=== PATIENT | female | born 1985 | race Hispanic/Latino ===

== ENCOUNTER 2023-01-02 14:16 | Emergency (ER) | payer OTHER ==
--- OUTSIDE RECORDS SUMMARY | 2023-01-02 14:37 | XMS REPORT | Continuity of Care Document ---
:1985 Author Organization [facility] t Address [address] [place] [address] Care Team Providers Name Role Phone JARED JOELLE Ospina Primary Care Physician Unavailable JAMEY TRIVEDI Attending Clinician Unavailable VLADIMIR LOPEZ Attending Clinician Unavailable Doctor Unassigned, [place] Attending Clinician Unavailable Sallie Pickett PA-C Attending Clinician Terri De Leon Attending Clinician Elizabeth PhD, Mireya Ospina Attending Clinician SALLIE PICKETT Attending Clinician Unavailable CESAR LERNER Attending Clinician Unavailable CESAR LERNER Attending Clinician Unavailable Cesar Lerner MD Attending Clinician EMMANUELLE MEAD Attending Clinician Unavailable RADIOLOGY Attending Clinician Unavailable Radiology Attending Clinician Unavailable Navi White Attending Clinician NAVI OAKES Attending Clinician Unavailable Paco Nance DO Attending Clinician LINDSAY MCALLISTER Attending Clinician Unavailable Lindsay Mcallister PA-C Attending Clinician HUBER MERCER Attending Clinician Unavailable Mckayla Ware MD Attending Clinician MCKAYLA WARE Attending Clinician Unavailable YANN, CESAR GENE Admitting Clinician Unavailable TAO CINTRON Admitting Clinician Unavailable NAVI OAKES Admitting Clinician Unavailable Payers Payer Name Policy Type Policy Number Effective Date Expiration Date Heath LEAVITT [id number] 2018 HEALTH 00:00:00 Problems Condition Condition Condition Status Onset Resolution Last Treating Co mments Source Name Details Category Date Date Treatment Clinician Date Presence Presence Disease Active Unive rs of of 52 of of 52 3-20 ity of mg mg 00:00: [place] levonorges levonorges 00 Me dical trel-relea trel-relea Br anch sing sing intrauteri intrauteri ne device ne device (IUD) (IUD) Obesity Obesity Disease Active Univers (BMI (BMI 8-24 ity of 30.0-34.9) 30.0-34.9[place] [facility] History of History of Disease Active U nivers tubal tubal 8-24 ity of ligation ligation 00:00: [place] [id number] Medical Branch Elevated Elevated Disease Active Unive rs blood blood 8-24 ity of pressure pressure 00:00: [place] reading reading 00 Medical without without Branch diagnosis diagnosis of of hypertensi hypertensi on on ASCUS of ASCUS of Disease Active Overview: Un quentin cervix cervix 8-24 Formatt[place] ity of with with 00:00: g of this [place] negative negative 00 note Medica l high risk high risk might be Br anch HPV HPV different from the original. Routine screening in 3 yrs Allergies, Adverse Reactions, Alerts Allergy Allergy Status Severity Reaction(s) Onset Inactive Treating Comm ents Source Name Type Date Date Clinician NO KNOWN Drug Active Univers ALLERGIE Class ity of S [facility] Social History Social Habit Start Date Stop Date Quantity Comments Source Exposure to 2022-05-13 2022-05-23 Not sure [facility] SARS-CoV-2 (event) 00:00:00 08:53:00 Medica l Branch Alcohol intake 2022-05-23 2022-05-23 0 [facility]d [facility] 00:[facility]:00 00:00:00 Medical Branch Sex Ass[birth year] At [birth year] [facility] [place] [facility] Medical Branch Smoking Status Start Date Stop Date Source Never smoked tobacco [facility] Medications Ordered Filled Start Stop Current Ordering Indication Dosage Frequency Signature Comments Components Source Medication Medication Date Date Medication? Clinician (SIG) Name Name HYDROCHLORO 2021-0 No T TAB 25MG 05-08 00:00: 00 HYDROCHLORO 2021-0 No T TAB 25MG 05-08 00:00: 00 Dose 2-0 No Unknown 05-08 00:00: 00 HYDROCHLORO 2021-0 No T TAB 25MG 05-08 00:00: 00 losartan 25 2021-0 Yes 25mg Take 25 mg Univers mg tablet 8-24 by mouth ity of 00:00: in the [place] 00 morning. Medical Branch hydroCHLORO 2021-0 Yes 25mg Take 25 mg Univers thiazide 25 8-24 by mouth ity of mg tablet 00:00: in the [place] 00 morning. Medical Branch losartan 25 2021-0 Yes 25mg Take 25 mg Univers mg tablet 8-24 by mouth ity of 00:00: in the [place] 00 morning. Medical Branch hydroCHLORO 2021-0 Yes 25mg Take 25 mg Univers thiazide 25 8-24 by mouth ity of mg tablet 00:00: in the [place] 00 morning. Medical Branch losartan 25 2021-0 Yes 25mg Take 25 mg Univers mg tablet 8-24 by mouth ity of 00:00: in the [place] 00 morning. Medical Branch hydroCHLORO 2-0 Yes 25mg Take 25 mg Univers thiazide 25 8-24 by mouth ity of mg tablet 00:00: in the [place] 00 morning. Medical Branch losartan 25 2021-0 Yes 25mg Take 25 mg Univers mg tablet 8-24 by mouth ity of 00:00: in the [place] 00 morning. Medical Branch hydroCHLORO 2-0 Yes 25mg Take 25 mg Univers thiazide 25 8-24 by mouth ity of mg tablet 00:00: in the [place] 00 morning. Medical Branch &lt 2-0 No 10 8-16 00:00: 00 Dose 2022-0 No 25 Unknown 8-16 00:00: 00 &lt 2022-0 No 10 8-16 00:00: 00 Dose 2022-0 No 25 Unknown 8-16 00:00: 00 &lt 2022-0 No 10 8-16 00:00: 00 Dose 2022-0 No 25 Unknown 8-16 00:00: 00 &lt 2022-0 No 10 8-16 00:00: 00 Dose 2022-0 No 25 Unknown 8-16 00:00: 00 &lt 2022-0 No 7-17 00:00: 00 &lt 2022-0 No 7-17 00:00: 00 &lt 2022-0 No 7-17 00:00: 00 &lt 2022-0 No 7-17 00:00: 00 &lt 2022-0 No 7-17 00:00: 00 &lt 2022-0 No 7-15 00:00: 00 TAKE 1 2022-0 No TABLET BY 7-15 MOUTH EVERY 00:00: 4 (FOUR) 00 HOURS NEEDED FOR PAIN (SCALE 7-10). INDICATIONS : ACUTE PAIN &lt 2022-0 No 25 7-15 00:00: 00 &lt 2022-0 No 7-15 00:00: 00 TAKE 1 2022-0 No TABLET BY 7-15 MOUTH EVERY 00:00: 4 (FOUR) 00 HOURS NEEDED FOR PAIN (SCALE 7-10). INDICATIONS : ACUTE PAIN SWISH AND 2022-0 No SPIT OUT 15 7-15 ML 2 (TWO) 00:00: TIMES 00 DAILY. Dose 2022-0 No Unknown 7-15 00:00: 00 &lt 2022-0 No 7-15 00:00: 00 TAKE 1 2022-0 No TABLET BY 7-15 MOUTH EVERY 00:00: 4 (FOUR) 00 HOURS NEEDED FOR PAIN (SCALE 7-10). INDICATIONS : ACUTE PAIN &lt 2022-0 No 25 7-15 00:00: 00 &lt 2022-0 No 7-15 00:00: 00 TAKE 1 2022-0 No TABLET BY 7-15 MOUTH EVERY 00:00: 4 (FOUR) 00 HOURS NEEDED FOR PAIN (SCALE 7-10). INDICATIONS : ACUTE PAIN SWISH AND 2022-0 No SPIT OUT 15 7-15 ML 2 (TWO) 00:00: TIMES 00 DAILY. Dose 2022-0 No Unknown 7-15 00:00: 00 &lt 2022-0 No 7-15 00:00: 00 TAKE 1 2022-0 No TABLET BY 7-15 MOUTH EVERY 00:00: 4 (FOUR) 00 HOURS NEEDED FOR PAIN (SCALE 7-10). INDICATIONS : ACUTE PAIN &lt 2022-0 No 25 7-15 00:00: 00 &lt 2022-0 No 7-15 00:00: 00 TAKE 1 2022-0 No TABLET BY 7-15 MOUTH EVERY 00:00: 4 (FOUR) 00 HOURS NEEDED FOR PAIN (SCALE 7-10). INDICATIONS : ACUTE PAIN SWISH AND 2022-0 No SPIT OUT 15 7-15 ML 2 (TWO) 00:00: TIMES 00 DAILY. Dose 2022-0 No Unknown 7-15 00:00: 00 &lt 2022-0 No 7-15 00:00: 00 TAKE 1 2022-0 No TABLET BY 7-15 MOUTH EVERY 00:00: 4 (FOUR) 00 HOURS NEEDED FOR PAIN (SCALE 7-10). INDICATIONS : ACUTE PAIN &lt 2022-0 No 25 7-15 00:00: 00 &lt 2022-0 No 7-15 00:00: 00 TAKE 1 2022-0 No TABLET BY 7-15 MOUTH EVERY 00:00: 4 (FOUR) 00 HOURS NEEDED FOR PAIN (SCALE 7-10). INDICATIONS : ACUTE PAIN SWISH AND 2022-0 No SPIT OUT 15 7-15 ML 2 (TWO) 00:00: TIMES 00 DAILY. Dose 2022-0 No Unknown 7-15 00:00: 00 &lt 2022-0 No 7-15 00:00: 00 TAKE 1 2022-0 No TABLET BY 7-15 MOUTH EVERY 00:00: 4 (FOUR) 00 HOURS NEEDED FOR PAIN (SCALE 7-10). INDICATIONS : ACUTE PAIN &lt 2022-0 No 25 7-15 00:00: 00 &lt 2022-0 No 7-15 00:00: 00 TAKE 1 2022-0 No TABLET BY 7-15 MOUTH EVERY 00:00: 4 (FOUR) 00 HOURS NEEDED FOR PAIN (SCALE 7-10). INDICATIONS : ACUTE PAIN SWISH AND 2022-0 No SPIT OUT 15 7-15 ML 2 (TWO) 00:00: TIMES 00 DAILY. Dose 2022-0 No Unknown 7-15 00:00: 00 &lt 2022-0 No 10 7-14 00:00: 00 TAKE 1 2022-0 No 10 TABLET BY 7-14 MOUTH EVERY 00:00: DAY 00 TAKE 1 2022-0 No TABLET BY 7-14 MOUTH EVERY 00:00: 4 (FOUR) 00 HOURS NEEDED FOR PAIN (SCALE 7-10). INDICATIONS : ACUTE PAIN &lt 2022-0 No 25 7-14 00:00: 00 &lt 2022-0 No 500 7-14 00:00: 00 &lt 2022-0 No 10 7-14 00:00: 00 TAKE 1 2022-0 No 10 TABLET BY 7-14 MOUTH EVERY 00:00: DAY 00 TAKE 1 2022-0 No TABLET BY 7-14 MOUTH EVERY 00:00: 4 (FOUR) 00 HOURS NEEDED FOR PAIN (SCALE 7-10). INDICATIONS : ACUTE PAIN &lt 2022-0 No 25 7-14 00:00: 00 &lt 2022-0 No 500 7-14 00:00: 00 &lt 2022-0 No 10 7-14 00:00: 00 TAKE 1 2022-0 No 10 TABLET BY 7-14 MOUTH EVERY 00:00: DAY 00 TAKE 1 2022-0 No TABLET BY 7-14 MOUTH EVERY 00:00: 4 (FOUR) 00 HOURS NEEDED FOR PAIN (SCALE 7-10). INDICATIONS : ACUTE PAIN &lt 2022-0 No 25 7-14 00:00: 00 &lt 2022-0 No 500 7-14 00:00: 00 &lt 2022-0 No 10 7-14 00:00: 00 TAKE 1 2022-0 No 10 TABLET BY 7-14 MOUTH EVERY 00:00: DAY 00 TAKE 1 2022-0 No TABLET BY 7-14 MOUTH EVERY 00:00: 4 (FOUR) 00 HOURS NEEDED FOR PAIN (SCALE 7-10). INDICATIONS : ACUTE PAIN &lt 2022-0 No 25 7-14 00:00: 00 &lt 2022-0 No 500 7-14 00:00: 00 &lt 2022-0 No 10 7-14 00:00: 00 TAKE 1 2022-0 No 10 TABLET BY 7-14 MOUTH EVERY 00:00: DAY 00 TAKE 1 2022-0 No TABLET BY 7-14 MOUTH EVERY 00:00: 4 (FOUR) 00 HOURS NEEDED FOR PAIN (SCALE 7-10). INDICATIONS : ACUTE PAIN &lt 2022-0 No 25 7-14 00:00: 00 &lt 2022-0 No 500 7-14 00:00: 00 &lt 2022-0 No 25 7-08 00:00: 00 &lt 2022-0 No 25 7-08 00:00: 00 &lt 2022-0 No 25 7 00:00: 00 &lt 2022-0 No 25 7 00:00: 00 &lt 2022-0 No 25 7 00:00: 00 TAKE 1 2-0 No TABLET BY 6-28 MOUTH EVERY 00:00: 4 (FOUR) 00 HOURS NEEDED FOR PAIN (SCALE 7-10). INDICATIONS : ACUTE PAIN TAKE 1 2-0 No TABLET BY 6-28 MOUTH EVERY 00:00: 4 (FOUR) 00 HOURS NEEDED FOR PAIN (SCALE 7-10). INDICATIONS : ACUTE PAIN TAKE 1 2022-0 No TABLET BY 6-28 MOUTH EVERY 00:00: 4 (FOUR) 00 HOURS NEEDED FOR PAIN (SCALE 7-10). INDICATIONS : ACUTE PAIN TAKE 1 2022-0 No TABLET BY 6-28 MOUTH EVERY 00:00: 4 (FOUR) 00 HOURS NEEDED FOR PAIN (SCALE 7-10). INDICATIONS : ACUTE PAIN TAKE 1 2-0 No TABLET BY 6-28 MOUTH EVERY 00:00: 4 (FOUR) 00 HOURS NEEDED FOR PAIN (SCALE 7-10). INDICATIONS : ACUTE PAIN losartan 25 2022-0 No 1mg mg tablet 5-11 00:00: 00 losartan 25 2022-0 No 1mg mg tablet 5-11 00:00: 00 losartan 25 2022-0 No 1mg mg tablet 5-11 00:00: 00 losartan 25 2022-0 No 1mg mg tablet 5-11 00:00: 00 losartan 25 2022-0 No 1mg mg tablet 5-11 00:00: 00 Dose 2022-0 No Unknown 4-15 00:00: 00 Dose 2022-0 No Unknown 4-15 00:00: 00 Dose 2022-0 No Unknown 4-15 00:00: 00 Dose 2022-0 No Unknown 4-15 00:00: 00 Dose 2022-0 No Unknown 4-15 00:00: 00 Dose 2022-0 No Unknown 3-19 00:00: 00 Dose 2022-0 No Unknown 3-19 00:00: 00 Dose 2022-0 No Unknown 3-19 00:00: 00 Dose 2022-0 No Unknown 3-19 00:00: 00 Dose 2022-0 No Unknown 3-19 00:00: 00 Dose 2022-0 No Unknown 3-19 00:00: 00 Dose 2022-0 No Unknown 3-19 00:00: 00 Dose 2022-0 No Unknown 3-19 00:00: 00 Dose 2022-0 No Unknown 3-19 00:00: 00 Dose 2022-0 No Unknown 3-19 00:00: 00 Dose 2022-0 No Unknown 3-19 00:00: 00 Dose 2022-0 No Unknown 3-19 00:00: 00 Dose 2022-0 No Unknown 3-19 00:00: 00 Dose 2022-0 No Unknown 3-19 00:00: 00 Dose 2022-0 No Unknown 3-19 00:00: 00 Dose 2022-0 No Unknown 3-19 00:00: 00 Dose 2022-0 No Unknown 3-19 00:00: 00 Dose 2022-0 No Unknown 3-19 00:00: 00 Dose 2022-0 No Unknown 3-19 00:00: 00 Dose 2022-0 No Unknown 3-19 00:00: 00 loratadine 2-0 No 1mg 10 mg 3-16 tablet 00:00: 00 losartan 25 2022-0 No 1mg mg tablet 3-16 00:00: 00 hydrochloro 2022-0 No 1mg thiazide 25 3-16 mg tablet 00:00: 00 Dose 2022-0 No Unknown 3-16 00:00: 00 Dose 2022-0 No Unknown 3-16 00:00: 00 Dose 2022-0 No Unknown 3-16 00:00: 00 Dose 2022-0 No Unknown 3-16 00:00: 00 Dose 2022-0 No Unknown 3-16 00:00: 00 Dose 2022-0 No Unknown 3-16 00:00: 00 Dose 2022-0 No Unknown 3-16 00:00: 00 Dose 2022-0 No Unknown 3-16 00:00: 00 Dose 2022-0 No Unknown 3-16 00:00: 00 Dose 2022-0 No Unknown 3-16 00:00: 00 Dose 2022-0 No Unknown 3-16 00:00: 00 Dose 2022-0 No Unknown 3-16 00:00: 00 Dose 2022-0 No Unknown 3-16 00:00: 00 Dose 2022-0 No Unknown 3-16 00:00: 00 Dose 2022-0 No Unknown 3-16 00:00: 00 Dose 2022-0 No Unknown 3-16 00:00: 00 Dose 2022-0 No Unknown 3-16 00:00: 00 Dose 2022-0 No Unknown 3-16 00:00: 00 Dose 2022-0 No Unknown 3-16 00:00: 00 Dose 2022-0 No Unknown 3-16 00:00: 00 Dose 2022-0 No Unknown 3-16 00:00: 00 Dose 2022-0 No Unknown 3-16 00:00: 00 Dose 2022-0 No Unknown 3-16 00:00: 00 Dose 2022-0 No Unknown 3-16 00:00: 00 Dose 2022-0 No Unknown 3-16 00:00: 00 Dose 2022-0 No Unknown 3-16 00:00: 00 Dose 2022-0 No Unknown 3-16 00:00: 00 Dose 2022-0 No Unknown 3-16 00:00: 00 Dose 2022-0 No Unknown 3-16 00:00: 00 Dose 2022-0 No Unknown 3-16 00:00: 00 loratadine 2-0 No 1mg 10 mg 3-16 tablet 00:00: 00 losartan 25 2022-0 No 1mg mg tablet 3-16 00:00: 00 hydrochloro 2022-0 No 1mg thiazide 25 3-16 mg tablet 00:00: 00 Dose 2022-0 No Unknown 3-16 00:00: 00 Dose 2022-0 No Unknown 3-16 00:00: 00 Dose 2022-0 No Unknown 3-16 00:00: 00 Dose 2022-0 No Unknown 3-16 00:00: 00 Dose 2022-0 No Unknown 3-16 00:00: 00 Dose 2022-0 No Unknown 3-16 00:00: 00 Dose 2022-0 No Unknown 3-16 00:00: 00 Dose 2022-0 No Unknown 3-16 00:00: 00 Dose 2022-0 No Unknown 3-16 00:00: 00 Dose 2022-0 No Unknown 3-16 00:00: 00 Dose 2022-0 No Unknown 3-16 00:00: 00 Dose 2022-0 No Unknown 3-16 00:00: 00 Dose 2022-0 No Unknown 3-16 00:00: 00 Dose 2022-0 No Unknown 3-16 00:00: 00 Dose 2022-0 No Unknown 3-16 00:00: 00 Dose 2022-0 No Unknown 3-16 00:00: 00 Dose 2022-0 No Unknown 3-16 00:00: 00 Dose 2022-0 No Unknown 3-16 00:00: 00 Dose 2022-0 No Unknown 3-16 00:00: 00 Dose 2022-0 No Unknown 3-16 00:00: 00 Dose 2022-0 No Unknown 3-16 00:00: 00 Dose 2022-0 No Unknown 3-16 00:00: 00 Dose 2022-0 No Unknown 3-16 00:00: 00 Dose 2022-0 No Unknown 3-16 00:00: 00 Dose 2022-0 No Unknown 3-16 00:00: 00 Dose 2022-0 No Unknown 3-16 00:00: 00 Dose 2022-0 No Unknown 3-16 00:00: 00 Dose 2022-0 No Unknown 3-16 00:00: 00 Dose 2022-0 No Unknown 3-16 00:00: 00 Dose 2022-0 No Unknown 3-16 00:00: 00 loratadine 2022-0 No 1mg 10 mg 3-16 tablet 00:00: 00 losartan 25 2022-0 No 1mg mg tablet 3-16 00:00: 00 hydrochloro 2022-0 No 1mg thiazide 25 3-16 mg tablet 00:00: 00 Dose 2022-0 No Unknown 3-16 00:00: 00 Dose 2022-0 No Unknown 3-16 00:00: 00 Dose 2022-0 No Unknown 3-16 00:00: 00 Dose 2022-0 No Unknown 3-16 00:00: 00 Dose 2022-0 No Unknown 3-16 00:00: 00 Dose 2022-0 No Unknown 3-16 00:00: 00 Dose 2022-0 No Unknown 3-16 00:00: 00 Dose 2022-0 No Unknown 3-16 00:00: 00 Dose 2022-0 No Unknown 3-16 00:00: 00 Dose 2022-0 No Unknown 3-16 00:00: 00 Dose 2022-0 No Unknown 3-16 00:00: 00 Dose 2022-0 No Unknown 3-16 00:00: 00 Dose 2022-0 No Unknown 3-16 00:00: 00 Dose 2022-0 No Unknown 3-16 00:00: 00 Dose 2022-0 No Unknown 3-16 00:00: 00 Dose 2022-0 No Unknown 3-16 00:00: 00 Dose 2022-0 No Unknown 3-16 00:00: 00 Dose 2022-0 No Unknown 3-16 00:00: 00 Dose 2022-0 No Unknown 3-16 00:00: 00 Dose 2022-0 No Unknown 3-16 00:00: 00 loratadine 2022-0 No 1mg 10 mg 3-16 tablet 00:00: 00 losartan 25 2022-0 No 1mg mg tablet 3-16 00:00: 00 hydrochloro 2022-0 No 1mg thiazide 25 3-16 mg tablet 00:00: 00 Dose 2022-0 No Unknown 3-16 00:00: 00 Dose 2022-0 No Unknown 3-16 00:00: 00 Dose 2022-0 No Unknown 3-16 00:00: 00 Dose 2022-0 No Unknown 3-16 00:00: 00 Dose 2022-0 No Unknown 3-16 00:00: 00 Dose 2022-0 No Unknown 3-16 00:00: 00 Dose 2022-0 No Unknown 3-16 00:00: 00 Dose 2022-0 No Unknown 3-16 00:00: 00 Dose 2022-0 No Unknown 3-16 00:00: 00 Dose 2022-0 No Unknown 3-16 00:00: 00 Dose 2022-0 No Unknown 3-16 00:00: 00 Dose 2022-0 No Unknown 3-16 00:00: 00 Dose 2022-0 No Unknown 3-16 00:00: 00 Dose 2022-0 No Unknown 3-16 00:00: 00 Dose 2022-0 No Unknown 3-16 00:00: 00 Dose 2022-0 No Unknown 3-16 00:00: 00 Dose 2022-0 No Unknown 3-16 00:00: 00 Dose 2022-0 No Unknown 3-16 00:00: 00 Dose 2022-0 No Unknown 3-16 00:00: 00 Dose 2022-0 No Unknown 3-16 00:00: 00 Dose 2022-0 No Unknown 3-16 00:00: 00 Dose 2022-0 No Unknown 3-16 00:00: 00 Dose 2022-0 No Unknown 3-16 00:00: 00 Dose 2022-0 No Unknown 3-16 00:00: 00 Dose 2022-0 No Unknown 3-16 00:00: 00 Dose 2022-0 No Unknown 3-16 00:00: 00 Dose 2022-0 No Unknown 3-16 00:00: 00 Dose 2022-0 No Unknown 3-16 00:00: 00 Dose 2022-0 No Unknown 3-16 00:00: 00 Dose 2022-0 No Unknown 3-16 00:00: 00 Dose 2022-0 No Unknown 3-16 00:00: 00 Dose 2022-0 No Unknown 3-16 00:00: 00 Dose 2022-0 No Unknown 3-16 00:00: 00 Dose 2022-0 No Unknown 3-16 00:00: 00 Dose 2022-0 No Unknown 3-16 00:00: 00 Dose 2022-0 No Unknown 3-16 00:00: 00 Dose 2022-0 No Unknown 3-16 00:00: 00 Dose 2022-0 No Unknown 3-16 00:00: 00 Dose 2022-0 No Unknown 3-16 00:00: 00 Dose 2022-0 No Unknown 3-16 00:00: 00 loratadine 2-0 No 1mg 10 mg 3-16 tablet 00:00: 00 losartan 25 2-0 No 1mg mg tablet 3-16 00:00: 00 hydrochloro 2022-0 No 1mg thiazide 25 3-16 mg tablet 00:00: 00 Dose 2022-0 No Unknown 3-16 00:00: 00 Dose 2022-0 No Unknown 3-16 00:00: 00 Dose 2022-0 No Unknown 3-16 00:00: 00 Dose 2022-0 No Unknown 3-16 00:00: 00 Dose 2022-0 No Unknown 3-16 00:00: 00 Dose 2022-0 No Unknown 3-16 00:00: 00 Dose 2022-0 No Unknown 3-16 00:00: 00 Dose 2022-0 No Unknown 3-16 00:00: 00 Dose 2022-0 No Unknown 3-16 00:00: 00 Dose 2022-0 No Unknown 3-16 00:00: 00 Dose 2022-0 No Unknown 3-16 00:00: 00 Dose 2022-0 No Unknown 3-16 00:00: 00 Dose 2022-0 No Unknown 3-16 00:00: 00 Dose 2022-0 No Unknown 3-16 00:00: 00 Dose 2022-0 No Unknown 3-16 00:00: 00 Dose 2022-0 No Unknown 3-16 00:00: 00 Dose 2022-0 No Unknown 3-16 00:00: 00 Dose 2022-0 No Unknown 3-16 00:00: 00 Dose 2022-0 No Unknown 3-16 00:00: 00 Dose 2022-0 No Unknown 3-16 00:00: 00 Dose 2022-0 No Unknown 3-16 00:00: 00 Dose 2022-0 No Unknown 3-16 00:00: 00 Dose 2022-0 No Unknown 3-16 00:00: 00 Dose 2022-0 No Unknown 3-16 00:00: 00 Dose 2022-0 No Unknown 3-16 00:00: 00 Dose 2022-0 No Unknown 3-16 00:00: 00 Dose 2022-0 No Unknown 3-16 00:00: 00 Dose 2022-0 No Unknown 3-16 00:00: 00 Dose 2022-0 No Unknown 3-16 00:00: 00 Dose 2022-0 No Unknown 3-16 00:00: 00 lisinopril 1-1 No 1mg 20 1-03 mg-hydrochl 00:00: orothiazide 00 25 mg tablet lisinopril 1-1 No 1mg 20 1-03 mg-hydrochl 00:00: orothiazide 00 25 mg tablet lisinopril 1-1 No 1mg 20 1-03 mg-hydrochl 00:00: orothiazide 00 25 mg tablet lisinopril 1-1 No 1mg 20 1-03 mg-hydrochl 00:00: orothiazide 00 25 mg tablet lisinopril 1-1 No 1mg 20 1-03 mg-hydrochl 00:00: orothiazide 00 25 mg tablet lisinopril 1-1 No 1mg 10 0-26 mg-hydrochl 00:00: orothiazide 00 12.5 mg tablet ergocalcife 2020-1 No 1(50,00 rol 0-26 0 unit) (vitamin 00:00: D2) 1,250 00 mcg (50,000 unit) capsule lisinopril 2020-1 No 1mg 10 0-26 mg-hydrochl 00:00: orothiazide 00 12.5 mg tablet ergocalcife 2020-1 No 1(50,00 rol 0-26 0 unit) (vitamin 00:00: D2) 1,250 00 mcg (50,000 unit) capsule lisinopril 2020-1 No 1mg 10 0-26 mg-hydrochl 00:00: orothiazide 00 12.5 mg tablet ergocalcife 2020-1 No 1(50,00 rol 0-26 0 unit) (vitamin 00:00: D2) 1,250 00 mcg (50,000 unit) capsule lisinopril 2020-08 No 1mg 10 0-26 mg-hydrochl 00:00: orothiazide 00 12.5 mg tablet ergocalcife 2020-1 No 1(50,00 rol 0-26 0 unit) (vitamin 00:00: D2) 1,250 00 mcg (50,000 unit) capsule lisinopril 2020-08 No 1mg 10 0-26 mg-hydrochl 00:00: orothiazide 00 12.5 mg tablet ergocalcife 2020-1 No 1(50,00 rol 0-26 0 unit) (vitamin 00:00: D2) 1,250 00 mcg (50,000 unit) capsule fluticasone 0 No 2mcg/ac propionate 9-20 tuation 50 00:00: mcg/actuati 00 on nasal spray,suspe nsion fluticasone 0 No 2mcg/ac propionate 9-20 tuation 50 00:00: mcg/actuati 00 on nasal spray,suspe nsion fluticasone 2020-0 No 2mcg/ac propionate 9-20 tuation 50 00:00: mcg/actuati 00 on nasal spray,suspe nsion fluticasone 2020-0 No 2mcg/ac propionate 9-20 tuation 50 00:00: mcg/actuati 00 on nasal spray,suspe nsion fluticasone 0 No 2mcg/ac propionate 9-20 tuation 50 00:00: mcg/actuati 00 on nasal spray,suspe nsion Generlac 10 0 No 30gram/ gram/15 mL 9-13 15 mL oral 00:00: solution 00 Generlac 10 1-0 No 30gram/ gram/15 mL 9-13 15 mL oral 00:00: solution 00 Generlac 10 1-0 No 30gram/ gram/15 mL 9-13 15 mL oral 00:00: solution 00 Generlac 10 1-0 No 30gram/ gram/15 mL 9-13 15 mL oral 00:00: solution 00 Generlac 10 2020-0 No 30gram/ gram/15 mL 9-13 15 mL oral 00:00: solution 00 chlorhexidi 2020-0 Yes [id number] 15mL Swish and Univers ne 0.12 % 9-08 spit out ity of mouthwash 00:00: 15 mL 2 [place] 00 (two) Medical times Branch daily. acetaminoph 0 Yes [id number] 1{tbl} Take 1 Un quentin en-codeine 9-08 tablet by ity of 300-30 mg 00:00: mouth [place] tablet 00 every 4 Medical (four) Branch hours as needed for Pain (scale 7-10). Indication s: acute pain chlorhexidi Yes [id number] 15mL Swish and Univers ne 0.12 % 9-08 spit out ity of mouthwash 00:00: 15 mL 2 [place] 00 (two) Medical times Branch daily. acetaminoph 0 Yes [id number] 1{tbl} Take 1 Un quentin en-codeine 9-08 tablet by ity of 300-30 mg 00:00: mouth [place] tablet 00 every 4 Medical (four) Branch hours as needed for Pain (scale 7-10). Indication s: acute pain chlorhexidi 0 Yes [id number] 15mL Swish and Univers ne 0.12 % 9-08 spit out ity of mouthwash 00:00: 15 mL 2 [place] 00 (two) Medical times Branch daily. acetaminoph 2020-0 Yes [id number] 1{tbl} Take 1 Un quentin en-codeine 9-08 tablet by ity of 300-30 mg 00:00: mouth [place] tablet 00 every 4 Medical (four) Branch hours as needed for Pain (scale 7-10). Indication s: acute pain chlorhexidi 2020-0 Yes [id number] 15mL Swish and Univers ne 0.12 % 9-08 spit out ity of mouthwash 00:00: 15 mL 2 [place] 00 (two) Medical times Branch daily. acetaminoph 2020-0 Yes [id number] 1{tbl} Take 1 Un quentin en-codeine 9-08 tablet by ity of 300-30 mg 00:00: mouth [place] tablet 00 every 4 Medical (four) Branch hours as needed for Pain (scale 7-10). Indication s: acute pain chlorhexidi 2020-0 Yes [id number] 15mL Swish and Univers ne 0.12 % 9-08 spit out ity of mouthwash 00:00: 15 mL 2 [place] 00 (two) Medical times Branch daily. acetaminoph 2020-0 Yes [id number] 1{tbl} Take 1 Un quentin en-codeine 9-08 tablet by ity of 300-30 mg 00:00: mouth [place] tablet 00 every 4 Medical (four) Branch hours as needed for Pain (scale 7-10). Indication s: acute pain chlorhexidi 2020-0 Yes [id number] 15mL [facility] ne 0.12 % 9-08 spit out ity of mouthwash 00:00: 15 mL 2 [place] 00 (two) Medical times Branch daily. acetaminoph 2020-0 Yes [id number] 1{tbl} Take 1 Un quentin en-codeine 9-08 tablet by ity of 300-30 mg 00:00: mouth [place] tablet 00 every 4 Medical (four) Branch hours as needed for Pain (scale 7-10). Indication s: acute pain Claritin 10 0 No 1mg mg tablet 04-10 00:00: 00 fluticasone 1-0 No 2mcg/ac propionate 04-10 tuation 50 00:00: mcg/actuati 00 on nasal spray,suspe nsion Claritin 10 2020-0 No 1mg mg tablet 04-10 00:00: 00 fluticasone 2020-0 No 2mcg/ac propionate 04-10 tuation 50 00:00: mcg/actuati 00 on nasal spray,suspe nsion Claritin 10 2020-0 No 1mg mg tablet 04-10 00:00: 00 fluticasone 2020-0 No 2mcg/ac propionate 04-10 tuation 50 00:00: mcg/actuati 00 on nasal spray,suspe nsion Claritin 10 2020-0 No 1mg mg tablet 04-10 00:00: 00 fluticasone 2020-0 No 2mcg/ac propionate 04-10 tuation 50 00:00: mcg/actuati 00 on nasal spray,suspe nsion Claritin 10 2020-0 No 1mg mg tablet 04-10 00:00: 00 fluticasone 2020-0 No 2mcg/ac propionate 04-10 tuation 50 00:00: mcg/actuati 00 on nasal spray,suspe nsion Generlac 10 2020-0 No 30gram/ gram/15 mL 7-18 15 mL oral 00:00: solution 00 Generlac 10 2020-0 No 30gram/ gram/15 mL 7-18 15 mL oral 00:00: solution 00 Generlac 10 2020-0 No 30gram/ gram/15 mL 7-18 15 mL oral 00:00: solution 00 Generlac 10 1-0 No 30gram/ gram/15 mL 7-18 15 mL oral 00:00: solution 00 Generlac 10 1-0 No 30gram/ gram/15 mL 7-18 15 mL oral 00:00: solution 00 loratadine 1-0 No 1mg 10 mg 7-02 tablet 00:00: 00 Generlac 10 1-0 No 30gram/ gram/15 mL 7-02 15 mL oral 00:00: solution 00 loratadine 1-0 No 1mg 10 mg 7-02 tablet 00:00: 00 Generlac 10 1-0 No 30gram/ gram/15 mL 7-02 15 mL oral 00:00: solution 00 loratadine 1-0 No 1mg 10 mg 7-02 tablet 00:00: 00 Generlac 10 1-0 No 30gram/ gram/15 mL 7-02 15 mL oral 00:00: solution 00 loratadine 1-0 No 1mg 10 mg 7-02 tablet 00:00: 00 Generlac 10 1-0 No 30gram/ gram/15 mL 7-02 15 mL oral 00:00: solution 00 loratadine 1-0 No 1mg 10 mg 7-02 tablet 00:00: 00 Generlac 10 2021-0 No 30gram/ gram/15 mL 7-02 15 mL oral 00:00: solution 00 lisinopril 2021-0 No 1mg 10 3-12 mg-hydrochl 00:00: orothiazide 00 12.5 mg tablet lisinopril 2021-0 No 1mg 10 3-12 mg-hydrochl 00:00: orothiazide 00 12.5 mg tablet lisinopril 2021-0 No 1mg 10 3-12 mg-hydrochl 00:00: orothiazide 00 12.5 mg tablet lisinopril 2021-0 No 1mg 10 3-12 mg-hydrochl 00:00: orothiazide 00 12.5 mg tablet lisinopril 1-0 No 1mg 10 3-12 mg-hydrochl 00:00: orothiazide 00 12.5 mg tablet lisinopril 2021-0 No 1mg 10 2-12 mg-hydrochl 00:00: orothiazide 00 12.5 mg tablet lisinopril 2021-0 No 1mg 10 2-12 mg-hydrochl 00:00: orothiazide 00 12.5 mg tablet lisinopril 1-0 No 1mg 10 2-12 mg-hydrochl 00:00: orothiazide 00 12.5 mg tablet lisinopril 1-0 No 1mg 10 2-12 mg-hydrochl 00:00: orothiazide 00 12.5 mg tablet lisinopril 1-0 No 1mg 10 2-12 mg-hydrochl 00:00: orothiazide 00 12.5 mg tablet levothyroxi 2021-0 No 1mcg ne 25 mcg 1-11 tablet 00:00: 00 levothyroxi 2021-0 No 1mcg ne 25 mcg 1-11 tablet 00:00: 00 levothyroxi 2021-0 No 1mcg ne 25 mcg 1-11 tablet 00:00: 00 levothyroxi 2021-0 No 1mcg ne 25 mcg 1-11 tablet 00:00: 00 levothyroxi 2021-0 No 1mcg ne 25 mcg 1-11 tablet 00:00: 00 levothyroxi 2021-0 No 1mcg ne 25 mcg 1-10 tablet 00:00: 00 levothyroxi 2021-0 No 1mcg ne 25 mcg 1-10 tablet 00:00: 00 levothyroxi 2021-0 No 1mcg ne 25 mcg 1-10 tablet 00:00: 00 levothyroxi 2021-0 No 1mcg ne 25 mcg 1-10 tablet 00:00: 00 levothyroxi 2021-0 No 1mcg ne 25 mcg 1-10 tablet 00:00: 00 gabapentin 2021-0 No 1mg 300 mg 1-07 capsule 00:00: 00 gabapentin 2021-0 No 1mg 300 mg 1-07 capsule 00:00: 00 gabapentin 2021-0 No 1mg 300 mg 1-07 capsule 00:00: 00 gabapentin 2021-0 No 1mg 300 mg 1-07 capsule 00:00: 00 gabapentin 2021-0 No 1mg 300 mg 1-07 capsule 00:00: 00 Zithromax 2020-0 No 1mg 500 mg 8-14 tablet 00:00: 00 Zithromax 2020-0 No 1mg 500 mg 8-14 tablet 00:00: 00 Zithromax 2020-0 No 1mg 500 mg 8-14 tablet 00:00: 00 Zithromax 2020-0 No 1mg 500 mg 8-14 tablet 00:00: 00 Zithromax 2020-0 No 1mg 500 mg 8-14 tablet 00:00: 00 Flagyl 500 2020-0 No 1mg mg tablet 03-21 00:00: 00 Flagyl 500 2020-0 No 1mg mg tablet 03-21 00:00: 00 Flagyl 500 2020-0 No 1mg mg tablet 03-21 00:00: 00 Flagyl 500 2020-0 No 1mg mg tablet 03-21 00:00: 00 Flagyl 500 2020-0 No 1mg mg tablet 03-21 00:00: 00 NUVARING 2020-0 Yes [id number] 1{each} Insert 1 [facility] 0.12-0.015 4-23 Each into ity of mg/24 hr 00:00: vagina [place] vaginal 00 once every Medica l insert month. Branch Insert vaginally and leave in place for 3 consecutiv e weeks, then remove for 1 week. NUVARING 2020-0 Yes [id number] 1{each} Insert 1 [facility] 0.12-0.015 4-23 Each into ity of mg/24 hr 00:00: vagina [place] vaginal 00 once every Medica l insert month. Branch Insert vaginally and leave in place for 3 consecutiv e weeks, then remove for 1 week. NUVARING 2020-0 Yes [id number] 1{each} Insert 1 [facility] 0.12-0.015 4-23 Each into ity of mg/24 hr 00:00: vagina [place] vaginal 00 once every Medica l insert month. Branch Insert vaginally and leave in place for 3 consecutiv e weeks, then remove for 1 week. NUVARING 2020-0 Yes [id number] 1{each} Insert 1 [facility] 0.12-0.015 4-23 Each into ity of mg/24 hr 00:00: vagina [place] vaginal 00 once every Medica l insert month. Branch Insert vaginally and leave in place for 3 consecutiv e weeks, then remove for 1 week. NUVARING 2020-0 Yes [id number] 1{each} Insert 1 [facility] 0.12-0.015 4-23 Each into ity of mg/24 hr 00:00: vagina [place] vaginal 00 once every Medica l insert month. Branch Insert vaginally and leave in place for 3 consecutiv e weeks, then remove for 1 week. NUVARING 2020-0 Yes [id number] 1{each} Insert 1 [facility] 0.12-0.015 4-23 Each into ity of mg/24 hr 00:00: vagina [place] vaginal 00 once every Medica l insert month. Branch Insert vaginally and leave in place for 3 consecutiv e weeks, then remove for 1 week. gentamicin 2020-0 No 1% 0.3 % eye 2-04 drops 00:00: 00 gentamicin 2020-0 No 1% 0.3 % eye 2-04 drops 00:00: 00 gentamicin 2020-0 No 1% 0.3 % eye 2-04 drops 00:00: 00 gentamicin 2020-0 No 1% 0.3 % eye 2-04 drops 00:00: 00 gentamicin 2020-0 No 1% 0.3 % eye 2-04 drops 00:00: 00 phentermine 2020-0 Yes 37.5mg Take 37.5 [facility] 37.5 mg 1-21 mg by ity of capsule 15:53: mouth [place] 28 every Medical morning. [place] phentermine 2020-0 Yes 37.5mg Take 37.5 [facility] 37.5 mg 1-21 mg by ity of capsule 15:53: mouth [place] 28 every Medical morning. [place] phentermine 2020-0 Yes 37.5mg Take 37.5 [facility] 37.5 mg 1-21 mg by ity of capsule 15:53: mouth [place] 28 every Medical morning. Branch phentermine 2020-0 Yes 37.5mg Take 37.5 [facility] 37.5 mg 1-21 mg by ity of capsule 15:53: mouth [place] 28 every Medical morning. Branch phentermine 2020-0 Yes 37.5mg Take 37.5 [facility] 37.5 mg 1-21 mg by ity of capsule 15:53: mouth [place] 28 every Medical morning. Branch phentermine 2020-0 Yes 37.5mg Take 37.5 [facility] 37.5 mg 1-21 mg by ity of capsule 15:53: mouth [place] 28 every Medical morning. [place] lovastatin 2020-0 No 1mg 20 mg 1-15 tablet 00:00: 00 lovastatin 2020-0 No 1mg 20 mg 1-15 tablet 00:00: 00 lovastatin 2020-0 No 1mg 20 mg 1-15 tablet 00:00: 00 lovastatin 2020-0 No 1mg 20 mg 1-15 tablet 00:00: 00 lovastatin 2020-0 No 1mg 20 mg 1-15 tablet 00:00: 00 neomycin-po 2020-0 No 3mg/mL- lymyxin-hyd 1-10 unit/mL rocort 3.5 00:00: -% mg-10,000 00 unit/mL-1 % ear drops,susp neomycin-po 2020-0 No 3mg/mL- lymyxin-hyd 1-10 unit/mL rocort 3.5 00:00: -% mg-10,000 00 unit/mL-1 % ear drops,susp neomycin-po 2020-0 No 3mg/mL- lymyxin-hyd 1-10 unit/mL rocort 3.5 00:00: -% mg-10,000 00 unit/mL-1 % ear drops,susp neomycin-po 2020-0 No 3mg/mL- lymyxin-hyd 1-10 unit/mL rocort 3.5 00:00: -% mg-10,000 00 unit/mL-1 % ear drops,susp neomycin-po 2020-0 No 3mg/mL- lymyxin-hyd 1-10 unit/mL rocort 3.5 00:00: -% mg-10,000 00 unit/mL-1 % ear drops,susp Colace 100 2018-08 No 2mg mg capsule 08-26 00:00: 00 Colace 100 2018-08 No 2mg mg capsule 08-26 00:00: 00 Colace 100 2018-08 No 2mg mg capsule 08-26 00:00: 00 Colace 100 2018-08 No 2mg mg capsule 08-26 00:00: 00 Colace 100 2018-08 No 2mg mg capsule 08-26 00:00: 00 lisinopril- 2018-08 Yes 1{tbl} Take 1 Un quentin hydrochloro 0-31 tablet by ity of thiazide 00:00: mouth [place] 10-12.5 mg 00 daily. Medical per tablet Branch lisinopril- 2018-08 Yes 1{tbl} Take 1 Un quentin hydrochloro 0-31 tablet by ity of thiazide 00:00: mouth [place] 10-12.5 mg 00 daily. Medical per tablet Branch lisinopril- 2018-08 Yes 1{tbl} Take 1 Un quentin hydrochloro 0-31 tablet by ity of thiazide 00:00: mouth [place] 10-12.5 mg 00 daily. Medical per tablet Branch lisinopril- 2018-08 Yes 1{tbl} Take 1 Un quentin hydrochloro 0-31 tablet by ity of thiazide 00:00: mouth [place] 10-12.5 mg 00 daily. Medical per tablet Branch lisinopril- 2018-08 Yes 1{tbl} Take 1 Un quentin hydrochloro 0-31 tablet by ity of thiazide 00:00: mouth [place] 10-12.5 mg 00 daily. Medical per tablet Branch lisinopril- 2018-08 Yes 1{tbl} Take 1 Un quentin hydrochloro 0-31 tablet by ity of thiazide 00:00: mouth [place] 10-12.5 mg 00 daily. Medical per tablet Branch lisinopril 2018-08 No 1mg 10 0-31 mg-hydrochl 00:00: orothiazide 00 12.5 mg tablet lisinopril 2018-08 No 1mg 10 0-31 mg-hydrochl 00:00: orothiazide 00 12.5 mg tablet lisinopril 2018-08 No 1mg 10 0-31 mg-hydrochl 00:00: orothiazide 00 12.5 mg tablet lisinopril 2019-1 No 1mg 10 0-31 mg-hydrochl 00:00: orothiazide 00 12.5 mg tablet lisinopril 2019-1 No 1mg 10 0-31 mg-hydrochl 00:00: orothiazide 00 12.5 mg tablet lisinopril 2019-0 No 1mg 10 7-16 mg-hydrochl 00:00: orothiazide 00 12.5 mg tablet lisinopril 2019-0 No 1mg 10 7-16 mg-hydrochl 00:00: orothiazide 00 12.5 mg tablet lisinopril 2019-0 No 1mg 10 7-16 mg-hydrochl 00:00: orothiazide 00 12.5 mg tablet lisinopril 2019-0 No 1mg 10 7-16 mg-hydrochl 00:00: orothiazide 00 12.5 mg tablet lisinopril 2019-0 No 1mg 10 7-16 mg-hydrochl 00:00: orothiazide 00 12.5 mg tablet mupirocin 2 2019-0 No 1% % topical 6-04 ointment 00:00: 00 mupirocin 2 2019-0 No 1% % topical 6-04 ointment 00:00: 00 mupirocin 2 2019-0 No 1% % topical 6-04 ointment 00:00: 00 mupirocin 2 2019-0 No 1% % topical 6-04 ointment 00:00: 00 mupirocin 2 2019-0 No 1% % topical 6-04 ointment 00:00: 00 metronidazo 2019-0 No 1mg le 500 mg 6-01 tablet 00:00: 00 metronidazo 2019-0 No 1mg le 500 mg 6-01 tablet 00:00: 00 metronidazo 2019-0 No 1mg le 500 mg 6-01 tablet 00:00: 00 metronidazo 2019-0 No 1mg le 500 mg 6-01 tablet 00:00: 00 metronidazo 2019-0 No 1mg le 500 mg 6-01 tablet 00:00: 00 cholecalcif 2019-0 No 1unit allen 4-25 (vitamin 00:00: D3) 50,000 00 unit capsule cholecalcif 2019-0 No 1unit allen 4-25 (vitamin 00:00: D3) 50,000 00 unit capsule cholecalcif 2019-0 No 1unit allen 4-25 (vitamin 00:00: D3) 50,000 00 unit capsule cholecalcif 2019-0 No 1unit allen 4-25 (vitamin 00:00: D3) 50,000 00 unit capsule cholecalcif 2019-0 No 1unit allen 4-25 (vitamin 00:00: D3) 50,000 00 unit capsule neomycin-po 2019-0 No 4mg/mL- lymyxin-hyd 4-21 unit/mL rocort 3.5 00:00: -% mg-10,000 00 unit/mL-1 % ear drops,susp Diflucan 2019-0 No 1mg 150 mg 4-21 tablet 00:00: 00 neomycin-po 2019-0 No 4mg/mL- lymyxin-hyd 4-21 unit/mL rocort 3.5 00:00: -% mg-10,000 00 unit/mL-1 % ear drops,susp Diflucan 2019-0 No 1mg 150 mg 4-21 tablet 00:00: 00 neomycin-po 2019-0 No 4mg/mL- lymyxin-hyd 4-21 unit/mL rocort 3.5 00:00: -% mg-10,000 00 unit/mL-1 % ear drops,susp Diflucan 2019-0 No 1mg 150 mg 4-21 tablet 00:00: 00 neomycin-po 2019-0 No 4mg/mL- lymyxin-hyd 4-21 unit/mL rocort 3.5 00:00: -% mg-10,000 00 unit/mL-1 % ear drops,susp Diflucan 2019-0 No 1mg 150 mg 4-21 tablet 00:00: 00 neomycin-po 2019-0 No 4mg/mL- lymyxin-hyd 4-21 unit/mL rocort 3.5 00:00: -% mg-10,000 00 unit/mL-1 % ear drops,susp Diflucan 2019-0 No 1mg 150 mg 4-21 tablet 00:00: 00 Vitamin D2 2019-0 No 1unit 50,000 unit 3-28 capsule 00:00: 00 Vitamin D2 2019-0 No 1unit 50,000 unit 3-28 capsule 00:00: 00 Vitamin D2 2019-0 No 1unit 50,000 unit 3-28 capsule 00:00: 00 Vitamin D2 2019-0 No 1unit 50,000 unit 3-28 capsule 00:00: 00 Vitamin D2 2019-0 No 1unit 50,000 unit 3-28 capsule 00:00: 00 clindamycin 2019-0 No 1% 2 % vaginal 3-22 cream 00:00: 00 amoxicillin 2019-0 No 1mg 500 mg 3-22 capsule 00:00: 00 clindamycin 2019-0 No 1% 2 % vaginal 3-22 cream 00:00: 00 amoxicillin 2019-0 No 1mg 500 mg 3-22 capsule 00:00: 00 clindamycin 2019-0 No 1% 2 % vaginal 3-22 cream 00:00: 00 amoxicillin 2019-0 No 1mg 500 mg 3-22 capsule 00:00: 00 clindamycin 2019-0 No 1% 2 % vaginal 3-22 cream 00:00: 00 amoxicillin 2019-0 No 1mg 500 mg 3-22 capsule 00:00: 00 clindamycin 2019-0 No 1% 2 % vaginal 3-22 cream 00:00: 00 amoxicillin 2019-0 No 1mg 500 mg 3-22 capsule 00:00: 00 Immunizations Ordered Filled Immunization Date Status Comments [facility] e Immunization Name Name Td 2019-01-13 Completed [facility] 00:00:00 [facility] Td 2019-01-13 Completed [facility] 00:00:00 [facility] Td 2019-01-13 Completed [facility] 00:00:00 [facility] Td 2019-01-13 Completed [facility] 00:00:00 [facility] Td 2019-01-13 Completed [facility] 00:00:00 [facility] TD, NOS 2019-01-13 Completed [facility] 00:00:00 [facility] Vital Signs Vital Name Observation Time Observation Value Comments Source Body temperature 2022-05-23 14:30:00 36.56 [facility] Body height 2022-05-23 14:30:00 172.7 cm [facility] Body weight 2022-05-23 14:30:00 111.403 kg [facility] BMI 2022-05-23 14:30:00 37.34 kg/m2 [facility] Systolic blood 2022-04-17 17:54:00 117 mm[Hg] Univer sity of pressure [facility] Diastolic blood 2022-04-17 17:54:00 81 mm[Hg] Unive rsity of pressure [facility] Heart rate 2022-04-17 17:54:00 72 /min [facility] Body height 2022-04-17 17:54:00 172.7 cm [facility] Body weight 2022-04-17 17:54:00 111.403 kg [facility] BMI 2022-04-17 17:54:00 37.34 kg/m2 [facility] Oxygen saturation in 2022-04-17 17:54:00 99 /min [facility] Arterial blood by [facility] Pulse oximetry Branch BP Systolic 2022-07-24 16:17:00 120 mm[Hg] BP Diastolic 2022-07-24 16:17:00 85 mm[Hg] Weight Measured 2022-07-24 16:17:00 247.00 pounds Height Measured 2022-07-24 16:17:00 67.39 inches Body Temperature 2022-07-24 16:17:00 98.00 degrees Heart Rate 2022-07-24 16:17:00 85.00 /min Respiratory Rate 2022-07-24 16:17:00 BP Systolic 2022-07-18 13:52:00 125 mm[Hg] BP Diastolic 2022-07-18 13:52:00 86 mm[Hg] Weight Measured 2022-07-18 13:52:00 245.60 pounds Height Measured 2022-07-18 13:52:00 67.39 inches Body Temperature 2022-07-18 13:52:00 98.30 degrees Heart Rate 2022-07-18 13:52:00 70.00 /min Respiratory Rate 2022-07-18 13:52:00 BP Systolic 2022-05-16 13:48:00 130 mm[Hg] BP Diastolic 2022-05-16 13:48:00 86 mm[Hg] Weight Measured 2022-05-16 13:48:00 241.80 pounds Height Measured 2022-05-16 13:48:00 67.39 inches Body Temperature 2022-05-16 13:48:00 98.30 degrees Heart Rate 2022-05-16 13:48:00 83.00 /min Respiratory Rate 2022-05-16 13:48:00 18.00 /min BP Systolic 2022-05-14 08:33:00 123 mm[Hg] BP Diastolic 2022-05-14 08:33:00 82 mm[Hg] Weight Measured 2022-05-14 08:33:00 243.00 pounds Height Measured 2022-05-14 08:33:00 67.39 inches Body Temperature 2022-05-14 08:33:00 98.40 degrees Heart Rate 2022-05-14 08:33:00 68.00 /min Respiratory Rate 2022-05-14 08:33:00 20.00 /min BP Systolic 2022-03-01 14:56:00 123 mm[Hg] BP Diastolic 2022-03-01 14:56:00 85 mm[Hg] Weight Measured 2022-03-01 14:56:00 243.40 pounds Height Measured 2022-03-01 14:56:00 67.39 inches Body Temperature 2022-03-01 14:56:00 98.30 degrees Heart Rate 2022-03-01 14:56:00 66.00 /min Respiratory Rate 2022-03-01 14:56:00 BP Systolic 2021-12-05 10:35:00 136 mm[Hg] BP Diastolic 2021-12-05 10:35:00 87 mm[Hg] Weight Measured 2021-12-05 10:35:00 240.80 pounds Height Measured 2021-12-05 10:35:00 67.39 inches Body Temperature 2021-12-05 10:35:00 98.00 degrees Heart Rate 2021-12-05 10:35:00 70.00 /min Respiratory Rate 2021-12-05 10:35:00 BP Systolic 2021-11-01 16:00:00 130 mm[Hg] BP Diastolic 2021-11-01 16:00:00 87 mm[Hg] Weight Measured 2021-11-01 16:00:00 239.80 pounds Height Measured 2021-11-01 16:00:00 67.39 inches Body Temperature 2021-11-01 16:00:00 97.70 degrees Heart Rate 2021-11-01 16:00:00 87.00 /min Respiratory Rate 2021-11-01 16:00:00 BP Systolic 2021-06-13 14:44:00 128 mm[Hg] BP Diastolic 2021-06-13 14:44:00 81 mm[Hg] Weight Measured 2021-06-13 14:44:00 240.20 pounds Height Measured 2021-06-13 14:44:00 67.39 inches Body Temperature 2021-06-13 14:44:00 98.10 degrees Heart Rate 2021-06-13 14:44:00 69.00 /min Respiratory Rate 2021-06-13 14:44:00 17.00 /min BP Systolic 2021-05-01 11:16:00 136 mm[Hg] BP Diastolic 2021-05-01 11:16:00 89 mm[Hg] Weight Measured 2021-05-01 11:16:00 240.20 pounds Height Measured 2021-05-01 11:16:00 67.36 inches Body Temperature 2021-05-01 11:16:00 97.80 degrees Heart Rate 2021-05-01 11:16:00 73.00 /min Respiratory Rate 2021-05-01 11:16:00 BP Systolic 2021-04-28 15:52:00 106 mm[Hg] BP Diastolic 2021-04-28 15:52:00 73 mm[Hg] Weight Measured 2021-04-28 15:52:00 237.80 pounds Height Measured 2021-04-28 15:52:00 67.36 inches Body Temperature 2021-04-28 15:52:00 98.10 degrees Heart Rate 2021-04-28 15:52:00 73.00 /min Respiratory Rate 2021-04-28 15:52:00 BP Systolic 2021-02-17 10:31:00 116 mm[Hg] BP Diastolic 2021-02-17 10:31:00 74 mm[Hg] Weight Measured 2021-02-17 10:31:00 236.40 pounds Height Measured 2021-02-17 10:31:00 67.36 inches Body Temperature 2021-02-17 10:31:00 98.00 degrees Heart Rate 2021-02-17 10:31:00 66.00 /min Respiratory Rate 2021-02-17 10:31:00 16.00 /min BP Systolic 2020-10-28 16:06:00 137 mm[Hg] BP Diastolic 2020-10-28 16:06:00 89 mm[Hg] Weight Measured 2020-10-28 16:06:00 231.20 pounds Height Measured 2020-10-28 16:06:00 68.00 inches Body Temperature 2020-10-28 16:06:00 97.90 degrees Heart Rate 2020-10-28 16:06:00 65.00 /min Respiratory Rate 2020-10-28 16:06:00 16.00 /min BP Systolic 2020-10-21 08:11:00 114 mm[Hg] BP Diastolic 2020-10-21 08:11:00 76 mm[Hg] Weight Measured 2020-10-21 08:11:00 231.00 pounds Height Measured 2020-10-21 08:11:00 68.00 inches Body Temperature 2020-10-21 08:11:00 97.50 degrees Heart Rate 2020-10-21 08:11:00 59.00 /min Respiratory Rate 2020-10-21 08:11:00 17.00 /min BP Systolic 2020-09-30 13:44:00 145 mm[Hg] BP Diastolic 2020-09-30 13:44:00 96 mm[Hg] Weight Measured 2020-09-30 13:44:00 231.00 pounds Height Measured 2020-09-30 13:44:00 68.00 inches Body Temperature 2020-09-30 13:44:00 97.10 degrees Heart Rate 2020-09-30 13:44:00 64.00 /min Respiratory Rate 2020-09-30 13:44:00 17.00 /min Procedures Procedure Date / Time Performed Performing Clinician [facility] e REFERRAL- 2022-12-15 05:01:00 Doctor Unassigned, No [facility] REQUEST/RESPONSE Name Medical Branch MR ANGIOGRAM HEAD WO 2022-05-01 15:49:27 Cesar Lerner [facility] Medical Branch Plan of Care Planned Activity Planned Date Details Comments Source Goal Plan of Care Note [code = 48049-3] Goal Plan of Care Note [code = 05865-7] Goal Plan of Care Note [code = 11840-2] Goal Plan of Care Note [code = 02118-1] Goal Plan of Care Note [code = 68187-9] Goal Plan of Care Note [code = 03184-9] Goal Plan of Care Note [code = 16961-9] Goal Plan of Care Note [code = 85282-5] Goal Plan of Care Note [code = 16106-4] Goal Plan of Care Note [code = 93761-8] Goal Plan of Care Note [code = 89410-2] Goal Plan of Care Note [code = 02412-1] Goal Plan of Care Note [code = 08056-2] Goal Plan of Care Note [code = 19020-1] Goal Plan of Care Note [code = 67480-9] Goal Plan of Care Note [code = 67659-2] Goal Plan of Care Note [code = 74558-2] Goal Plan of Care Note [code = 48469-6] Goal Plan of Care Note [code = 20792-9] Goal Plan of Care Note [code = 35212-4] Goal Plan of Care Note [code = 18704-2] Goal Plan of Care Note [code = 47659-2] Goal Plan of Care Note [code = 38662-8] Goal Plan of Care Note [code = 25998-3] Goal Plan of Care Note [code = 88588-5] Goal Plan of Care Note [code = 39475-9] Goal Plan of Care Note [code = 80610-1] Goal Plan of Care Note [code = 25446-5] Goal Plan of Care Note [code = 08990-5] Goal Plan of Care Note [code = 48756-8] Goal Plan of Care Note [code = 07192-4] Goal Plan of Care Note [code = 44616-1] Goal Plan of Care Note [code = 80886-3] Goal Plan of Care Note [code = 97366-5] Goal Plan of Care Note [code = 49117-5] Goal Plan of Care Note [code = 13007-7] Goal Plan of Care Note [code = 32227-6] Goal Plan of Care Note [code = 74617-2] Goal Plan of Care Note [code = 56781-9] Goal Plan of Care Note [code = 30876-1] Goal Plan of Care Note [code = 68244-5] Goal Plan of Care Note [code = 43887-5] Goal Plan of Care Note [code = 65450-0] Goal Plan of Care Note [code = 29990-4] Goal Plan of Care Note [code = 38614-5] Goal Plan of Care Note [code = 68402-6] Goal Plan of Care Note [code = 18362-6] Goal Plan of Care Note [code = 25558-0] Goal Plan of Care Note [code = 27035-9] Goal Plan of Care Note [code = 61308-6] Goal Plan of Care Note [code = 73016-1] Goal Plan of Care Note [code = 44195-2] Goal Plan of Care Note [code = 37713-4] Goal Plan of Care Note [code = 66498-3] Goal Plan of Care Note [code = 27557-9] Goal Plan of Care Note [code = 63205-2] Goal Plan of Care Note [code = 97414-1] Goal Plan of Care Note [code = 16371-6] Goal Plan of Care Note [code = 16476-2] Goal Plan of Care Note [code = 37318-5] Goal Plan of Care Note [code = 98300-8] Goal Plan of Care Note [code = 49690-0] Goal Plan of Care Note [code = 14916-5] Goal Plan of Care Note [code = 87466-2] Goal Plan of Care Note [code = 05396-5] Goal Plan of Care Note [code = 47505-3] Goal Plan of Care Note [code = 75566-9] Goal Plan of Care Note [code = 84927-6] Goal Plan of Care Note [code = 53534-8] Goal Plan of Care Note [code = 73114-1] Goal Plan of Care Note [code = 44615-5] Goal Plan of Care Note [code = 97159-3] Goal Plan of Care Note [code = 11005-7] Goal Plan of Care Note [code = 97708-4] Goal Plan of Care Note [code = 90218-6] Goal Plan of Care Note [code = 14231-3] Goal Plan of Care Note [code = 22060-3] Goal Plan of Care Note [code = 60405-1] Goal Plan of Care Note [code = 66842-8] Goal Plan of Care Note [code = 88431-3] Goal Plan of Care Note [code = 29437-9] Goal Plan of Care Note [code = 98019-5] Goal Plan of Care Note [code = 94322-1] Goal Plan of Care Note [code = 81263-5] Goal Plan of Care Note [code = 27775-8] Goal Plan of Care Note [code = 79946-7] Goal Plan of Care Note [code = 96988-9] Goal Plan of Care Note [code = 25790-5] Goal Plan of Care Note [code = 33526-6] Goal Plan of Care Note [code = 49887-3] Goal Plan of Care Note [code = 86274-9] Goal Plan of Care Note [code = 61884-5] Goal Plan of Care Note [code = 38313-0] Goal Plan of Care Note [code = 56407-4] Goal Plan of Care Note [code = 22694-1] Goal Plan of Care Note [code = 73640-5] Goal Plan of Care Note [code = 77138-8] Goal Plan of Care Note [code = 61699-7] Goal Plan of Care Note [code = 01968-7] Goal Plan of Care Note [code = 92940-8] Goal Plan of Care Note [code = 46852-1] Goal Plan of Care Note [code = 52027-7] Goal Plan of Care Note [code = 43660-2] Goal Plan of Care Note [code = 27517-9] Goal Plan of Care Note [code = 13862-6] Goal Plan of Care Note [code = 04389-2] Goal Plan of Care Note [code = 21677-2] Goal Plan of Care Note [code = 60664-6] Goal Plan of Care Note [code = 60025-0] Goal Plan of Care Note [code = 23245-0] Goal Plan of Care Note [code = 63150-0] Goal Plan of Care Note [code = 41712-7] Goal Plan of Care Note [code = 66342-1] Goal Plan of Care Note [code = 21175-8] Goal Plan of Care Note [code = 69088-6] Goal Plan of Care Note [code = 58557-0] Goal Plan of Care Note [code = 63174-7] Goal Plan of Care Note [code = 50275-4] Goal Plan of Care Note [code = 75723-4] Goal Plan of Care Note [code = 50326-7] Goal Plan of Care Note [code = 92948-4] Goal Plan of Care Note [code = 15554-4] Goal Plan of Care Note [code = 61910-5] Goal Plan of Care Note [code = 68997-5] Goal Plan of Care Note [code = 88758-8] Goal Plan of Care Note [code = 40109-4] Goal Plan of Care Note [code = 55220-1] Goal Plan of Care Note [code = 61735-5] Goal Plan of Care Note [code = 01750-9] Goal Plan of Care Note [code = 46256-4] Goal Plan of Care Note [code = 91479-3] Goal Plan of Care Note [code = 93036-1] Goal Plan of Care Note [code = 59727-2] Goal Plan of Care Note [code = 09090-7] Goal Plan of Care Note [code = 62685-2] Goal Plan of Care Note [code = 93854-3] Goal Plan of Care Note [code = 74020-9] Goal Plan of Care Note [code = 10901-0] Goal Plan of Care Note [code = 18592-4] Goal Plan of Care Note [code = 85442-7] Goal Plan of Care Note [code = 20720-5] Goal Plan of Care Note [code = 41459-6] Goal Plan of Care Note [code = 81960-5] Goal Plan of Care Note [code = 76954-2] Goal Plan of Care Note [code = 68844-5] Goal Plan of Care Note [code = 84755-9] Goal Plan of Care Note [code = 67638-8] Goal Plan of Care Note [code = 83884-1] Goal Plan of Care Note [code = 02453-8] Goal Plan of Care Note [code = 15371-3] Goal Plan of Care Note [code = 56338-5] Goal Plan of Care Note [code = 59202-9] Goal Plan of Care Note [code = 25207-3] Goal Plan of Care Note [code = 71621-9] Goal Plan of Care Note [code = 10309-8] Goal Plan of Care Note [code = 74623-6] Goal Plan of Care Note [code = 38626-7] Goal Plan of Care Note [code = 98185-7] Goal Plan of Care Note [code = 94619-7] Goal Plan of Care Note [code = 89343-3] Goal Plan of Care Note [code = 62714-4] Goal Plan of Care Note [code = 99298-3] Goal Plan of Care Note [code = 15256-4] Goal Plan of Care Note [code = 55990-1] Goal Plan of Care Note [code = 78621-2] Goal Plan of Care Note [code = 43333-9] Goal Plan of Care Note [code = 68427-8] Goal Plan of Care Note [code = 27559-9] Goal Plan of Care Note [code = 30225-3] Goal Plan of Care Note [code = 75377-4] Goal Plan of Care Note [code = 36986-5] Goal Plan of Care Note [code = 88796-7] Goal Plan of Care Note [code = 11858-5] Goal Plan of Care Note [code = 18043-5] Goal Plan of Care Note [code = 18842-5] Goal Plan of Care Note [code = 09054-9] Goal Plan of Care Note [code = 50610-0] Goal Plan of Care Note [code = 02441-4] Goal Plan of Care Note [code = 51364-2] Goal Plan of Care Note [code = 86828-5] Goal Plan of Care Note [code = 94321-2] Goal Plan of Care Note [code = 23563-3] Goal Plan of Care Note [code = 55782-6] Goal Plan of Care Note [code = 88965-5] Goal Plan of Care Note [code = 38735-5] Goal Plan of Care Note [code = 56503-1] Goal Plan of Care Note [code = 32620-1] Goal Plan of Care Note [code = 28885-1] Goal Plan of Care Note [code = 16259-4] Goal Plan of Care Note [code = 63784-5] Goal Plan of Care Note [code = 75195-3] Goal Plan of Care Note [code = 98075-0] Goal Plan of Care Note [code = 67450-0] Goal Plan of Care Note [code = 57135-3] Goal Plan of Care Note [code = 64226-0] Goal Plan of Care Note [code = 87440-2] Goal Plan of Care Note [code = 74225-8] Goal Plan of Care Note [code = 79922-7] Goal Plan of Care Note [code = 75777-9] Goal Plan of Care Note [code = 57797-8] Goal Plan of Care Note [code = 00647-5] Goal Plan of Care Note [code = 73999-6] Goal Plan of Care Note [code = 04923-4] Goal Plan of Care Note [code = 57085-1] Goal Plan of Care Note [code = 65468-3] Goal Plan of Care Note [code = 59281-5] Goal Plan of Care Note [code = 46388-0] Goal Plan of Care Note [code = 64877-8] Goal Plan of Care Note [code = 52234-6] Goal Plan of Care Note [code = 76005-9] Goal Plan of Care Note [code = 05701-0] Goal Plan of Care Note [code = 27932-8] Goal Plan of Care Note [code = 73525-3] Goal Plan of Care Note [code = 74616-9] Goal Plan of Care Note [code = 48705-4] Goal Plan of Care Note [code = 08405-3] Encounters Start End Encounter Admission Attending Care Care Encounter Source Date/Time Date/Time Type Type Clinicians Facility Department ID 2021-06-19 Emergency [facility] [id number] Univers 21:04:38 [facility] 2023-01-29 2023-01-29 Outpatient Kenney TRIVEDITHE [facility] [id number] Univers 13:00:00 13:00:00 JAMEY [facility] 2023-01-03 2023-01-03 [facility] [id number] Univers 09:30:00 09:30:00 VLADIMIR [facility] 2022-12-15 2022-12-15 Outpatient MADDIE PERKINS [id number] 023 Murray 12:59:06 12:59:06 0429 F Gabe 2022-12-15 2022-12-15 Orders Doctor ALTMAN 1.2.840.114 [id number] Univers 00:00:00 00:00:00 Only Unassigned, CARMEN 350.1.13.10 ity of [place] [facility] 4.2.7.2.686 Paul as [phone] Medi aris [address] 2022-10-18 2022-10-18 Outpatient SFA SFA [id number] 023 [place] 10:56:51 10:56:51 0302 [place] 2022-09-27 2022-09-27 Outpatient SFA SFA [id number] 023 [place] 08:38:22 08:38:22 0209 [place] 2022-08-07 2022-08-07 Outpatient SFA SFA [id number] 022 [place] 09:29:44 09:29:44 1220 [place] 2022-07-25 2022-07-25 Outpatient SFA SFA [id number] 022 [place] 08:03:31 08:03:31 1207 F [place] 2022-07-24 2022-07-24 Outpatient SFA SFA [id number] 022 [place] 16:08:55 16:08:55 1206 [place] 2022-07-24 2022-07-24 Outpatient [id number]- [id number] 2e 7t4332-4 00:00:00 00:00:00 Visit 6717-47fc 717-47fc-8 -834d-3ca 34d-3cab16 x62r8f5c7 c9b9a5 2022-07-18 2022-07-18 Outpatient SFA SFA 72743-5 022 [place] 13:41:31 13:41:31 1130 [address] [place] 2022-07-18 2022-07-18 Outpatient a0z0f523- [id number] e9 s2u738-8 00:00:00 00:00:00 Visit 602b-4287 02b-4287-9 -2gz7-414 de2-590f56 l54042pg8 351ff5 2022-05-23 2022-05-23 Office Chema, [facility] 1.2.840.114 [id number] 09:30:00 10:00:00 Visit [facility] 350.1.13.10 y of [place] 4.2.7.2.686 [facility] [id number] Medi aris PRIMARY & [address] [facility]TY [facility] 2022-05-23 2022-05-23 Ancillary Terri Crockett [facility] 1.2.840.114 [id number] Univers 09:00:00 09:45:00 Visit Mireya Johnson [facility]13.[facility] 4.2.7.2.686 [facility] [id number] [facility] PRIMARY & [address] SPECIALTY CARE 2022-05-23 2022-05-23 Outpatient Kenney PICKETT [facility] [id number] Univers 09:30:00 09:30:00 SALLIE [facility] 2022-05-16 2022-05-16 Outpatient seu0xx1f- [id number] d2ao9z-0 00:00:00 00:00:00 Visit 4h5p-3y2e e9w-4w8q-p -im89-985 d72-6872oi 2sx29m598 69s988 2022-05-14 2022-05-14 Outpatient [id number]-1 00:00:00 00:00:00 Visit 4m3y-6751 g7j-0205-z -t303-mhv 144-abca96 n69e3b449 i2t022 2022-05-01 2022-05-01 Outpatient CESAR SANTACRUZ [facility] [id number] Univers 09:54:11 23:59:00 CESAR LERNER [facility] 2022-05-01 2022-05-01 [facility] [id number] [facility] 09:54:11 23:59:00 Encounter Cesar GUTIERREZ 350.1.13.10 ity [facility] 4.2.7.2.686 [facility] [id number] [facility] [address] 2022-04-18 2022-04-18 Outpatient Kenney MEAD [facility] [id number] Univers 12:45:00 12:45:00 EMMANUELLE [facility] 2022-04-17 2022-04-17 Outpatient CESAR SANTACRUZ [facility] [id number] Univers 13:00:00 13:51:02 CESAR LERNER [facility] 2022-04-17 2022-04-17 Office [facility] 1.2.840.114 [id number] Univers 13:00:00 13:51:02 Visit Cesar [facility] 350.1.13.10 ity of [place] 4.2.7.2.686 Paul as DANNY?BLEA [id number] Fl alexandru MARC [address] [facility] 2022-04-17 2022-04-17 Outpatient R CESAR LERNER [facility] [id number] Univers 13:00:00 13:51:02 CESAR LERNER itbrian [facility] 2022-04-06 2022-04-06 Outpatient R CESAR LERNER [facility] [id number] Univers 13:20:00 13:20:00 [facility] 2022-04-02 Outpatient R RADIOLOGY [facility] RAD [id number] Univers 15:32:06 23:59:00 ity of [facility] 2022-04-02 2022-04-02 Hospital Radiology [facility] 1.2.840.114 [id number] Univers 15:00:00 23:59:00 Encounter MATT 350.1.13.10 ity of [place] 4.2.7.2.686 [place] [facility] [id number] [facility] [address] 2022-03-02 2022-03-02 Orders Doctor ANUPAMA 1.2.840.114 [id number] Univers 00:00:00 00:00:00 Only Unassigned, CARMEN 350.1.13.10 ity of [place] [facility] 4.2.7.2.686 Paul as [id number] [facility] [address] 2022-03-01 2022-03-01 Outpatient [id number] 00:00:00 00:00:00 Visit 8xw1-3gx0 ce5-4fd5-9 -5f6l-k43 w0i-v38s22 c97w7578d f8975l 2021-12-05 2021-12-05 Orders Doctor ANUPAMA 1.2.840.114 [id number] Univers 00:00:00 00:00:00 Only Unassigned, CARMEN 350.1.13.10 ity of [place] [facility] 4.2.7.2.686 Paul as [id number] [address] 2021-09-15 2021-09-15 Emergency [facility] 1.2.840.114 [id number] Univers 19:14:00 21:31:00 Navi GUTIERREZ 350.1.13.10 i ty of [place] 4.2.7.2.686 [facility] [id number] [address] 2021-09-15 2021-09-15 Emergency X OAKES, [facility] ERT [id number] Univers 19:14:00 21:31:00 NAVI itbrian [facility] 2021-09-15 2021-09-15 Orders Doctor ANUPAMA 1.2.840.114 [id number] Univers 00:00:00 00:00:00 Only Unassigned, CARMEN 350.1.13.10 [facility] 4.2.7.2.686 Paul [id number] [address] 2021-04-26 2021-04-26 Emergency , [facility] [id number] [id number] Univers 08:43:00 08:53:00 Paco Gutierrez 350.1.13.10 i ty of [place] 4.2.7.2.686 [facility] [id number] [address] 2020-10-26 2020-10-26 Outpatient R RADIOLOGY [facility] [id number] Univers 00:00:00 00:00:00 [facility] 2020-03-11 2020-03-11 Outpatient R ARY [facility] [id number] Univers 11:00:00 11:00:00 LINDSAY [facility] 2020-03-10 2020-03-10 Outpatient R ARY [facility] [id number] Univers 11:00:00 11:00:00 LINDSAY [facility] 2019-12-10 2019-12-10 [facility]medici [facility] 1.2.840.114 [id number] 07:57:00 11:30:27 ne Visit Lindsay Gutierrez 350.1.13.10 [place] 4.2.7.2.686 Professio [id number] [address] 2019-12-10 2019-12-10 Outpatient R ARY [facility] [id number] Univers 10:45:00 10:45:00 LINDSAY wills [facility] 2019-12-03 2019-12-03 Outpatient R HUBER MERCER [facility] [id number] [facility] 09:30:00 09:30:00 [facility] 2019-11-20 2019-11-20 Office [facility] 1.2.840.114 [id number] 15:17:01 16:37:15 Visit Mckayla Gutierrez 350.1.13.10 [place] 4.2.7.2.[address] Professio [id number] nal [address] [facility] 2019-11-20 2019-11-20 [facility] [id number] [facility] 15:30:00 15:30:00 MCKAYLA [facility] 2019-11-20 2019-11-20 Orders Doctor ALTMAN 1.2.840.114 [id number] 00:00:00 00:00:00 Only Unassigned, CARMEN 350.1.13.10 [place] [facility] 4.2.7.2.686 [id number] 009 2019-11-06 2019-11-06 Outpatient R CHAZ [facility] [id number] [facility] 14:00:00 14:00:00 MCKAYLA brian [facility] 2019-11-05 2019-11-05 Outpatient HUBER CHASE [facility] [id number] [facility] 15:15:00 15:15:00 [facility] Results Test Description Test Time Test Comments Results Result Comments Source TSH + FREE T4 PROFILE 2022-10-19 05:25:24 Test Item Value Reference Range Interpretation Comme nts TSH, THIRD GENERATION (test 7.440 UIU/ML 0.400-4.100 H code = 2821) FREE T4 (THYROXINE) (test 1.26 NG/DL 0.80-1.90 * [facility] has important code = 2823) pathology staff changes effective 10/17. New pathology staff will provide uninterrupted, excellent patient care an d clinical consultation. S ee URL: [email or web address] . UNLESS OTHERW ISE INDICATED, ALL TESTING PER FORMED AT [employer], [place]. [address] [place], [place] [address] ROLL CLEANER: KARYN ARCOS M.D. MEGHNAJAKE [place] [id number] [place] [id number] HEMOGLOBIN [id number] 07:48:13 Test Item Value Reference Range Interpretation Comments HEMOGLOBIN A1c (test code = 11399) 5.6 % 4.2-5.6 VITAMIN D, 25 [id number] 06:15:08 Test Item Value Reference Range Interpretation Comments VITAMIN D, 25 27 NG/ML SEE BELOW L EFFECTIVE 08/27/2022, [place] (test code PLEASE NOTE NE W METHODOLOGY = 4958) IS ELECTROCH EMILUMINESCENCE BINDING ASSAY. NOTE: 25-HYDROXYVITAM IN D ASSAY INCLUDES 25-HYD ROXYVITAMIN D2 AND D3. INTERPRETIVE RANGES PED IATRIC (<17 YEARS) . . . . . . . . . . . NG/ML 20-100ADU LT: INSUFFICIENT . . . . . . . . . . . . . . NG/ML <20 SUBOP TIMAL . . . . . . . . . . . . . . . NG/ML 20-29 OPTIMAL . . . . . . . . . . . . . . . . . NG/ML 30-100 TSH + FREE T4 [id number] 06:12:15 Test Item Value Reference Range Interpretation Comments TSH, THIRD GENERATION 6.170 UIU/ML 0.400-4.100 H (test code = 2821) FREE T4 (THYROXINE) 0.94 NG/DL 0.80-1.90 [facility] has (test code = 2823) important pathology staff changes effective 10/17/2022. New pathology staff will provide uninterrupted, excellent patie nt care and clinic al consultation. S ee URL: [email or web address]. UNL ESS OTHERWISE INDIC ATED, ALL TESTING PERFORMED AT [employer], [place] [place], [place] CLIA: [id number], CAP: LIPID [id number] 04:45:55 Test Item Value Reference Range Interpretation Comments CHOLESTEROL (test 228 MG/DL <200 H code = 2210) TRIGLYCERIDES (test 154 MG/DL <150 H code = 2232) HDL CHOLESTEROL (test 54 MG/DL >39 code = 2220) CALC LDL CHOL (test 145 MG/DL <100 H NOTE: C ALCULATED LDL code = 2237) IS BASED ON TAMELA-MIN METHOD WHICHINCLUDES ADJUSTABLE TRIGLYCERIDE:VL DL CHOLESTEROL RAT IO.THIS FACTOR VARIES B Y MEASURED TRIGLY CERIDE AND NON-HDLCHOL ESTEROL CONCENTRATIONS WITH INCREASED CALCU LATED LDL SEENIN HIGH ER TRIGLYCERIDE OR LOWER NON-HDL SPECIME NS. FOR MOREINFORMATION , SEE CLIENT ANNOUNCE MENT AT [email or web address] RISK RATIO LDL/HDL 2.69 RATIO <3.22 (test code = 2238) COMPREHENSIVE METABOLIC [id number] 04:45:55 Test Item Value Reference Range Interpretation Comments GLUCOSE (test code = 90 MG/DL 70-99 2216) BUN (test code = 15 MG/DL 6-20 2207) CREATININE (test 0.64 MG/DL 0.60-1.30 code = 2214) eGFR (2020 CKD-EPI) 116 >60 (test code = 60978) ML/MIN/1.73 CALC BUN/CREAT (test 23 RATIO 6-28 code = 2235) SODIUM (test code = 140 MEQ/L 191-814 4648) POTASSIUM (test code 4.2 MEQ/L 3.5-5.4 = 2227) CHLORIDE (test code 103 MEQ/L 95-107 = 2214) CARBON DIOXIDE (test 26 MEQ/L 19-31 code = 2206) CALCIUM (test code = 9.4 MG/DL 8.5-10.5 2208) PROTEIN, TOTAL (test 6.7 G/DL 6.1-8.3 code = 2229) ALBUMIN (test code = 4.3 G/DL 3.5-5.2 2200) CALC GLOBULIN (test 2.4 G/DL 1.9-3.7 code = 2240) CALC A/G RATIO (test 1.8 RATIO 1.0-2.6 code = 2234) BILIRUBIN, TOTAL 0.5 MG/DL See_Comment [Automated message] (test code = 2207) The [employer] which generated this result transmit aimee reference range : <=1.2. The refe rence range was not u sed to interpret th is result as normal/abnormal . ALKALINE PHOSPHATASE 51 U/L 40-112 (test code = 4) AST (test code = 42 U/L 9-40 H 2217) ALT (test code = 78 U/L 5-40 H 2218) CT/NG, NAAT, [id number] 20:41:34 Test Item Value Reference Range Interpretation Comments GONORRHEA, NAAT NEGATIVE NEGATIVE Note: Testi ng is performed (test code = with Saima EVERARDO S 6800/8800 53940) systems using r eal-time polymerase jonas n reaction (PCR) method. CHLAMYDIA, NAAT NEGATIVE NEGATIVE Note: Testi ng is performed (test code = with Saima EVERARDO S 6800/8800 56741) systems using r eal-time polymerase jonas n reaction (PCR) method. U NLESS OTHERWISE INDIC ATED, ALL TESTING PERFORM ED ATCLINICAL PATH [facility], [address] [address] LABORATORY DIRE CTOR: Stepan FERMIN CLIA NUMBER [id number] CAP ACCREDITATION N O. [id number] VAGINAL PATHOGENS DNA [id number] 14:39:25 Test Item Value Reference Range Interpretation Comments VALERIE SPECIES NEGATIVE NEGATIVE (test code = ) G. VAGINALIS NEGATIVE NEGATIVE (test code = ) T. VAGINALIS NEGATIVE NEGATIVE Note: The BD A ffirm VPIII (test code = Microbial Ident ification ) Testis a DNA pr obe test intended for us e in the detectionand id entification of Valerie spec ies, Gardnerellavagi nalis and Trichomonas vag inalis nucleic acid. [id number] 03:12:19 Test Item Value Reference Range Interpretation Comments RPR RESULT (test code = NON-REACTIVE NON-REACTIVE 3501) RPR TITER (test code = 3500) NOT INDIC. TITER NOT INDIC. HEMOGLOBIN A1c [ADDED]2022-07-26 00:00:00 Test Item Value Reference Range Interpretation Comments HEMOGLOBIN A1c (test code = 04850) 5.6 % HEMOGLOBIN A1c [ADDED]2022-07-26 00:00:00 Test Item Value Reference Range Interpretation Comments HEMOGLOBIN A1c (test code = 28970) 5.6 % HEMOGLOBIN A1c [ADDED]2022-07-26 00:00:00 Test Item Value Reference Range Interpretation Comments HEMOGLOBIN A1c (test code = 65777) 5.6 % LIPID PANEL [ADDED]2022-07-26 00:00:00 Test Item Value Reference Range Interpretation Comments CHOLESTEROL (test code = 2210) 213 MG/DL TRIGLYCERIDES (test code = 2232) 181 MG/DL HDL CHOLESTEROL (test code = 2220) 52 MG/DL CALC LDL CHOL (test code = 2237) 129 MG/DL RISK RATIO LDL/HDL (test code = 2.48 RATIO 2238) LIPID PANEL [ADDED]2022-07-26 00:00:00 Test Item Value Reference Range Interpretation Comments CHOLESTEROL (test code = 2210) 213 MG/DL TRIGLYCERIDES (test code = 2232) 181 MG/DL HDL CHOLESTEROL (test code = 2220) 52 MG/DL CALC LDL CHOL (test code = 2237) 129 MG/DL RISK RATIO LDL/HDL (test code = 2.48 RATIO 2238) COMPREHENSIVE METABOLIC PANEL [ADDED]2022-07-26 00:00:00 Test Item Value Reference Range Interpretation Comments GLUCOSE (test code = 2217) 107 MG/DL BUN (test code = 2208) 14 MG/DL CREATININE (test code = 2214) 0.77 MG/DL eGFR (2020 CKD-EPI) (test 101 ML/MIN/1.73 code = 28404) CALC BUN/CREAT (test code = 18 RATIO 2235) SODIUM (test code = 2231) 142 MEQ/L POTASSIUM (test code = 2228) 4.3 MEQ/L CHLORIDE (test code = 2215) 102 MEQ/L CARBON DIOXIDE (test code = 27 MEQ/L 2205) CALCIUM (test code = 2209) 9.7 MG/DL PROTEIN, TOTAL (test code = 6.9 G/DL 2228) ALBUMIN (test code = 2201) 4.4 G/DL CALC GLOBULIN (test code = 2.5 G/DL 2239) CALC A/G RATIO (test code = 1.8 RATIO 2234) BILIRUBIN, TOTAL (test code = 0.5 MG/DL 2206) ALKALINE PHOSPHATASE (test 57 U/L code = 2204) AST (test code = 2218) 40 U/L ALT (test code = 2219) 47 U/L COMPREHENSIVE METABOLIC PANEL [ADDED]2022-07-26 00:00:00 Test Item Value Reference Range Interpretation Comments GLUCOSE (test code = 2217) 107 MG/DL BUN (test code = 2208) 14 MG/DL CREATININE (test code = 2214) 0.77 MG/DL eGFR (2020 CKD-EPI) (test 101 ML/MIN/1.73 code = 11556) CALC BUN/CREAT (test code = 18 RATIO 2234) SODIUM (test code = 2231) 142 MEQ/L POTASSIUM (test code = 2228) 4.3 MEQ/L CHLORIDE (test code = 2215) 102 MEQ/L CARBON DIOXIDE (test code = 27 MEQ/L 2205) CALCIUM (test code = 220) 9.7 MG/DL PROTEIN, TOTAL (test code = 6.9 G/DL 2228) ALBUMIN (test code = 220) 4.4 G/DL CALC GLOBULIN (test code = 2.5 G/DL 2239) CALC A/G RATIO (test code = 1.8 RATIO 2233) BILIRUBIN, TOTAL (test code = 0.5 MG/DL 2206) ALKALINE PHOSPHATASE (test 57 U/L code = 2204) AST (test code = 2218) 40 U/L ALT (test code = 2219) 47 U/L VITAMIN D, 25 OH [ADDED]2022-07-26 00:00:00 Test Item Value Reference Range Interpretation Comments VITAMIN D, 25 OH (test code = 4958) 25 NG/ML VITAMIN D, 25 OH [ADDED]2022-07-26 00:00:00 Test Item Value Reference Range Interpretation Comments VITAMIN D, 25 OH (test code = 4958) 25 NG/ML TSH + FREE T4 PROFILE [ADDED]2022-07-26 00:00:00 Test Item Value Reference Range Interpretation Comments TSH, THIRD GENERATION (test code 4.480 UIU/ML = 2821) FREE T4 (THYROXINE) (test code = 1.12 NG/DL 2823) TSH + FREE T4 PROFILE [ADDED]2022-07-26 00:00:00 Test Item Value Reference Range Interpretation Comments TSH, THIRD GENERATION (test code 4.480 UIU/ML = 2821) FREE T4 (THYROXINE) (test code = 1.12 NG/DL 2823) TSH + FREE T4 PROFILE [ADDED]2022-07-26 00:00:00 Test Item Value Reference Range Interpretation Comments TSH, THIRD GENERATION (test code 4.480 UIU/ML = 2821) FREE T4 (THYROXINE) (test code = 1.12 NG/DL 2823) CT/NG, NAAT, [id number] 08:45:29 Test Item Value Reference Range Interpretation Comments GONORRHEA, NAAT NEGATIVE NEGATIVE IMPORTA NT NOTICE: SEE (test code = [place] [address]) [email or web address] [employer] Note: Assay methodology is nucleic acid amplification b y hat braider m ediated amplification ( TMA) utilizing the A ptima Combo 2 Assay. CHLAMYDIA, NAAT NEGATIVE NEGATIVE IMPORTA NT NOTICE: SEE (test code = [place] [address]) [email or web address] 248 [employer] Note: Assay methodology is nucleic acid amplification b y hat braider m ediated amplification ( TMA) utilizing the A ptima Combo [address] CT/NG, TMA, [id number] 00:00:00 Test Item Value Reference Range Interpretation Comments GONORRHEA, NAAT (test code = 61282) NEGATIVE CHLAMYDIA, NAAT (test code = 11196) NEGATIVE CT/NG, TMA, [id number] 00:00:00 Test Item Value Reference Range Interpretation Comments GONORRHEA, NAAT (test code = 78206) NEGATIVE CHLAMYDIA, NAAT (test code = 30497) NEGATIVE CT/NG, TMA, [id number] 00:00:00 Test Item Value Reference Range Interpretation Comments GONORRHEA, NAAT (test code = 88996) NEGATIVE CHLAMYDIA, NAAT (test code = 95700) NEGATIVE CT/NG, TMA, [id number] 00:00:00 Test Item Value Reference Range Interpretation Comments GONORRHEA, NAAT (test code = 73793) NEGATIVE CHLAMYDIA, NAAT (test code = 67907) NEGATIVE HIV 1/2 4TH GEN, RFLX [id number] 04:23:49 Test Item Value Reference Range Interpretation Comments HIV 1/2 4TH GEN, RFLX CONF (test NON-REACTIVE NON-REACTIVE code = 3514) HEPATITIS PANEL, [id number] 04:23:49 Test Item Value Reference Range Interpretation Comments HEPATITIS A IgM (test NON-REACTIVE NON-REACTIVE code = 23363) HEPATITIS B CORE IgM NON-REACTIVE NON-REACTIVE (test code = 4644) HEPATITIS B SURF AG NON-REACTIVE NON-REACTIVE (test code = 2739) HEPATITIS C ANTIBODY NON-REACTIVE NON-REACTIVE (test code = 4675) INTERPRETATION (NOTE) Hepatitis A HEPATITIS A: (test serology shows no code = 2552) evidence of acu te hepatitis A. INTERPRETATION (NOTE) Hepatitis B HEPATITIS B: (test serology shows no code = 27178) evidence of ac jacky hepatitis B and no indication of exposure to hepatitis B vir us in the previous si xto eight months. INTERPRETATION (NOTE) Hepatitis C HEPATITIS C: (test serology shows no code = 81951) evidence of ex posure to hepatitisC v irus at this time. I t can take up to 12 m onths after exposure tothe hepatitis C vir us for antibodies to become detectab le in the blood in ce rtain patients. UNLES S OTHERWISE INDIC ATED, ALL TESTING PERFORMED [facility]. [address] [place] [address] DIRECTOR: KARYN ARCOS M.D. IA NUMBER [id number] [facility] [id number] 03:48:24 Test Item Value Reference Range Interpretation Comments RPR RESULT (test code = NON-REACTIVE NON-REACTIVE 3501) RPR TITER (test code = 3500) NOT INDIC. TITER NOT INDIC. ACUTE HEPATITIS [id number] 00:00:00 Test Item Value Reference Range Interpretation Comments HEPATITIS A IgM (test code = NON-REACTIVE 95527) HEPATITIS B CORE IgM (test code NON-REACTIVE = 4644) HEPATITIS B SURF AG (test code = NON-REACTIVE 2739) HEPATITIS C ANTIBODY (test code NON-REACTIVE = 4675) INTERPRETATION HEPATITIS A: (NOTE) (test code = 2552) INTERPRETATION HEPATITIS B: (NOTE) (test code = 35679) INTERPRETATION HEPATITIS C: (NOTE) (test code = 63639) ACUTE HEPATITIS [id number] 00:00:00 Test Item Value Reference Range Interpretation Comments HEPATITIS A IgM (test code = NON-REACTIVE 43994) HEPATITIS B CORE IgM (test code NON-REACTIVE = 4644) HEPATITIS B SURF AG (test code = NON-REACTIVE 2739) HEPATITIS C ANTIBODY (test code NON-REACTIVE = 4675) INTERPRETATION HEPATITIS A: (NOTE) (test code = 2552) INTERPRETATION HEPATITIS B: (NOTE) (test code = 84348) INTERPRETATION HEPATITIS C: (NOTE) (test code = 86165) HIV AB/AG COMBO RFLX [id number] 00:00:00 Test Item Value Reference Range Interpretation Comments HIV 1/2 4TH GEN, RFLX CONF (test NON-REACTIVE code = 3514) HIV AB/AG COMBO RFLX [id number] 00:00:00 Test Item Value Reference Range Interpretation Comments HIV 1/2 4TH GEN, RFLX CONF (test NON-REACTIVE code = 3514) [id number] 00:00:00 Test Item Value Reference Range Interpretation Comments RPR RESULT (test code = NON-REACTIVE 3501) RPR TITER (test code = 3500) NOT INDIC. TITER [id number] 00:00:00 Test Item Value Reference Range Interpretation Comments RPR RESULT (test code = NON-REACTIVE 3501) RPR TITER (test code = 3500) NOT INDIC. TITER [id number] 00:00:00 Test Item Value Reference Range Interpretation Comments RPR RESULT (test code = NON-REACTIVE 3501) RPR TITER (test code = 3500) NOT INDIC. TITER ACUTE HEPATITIS [id number] 00:00:00 Test Item Value Reference Range Interpretation Comments HEPATITIS A IgM (test code = NON-REACTIVE 86138) HEPATITIS B CORE IgM (test code NON-REACTIVE = 4644) HEPATITIS B SURF AG (test code = NON-REACTIVE 9) HEPATITIS C ANTIBODY (test code NON-REACTIVE = 4675) INTERPRETATION HEPATITIS A: (NOTE) (test code = 2552) INTERPRETATION HEPATITIS B: (NOTE) (test code = 66575) INTERPRETATION HEPATITIS C: (NOTE) (test code = 10606) ACUTE HEPATITIS [id number] 00:00:00 Test Item Value Reference Range Interpretation Comments HEPATITIS A IgM (test code = NON-REACTIVE 22693) HEPATITIS B CORE IgM (test code NON-REACTIVE = 4644) HEPATITIS B SURF AG (test code = NON-REACTIVE 9) HEPATITIS C ANTIBODY (test code NON-REACTIVE = 4675) INTERPRETATION HEPATITIS A: (NOTE) (test code = 2552) INTERPRETATION HEPATITIS B: (NOTE) (test code = 52941) INTERPRETATION HEPATITIS C: (NOTE) (test code = 75725) HIV AB/AG COMBO RFLX [id number] 00:00:00 Test Item Value Reference Range Interpretation Comments HIV 1/2 4TH GEN, RFLX CONF (test NON-REACTIVE code = 3514) HIV AB/AG COMBO RFLX [id number] 00:00:00 Test Item Value Reference Range Interpretation Comments HIV 1/2 4TH GEN, RFLX CONF (test NON-REACTIVE code = 3514) [id number] 00:00:00 Test Item Value Reference Range Interpretation Comments RPR RESULT (test code = NON-REACTIVE 3501) RPR TITER (test code = 3500) NOT INDIC. TITER [id number] 00:00:00 Test Item Value Reference Range Interpretation Comments RPR RESULT (test code = NON-REACTIVE 3501) RPR TITER (test code = 3500) NOT INDIC. TITER [id number] 00:00:00 Test Item Value Reference Range Interpretation Comments RPR RESULT (test code = NON-REACTIVE 3501) RPR TITER (test code = 3500) NOT INDIC. TITER [id number] 06:47:38 Test Item Value Reference Range Interpretation Comments ESTRADIOL (test 120.0 PG/ML SEE BELOW EXPE CTED VALUES FOR code = 2505) ESTRADIOL FOR F EMALES >=18 YEARS FO LLICULAR . . . . . . . . . . . . . PG/ML 12.4-233.0 OVUL ATION. . . . . . . . . . . . . . PG/ML 41.0-398.0 LUTE AL PHASE . . . . . . . . . . . . PG/ML 22.3-341.0 POST MENOPAUSAL SUPPLEMENTED/NO N-SUPP . PG/ML <138.0/<20.0 NO TE: TO DETERMINE DEBBIE L VS. SUBNORMAL ESTRA DIOL IN POSTMENOPAUSAL FEMALES, CONSIDER ULTRAS ENSITIVE ESTRADIOL (CPL ORDER CODE 5678). METHODOL OGY IS SAIMA YAIR ELECTROCH EMILUMINESCENT IMMUNOASSAY WIT H A LIMIT OF DETECTION OF 17 PG/ML. TSH REFLEX TO FREE [id number] 06:47:38 Test Item Value Reference Range Interpretation Comments TSH REFLEX TO FREE T4 (test code 4.500 UIU/ML 0.400-4.100 H = 2834) FREE T4 (THYROXINE)2022-05-15 06:47:38 Test Item Value Reference Range Interpretation Comments FREE T4 1.11 NG/DL 0.80-1.90 UNLESS OTHERW ISE (THYROXINE) (test INDICATED, ALL TESTING code = 2823) PERFORMED ATCL[facility] NICAL PATHOLOGY [employer]. [address] [place] [id number] [place], [place] [address]A [facility] DIRECTOR: KARYN ARCOS M.D. CLIA NUMBER [id number] CAP ACCREDITATION N O. [id number] LIPID [id number] 05:43:14 Test Item Value Reference Range Interpretation Comments CHOLESTEROL (test 223 MG/DL <200 H code = 2210) TRIGLYCERIDES (test 150 MG/DL <150 H code = 2232) HDL CHOLESTEROL (test 51 MG/DL >39 code = 2220) CALC LDL CHOL (test 144 MG/DL <100 H NOTE: C ALCULATED LDL code = 2237) IS BASED ON TAMELA-MIN METHOD WHICHINCLUDES ADJUSTABLE TRIGLYCERIDE:VL DL CHOLESTEROL RAT IO.THIS FACTOR VARIES B Y MEASURED TRIGLY CERIDE AND NON-HDLCHOL ESTEROL CONCENTRATIONS WITH INCREASED CALCU LATED LDL SEENIN HIGH ER TRIGLYCERIDE OR LOWER NON-HDL SPECIME NS. FOR MOREINFORMATION , SEE CLIENT ANNOUNCE MENT AT [email or web address] RISK RATIO LDL/HDL 2.82 RATIO <3.22 (test code = 2238) COMPREHENSIVE METABOLIC [id number] 05:43:14 Test Item Value Reference Range Interpretation Comments GLUCOSE (test code = 98 MG/DL 70-99 2216) BUN (test code = 12 MG/DL 6-20 2207) CREATININE (test 0.70 MG/DL 0.60-1.30 code = 2214) eGFR (2020 CKD-EPI) 114 >60 (test code = 51756) ML/MIN/1.73 CALC BUN/CREAT (test 17 RATIO 6-28 code = 2235) SODIUM (test code = 140 MEQ/L 396-315 0547) POTASSIUM (test code 4.5 MEQ/L 3.5-5.4 = 2228) CHLORIDE (test code 103 MEQ/L 95-107 = 221) CARBON DIOXIDE (test 26 MEQ/L 19-31 code = 220) CALCIUM (test code = 9.6 MG/DL 8.5-10.5 2208) PROTEIN, TOTAL (test 7.0 G/DL 6.1-8.3 code = 222) ALBUMIN (test code = 4.7 G/DL 3.5-5.2 2200) CALC GLOBULIN (test 2.3 G/DL 1.9-3.7 code = 2240) CALC A/G RATIO (test 2.0 RATIO 1.0-2.6 code = 2234) BILIRUBIN, TOTAL 0.5 MG/DL See_Comment [Automated message] (test code = 2206) The syste m which generated this result transmit aimee reference range : <=1.2. The refe rence range was not u sed to interpret th is result as normal/abnormal . ALKALINE PHOSPHATASE 58 U/L 40-112 (test code = 2203) AST (test code = 20 U/L 9-40 2217) ALT (test code = 19 U/L 5-40 2218) [id number] 05:27:45 Test Item Value Reference Range Interpretation Comments TESTOSTERONE (test 23 NG/DL See_Comment NOTE: TO LUCIANO code = 2100) TESTOSTERONE SAY SENSITIVITY IS 12 NG/DL. TO DETER MINE NORMAL VS. SUBN ORMAL TESTOSTERONE IN CHILDREN AND WO MEN, CONSIDER TESTIN G WITH ULTRASENSITIVE TESTOSTERONE. [Automated mess age] The system which ge nerated this result tra nsmitted reference range : <=55. The reference r meghan was not used to int erpret this result as normal/abnormal . HEMOGLOBIN [id number] 03:49:10 Test Item Value Reference Range Interpretation Comments HEMOGLOBIN A1c (test code = 51085) 5.4 % 4.2-5.6 COMPREHENSIVE METABOLIC [id number] 00:00:00 Test Item Value Reference Range Interpretation Comments GLUCOSE (test code = 2217) 98 MG/DL BUN (test code = 2208) 12 MG/DL CREATININE (test code = 2214) 0.70 MG/DL eGFR (2020 CKD-EPI) (test 114 ML/MIN/1.73 code = 33424) CALC BUN/CREAT (test code = 17 RATIO 2235) SODIUM (test code = 2231) 140 MEQ/L POTASSIUM (test code = 2228) 4.5 MEQ/L CHLORIDE (test code = 2215) 103 MEQ/L CARBON DIOXIDE (test code = 26 MEQ/L 2206) CALCIUM (test code = 2209) 9.6 MG/DL PROTEIN, TOTAL (test code = 7.0 G/DL 222) ALBUMIN (test code = 2201) 4.7 G/DL CALC GLOBULIN (test code = 2.3 G/DL 2240) CALC A/G RATIO (test code = 2.0 RATIO 2234) BILIRUBIN, TOTAL (test code = 0.5 MG/DL 2206) ALKALINE PHOSPHATASE (test 58 U/L code = 2204) AST (test code = 2218) 20 U/L ALT (test code = 2219) 19 U/L COMPREHENSIVE METABOLIC [id number] 00:00:00 Test Item Value Reference Range Interpretation Comments GLUCOSE (test code = 2217) 98 MG/DL BUN (test code = 2208) 12 MG/DL CREATININE (test code = 2214) 0.70 MG/DL eGFR (2020 CKD-EPI) (test 114 ML/MIN/1.73 code = 59811) CALC BUN/CREAT (test code = 17 RATIO 2235) SODIUM (test code = 2231) 140 MEQ/L POTASSIUM (test code = 2228) 4.5 MEQ/L CHLORIDE (test code = 2215) 103 MEQ/L CARBON DIOXIDE (test code = 26 MEQ/L 2206) CALCIUM (test code = 2209) 9.6 MG/DL PROTEIN, TOTAL (test code = 7.0 G/DL 2228) ALBUMIN (test code = 2201) 4.7 G/DL CALC GLOBULIN (test code = 2.3 G/DL 2240) CALC A/G RATIO (test code = 2.0 RATIO 2234) BILIRUBIN, TOTAL (test code = 0.5 MG/DL 2206) ALKALINE PHOSPHATASE (test 58 U/L code = 2204) AST (test code = 2218) 20 U/L ALT (test code = 2219) 19 U/L [id number] 00:00:00 Test Item Value Reference Range Interpretation Comments TESTOSTERONE (test code = 2830) 23 NG/DL [id number] 00:00:00 Test Item Value Reference Range Interpretation Comments TESTOSTERONE (test code = 2830) 23 NG/DL [id number] 00:00:00 Test Item Value Reference Range Interpretation Comments ESTRADIOL (test code = 2505) 120.0 PG/ML [id number] 00:00:00 Test Item Value Reference Range Interpretation Comments ESTRADIOL (test code = 2505) 120.0 PG/ML [id number] 00:00:00 Test Item Value Reference Range Interpretation Comments ESTRADIOL (test code = 2505) 120.0 PG/ML TSH REFLEX TO FREE T4 [ADDED]2022-05-15 00:00:00 Test Item Value Reference Range Interpretation Comments TSH REFLEX TO FREE T4 (test code 4.500 UIU/ML = 2834) TSH REFLEX TO FREE T4 [ADDED]2022-05-15 00:00:00 Test Item Value Reference Range Interpretation Comments TSH REFLEX TO FREE T4 (test code 4.500 UIU/ML = 2834) FREE T4 (THYROXINE) [REFLEX]2022-05-15 00:00:00 Test Item Value Reference Range Interpretation Comments FREE T4 (THYROXINE) (test code = 1.11 NG/DL 2823) FREE T4 (THYROXINE) [REFLEX]2022-05-15 00:00:00 Test Item Value Reference Range Interpretation Comments FREE T4 (THYROXINE) (test code = 1.11 NG/DL 2823) FREE T4 (THYROXINE) [REFLEX]2022-05-15 00:00:00 Test Item Value Reference Range Interpretation Comments FREE T4 (THYROXINE) (test code = 1.11 NG/DL 2823) HEMOGLOBIN [id number] 00:00:00 Test Item Value Reference Range Interpretation Comments HEMOGLOBIN A1c (test code = 46450) 5.4 % HEMOGLOBIN [id number] 00:00:00 Test Item Value Reference Range Interpretation Comments HEMOGLOBIN A1c (test code = 62314) 5.4 % HEMOGLOBIN [id number] 00:00:00 Test Item Value Reference Range Interpretation Comments HEMOGLOBIN A1c (test code = 73485) 5.4 % LIPID [id number] 00:00:00 Test Item Value Reference Range Interpretation Comments CHOLESTEROL (test code = 2210) 223 MG/DL TRIGLYCERIDES (test code = 2232) 150 MG/DL HDL CHOLESTEROL (test code = 2220) 51 MG/DL CALC LDL CHOL (test code = 2237) 144 MG/DL RISK RATIO LDL/HDL (test code = 2.82 RATIO 2238) LIPID [id number] 00:00:00 Test Item Value Reference Range Interpretation Comments CHOLESTEROL (test code = 2210) 223 MG/DL TRIGLYCERIDES (test code = 2232) 150 MG/DL HDL CHOLESTEROL (test code = 2220) 51 MG/DL CALC LDL CHOL (test code = 2237) 144 MG/DL RISK RATIO LDL/HDL (test code = 2.82 RATIO 2238) COMPREHENSIVE METABOLIC [id number] 00:00:00 Test Item Value Reference Range Interpretation Comments GLUCOSE (test code = 2217) 98 MG/DL BUN (test code = 2208) 12 MG/DL CREATININE (test code = 2214) 0.70 MG/DL eGFR (2020 CKD-EPI) (test 114 ML/MIN/1.73 code = 84392) CALC BUN/CREAT (test code = 17 RATIO 2235) SODIUM (test code = 2231) 140 MEQ/L POTASSIUM (test code = 2228) 4.5 MEQ/L CHLORIDE (test code = 2215) 103 MEQ/L CARBON DIOXIDE (test code = 26 MEQ/L 2205) CALCIUM (test code = 2209) 9.6 MG/DL PROTEIN, TOTAL (test code = 7.0 G/DL 2228) ALBUMIN (test code = 2201) 4.7 G/DL CALC GLOBULIN (test code = 2.3 G/DL 2240) CALC A/G RATIO (test code = 2.0 RATIO 2234) BILIRUBIN, TOTAL (test code = 0.5 MG/DL 2206) ALKALINE PHOSPHATASE (test 58 U/L code = 2204) AST (test code = 2218) 20 U/L ALT (test code = 2219) 19 U/L COMPREHENSIVE METABOLIC [id number] 00:00:00 Test Item Value Reference Range Interpretation Comments GLUCOSE (test code = 2217) 98 MG/DL BUN (test code = 2208) 12 MG/DL CREATININE (test code = 2214) 0.70 MG/DL eGFR (2020 CKD-EPI) (test 114 ML/MIN/1.73 code = 98683) CALC BUN/CREAT (test code = 17 RATIO 2235) SODIUM (test code = 2231) 140 MEQ/L POTASSIUM (test code = 2228) 4.5 MEQ/L CHLORIDE (test code = 2215) 103 MEQ/L CARBON DIOXIDE (test code = 26 MEQ/L 2205) CALCIUM (test code = 2209) 9.6 MG/DL PROTEIN, TOTAL (test code = 7.0 G/DL 2228) ALBUMIN (test code = 2201) 4.7 G/DL CALC GLOBULIN (test code = 2.3 G/DL 2239) CALC A/G RATIO (test code = 2.0 RATIO 2233) BILIRUBIN, TOTAL (test code = 0.5 MG/DL 2206) ALKALINE PHOSPHATASE (test 58 U/L code = 2204) AST (test code = 2218) 20 U/L ALT (test code = 2219) 19 U/L [id number] 00:00:00 Test Item Value Reference Range Interpretation Comments TESTOSTERONE (test code = 2830) 23 NG/DL [id number] 00:00:00 Test Item Value Reference Range Interpretation Comments TESTOSTERONE (test code = 2830) 23 NG/DL [id number] 00:00:00 Test Item Value Reference Range Interpretation Comments ESTRADIOL (test code = 2505) 120.0 PG/ML [id number] 00:00:00 Test Item Value Reference Range Interpretation Comments ESTRADIOL (test code = 2505) 120.0 PG/ML [id number] 00:00:00 Test Item Value Reference Range Interpretation Comments ESTRADIOL (test code = 2505) 120.0 PG/ML TSH REFLEX TO FREE T4 [ADDED]2022-05-15 00:00:00 Test Item Value Reference Range Interpretation Comments TSH REFLEX TO FREE T4 (test code 4.500 UIU/ML = 2834) TSH REFLEX TO FREE T4 [ADDED]2022-05-15 00:00:00 Test Item Value Reference Range Interpretation Comments TSH REFLEX TO FREE T4 (test code 4.500 UIU/ML = 2834) FREE T4 (THYROXINE) [REFLEX]2022-05-15 00:00:00 Test Item Value Reference Range Interpretation Comments FREE T4 (THYROXINE) (test code = 1.11 NG/DL 2823) FREE T4 (THYROXINE) [REFLEX]2022-05-15 00:00:00 Test Item Value Reference Range Interpretation Comments FREE T4 (THYROXINE) (test code = 1.11 NG/DL 2823) FREE T4 (THYROXINE) [REFLEX]2022-05-15 00:00:00 Test Item Value Reference Range Interpretation Comments FREE T4 (THYROXINE) (test code = 1.11 NG/DL 2823) HEMOGLOBIN [id number] 00:00:00 Test Item Value Reference Range Interpretation Comments HEMOGLOBIN A1c (test code = 66140) 5.4 % HEMOGLOBIN [id number] 00:00:00 Test Item Value Reference Range Interpretation Comments HEMOGLOBIN A1c (test code = 12721) 5.4 % HEMOGLOBIN [id number] 00:00:00 Test Item Value Reference Range Interpretation Comments HEMOGLOBIN A1c (test code = 06366) 5.4 % LIPID [id number] 00:00:00 Test Item Value Reference Range Interpretation Comments CHOLESTEROL (test code = 2210) 223 MG/DL TRIGLYCERIDES (test code = 2232) 150 MG/DL HDL CHOLESTEROL (test code = 2220) 51 MG/DL CALC LDL CHOL (test code = 2237) 144 MG/DL RISK RATIO LDL/HDL (test code = 2.82 RATIO 2238) LIPID [id number] 00:00:00 Test Item Value Reference Range Interpretation Comments CHOLESTEROL (test code = 2210) 223 MG/DL TRIGLYCERIDES (test code = 2232) 150 MG/DL HDL CHOLESTEROL (test code = 2220) 51 MG/DL CALC LDL CHOL (test code = 2237) 144 MG/DL RISK RATIO LDL/HDL (test code = 2.82 RATIO 2238) COMPREHENSIVE METABOLIC [id number] 00:00:00 Test Item Value Reference Range Interpretation Comments GLUCOSE (test code = 2217) 98 MG/DL BUN (test code = 2208) 12 MG/DL CREATININE (test code = 2214) 0.70 MG/DL eGFR (2020 CKD-EPI) (test 114 ML/MIN/1.73 code = 60323) CALC BUN/CREAT (test code = 17 RATIO 2235) SODIUM (test code = 2231) 140 MEQ/L POTASSIUM (test code = 2228) 4.5 MEQ/L CHLORIDE (test code = 2215) 103 MEQ/L CARBON DIOXIDE (test code = 26 MEQ/L 2205) CALCIUM (test code = 2209) 9.6 MG/DL PROTEIN, TOTAL (test code = 7.0 G/DL 2229) ALBUMIN (test code = 2201) 4.7 G/DL CALC GLOBULIN (test code = 2.3 G/DL 2240) CALC A/G RATIO (test code = 2.0 RATIO 2234) BILIRUBIN, TOTAL (test code = 0.5 MG/DL 2206) ALKALINE PHOSPHATASE (test 58 U/L code = 2204) AST (test code = 2218) 20 U/L ALT (test code = 2219) 19 U/L COMPREHENSIVE METABOLIC [id number] 00:00:00 Test Item Value Reference Range Interpretation Comments GLUCOSE (test code = 2217) 98 MG/DL BUN (test code = 2208) 12 MG/DL CREATININE (test code = 2214) 0.70 MG/DL eGFR (2020 CKD-EPI) (test 114 ML/MIN/1.73 code = 43374) CALC BUN/CREAT (test code = 17 RATIO 2235) SODIUM (test code = 2231) 140 MEQ/L POTASSIUM (test code = 2228) 4.5 MEQ/L CHLORIDE (test code = 2215) 103 MEQ/L CARBON DIOXIDE (test code = 26 MEQ/L 2205) CALCIUM (test code = 2209) 9.6 MG/DL PROTEIN, TOTAL (test code = 7.0 G/DL 2228) ALBUMIN (test code = 2201) 4.7 G/DL CALC GLOBULIN (test code = 2.3 G/DL 2240) CALC A/G RATIO (test code = 2.0 RATIO 2234) BILIRUBIN, TOTAL (test code = 0.5 MG/DL 2206) ALKALINE PHOSPHATASE (test 58 U/L code = 2204) AST (test code = 2218) 20 U/L ALT (test code = 2219) 19 U/L [id number] 00:00:00 Test Item Value Reference Range Interpretation Comments TESTOSTERONE (test code = 2830) 23 NG/DL [id number] 00:00:00 Test Item Value Reference Range Interpretation Comments TESTOSTERONE (test code = 2830) 23 NG/DL [id number] 00:00:00 Test Item Value Reference Range Interpretation Comments ESTRADIOL (test code = 2505) 120.0 PG/ML [id number] 00:00:00 Test Item Value Reference Range Interpretation Comments ESTRADIOL (test code = 2505) 120.0 PG/ML [id number] 00:00:00 Test Item Value Reference Range Interpretation Comments ESTRADIOL (test code = 2505) 120.0 PG/ML TSH REFLEX TO FREE T4 [ADDED]2022-05-15 00:00:00 Test Item Value Reference Range Interpretation Comments TSH REFLEX TO FREE T4 (test code 4.500 UIU/ML = 2834) TSH REFLEX TO FREE T4 [ADDED]2022-05-15 00:00:00 Test Item Value Reference Range Interpretation Comments TSH REFLEX TO FREE T4 (test code 4.500 UIU/ML = 2834) FREE T4 (THYROXINE) [REFLEX]2022-05-15 00:00:00 Test Item Value Reference Range Interpretation Comments FREE T4 (THYROXINE) (test code = 1.11 NG/DL 2823) FREE T4 (THYROXINE) [REFLEX]2022-05-15 00:00:00 Test Item Value Reference Range Interpretation Comments FREE T4 (THYROXINE) (test code = 1.11 NG/DL 2823) FREE T4 (THYROXINE) [REFLEX]2022-05-15 00:00:00 Test Item Value Reference Range Interpretation Comments FREE T4 (THYROXINE) (test code = 1.11 NG/DL 2823) HEMOGLOBIN [id number] 00:00:00 Test Item Value Reference Range Interpretation Comments HEMOGLOBIN A1c (test code = 28129) 5.4 % HEMOGLOBIN [id number] 00:00:00 Test Item Value Reference Range Interpretation Comments HEMOGLOBIN A1c (test code = 16944) 5.4 % HEMOGLOBIN [id number] 00:00:00 Test Item Value Reference Range Interpretation Comments HEMOGLOBIN A1c (test code = 55380) 5.4 % LIPID [id number] 00:00:00 Test Item Value Reference Range Interpretation Comments CHOLESTEROL (test code = 2210) 223 MG/DL TRIGLYCERIDES (test code = 2232) 150 MG/DL HDL CHOLESTEROL (test code = 2220) 51 MG/DL CALC LDL CHOL (test code = 2237) 144 MG/DL RISK RATIO LDL/HDL (test code = 2.82 RATIO 2238) LIPID [id number] 00:00:00 Test Item Value Reference Range Interpretation Comments CHOLESTEROL (test code = 2210) 223 MG/DL TRIGLYCERIDES (test code = 2232) 150 MG/DL HDL CHOLESTEROL (test code = 2220) 51 MG/DL CALC LDL CHOL (test code = 2237) 144 MG/DL RISK RATIO LDL/HDL (test code = 2.82 RATIO 8) HEMOGLOBIN [id number] 02:51:25 Test Item Value Reference Range Interpretation Comments HEMOGLOBIN A1c (test code = 22188) 5.5 % 4.2-5.6 LIPID [id number] 02:43:47 Test Item Value Reference Range Interpretation Comments CHOLESTEROL (test 228 MG/DL <200 H code = 2210) TRIGLYCERIDES (test 111 MG/DL <150 code = 2232) HDL CHOLESTEROL (test 58 MG/DL >39 code = 2220) CALC LDL CHOL (test 147 MG/DL <100 H NOTE: C ALCULATED LDL code = 2237) IS BASED ON TAMELA-MIN METHOD WHICHINCLUDES ADJUSTABLE TRIGLYCERIDE:VL DL CHOLESTEROL RAT IO.THIS FACTOR VARIES B Y MEASURED TRIGLY CERIDE AND NON-HDLCHOL ESTEROL CONCENTRATIONS WITH INCREASED CALCU LATED LDL SEENIN HIGH ER TRIGLYCERIDE OR LOWER NON-HDL SPECIME NS. FOR MOREINFORMATION , SEE CLIENT ANNOUNCE MENT AT [email or web address] [email or web address] [email or web address] LDL/HDL 2.53 RATIO <3.22 (test code = 2238) COMPREHENSIVE METABOLIC [id number] 02:43:47 Test Item Value Reference Range Interpretation Comments GLUCOSE (test code = 97 MG/DL 70-99 2216) BUN (test code = 10 MG/DL -2207) CREATININE (test 0.72 MG/DL 0.60-1.30 code = 2214) eGFR (2020 CKD-EPI) 110 >60 (test code = 46812) ML/MIN/1.73 CALC BUN/CREAT (test 14 RATIO -28 code = 2235) SODIUM (test code = 141 MEQ/L 747-657 7568) POTASSIUM (test code 4.1 MEQ/L 3.5-5.4 = 2227) CHLORIDE (test code 100 MEQ/L 95-107 = 2214) CARBON DIOXIDE (test 26 MEQ/L 19-31 code = 220) CALCIUM (test code = 9.8 MG/DL 8.5-10.5 2208) PROTEIN, TOTAL (test 7.0 G/DL 6.1-8.3 code = 222) ALBUMIN (test code = 4.6 G/DL 3.5-5.2 2200) CALC GLOBULIN (test 2.4 G/DL 1.9-3.7 code = 2240) CALC A/G RATIO (test 1.9 RATIO 1.0-2.6 code = 2234) BILIRUBIN, TOTAL 0.5 MG/DL See_Comment [Automated message] (test code = 2207) The syste m which generated this result transmitted ref erence range: <=1.2. T he reference range was not used to int erpret this result as normal/abnormal . ALKALINE PHOSPHATASE 58 U/L 40-112 (test code = 2203) AST (test code = 31 U/L 9-40 2217) ALT (test code = 41 U/L 5-40 H UNLESS OTH ERWISE 2218) INDICATED, ALL TESTING PERFORM ED [facility]CLIN[facility], [facility]. [address] [place] [id number] [place] [address] DIRECTOR: KARYN ARCOS M.D. CLIA NUMBER [id number] CAP ACCREDITATION N O. [id number] HEMOGLOBIN A1c [ADDED]2021-12-07 00:00:00 Test Item Value Reference Range Interpretation Comments HEMOGLOBIN A1c (test code = 84445) 5.5 % LIPID PANEL [ADDED]2021-12-07 00:00:00 Test Item Value Reference Range Interpretation Comments CHOLESTEROL (test code = 2210) 228 MG/DL TRIGLYCERIDES (test code = 2232) 111 MG/DL HDL CHOLESTEROL (test code = 2220) 58 MG/DL CALC LDL CHOL (test code = 2237) 147 MG/DL RISK RATIO LDL/HDL (test code = 2.53 RATIO 8) HEMOGLOBIN A1c [ADDED]2021-12-07 00:00:00 Test Item Value Reference Range Interpretation Comments HEMOGLOBIN A1c (test code = 43955) 5.5 % HEMOGLOBIN A1c [ADDED]2021-12-07 00:00:00 Test Item Value Reference Range Interpretation Comments HEMOGLOBIN A1c (test code = 13341) 5.5 % HEMOGLOBIN A1c [ADDED]2021-12-07 00:00:00 Test Item Value Reference Range Interpretation Comments HEMOGLOBIN A1c (test code = 38266) 5.5 % LIPID PANEL [ADDED]2021-12-07 00:00:00 Test Item Value Reference Range Interpretation Comments CHOLESTEROL (test code = 2210) 228 MG/DL TRIGLYCERIDES (test code = 2232) 111 MG/DL HDL CHOLESTEROL (test code = 2220) 58 MG/DL CALC LDL CHOL (test code = 2237) 147 MG/DL RISK RATIO LDL/HDL (test code = 2.53 RATIO 2238) LIPID PANEL [ADDED]2021-12-07 00:00:00 Test Item Value Reference Range Interpretation Comments CHOLESTEROL (test code = 2210) 228 MG/DL TRIGLYCERIDES (test code = 2232) 111 MG/DL HDL CHOLESTEROL (test code = 2220) 58 MG/DL CALC LDL CHOL (test code = 2237) 147 MG/DL RISK RATIO LDL/HDL (test code = 2.53 RATIO 2238) COMPREHENSIVE METABOLIC PANEL [ADDED]2021-12-07 00:00:00 Test Item Value Reference Range Interpretation Comments GLUCOSE (test code = 2217) 97 MG/DL BUN (test code = 2208) 10 MG/DL CREATININE (test code = 2214) 0.72 MG/DL eGFR (2020 CKD-EPI) (test 110 ML/MIN/1.73 code = 33418) CALC BUN/CREAT (test code = 14 RATIO 2235) SODIUM (test code = 2231) 141 MEQ/L POTASSIUM (test code = 2228) 4.1 MEQ/L CHLORIDE (test code = 2215) 100 MEQ/L CARBON DIOXIDE (test code = 26 MEQ/L 2205) CALCIUM (test code = 2209) 9.8 MG/DL PROTEIN, TOTAL (test code = 7.0 G/DL 2228) ALBUMIN (test code = 2201) 4.6 G/DL CALC GLOBULIN (test code = 2.4 G/DL 2240) CALC A/G RATIO (test code = 1.9 RATIO 2234) BILIRUBIN, TOTAL (test code = 0.5 MG/DL 2206) ALKALINE PHOSPHATASE (test 58 U/L code = 2204) AST (test code = 2218) 31 U/L ALT (test code = 2219) 41 U/L COMPREHENSIVE METABOLIC PANEL [ADDED]2021-12-07 00:00:00 Test Item Value Reference Range Interpretation Comments GLUCOSE (test code = 2217) 97 MG/DL BUN (test code = 2208) 10 MG/DL CREATININE (test code = 2214) 0.72 MG/DL eGFR (2020 CKD-EPI) (test 110 ML/MIN/1.73 code = 81721) CALC BUN/CREAT (test code = 14 RATIO 2235) SODIUM (test code = 2231) 141 MEQ/L POTASSIUM (test code = 2228) 4.1 MEQ/L CHLORIDE (test code = 2215) 100 MEQ/L CARBON DIOXIDE (test code = 26 MEQ/L 2206) CALCIUM (test code = 2209) 9.8 MG/DL PROTEIN, TOTAL (test code = 7.0 G/DL 2228) ALBUMIN (test code = 2201) 4.6 G/DL CALC GLOBULIN (test code = 2.4 G/DL 2240) CALC A/G RATIO (test code = 1.9 RATIO 2234) BILIRUBIN, TOTAL (test code = 0.5 MG/DL 2206) ALKALINE PHOSPHATASE (test 58 U/L code = 2204) AST (test code = 2218) 31 U/L ALT (test code = 2219) 41 U/L COMPREHENSIVE METABOLIC PANEL [ADDED]2021-12-07 00:00:00 Test Item Value Reference Range Interpretation Comments GLUCOSE (test code = 2217) 97 MG/DL BUN (test code = 2208) 10 MG/DL CREATININE (test code = 2214) 0.72 MG/DL eGFR (2020 CKD-EPI) (test 110 ML/MIN/1.73 code = 02141) CALC BUN/CREAT (test code = 14 RATIO 2235) SODIUM (test code = 2231) 141 MEQ/L POTASSIUM (test code = 2228) 4.1 MEQ/L CHLORIDE (test code = 2215) 100 MEQ/L CARBON DIOXIDE (test code = 26 MEQ/L 2205) CALCIUM (test code = 2209) 9.8 MG/DL PROTEIN, TOTAL (test code = 7.0 G/DL 2228) ALBUMIN (test code = 2201) 4.6 G/DL CALC GLOBULIN (test code = 2.4 G/DL 2240) CALC A/G RATIO (test code = 1.9 RATIO 2234) BILIRUBIN, TOTAL (test code = 0.5 MG/DL 2206) ALKALINE PHOSPHATASE (test 58 U/L code = 2204) AST (test code = 2218) 31 U/L ALT (test code = 2219) 41 U/L HEMOGLOBIN A1c [ADDED]2021-12-07 00:00:00 Test Item Value Reference Range Interpretation Comments HEMOGLOBIN A1c (test code = 40419) 5.5 % HEMOGLOBIN A1c [ADDED]2021-12-07 00:00:00 Test Item Value Reference Range Interpretation Comments HEMOGLOBIN A1c (test code = 98491) 5.5 % HEMOGLOBIN A1c [ADDED]2021-12-07 00:00:00 Test Item Value Reference Range Interpretation Comments HEMOGLOBIN A1c (test code = 70683) 5.5 % LIPID PANEL [ADDED]2021-12-07 00:00:00 Test Item Value Reference Range Interpretation Comments CHOLESTEROL (test code = 2210) 228 MG/DL TRIGLYCERIDES (test code = 2232) 111 MG/DL HDL CHOLESTEROL (test code = 2220) 58 MG/DL CALC LDL CHOL (test code = 2237) 147 MG/DL RISK RATIO LDL/HDL (test code = 2.53 RATIO 2238) LIPID PANEL [ADDED]2021-12-07 00:00:00 Test Item Value Reference Range Interpretation Comments CHOLESTEROL (test code = 2210) 228 MG/DL TRIGLYCERIDES (test code = 2232) 111 MG/DL HDL CHOLESTEROL (test code = 2220) 58 MG/DL CALC LDL CHOL (test code = 2237) 147 MG/DL RISK RATIO LDL/HDL (test code = 2.53 RATIO 2238) COMPREHENSIVE METABOLIC PANEL [ADDED]2021-12-07 00:00:00 Test Item Value Reference Range Interpretation Comments GLUCOSE (test code = 2217) 97 MG/DL BUN (test code = 2208) 10 MG/DL CREATININE (test code = 2214) 0.72 MG/DL eGFR (2020 CKD-EPI) (test 110 ML/MIN/1.73 code = 37215) CALC BUN/CREAT (test code = 14 RATIO 2235) SODIUM (test code = 2231) 141 MEQ/L POTASSIUM (test code = 2228) 4.1 MEQ/L CHLORIDE (test code = 2215) 100 MEQ/L CARBON DIOXIDE (test code = 26 MEQ/L 2205) CALCIUM (test code = 2209) 9.8 MG/DL PROTEIN, TOTAL (test code = 7.0 G/DL 2228) ALBUMIN (test code = 2201) 4.6 G/DL CALC GLOBULIN (test code = 2.4 G/DL 2239) CALC A/G RATIO (test code = 1.9 RATIO 223) BILIRUBIN, TOTAL (test code = 0.5 MG/DL 2206) ALKALINE PHOSPHATASE (test 58 U/L code = 2204) AST (test code = 2218) 31 U/L ALT (test code = 2219) 41 U/L COMPREHENSIVE METABOLIC PANEL [ADDED]2021-12-07 00:00:00 Test Item Value Reference Range Interpretation Comments GLUCOSE (test code = 2217) 97 MG/DL BUN (test code = 2208) 10 MG/DL CREATININE (test code = 2214) 0.72 MG/DL eGFR (2020 CKD-EPI) (test 110 ML/MIN/1.73 code = 26450) CALC BUN/CREAT (test code = 14 RATIO 5) SODIUM (test code = 223) 141 MEQ/L POTASSIUM (test code = 2228) 4.1 MEQ/L CHLORIDE (test code = 2215) 100 MEQ/L CARBON DIOXIDE (test code = 26 MEQ/L 2205) CALCIUM (test code = 2209) 9.8 MG/DL PROTEIN, TOTAL (test code = 7.0 G/DL 2228) ALBUMIN (test code = 2201) 4.6 G/DL CALC GLOBULIN (test code = 2.4 G/DL 2239) CALC A/G RATIO (test code = 1.9 RATIO 2233) BILIRUBIN, TOTAL (test code = 0.5 MG/DL 2206) ALKALINE PHOSPHATASE (test 58 U/L code = 2204) AST (test code = 2218) 31 U/L ALT (test code = 2219) 41 U/L HEMOGLOBIN A1c [ADDED]2021-12-07 00:00:00 Test Item Value Reference Range Interpretation Comments HEMOGLOBIN A1c (test code = 33865) 5.5 % HEMOGLOBIN A1c [ADDED]2021-12-07 00:00:00 Test Item Value Reference Range Interpretation Comments HEMOGLOBIN A1c (test code = 90742) 5.5 % HEMOGLOBIN A1c [ADDED]2021-12-07 00:00:00 Test Item Value Reference Range Interpretation Comments HEMOGLOBIN A1c (test code = 89752) 5.5 % LIPID PANEL [ADDED]2021-12-07 00:00:00 Test Item Value Reference Range Interpretation Comments CHOLESTEROL (test code = 2210) 228 MG/DL TRIGLYCERIDES (test code = 2232) 111 MG/DL HDL CHOLESTEROL (test code = 2220) 58 MG/DL CALC LDL CHOL (test code = 2237) 147 MG/DL RISK RATIO LDL/HDL (test code = 2.53 RATIO 2238) LIPID PANEL [ADDED]2021-12-07 00:00:00 Test Item Value Reference Range Interpretation Comments CHOLESTEROL (test code = 2210) 228 MG/DL TRIGLYCERIDES (test code = 2232) 111 MG/DL HDL CHOLESTEROL (test code = 2220) 58 MG/DL CALC LDL CHOL (test code = 2237) 147 MG/DL RISK RATIO LDL/HDL (test code = 2.53 RATIO 2238) COMPREHENSIVE METABOLIC PANEL [ADDED]2021-12-07 00:00:00 Test Item Value Reference Range Interpretation Comments GLUCOSE (test code = 2217) 97 MG/DL BUN (test code = 2208) 10 MG/DL CREATININE (test code = 2214) 0.72 MG/DL eGFR (2020 CKD-EPI) (test 110 ML/MIN/1.73 code = 21132) CALC BUN/CREAT (test code = 14 RATIO 2235) SODIUM (test code = 2231) 141 MEQ/L POTASSIUM (test code = 2228) 4.1 MEQ/L CHLORIDE (test code = 2215) 100 MEQ/L CARBON DIOXIDE (test code = 26 MEQ/L 2205) CALCIUM (test code = 2209) 9.8 MG/DL PROTEIN, TOTAL (test code = 7.0 G/DL 2228) ALBUMIN (test code = 2201) 4.6 G/DL CALC GLOBULIN (test code = 2.4 G/DL 2240) CALC A/G RATIO (test code = 1.9 RATIO 2234) BILIRUBIN, TOTAL (test code = 0.5 MG/DL 2206) ALKALINE PHOSPHATASE (test 58 U/L code = 2204) AST (test code = 2218) 31 U/L ALT (test code = 2219) 41 U/L COMPREHENSIVE METABOLIC PANEL [ADDED]2021-12-07 00:00:00 Test Item Value Reference Range Interpretation Comments GLUCOSE (test code = 2217) 97 MG/DL BUN (test code = 2208) 10 MG/DL CREATININE (test code = 2214) 0.72 MG/DL eGFR (2020 CKD-EPI) (test 110 ML/MIN/1.73 code = 30111) CALC BUN/CREAT (test code = 14 RATIO 2235) SODIUM (test code = 2231) 141 MEQ/L POTASSIUM (test code = 2228) 4.1 MEQ/L CHLORIDE (test code = 2215) 100 MEQ/L CARBON DIOXIDE (test code = 26 MEQ/L 2205) CALCIUM (test code = 2209) 9.8 MG/DL PROTEIN, TOTAL (test code = 7.0 G/DL 2228) ALBUMIN (test code = 2201) 4.6 G/DL CALC GLOBULIN (test code = 2.4 G/DL 2239) CALC A/G RATIO (test code = 1.9 RATIO 2233) BILIRUBIN, TOTAL (test code = 0.5 MG/DL 2206) ALKALINE PHOSPHATASE (test 58 U/L code = 2204) AST (test code = 2218) 31 U/L ALT (test code = 2219) 41 U/L HEMOGLOBIN A1c [ADDED]2021-12-07 00:00:00 Test Item Value Reference Range Interpretation Comments HEMOGLOBIN A1c (test code = 16557) 5.5 % HEMOGLOBIN A1c [ADDED]2021-12-07 00:00:00 Test Item Value Reference Range Interpretation Comments HEMOGLOBIN A1c (test code = 30079) 5.5 % HEMOGLOBIN A1c [ADDED]2021-12-07 00:00:00 Test Item Value Reference Range Interpretation Comments HEMOGLOBIN A1c (test code = 24690) 5.5 % HEMOGLOBIN A1c [ADDED]2021-12-07 00:00:00 Test Item Value Reference Range Interpretation Comments HEMOGLOBIN A1c (test code = 18078) 5.5 % LIPID PANEL [ADDED]2021-12-07 00:00:00 Test Item Value Reference Range Interpretation Comments CHOLESTEROL (test code = 2210) 228 MG/DL TRIGLYCERIDES (test code = 2232) 111 MG/DL HDL CHOLESTEROL (test code = 2220) 58 MG/DL CALC LDL CHOL (test code = 2237) 147 MG/DL RISK RATIO LDL/HDL (test code = 2.53 RATIO 2238) LIPID PANEL [ADDED]2021-12-07 00:00:00 Test Item Value Reference Range Interpretation Comments CHOLESTEROL (test code = 2210) 228 MG/DL TRIGLYCERIDES (test code = 2232) 111 MG/DL HDL CHOLESTEROL (test code = 2220) 58 MG/DL CALC LDL CHOL (test code = 2237) 147 MG/DL RISK RATIO LDL/HDL (test code = 2.53 RATIO 2238) COMPREHENSIVE METABOLIC PANEL [ADDED]2021-12-07 00:00:00 Test Item Value Reference Range Interpretation Comments GLUCOSE (test code = 2217) 97 MG/DL BUN (test code = 2208) 10 MG/DL CREATININE (test code = 2214) 0.72 MG/DL eGFR (2020 CKD-EPI) (test 110 ML/MIN/1.73 code = 01092) CALC BUN/CREAT (test code = 14 RATIO 2235) SODIUM (test code = 2231) 141 MEQ/L POTASSIUM (test code = 2228) 4.1 MEQ/L CHLORIDE (test code = 2215) 100 MEQ/L CARBON DIOXIDE (test code = 26 MEQ/L 220) CALCIUM (test code = 2209) 9.8 MG/DL PROTEIN, TOTAL (test code = 7.0 G/DL 2228) ALBUMIN (test code = 2201) 4.6 G/DL CALC GLOBULIN (test code = 2.4 G/DL 2240) CALC A/G RATIO (test code = 1.9 RATIO 2234) BILIRUBIN, TOTAL (test code = 0.5 MG/DL 2206) ALKALINE PHOSPHATASE (test 58 U/L code = 2204) AST (test code = 2218) 31 U/L ALT (test code = 2219) 41 U/L COMPREHENSIVE METABOLIC PANEL [ADDED]2021-12-07 00:00:00 Test Item Value Reference Range Interpretation Comments GLUCOSE (test code = 2217) 97 MG/DL BUN (test code = 2208) 10 MG/DL CREATININE (test code = 2214) 0.72 MG/DL eGFR (2020 CKD-EPI) (test 110 ML/MIN/1.73 code = 88414) CALC BUN/CREAT (test code = 14 RATIO 2235) SODIUM (test code = 2231) 141 MEQ/L POTASSIUM (test code = 2228) 4.1 MEQ/L CHLORIDE (test code = 2215) 100 MEQ/L CARBON DIOXIDE (test code = 26 MEQ/L 220) CALCIUM (test code = 2209) 9.8 MG/DL PROTEIN, TOTAL (test code = 7.0 G/DL 2228) ALBUMIN (test code = 2201) 4.6 G/DL CALC GLOBULIN (test code = 2.4 G/DL 2240) CALC A/G RATIO (test code = 1.9 RATIO 2234) BILIRUBIN, TOTAL (test code = 0.5 MG/DL 2206) ALKALINE PHOSPHATASE (test 58 U/L code = 2204) AST (test code = 2218) 31 U/L ALT (test code = 2219) 41 U/L TSH, THIRD [id number] 10:06:53 Test Item Value Reference Range Interpretation Comments TSH, THIRD GENERATION (test code 5.010 UIU/ML 0.400-4.100 H = 2821) VITAMIN D, 25 [id number] 07:26:02 Test Item Value Reference Range Interpretation Comments VITAMIN D, 25 OH 21 NG/ML SEE BELOW L NOTE: 25-H YDROXYVITAMIN D (test code = 4958) ASSAY INC LUDES 25-HYDROXYVITAM IN D2 AND D3. METHODOLOGY IS CHEMILUMINESCEN T IMMUNOASSAY. INTERPRETIVE RA NGES PEDIATRIC (<17 YEARS) . . . . . . . . . . . NG/ML 20-100ADULT: IN SUFFICIENT . . . . . . . . . . . . . . NG/ML <20 SUBOP TIMAL . . . . . . . . . . . . . . . NG/ML 20-29 OPT IMAL . . . . . . . . . . . . . . . . . NG/ML 30-100 LIPID [id number] 07:19:20 Test Item Value Reference Range Interpretation Comments CHOLESTEROL (test 224 MG/DL <200 H code = 2210) TRIGLYCERIDES (test 229 MG/DL <150 H code = 2232) HDL CHOLESTEROL (test 47 MG/DL >39 code = 2220) CALC LDL CHOL (test 140 MG/DL <100 H NOTE: C ALCULATED LDL code = 2237) IS BASED ON TAMELA-MIN METHOD WHICHINCLUDES ADJUSTABLE TRIGLYCERIDE:VL DL CHOLESTEROL RAT IO.THIS FACTOR VARIES B Y MEASURED TRIGLY CERIDE AND NON-HDLCHOL ESTEROL CONCENTRATIONS WITH INCREASED CALCU LATED LDL SEENIN HIGH ER TRIGLYCERIDE OR LOWER NON-HDL SPECIME NS. FOR MOREINFORMATION , SEE CLIENT ANNOUNCE MENT AT [email or web address] RISK RATIO LDL/HDL 2.98 RATIO <3.22 (test code = 2238) COMPREHENSIVE METABOLIC [id number] 07:19:20 Test Item Value Reference Range Interpretation Comments GLUCOSE (test code = 89 MG/DL 70-99 2216) BUN (test code = 11 MG/DL 6-20 2207) CREATININE (test 0.66 MG/DL 0.60-1.30 code = 2213) eGFR (2020 CKD-EPI) 116 >60 (test code = 27804) ML/MIN/1.73 CALC BUN/CREAT (test 17 RATIO 6-28 code = 223) SODIUM (test code = 137 MEQ/L 922-258 2866) POTASSIUM (test code 4.0 MEQ/L 3.5-5.4 = 2227) CHLORIDE (test code 99 MEQ/L 95-107 = 2214) CARBON DIOXIDE (test 25 MEQ/L 19-31 code = 2205) CALCIUM (test code = 9.5 MG/DL 8.5-10.5 2208) PROTEIN, TOTAL (test 6.9 G/DL 6.1-8.3 code = 2228) ALBUMIN (test code = 4.5 G/DL 3.5-5.2 2200) CALC GLOBULIN (test 2.4 G/DL 1.9-3.7 code = 2239) CALC A/G RATIO (test 1.9 RATIO 1.0-2.6 code = 2233) BILIRUBIN, TOTAL 0.3 MG/DL See_Comment [Automated message] (test code = 2206) The syste [employer] which generated this result transmit aimee reference range : <=1.2. The refe rence range was not u sed to interpret th is result as normal/abnormal . ALKALINE PHOSPHATASE 60 U/L 40-112 (test code = 2203) AST (test code = 23 U/L 9-40 2217) ALT (test code = 25 U/L 5-40 2218) HEMOGLOBIN [id number] 06:52:32 Test Item Value Reference Range Interpretation Comments HEMOGLOBIN A1c (test 5.5 % 4.2-5.6 UNLESS OTHERWISE code = 00287) INDICATED, ALL TESTING PERFORMED [facility] [address] [place] [id number] [place] [address] DIRECTOR: KARYN ARCOS M.D. CLIA NUMBER [id number] CAP ACCREDITATION N O. [id number] CBC W/AUTO DIFF WITH [id number] 05:30:02 Test Item Value Reference Range Interpretation Comments WBC (test code = 5.4 K/UL 3.5-11.0 1001) RBC (test code = 4.52 M/UL 3.80-5.40 1002) HEMOGLOBIN (test code 13.5 G/DL 11.5-15.5 = 1003) HEMATOCRIT (test code 40.9 % 34.0-45.0 = 1004) MCV (test code = 90.5 fL 80.0-99.0 1005) MCH (test code = 29.9 PG 25.0-33.0 1006) MCHC (test code = 33.0 G/DL 31.0-36.0 1007) RDW (test code = 12.7 % 11.5-15.0 1038) NEUTROPHILS (test 43.2 % code = 1008) LYMPHOCYTES (test 46.3 % code = 1010) MONOCYTES (test code 7.6 % = 1011) EOSINOPHILS (test 2.0 % code = 1012) BASOPHILS (test code 0.7 % = 1013) IMMATURE GRANULOCYTES 0.2 % (test code = 1036) NUCLEATED RBCS (test 0.0 /100 WBC'S See_Comment [Aut omated code = 1065) message] The sy stem which generated this result transmitted reference range : 0.0. The refere nce range was not u sed to interpret th is result as normal/abnormal . PLATELET COUNT (test 262 K/UL 130-400 code = 1015) ABSOLUTE NEUTROPHILS 2.34 K/UL 1.50-7.50 (test code = 1066) ABSOLUTE LYMPHOCYTES 2.51 K/UL 1.00-4.00 (test code = 1067) ABSOLUTE MONOCYTES 0.41 K/UL 0.20-1.00 (test code = 1068) ABSOLUTE EOSINOPHILS 0.11 K/UL 0.00-0.50 (test code = 1040) ABSOLUTE BASOPHILS 0.04 K/UL 0.00-0.20 (test code = 1069) ABS IMMATURE 0.01 K/UL 0.00-0.10 GRANULOCYTES (test code = 1020) ABS NUCLEATED RBCS 0.00 K/UL 0.00-0.11 (test code = 01351) VITAMIN D, 25 [id number] 00:00:00 Test Item Value Reference Range Interpretation Comments VITAMIN D, 25 OH (test code = 4958) 21 NG/ML VITAMIN D, 25 [id number] 00:00:00 Test Item Value Reference Range Interpretation Comments VITAMIN D, 25 OH (test code = 4958) 21 NG/ML [id number] 00:00:00 Test Item Value Reference Range Interpretation Comments TSH, THIRD GENERATION (test code 5.010 UIU/ML = 2821) [id number] 00:00:00 Test Item Value Reference Range Interpretation Comments TSH, THIRD GENERATION (test code 5.010 UIU/ML = 2821) [id number] 00:00:00 Test Item Value Reference Range Interpretation Comments TSH, THIRD GENERATION (test code 5.010 UIU/ML = 2821) HEMOGLOBIN [id number] 00:00:00 Test Item Value Reference Range Interpretation Comments HEMOGLOBIN A1c (test code = 40800) 5.5 % HEMOGLOBIN [id number] 00:00:00 Test Item Value Reference Range Interpretation Comments HEMOGLOBIN A1c (test code = 02280) 5.5 % CBC W/AUTO [id number] 00:00:00 Test Item Value Reference Range Interpretation Comments WBC (test code = 1001) 5.4 K/UL RBC (test code = 1002) 4.52 M/UL HEMOGLOBIN (test code = 1003) 13.5 G/DL HEMATOCRIT (test code = 1004) 40.9 % MCV (test code = 1005) 90.5 fL MCH (test code = 1006) 29.9 PG MCHC (test code = 1007) 33.0 G/DL RDW (test code = 1038) 12.7 % NEUTROPHILS (test code = 1008) 43.2 % LYMPHOCYTES (test code = 1010) 46.3 % MONOCYTES (test code = 1011) 7.6 % EOSINOPHILS (test code = 1012) 2.0 % BASOPHILS (test code = 1013) 0.7 % IMMATURE GRANULOCYTES (test 0.2 % code = 1036) NUCLEATED RBCS (test code = 0.0 /100WBC'S 1065) PLATELET COUNT (test code = 262 K/UL 1015) ABSOLUTE NEUTROPHILS (test code 2.34 K/UL = 1066) ABSOLUTE LYMPHOCYTES (test code 2.51 K/UL = 1067) ABSOLUTE MONOCYTES (test code = 0.41 K/UL 1068) ABSOLUTE EOSINOPHILS (test code 0.11 K/UL = 1040) ABSOLUTE BASOPHILS (test code = 0.04 K/UL 1069) ABS IMMATURE GRANULOCYTES (test 0.01 K/UL code = 1020) ABS NUCLEATED RBCS (test code = 0.00 K/UL 48780) HEMOGLOBIN [id number] 00:00:00 Test Item Value Reference Range Interpretation Comments HEMOGLOBIN A1c (test code = 65169) 5.5 % CBC W/AUTO [id number] 00:00:00 Test Item Value Reference Range Interpretation Comments WBC (test code = 1001) 5.4 K/UL RBC (test code = 1002) 4.52 M/UL HEMOGLOBIN (test code = 1003) 13.5 G/DL HEMATOCRIT (test code = 1004) 40.9 % MCV (test code = 1005) 90.5 fL MCH (test code = 1006) 29.9 PG MCHC (test code = 1007) 33.0 G/DL RDW (test code = 1038) 12.7 % NEUTROPHILS (test code = 1008) 43.2 % LYMPHOCYTES (test code = 1010) 46.3 % MONOCYTES (test code = 1011) 7.6 % EOSINOPHILS (test code = 1012) 2.0 % BASOPHILS (test code = 1013) 0.7 % IMMATURE GRANULOCYTES (test 0.2 % code = 1036) NUCLEATED RBCS (test code = 0.0 /100WBC'S 1065) PLATELET COUNT (test code = 262 K/UL 1015) ABSOLUTE NEUTROPHILS (test code 2.34 K/UL = 1066) ABSOLUTE LYMPHOCYTES (test code 2.51 K/UL = 1067) ABSOLUTE MONOCYTES (test code = 0.41 K/UL 1068) ABSOLUTE EOSINOPHILS (test code 0.11 K/UL = 1040) ABSOLUTE BASOPHILS (test code = 0.04 K/UL 1069) ABS IMMATURE GRANULOCYTES (test 0.01 K/UL code = 1020) ABS NUCLEATED RBCS (test code = 0.00 K/UL 90415) LIPID [id number] 00:00:00 Test Item Value Reference Range Interpretation Comments CHOLESTEROL (test code = 2210) 224 MG/DL TRIGLYCERIDES (test code = 2232) 229 MG/DL HDL CHOLESTEROL (test code = 2220) 47 MG/DL CALC LDL CHOL (test code = 2237) 140 MG/DL RISK RATIO LDL/HDL (test code = 2.98 RATIO 2238) CBC W/AUTO [id number] 00:00:00 Test Item Value Reference Range Interpretation Comments WBC (test code = 1001) 5.4 K/UL RBC (test code = 1002) 4.52 M/UL HEMOGLOBIN (test code = 1003) 13.5 G/DL HEMATOCRIT (test code = 1004) 40.9 % MCV (test code = 1005) 90.5 fL MCH (test code = 1006) 29.9 PG MCHC (test code = 1007) 33.0 G/DL RDW (test code = 1038) 12.7 % NEUTROPHILS (test code = 1008) 43.2 % LYMPHOCYTES (test code = 1010) 46.3 % MONOCYTES (test code = 1011) 7.6 % EOSINOPHILS (test code = 1012) 2.0 % BASOPHILS (test code = 1013) 0.7 % IMMATURE GRANULOCYTES (test 0.2 % code = 1036) NUCLEATED RBCS (test code = 0.0 /100WBC'S 1065) PLATELET COUNT (test code = 262 K/UL 1015) ABSOLUTE NEUTROPHILS (test code 2.34 K/UL = 1066) ABSOLUTE LYMPHOCYTES (test code 2.51 K/UL = 1067) ABSOLUTE MONOCYTES (test code = 0.41 K/UL 1068) ABSOLUTE EOSINOPHILS (test code 0.11 K/UL = 1040) ABSOLUTE BASOPHILS (test code = 0.04 K/UL 1069) ABS IMMATURE GRANULOCYTES (test 0.01 K/UL code = 1020) ABS NUCLEATED RBCS (test code = 0.00 K/UL 38726) CBC W/AUTO [id number] 00:00:00 Test Item Value Reference Range Interpretation Comments WBC (test code = 1001) 5.4 K/UL RBC (test code = 1002) 4.52 M/UL HEMOGLOBIN (test code = 1003) 13.5 G/DL HEMATOCRIT (test code = 1004) 40.9 % MCV (test code = 1005) 90.5 fL MCH (test code = 1006) 29.9 PG MCHC (test code = 1007) 33.0 G/DL RDW (test code = 1038) 12.7 % NEUTROPHILS (test code = 1008) 43.2 % LYMPHOCYTES (test code = 1010) 46.3 % MONOCYTES (test code = 1011) 7.6 % EOSINOPHILS (test code = 1012) 2.0 % BASOPHILS (test code = 1013) 0.7 % IMMATURE GRANULOCYTES (test 0.2 % code = 1036) NUCLEATED RBCS (test code = 0.0 /100WBC'S 1065) PLATELET COUNT (test code = 262 K/UL 1015) ABSOLUTE NEUTROPHILS (test code 2.34 K/UL = 1066) ABSOLUTE LYMPHOCYTES (test code 2.51 K/UL = 1067) ABSOLUTE MONOCYTES (test code = 0.41 K/UL 1068) ABSOLUTE EOSINOPHILS (test code 0.11 K/UL = 1040) ABSOLUTE BASOPHILS (test code = 0.04 K/UL 1069) ABS IMMATURE GRANULOCYTES (test 0.01 K/UL code = 1020) ABS NUCLEATED RBCS (test code = 0.00 K/UL 83517) CBC W/AUTO [id number] 00:00:00 Test Item Value Reference Range Interpretation Comments WBC (test code = 1001) 5.4 K/UL RBC (test code = 1002) 4.52 M/UL HEMOGLOBIN (test code = 1003) 13.5 G/DL HEMATOCRIT (test code = 1004) 40.9 % MCV (test code = 1005) 90.5 fL MCH (test code = 1006) 29.9 PG MCHC (test code = 1007) 33.0 G/DL RDW (test code = 1038) 12.7 % NEUTROPHILS (test code = 1008) 43.2 % LYMPHOCYTES (test code = 1010) 46.3 % MONOCYTES (test code = 1011) 7.6 % EOSINOPHILS (test code = 1012) 2.0 % BASOPHILS (test code = 1013) 0.7 % IMMATURE GRANULOCYTES (test 0.2 % code = 1036) NUCLEATED RBCS (test code = 0.0 /100WBC'S 1065) PLATELET COUNT (test code = 262 K/UL 1015) ABSOLUTE NEUTROPHILS (test code 2.34 K/UL = 1066) ABSOLUTE LYMPHOCYTES (test code 2.51 K/UL = 1067) ABSOLUTE MONOCYTES (test code = 0.41 K/UL 1068) ABSOLUTE EOSINOPHILS (test code 0.11 K/UL = 1040) ABSOLUTE BASOPHILS (test code = 0.04 K/UL 1069) ABS IMMATURE GRANULOCYTES (test 0.01 K/UL code = 1020) ABS NUCLEATED RBCS (test code = 0.00 K/UL 24201) LIPID [id number] 00:00:00 Test Item Value Reference Range Interpretation Comments CHOLESTEROL (test code = 2210) 224 MG/DL TRIGLYCERIDES (test code = 2232) 229 MG/DL HDL CHOLESTEROL (test code = 2220) 47 MG/DL CALC LDL CHOL (test code = 2237) 140 MG/DL RISK RATIO LDL/HDL (test code = 2.98 RATIO 2238) LIPID [id number] 00:00:00 Test Item Value Reference Range Interpretation Comments CHOLESTEROL (test code = 2210) 224 MG/DL TRIGLYCERIDES (test code = 2232) 229 MG/DL HDL CHOLESTEROL (test code = 2220) 47 MG/DL CALC LDL CHOL (test code = 2237) 140 MG/DL RISK RATIO LDL/HDL (test code = 2.98 RATIO 2238) COMPREHENSIVE METABOLIC [id number] 00:00:00 Test Item Value Reference Range Interpretation Comments GLUCOSE (test code = 2217) 89 MG/DL BUN (test code = 2208) 11 MG/DL CREATININE (test code = 2214) 0.66 MG/DL eGFR (2020 CKD-EPI) (test 116 ML/MIN/1.73 code = 74322) CALC BUN/CREAT (test code = 17 RATIO 2235) SODIUM (test code = 2231) 137 MEQ/L POTASSIUM (test code = 2228) 4.0 MEQ/L CHLORIDE (test code = 2215) 99 MEQ/L CARBON DIOXIDE (test code = 25 MEQ/L 2205) CALCIUM (test code = 2209) 9.5 MG/DL PROTEIN, TOTAL (test code = 6.9 G/DL 2228) ALBUMIN (test code = 2201) 4.5 G/DL CALC GLOBULIN (test code = 2.4 G/DL 2240) CALC A/G RATIO (test code = 1.9 RATIO 2234) BILIRUBIN, TOTAL (test code = 0.3 MG/DL 2206) ALKALINE PHOSPHATASE (test 60 U/L code = 2204) AST (test code = 2218) 23 U/L ALT (test code = 2219) 25 U/L COMPREHENSIVE METABOLIC [id number] 00:00:00 Test Item Value Reference Range Interpretation Comments GLUCOSE (test code = 2217) 89 MG/DL BUN (test code = 2208) 11 MG/DL CREATININE (test code = 2214) 0.66 MG/DL eGFR (2020 CKD-EPI) (test 116 ML/MIN/1.73 code = 61805) CALC BUN/CREAT (test code = 17 RATIO 2235) SODIUM (test code = 2231) 137 MEQ/L POTASSIUM (test code = 2228) 4.0 MEQ/L CHLORIDE (test code = 2215) 99 MEQ/L CARBON DIOXIDE (test code = 25 MEQ/L 2205) CALCIUM (test code = 2209) 9.5 MG/DL PROTEIN, TOTAL (test code = 6.9 G/DL 2228) ALBUMIN (test code = 220) 4.5 G/DL CALC GLOBULIN (test code = 2.4 G/DL 2239) CALC A/G RATIO (test code = 1.9 RATIO 2233) BILIRUBIN, TOTAL (test code = 0.3 MG/DL 2206) ALKALINE PHOSPHATASE (test 60 U/L code = 2204) AST (test code = 2218) 23 U/L ALT (test code = 2219) 25 U/L VITAMIN D, 25 [id number] 00:00:00 Test Item Value Reference Range Interpretation Comments VITAMIN D, 25 OH (test code = 4958) 21 NG/ML VITAMIN D, 25 [id number] 00:00:00 Test Item Value Reference Range Interpretation Comments VITAMIN D, 25 OH (test code = 4958) 21 NG/ML [id number] 00:00:00 Test Item Value Reference Range Interpretation Comments TSH, THIRD GENERATION (test code 5.010 UIU/ML = 2821) [id number] 00:00:00 Test Item Value Reference Range Interpretation Comments TSH, THIRD GENERATION (test code 5.010 UIU/ML = 2821) [id number] 00:00:00 Test Item Value Reference Range Interpretation Comments TSH, THIRD GENERATION (test code 5.010 UIU/ML = 2821) COMPREHENSIVE METABOLIC [id number] 00:00:00 Test Item Value Reference Range Interpretation Comments GLUCOSE (test code = 2217) 89 MG/DL BUN (test code = 2208) 11 MG/DL CREATININE (test code = 2214) 0.66 MG/DL eGFR (2020 CKD-EPI) (test 116 ML/MIN/1.73 code = 22161) CALC BUN/CREAT (test code = 17 RATIO 5) SODIUM (test code = 2231) 137 MEQ/L POTASSIUM (test code = 2228) 4.0 MEQ/L CHLORIDE (test code = 2215) 99 MEQ/L CARBON DIOXIDE (test code = 25 MEQ/L 2205) CALCIUM (test code = 2209) 9.5 MG/DL PROTEIN, TOTAL (test code = 6.9 G/DL 2228) ALBUMIN (test code = 2201) 4.5 G/DL CALC GLOBULIN (test code = 2.4 G/DL 2239) CALC A/G RATIO (test code = 1.9 RATIO 2233) BILIRUBIN, TOTAL (test code = 0.3 MG/DL 2206) ALKALINE PHOSPHATASE (test 60 U/L code = 2204) AST (test code = 2218) 23 U/L ALT (test code = 2219) 25 U/L HEMOGLOBIN [id number] 00:00:00 Test Item Value Reference Range Interpretation Comments HEMOGLOBIN A1c (test code = 48122) 5.5 % HEMOGLOBIN [id number] 00:00:00 Test Item Value Reference Range Interpretation Comments HEMOGLOBIN A1c (test code = 01526) 5.5 % HEMOGLOBIN [id number] 00:00:00 Test Item Value Reference Range Interpretation Comments HEMOGLOBIN A1c (test code = 25766) 5.5 % VITAMIN D, 25 [id number] 00:00:00 Test Item Value Reference Range Interpretation Comments VITAMIN D, 25 OH (test code = 4958) 21 NG/ML [id number] 00:00:00 Test Item Value Reference Range Interpretation Comments TSH, THIRD GENERATION (test code 5.010 UIU/ML = 2821) [id number] 00:00:00 Test Item Value Reference Range Interpretation Comments TSH, THIRD GENERATION (test code 5.010 UIU/ML = 2821) HEMOGLOBIN [id number] 00:00:00 Test Item Value Reference Range Interpretation Comments HEMOGLOBIN A1c (test code = 96223) 5.5 % HEMOGLOBIN [id number] 00:00:00 Test Item Value Reference Range Interpretation Comments HEMOGLOBIN A1c (test code = 51355) 5.5 % CBC W/AUTO [id number] 00:00:00 Test Item Value Reference Range Interpretation Comments WBC (test code = 1001) 5.4 K/UL RBC (test code = 1002) 4.52 M/UL HEMOGLOBIN (test code = 1003) 13.5 G/DL HEMATOCRIT (test code = 1004) 40.9 % MCV (test code = 1005) 90.5 fL MCH (test code = 1006) 29.9 PG MCHC (test code = 1007) 33.0 G/DL RDW (test code = 1038) 12.7 % NEUTROPHILS (test code = 1008) 43.2 % LYMPHOCYTES (test code = 1010) 46.3 % MONOCYTES (test code = 1011) 7.6 % EOSINOPHILS (test code = 1012) 2.0 % BASOPHILS (test code = 1013) 0.7 % IMMATURE GRANULOCYTES (test 0.2 % code = 1036) NUCLEATED RBCS (test code = 0.0 /100WBC'S 1065) PLATELET COUNT (test code = 262 K/UL 1015) ABSOLUTE NEUTROPHILS (test code 2.34 K/UL = 1066) ABSOLUTE LYMPHOCYTES (test code 2.51 K/UL = 1067) ABSOLUTE MONOCYTES (test code = 0.41 K/UL 1068) ABSOLUTE EOSINOPHILS (test code 0.11 K/UL = 1040) ABSOLUTE BASOPHILS (test code = 0.04 K/UL 1069) ABS IMMATURE GRANULOCYTES (test 0.01 K/UL code = 1020) ABS NUCLEATED RBCS (test code = 0.00 K/UL 64441) CBC W/AUTO [id number] 00:00:00 Test Item Value Reference Range Interpretation Comments WBC (test code = 1001) 5.4 K/UL RBC (test code = 1002) 4.52 M/UL HEMOGLOBIN (test code = 1003) 13.5 G/DL HEMATOCRIT (test code = 1004) 40.9 % MCV (test code = 1005) 90.5 fL MCH (test code = 1006) 29.9 PG MCHC (test code = 1007) 33.0 G/DL RDW (test code = 1038) 12.7 % NEUTROPHILS (test code = 1008) 43.2 % LYMPHOCYTES (test code = 1010) 46.3 % MONOCYTES (test code = 1011) 7.6 % EOSINOPHILS (test code = 1012) 2.0 % BASOPHILS (test code = 1013) 0.7 % IMMATURE GRANULOCYTES (test 0.2 % code = 1036) NUCLEATED RBCS (test code = 0.0 /100WBC'S 1065) PLATELET COUNT (test code = 262 K/UL 1015) ABSOLUTE NEUTROPHILS (test code 2.34 K/UL = 1066) ABSOLUTE LYMPHOCYTES (test code 2.51 K/UL = 1067) ABSOLUTE MONOCYTES (test code = 0.41 K/UL 1068) ABSOLUTE EOSINOPHILS (test code 0.11 K/UL = 1040) ABSOLUTE BASOPHILS (test code = 0.04 K/UL 1069) ABS IMMATURE GRANULOCYTES (test 0.01 K/UL code = 1020) ABS NUCLEATED RBCS (test code = 0.00 K/UL 02502) CBC W/AUTO [id number] 00:00:00 Test Item Value Reference Range Interpretation Comments WBC (test code = 1001) 5.4 K/UL RBC (test code = 1002) 4.52 M/UL HEMOGLOBIN (test code = 1003) 13.5 G/DL HEMATOCRIT (test code = 1004) 40.9 % MCV (test code = 1005) 90.5 fL MCH (test code = 1006) 29.9 PG MCHC (test code = 1007) 33.0 G/DL RDW (test code = 1038) 12.7 % NEUTROPHILS (test code = 1008) 43.2 % LYMPHOCYTES (test code = 1010) 46.3 % MONOCYTES (test code = 1011) 7.6 % EOSINOPHILS (test code = 1012) 2.0 % BASOPHILS (test code = 1013) 0.7 % IMMATURE GRANULOCYTES (test 0.2 % code = 1036) NUCLEATED RBCS (test code = 0.0 /100WBC'S 1065) PLATELET COUNT (test code = 262 K/UL 1015) ABSOLUTE NEUTROPHILS (test code 2.34 K/UL = 1066) ABSOLUTE LYMPHOCYTES (test code 2.51 K/UL = 1067) ABSOLUTE MONOCYTES (test code = 0.41 K/UL 1068) ABSOLUTE EOSINOPHILS (test code 0.11 K/UL = 1040) ABSOLUTE BASOPHILS (test code = 0.04 K/UL 1069) ABS IMMATURE GRANULOCYTES (test 0.01 K/UL code = 1020) ABS NUCLEATED RBCS (test code = 0.00 K/UL 40163) LIPID [id number] 00:00:00 Test Item Value Reference Range Interpretation Comments CHOLESTEROL (test code = 2210) 224 MG/DL TRIGLYCERIDES (test code = 2232) 229 MG/DL HDL CHOLESTEROL (test code = 2220) 47 MG/DL CALC LDL CHOL (test code = 2237) 140 MG/DL RISK RATIO LDL/HDL (test code = 2.98 RATIO 2238) LIPID [id number] 00:00:00 Test Item Value Reference Range Interpretation Comments CHOLESTEROL (test code = 2210) 224 MG/DL TRIGLYCERIDES (test code = 2232) 229 MG/DL HDL CHOLESTEROL (test code = 2220) 47 MG/DL CALC LDL CHOL (test code = 2237) 140 MG/DL RISK RATIO LDL/HDL (test code = 2.98 RATIO 2238) COMPREHENSIVE METABOLIC [id number] 00:00:00 Test Item Value Reference Range Interpretation Comments GLUCOSE (test code = 2217) 89 MG/DL BUN (test code = 2208) 11 MG/DL CREATININE (test code = 2214) 0.66 MG/DL eGFR (2020 CKD-EPI) (test 116 ML/MIN/1.73 code = 89697) CALC BUN/CREAT (test code = 17 RATIO 2235) SODIUM (test code = 2231) 137 MEQ/L POTASSIUM (test code = 2228) 4.0 MEQ/L CHLORIDE (test code = 2215) 99 MEQ/L CARBON DIOXIDE (test code = 25 MEQ/L 2205) CALCIUM (test code = 2209) 9.5 MG/DL PROTEIN, TOTAL (test code = 6.9 G/DL 2228) ALBUMIN (test code = 2201) 4.5 G/DL CALC GLOBULIN (test code = 2.4 G/DL 2240) CALC A/G RATIO (test code = 1.9 RATIO 2234) BILIRUBIN, TOTAL (test code = 0.3 MG/DL 2206) ALKALINE PHOSPHATASE (test 60 U/L code = 2204) AST (test code = 2218) 23 U/L ALT (test code = 2219) 25 U/L COMPREHENSIVE METABOLIC [id number] 00:00:00 Test Item Value Reference Range Interpretation Comments GLUCOSE (test code = 2217) 89 MG/DL BUN (test code = 2208) 11 MG/DL CREATININE (test code = 2214) 0.66 MG/DL eGFR (2020 CKD-EPI) (test 116 ML/MIN/1.73 code = 20833) CALC BUN/CREAT (test code = 17 RATIO 2234) SODIUM (test code = 2231) 137 MEQ/L POTASSIUM (test code = 2228) 4.0 MEQ/L CHLORIDE (test code = 2215) 99 MEQ/L CARBON DIOXIDE (test code = 25 MEQ/L 2205) CALCIUM (test code = 2209) 9.5 MG/DL PROTEIN, TOTAL (test code = 6.9 G/DL 2228) ALBUMIN (test code = 220) 4.5 G/DL CALC GLOBULIN (test code = 2.4 G/DL 2239) CALC A/G RATIO (test code = 1.9 RATIO 2233) BILIRUBIN, TOTAL (test code = 0.3 MG/DL 2206) ALKALINE PHOSPHATASE (test 60 U/L code = 2204) AST (test code = 2218) 23 U/L ALT (test code = 2219) 25 U/L VITAMIN D, 25 [id number] 00:00:00 Test Item Value Reference Range Interpretation Comments VITAMIN D, 25 OH (test code = 4958) 21 NG/ML VITAMIN D, 25 [id number] 00:00:00 Test Item Value Reference Range Interpretation Comments VITAMIN D, 25 OH (test code = 4958) 21 NG/ML [id number] 00:00:00 Test Item Value Reference Range Interpretation Comments TSH, THIRD GENERATION (test code 5.010 UIU/ML = 2821) [id number] 00:00:00 Test Item Value Reference Range Interpretation Comments TSH, THIRD GENERATION (test code 5.010 UIU/ML = 2821) [id number] 00:00:00 Test Item Value Reference Range Interpretation Comments TSH, THIRD GENERATION (test code 5.010 UIU/ML = 2821) HEMOGLOBIN [id number] 00:00:00 Test Item Value Reference Range Interpretation Comments HEMOGLOBIN A1c (test code = 57196) 5.5 % HEMOGLOBIN [id number] 00:00:00 Test Item Value Reference Range Interpretation Comments HEMOGLOBIN A1c (test code = 20275) 5.5 % HEMOGLOBIN [id number] 00:00:00 Test Item Value Reference Range Interpretation Comments HEMOGLOBIN A1c (test code = 86048) 5.5 % CBC W/AUTO [id number] 00:00:00 Test Item Value Reference Range Interpretation Comments WBC (test code = 1001) 5.4 K/UL RBC (test code = 1002) 4.52 M/UL HEMOGLOBIN (test code = 1003) 13.5 G/DL HEMATOCRIT (test code = 1004) 40.9 % MCV (test code = 1005) 90.5 fL MCH (test code = 1006) 29.9 PG MCHC (test code = 1007) 33.0 G/DL RDW (test code = 1038) 12.7 % NEUTROPHILS (test code = 1008) 43.2 % LYMPHOCYTES (test code = 1010) 46.3 % MONOCYTES (test code = 1011) 7.6 % EOSINOPHILS (test code = 1012) 2.0 % BASOPHILS (test code = 1013) 0.7 % IMMATURE GRANULOCYTES (test 0.2 % code = 1036) NUCLEATED RBCS (test code = 0.0 /100WBC'S 1065) PLATELET COUNT (test code = 262 K/UL 1015) ABSOLUTE NEUTROPHILS (test code 2.34 K/UL = 1066) ABSOLUTE LYMPHOCYTES (test code 2.51 K/UL = 1067) ABSOLUTE MONOCYTES (test code = 0.41 K/UL 1068) ABSOLUTE EOSINOPHILS (test code 0.11 K/UL = 1040) ABSOLUTE BASOPHILS (test code = 0.04 K/UL 1069) ABS IMMATURE GRANULOCYTES (test 0.01 K/UL code = 1020) ABS NUCLEATED RBCS (test code = 0.00 K/UL 04036) CBC W/AUTO [id number] 00:00:00 Test Item Value Reference Range Interpretation Comments WBC (test code = 1001) 5.4 K/UL RBC (test code = 1002) 4.52 M/UL HEMOGLOBIN (test code = 1003) 13.5 G/DL HEMATOCRIT (test code = 1004) 40.9 % MCV (test code = 1005) 90.5 fL MCH (test code = 1006) 29.9 PG MCHC (test code = 1007) 33.0 G/DL RDW (test code = 1038) 12.7 % NEUTROPHILS (test code = 1008) 43.2 % LYMPHOCYTES (test code = 1010) 46.3 % MONOCYTES (test code = 1011) 7.6 % EOSINOPHILS (test code = 1012) 2.0 % BASOPHILS (test code = 1013) 0.7 % IMMATURE GRANULOCYTES (test 0.2 % code = 1036) NUCLEATED RBCS (test code = 0.0 /100WBC'S 1065) PLATELET COUNT (test code = 262 K/UL 1015) ABSOLUTE NEUTROPHILS (test code 2.34 K/UL = 1066) ABSOLUTE LYMPHOCYTES (test code 2.51 K/UL = 1067) ABSOLUTE MONOCYTES (test code = 0.41 K/UL 1068) ABSOLUTE EOSINOPHILS (test code 0.11 K/UL = 1040) ABSOLUTE BASOPHILS (test code = 0.04 K/UL 1069) ABS IMMATURE GRANULOCYTES (test 0.01 K/UL code = 1020) ABS NUCLEATED RBCS (test code = 0.00 K/UL 44321) CBC W/AUTO [id number] 00:00:00 Test Item Value Reference Range Interpretation Comments WBC (test code = 1001) 5.4 K/UL RBC (test code = 1002) 4.52 M/UL HEMOGLOBIN (test code = 1003) 13.5 G/DL HEMATOCRIT (test code = 1004) 40.9 % MCV (test code = 1005) 90.5 fL MCH (test code = 1006) 29.9 PG MCHC (test code = 1007) 33.0 G/DL RDW (test code = 1038) 12.7 % NEUTROPHILS (test code = 1008) 43.2 % LYMPHOCYTES (test code = 1010) 46.3 % MONOCYTES (test code = 1011) 7.6 % EOSINOPHILS (test code = 1012) 2.0 % BASOPHILS (test code = 1013) 0.7 % IMMATURE GRANULOCYTES (test 0.2 % code = 1036) NUCLEATED RBCS (test code = 0.0 /100WBC'S 1065) PLATELET COUNT (test code = 262 K/UL 1015) ABSOLUTE NEUTROPHILS (test code 2.34 K/UL = 1066) ABSOLUTE LYMPHOCYTES (test code 2.51 K/UL = 1067) ABSOLUTE MONOCYTES (test code = 0.41 K/UL 1068) ABSOLUTE EOSINOPHILS (test code 0.11 K/UL = 1040) ABSOLUTE BASOPHILS (test code = 0.04 K/UL 1069) ABS IMMATURE GRANULOCYTES (test 0.01 K/UL code = 1020) ABS NUCLEATED RBCS (test code = 0.00 K/UL 16043) LIPID [id number] 00:00:00 Test Item Value Reference Range Interpretation Comments CHOLESTEROL (test code = 2210) 224 MG/DL TRIGLYCERIDES (test code = 2232) 229 MG/DL HDL CHOLESTEROL (test code = 2220) 47 MG/DL CALC LDL CHOL (test code = 2237) 140 MG/DL RISK RATIO LDL/HDL (test code = 2.98 RATIO 2238) LIPID [id number] 00:00:00 Test Item Value Reference Range Interpretation Comments CHOLESTEROL (test code = 2210) 224 MG/DL TRIGLYCERIDES (test code = 2232) 229 MG/DL HDL CHOLESTEROL (test code = 2220) 47 MG/DL CALC LDL CHOL (test code = 2237) 140 MG/DL RISK RATIO LDL/HDL (test code = 2.98 RATIO 2238) COMPREHENSIVE METABOLIC [id number] 00:00:00 Test Item Value Reference Range Interpretation Comments GLUCOSE (test code = 2217) 89 MG/DL BUN (test code = 2208) 11 MG/DL CREATININE (test code = 2214) 0.66 MG/DL eGFR (2020 CKD-EPI) (test 116 ML/MIN/1.73 code = 36042) CALC BUN/CREAT (test code = 17 RATIO 2235) SODIUM (test code = 2231) 137 MEQ/L POTASSIUM (test code = 2228) 4.0 MEQ/L CHLORIDE (test code = 2215) 99 MEQ/L CARBON DIOXIDE (test code = 25 MEQ/L 2205) CALCIUM (test code = 2209) 9.5 MG/DL PROTEIN, TOTAL (test code = 6.9 G/DL 2228) ALBUMIN (test code = 2201) 4.5 G/DL CALC GLOBULIN (test code = 2.4 G/DL 2240) CALC A/G RATIO (test code = 1.9 RATIO 2234) BILIRUBIN, TOTAL (test code = 0.3 MG/DL 2206) ALKALINE PHOSPHATASE (test 60 U/L code = 2204) AST (test code = 2218) 23 U/L ALT (test code = 2219) 25 U/L COMPREHENSIVE METABOLIC [id number] 00:00:00 Test Item Value Reference Range Interpretation Comments GLUCOSE (test code = 2217) 89 MG/DL BUN (test code = 2208) 11 MG/DL CREATININE (test code = 2214) 0.66 MG/DL eGFR (2020 CKD-EPI) (test 116 ML/MIN/1.73 code = 33246) CALC BUN/CREAT (test code = 17 RATIO 2235) SODIUM (test code = 2231) 137 MEQ/L POTASSIUM (test code = 2228) 4.0 MEQ/L CHLORIDE (test code = 2215) 99 MEQ/L CARBON DIOXIDE (test code = 25 MEQ/L 2205) CALCIUM (test code = 2209) 9.5 MG/DL PROTEIN, TOTAL (test code = 6.9 G/DL 2228) ALBUMIN (test code = 220) 4.5 G/DL CALC GLOBULIN (test code = 2.4 G/DL 2239) CALC A/G RATIO (test code = 1.9 RATIO 2233) BILIRUBIN, TOTAL (test code = 0.3 MG/DL 2206) ALKALINE PHOSPHATASE (test 60 U/L code = 220) AST (test code = 2218) 23 U/L ALT (test code = 2219) 25 U/L VITAMIN D, 25 [id number] 00:00:00 Test Item Value Reference Range Interpretation Comments VITAMIN D, 25 OH (test code = 4958) 21 NG/ML VITAMIN D, 25 [id number] 00:00:00 Test Item Value Reference Range Interpretation Comments VITAMIN D, 25 OH (test code = 4958) 21 NG/ML [id number] 00:00:00 Test Item Value Reference Range Interpretation Comments TSH, THIRD GENERATION (test code 5.010 UIU/ML = 2821) [id number] 00:00:00 Test Item Value Reference Range Interpretation Comments TSH, THIRD GENERATION (test code 5.010 UIU/ML = 2821) [id number] 00:00:00 Test Item Value Reference Range Interpretation Comments TSH, THIRD GENERATION (test code 5.010 UIU/ML = 2821) HEMOGLOBIN [id number] 00:00:00 Test Item Value Reference Range Interpretation Comments HEMOGLOBIN A1c (test code = 30076) 5.5 % HEMOGLOBIN [id number] 00:00:00 Test Item Value Reference Range Interpretation Comments HEMOGLOBIN A1c (test code = 76838) 5.5 % HEMOGLOBIN [id number] 00:00:00 Test Item Value Reference Range Interpretation Comments HEMOGLOBIN A1c (test code = 67685) 5.5 % CBC W/AUTO [id number] 00:00:00 Test Item Value Reference Range Interpretation Comments WBC (test code = 1001) 5.4 K/UL RBC (test code = 1002) 4.52 M/UL HEMOGLOBIN (test code = 1003) 13.5 G/DL HEMATOCRIT (test code = 1004) 40.9 % MCV (test code = 1005) 90.5 fL MCH (test code = 1006) 29.9 PG MCHC (test code = 1007) 33.0 G/DL RDW (test code = 1038) 12.7 % NEUTROPHILS (test code = 1008) 43.2 % LYMPHOCYTES (test code = 1010) 46.3 % MONOCYTES (test code = 1011) 7.6 % EOSINOPHILS (test code = 1012) 2.0 % BASOPHILS (test code = 1013) 0.7 % IMMATURE GRANULOCYTES (test 0.2 % code = 1036) NUCLEATED RBCS (test code = 0.0 /100WBC'S 1065) PLATELET COUNT (test code = 262 K/UL 1015) ABSOLUTE NEUTROPHILS (test code 2.34 K/UL = 1066) ABSOLUTE LYMPHOCYTES (test code 2.51 K/UL = 1067) ABSOLUTE MONOCYTES (test code = 0.41 K/UL 1068) ABSOLUTE EOSINOPHILS (test code 0.11 K/UL = 1040) ABSOLUTE BASOPHILS (test code = 0.04 K/UL 1069) ABS IMMATURE GRANULOCYTES (test 0.01 K/UL code = 1020) ABS NUCLEATED RBCS (test code = 0.00 K/UL 84980) CBC W/AUTO [id number] 00:00:00 Test Item Value Reference Range Interpretation Comments WBC (test code = 1001) 5.4 K/UL RBC (test code = 1002) 4.52 M/UL HEMOGLOBIN (test code = 1003) 13.5 G/DL HEMATOCRIT (test code = 1004) 40.9 % MCV (test code = 1005) 90.5 fL MCH (test code = 1006) 29.9 PG MCHC (test code = 1007) 33.0 G/DL RDW (test code = 1038) 12.7 % NEUTROPHILS (test code = 1008) 43.2 % LYMPHOCYTES (test code = 1010) 46.3 % MONOCYTES (test code = 1011) 7.6 % EOSINOPHILS (test code = 1012) 2.0 % BASOPHILS (test code = 1013) 0.7 % IMMATURE GRANULOCYTES (test 0.2 % code = 1036) NUCLEATED RBCS (test code = 0.0 /100WBC'S 1065) PLATELET COUNT (test code = 262 K/UL 1015) ABSOLUTE NEUTROPHILS (test code 2.34 K/UL = 1066) ABSOLUTE LYMPHOCYTES (test code 2.51 K/UL = 1067) ABSOLUTE MONOCYTES (test code = 0.41 K/UL 1068) ABSOLUTE EOSINOPHILS (test code 0.11 K/UL = 1040) ABSOLUTE BASOPHILS (test code = 0.04 K/UL 1069) ABS IMMATURE GRANULOCYTES (test 0.01 K/UL code = 1020) ABS NUCLEATED RBCS (test code = 0.00 K/UL 42995) CBC W/AUTO [id number] 00:00:00 Test Item Value Reference Range Interpretation Comments WBC (test code = 1001) 5.4 K/UL RBC (test code = 1002) 4.52 M/UL HEMOGLOBIN (test code = 1003) 13.5 G/DL HEMATOCRIT (test code = 1004) 40.9 % MCV (test code = 1005) 90.5 fL MCH (test code = 1006) 29.9 PG MCHC (test code = 1007) 33.0 G/DL RDW (test code = 1038) 12.7 % NEUTROPHILS (test code = 1008) 43.2 % LYMPHOCYTES (test code = 1010) 46.3 % MONOCYTES (test code = 1011) 7.6 % EOSINOPHILS (test code = 1012) 2.0 % BASOPHILS (test code = 1013) 0.7 % IMMATURE GRANULOCYTES (test 0.2 % code = 1036) NUCLEATED RBCS (test code = 0.0 /100WBC'S 1065) PLATELET COUNT (test code = 262 K/UL 1015) ABSOLUTE NEUTROPHILS (test code 2.34 K/UL = 1066) ABSOLUTE LYMPHOCYTES (test code 2.51 K/UL = 1067) ABSOLUTE MONOCYTES (test code = 0.41 K/UL 1068) ABSOLUTE EOSINOPHILS (test code 0.11 K/UL = 1040) ABSOLUTE BASOPHILS (test code = 0.04 K/UL 1069) ABS IMMATURE GRANULOCYTES (test 0.01 K/UL code = 1020) ABS NUCLEATED RBCS (test code = 0.00 K/UL 71118) LIPID [id number] 00:00:00 Test Item Value Reference Range Interpretation Comments CHOLESTEROL (test code = 2210) 224 MG/DL TRIGLYCERIDES (test code = 2232) 229 MG/DL HDL CHOLESTEROL (test code = 2220) 47 MG/DL CALC LDL CHOL (test code = 2237) 140 MG/DL RISK RATIO LDL/HDL (test code = 2.98 RATIO 2238) LIPID [id number] 00:00:00 Test Item Value Reference Range Interpretation Comments CHOLESTEROL (test code = 2210) 224 MG/DL TRIGLYCERIDES (test code = 2232) 229 MG/DL HDL CHOLESTEROL (test code = 2220) 47 MG/DL CALC LDL CHOL (test code = 2237) 140 MG/DL RISK RATIO LDL/HDL (test code = 2.98 RATIO 2238) COMPREHENSIVE METABOLIC [id number] 00:00:00 Test Item Value Reference Range Interpretation Comments GLUCOSE (test code = 2217) 89 MG/DL BUN (test code = 2208) 11 MG/DL CREATININE (test code = 2214) 0.66 MG/DL eGFR (2020 CKD-EPI) (test 116 ML/MIN/1.73 code = 00685) CALC BUN/CREAT (test code = 17 RATIO 2235) SODIUM (test code = 2231) 137 MEQ/L POTASSIUM (test code = 2228) 4.0 MEQ/L CHLORIDE (test code = 2215) 99 MEQ/L CARBON DIOXIDE (test code = 25 MEQ/L 2205) CALCIUM (test code = 2209) 9.5 MG/DL PROTEIN, TOTAL (test code = 6.9 G/DL 2228) ALBUMIN (test code = 2201) 4.5 G/DL CALC GLOBULIN (test code = 2.4 G/DL 0) CALC A/G RATIO (test code = 1.9 RATIO 2234) BILIRUBIN, TOTAL (test code = 0.3 MG/DL 2206) ALKALINE PHOSPHATASE (test 60 U/L code = 2204) AST (test code = 2218) 23 U/L ALT (test code = 2219) 25 U/L COMPREHENSIVE METABOLIC [id number] 00:00:00 Test Item Value Reference Range Interpretation Comments GLUCOSE (test code = 2217) 89 MG/DL BUN (test code = 2208) 11 MG/DL CREATININE (test code = 2214) 0.66 MG/DL eGFR (2020 CKD-EPI) (test 116 ML/MIN/1.73 code = 96790) CALC BUN/CREAT (test code = 17 RATIO 2235) SODIUM (test code = 2231) 137 MEQ/L POTASSIUM (test code = 2228) 4.0 MEQ/L CHLORIDE (test code = 2215) 99 MEQ/L CARBON DIOXIDE (test code = 25 MEQ/L 2205) CALCIUM (test code = 2209) 9.5 MG/DL PROTEIN, TOTAL (test code = 6.9 G/DL 2228) ALBUMIN (test code = 2201) 4.5 G/DL CALC GLOBULIN (test code = 2.4 G/DL 2240) CALC A/G RATIO (test code = 1.9 RATIO 2234) BILIRUBIN, TOTAL (test code = 0.3 MG/DL 2206) ALKALINE PHOSPHATASE (test 60 U/L code = 2204) AST (test code = 2218) 23 U/L ALT (test code = 2219) 25 U/L VAGINAL PATHOGENS DNA [id number] 00:00:00 Test Item Value Reference Range Interpretation Comments VALERIE SPECIES (test code = 44940) NEGATIVE G. VAGINALIS (test code = 02062) NEGATIVE T. VAGINALIS (test code = 45700) NEGATIVE VAGINAL PATHOGENS DNA [id number] 00:00:00 Test Item Value Reference Range Interpretation Comments VALERIE SPECIES (test code = 61546) NEGATIVE G. VAGINALIS (test code = 12145) NEGATIVE T. VAGINALIS (test code = 40231) NEGATIVE VAGINAL PATHOGENS DNA [id number] 00:00:00 Test Item Value Reference Range Interpretation Comments VALERIE SPECIES (test code = 91565) NEGATIVE G. VAGINALIS (test code = 82687) NEGATIVE T. VAGINALIS (test code = 51008) NEGATIVE VAGINAL PATHOGENS DNA [id number] 00:00:00 Test Item Value Reference Range Interpretation Comments VALERIE SPECIES (test code = 53576) NEGATIVE G. VAGINALIS (test code = 31666) NEGATIVE T. VAGINALIS (test code = 50730) NEGATIVE VAGINAL PATHOGENS DNA [id number] 00:00:00 Test Item Value Reference Range Interpretation Comments VALERIE SPECIES (test code = 16623) NEGATIVE G. VAGINALIS (test code = 63766) NEGATIVE T. VAGINALIS (test code = 98586) NEGATIVE VAGINAL PATHOGENS DNA [id number] 00:00:00 Test Item Value Reference Range Interpretation Comments VALERIE SPECIES (test code = 84379) NEGATIVE G. VAGINALIS (test code = 65733) NEGATIVE T. VAGINALIS (test code = 90574) NEGATIVE VAGINAL PATHOGENS DNA [id number] 00:00:00 Test Item Value Reference Range Interpretation Comments VALERIE SPECIES (test code = 56747) NEGATIVE G. VAGINALIS (test code = 56859) NEGATIVE T. VAGINALIS (test code = 78682) NEGATIVE VAGINAL PATHOGENS DNA [id number] 00:00:00 Test Item Value Reference Range Interpretation Comments VALERIE SPECIES (test code = 33421) NEGATIVE G. VAGINALIS (test code = 26654) NEGATIVE T. VAGINALIS (test code = 56100) NEGATIVE VAGINAL PATHOGENS DNA [id number] 00:00:00 Test Item Value Reference Range Interpretation Comments VALERIE SPECIES (test code = 60550) NEGATIVE G. VAGINALIS (test code = 11297) NEGATIVE T. VAGINALIS (test code = 27258) NEGATIVE RSV BY [id number] 00:00:00 Test Item Value Reference Range Interpretation Comments RSV BY DFA (test code = 30059) Positive SOURCE (test code = 67176) Not Provided RSV BY [id number] 00:00:00 Test Item Value Reference Range Interpretation Comments RSV BY DFA (test code = 97238) Positive SOURCE (test code = 15702) Not Provided RSV BY [id number] 00:00:00 Test Item Value Reference Range Interpretation Comments RSV BY DFA (test code = 58105) Positive SOURCE (test code = 73931) Not Provided RSV BY [id number] 00:00:00 Test Item Value Reference Range Interpretation Comments RSV BY DFA (test code = 46414) Positive SOURCE (test code = 17915) Not Provided RSV BY [id number] 00:00:00 Test Item Value Reference Range Interpretation Comments RSV BY DFA (test code = 84286) Positive SOURCE (test code = 15919) Not Provided RSV BY [id number] 00:00:00 Test Item Value Reference Range Interpretation Comments RSV BY DFA (test code = 23776) Positive SOURCE (test code = 46172) Not Provided RSV BY [id number] 00:00:00 Test Item Value Reference Range Interpretation Comments RSV BY DFA (test code = 23560) Positive SOURCE (test code = 64015) Not Provided RSV BY [id number] 00:00:00 Test Item Value Reference Range Interpretation Comments RSV BY DFA (test code = 33357) Positive SOURCE (test code = 15198) Not Provided RSV BY [id number] 00:00:00 Test Item Value Reference Range Interpretation Comments RSV BY DFA (test code = 54968) Positive SOURCE (test code = 09736) Not Provided SARS-CoV-2 (COVID-19) by RT-PCR (HIGH RISK)2021-04-12 00:00:00 Test Item Value Reference Range Interpretation Comments SARS-CoV-2 INTERPRETATION (test NEGATIVE code = 60839) SOURCE (test code = 30513) NOT SPECIFIED SARS-CoV-2 (COVID-19) by RT-PCR (HIGH RISK)2021-04-12 00:00:00 Test Item Value Reference Range Interpretation Comments SARS-CoV-2 INTERPRETATION (test NEGATIVE code = 32372) SOURCE (test code = 28216) NOT SPECIFIED SARS-CoV-2 (COVID-19) by RT-PCR (HIGH RISK)2021-04-12 00:00:00 Test Item Value Reference Range Interpretation Comments SARS-CoV-2 INTERPRETATION (test NEGATIVE code = 60185) SOURCE (test code = 19627) NOT SPECIFIED SARS-CoV-2 (COVID-19) by RT-PCR (HIGH RISK)2021-04-12 00:00:00 Test Item Value Reference Range Interpretation Comments SARS-CoV-2 INTERPRETATION (test NEGATIVE code = 75888) SOURCE (test code = 64751) NOT SPECIFIED SARS-CoV-2 (COVID-19) by RT-PCR (HIGH RISK)2021-04-12 00:00:00 Test Item Value Reference Range Interpretation Comments SARS-CoV-2 INTERPRETATION (test NEGATIVE code = 84945) SOURCE (test code = 91831) NOT SPECIFIED SARS-CoV-2 (COVID-19) by RT-PCR (HIGH RISK)2021-04-12 00:00:00 Test Item Value Reference Range Interpretation Comments SARS-CoV-2 INTERPRETATION (test NEGATIVE code = 26552) SOURCE (test code = 20333) NOT SPECIFIED SARS-CoV-2 (COVID-19) by RT-PCR (HIGH RISK)2021-04-12 00:00:00 Test Item Value Reference Range Interpretation Comments SARS-CoV-2 INTERPRETATION (test NEGATIVE code = 62149) SOURCE (test code = 10024) NOT SPECIFIED SARS-CoV-2 (COVID-19) by RT-PCR (HIGH RISK)2021-04-12 00:00:00 Test Item Value Reference Range Interpretation Comments SARS-CoV-2 INTERPRETATION (test NEGATIVE code = 90990) SOURCE (test code = 71755) NOT SPECIFIED SARS-CoV-2 (COVID-19) by RT-PCR (HIGH RISK)2021-04-12 00:00:00 Test Item Value Reference Range Interpretation Comments SARS-CoV-2 INTERPRETATION (test NEGATIVE code = 06629) SOURCE (test code = 30696) NOT SPECIFIED LIPID [id number] 00:00:00 Test Item Value Reference Range Interpretation Comments CHOLESTEROL (test code = 2210) 230 MG/DL TRIGLYCERIDES (test code = 2232) 125 MG/DL HDL CHOLESTEROL (test code = 2220) 55 MG/DL CALC LDL CHOL (test code = 2237) 150 MG/DL RISK RATIO LDL/HDL (test code = 2.73 RATIO 2238) [id number] 00:00:00 Test Item Value Reference Range Interpretation Comments TSH, THIRD GENERATION (test code 4.000 UIU/ML = 2821) [id number] 00:00:00 Test Item Value Reference Range Interpretation Comments TSH, THIRD GENERATION (test code 4.000 UIU/ML = 2821) [id number] 00:00:00 Test Item Value Reference Range Interpretation Comments TSH, THIRD GENERATION (test code 4.000 UIU/ML = 2821) VITAMIN D, 25 [id number] 00:00:00 Test Item Value Reference Range Interpretation Comments VITAMIN D, 25 OH (test code = 4958) 17 NG/ML VITAMIN D, 25 [id number] 00:00:00 Test Item Value Reference Range Interpretation Comments VITAMIN D, 25 OH (test code = 4958) 17 NG/ML VITAMIN D, 25 [id number] 00:00:00 Test Item Value Reference Range Interpretation Comments VITAMIN D, 25 OH (test code = 4958) 17 NG/ML COMPREHENSIVE METABOLIC [id number] 00:00:00 Test Item Value Reference Range Interpretation Comments GLUCOSE (test code = 2217) 98 MG/DL BUN (test code = 2208) 14 MG/DL CREATININE (test code = 2214) 0.57 MG/DL eGFR AMER. (test code 138 ML/MIN/1.73 = 86772) eGFR NON- AMER. (test 119 ML/MIN/1.73 code = 94807) CALC BUN/CREAT (test code = 25 RATIO 2235) SODIUM (test code = 2231) 139 MEQ/L POTASSIUM (test code = 2228) 4.6 MEQ/L CHLORIDE (test code = 2215) 103 MEQ/L CARBON DIOXIDE (test code = 24 MEQ/L 2206) CALCIUM (test code = 2209) 9.4 MG/DL PROTEIN, TOTAL (test code = 7.2 G/DL 2228) ALBUMIN (test code = 2201) 4.5 G/DL CALC GLOBULIN (test code = 2.7 G/DL 2240) CALC A/G RATIO (test code = 1.7 RATIO 2234) BILIRUBIN, TOTAL (test code = 0.6 MG/DL 2206) ALKALINE PHOSPHATASE (test 64 U/L code = 2204) AST (test code = 2218) 16 U/L ALT (test code = 2219) 20 U/L COMPREHENSIVE METABOLIC [id number] 00:00:00 Test Item Value Reference Range Interpretation Comments GLUCOSE (test code = 2217) 98 MG/DL BUN (test code = 2208) 14 MG/DL CREATININE (test code = 2214) 0.57 MG/DL eGFR AMER. (test code 138 ML/MIN/1.73 = 28574) eGFR NON- AMER. (test 119 ML/MIN/1.73 code = 16879) CALC BUN/CREAT (test code = 25 RATIO 2235) SODIUM (test code = 2231) 139 MEQ/L POTASSIUM (test code = 2228) 4.6 MEQ/L CHLORIDE (test code = 2215) 103 MEQ/L CARBON DIOXIDE (test code = 24 MEQ/L 2206) CALCIUM (test code = 220) 9.4 MG/DL PROTEIN, TOTAL (test code = 7.2 G/DL 2228) ALBUMIN (test code = 2201) 4.5 G/DL CALC GLOBULIN (test code = 2.7 G/DL 224) CALC A/G RATIO (test code = 1.7 RATIO 2234) BILIRUBIN, TOTAL (test code = 0.6 MG/DL 2206) ALKALINE PHOSPHATASE (test 64 U/L code = 2204) AST (test code = 2218) 16 U/L ALT (test code = 2219) 20 U/L LIPID [id number] 00:00:00 Test Item Value Reference Range Interpretation Comments CHOLESTEROL (test code = 2210) 230 MG/DL TRIGLYCERIDES (test code = 2232) 125 MG/DL HDL CHOLESTEROL (test code = 2220) 55 MG/DL CALC LDL CHOL (test code = 2237) 150 MG/DL RISK RATIO LDL/HDL (test code = 2.73 RATIO 2238) COMPREHENSIVE METABOLIC [id number] 00:00:00 Test Item Value Reference Range Interpretation Comments GLUCOSE (test code = 2217) 98 MG/DL BUN (test code = 2208) 14 MG/DL CREATININE (test code = 2214) 0.57 MG/DL eGFR AMER. (test code 138 ML/MIN/1.73 = 59647) eGFR NON- AMER. (test 119 ML/MIN/1.73 code = 07340) CALC BUN/CREAT (test code = 25 RATIO 2235) SODIUM (test code = 2231) 139 MEQ/L POTASSIUM (test code = 2228) 4.6 MEQ/L CHLORIDE (test code = 2215) 103 MEQ/L CARBON DIOXIDE (test code = 24 MEQ/L 2205) CALCIUM (test code = 2209) 9.4 MG/DL PROTEIN, TOTAL (test code = 7.2 G/DL 2228) ALBUMIN (test code = 2201) 4.5 G/DL CALC GLOBULIN (test code = 2.7 G/DL 2239) CALC A/G RATIO (test code = 1.7 RATIO 2234) BILIRUBIN, TOTAL (test code = 0.6 MG/DL 2206) ALKALINE PHOSPHATASE (test 64 U/L code = 2204) AST (test code = 2218) 16 U/L ALT (test code = 2219) 20 U/L LIPID [id number] 00:00:00 Test Item Value Reference Range Interpretation Comments CHOLESTEROL (test code = 2210) 230 MG/DL TRIGLYCERIDES (test code = 2232) 125 MG/DL HDL CHOLESTEROL (test code = 2220) 55 MG/DL CALC LDL CHOL (test code = 2237) 150 MG/DL RISK RATIO LDL/HDL (test code = 2.73 RATIO 2238) [id number] 00:00:00 Test Item Value Reference Range Interpretation Comments TSH, THIRD GENERATION (test code 4.000 UIU/ML = 2821) [id number] 00:00:00 Test Item Value Reference Range Interpretation Comments TSH, THIRD GENERATION (test code 4.000 UIU/ML = 2821) [id number] 00:00:00 Test Item Value Reference Range Interpretation Comments TSH, THIRD GENERATION (test code 4.000 UIU/ML = 2821) LIPID [id number] 00:00:00 Test Item Value Reference Range Interpretation Comments CHOLESTEROL (test code = 2210) 230 MG/DL TRIGLYCERIDES (test code = 2232) 125 MG/DL HDL CHOLESTEROL (test code = 2220) 55 MG/DL CALC LDL CHOL (test code = 2237) 150 MG/DL RISK RATIO LDL/HDL (test code = 2.73 RATIO 2238) [id number] 00:00:00 Test Item Value Reference Range Interpretation Comments TSH, THIRD GENERATION (test code 4.000 UIU/ML = 2821) [id number] 00:00:00 Test Item Value Reference Range Interpretation Comments TSH, THIRD GENERATION (test code 4.000 UIU/ML = 2821) VITAMIN D, 25 [id number] 00:00:00 Test Item Value Reference Range Interpretation Comments VITAMIN D, 25 OH (test code = 4958) 17 NG/ML VITAMIN D, 25 [id number] 00:00:00 Test Item Value Reference Range Interpretation Comments VITAMIN D, 25 OH (test code = 4958) 17 NG/ML COMPREHENSIVE METABOLIC [id number] 00:00:00 Test Item Value Reference Range Interpretation Comments GLUCOSE (test code = 2217) 98 MG/DL BUN (test code = 2208) 14 MG/DL CREATININE (test code = 2214) 0.57 MG/DL eGFR AMER. (test code 138 ML/MIN/1.73 = 34465) eGFR NON- AMER. (test 119 ML/MIN/1.73 code = 49457) CALC BUN/CREAT (test code = 25 RATIO 2235) SODIUM (test code = 2231) 139 MEQ/L POTASSIUM (test code = 2228) 4.6 MEQ/L CHLORIDE (test code = 2215) 103 MEQ/L CARBON DIOXIDE (test code = 24 MEQ/L 220) CALCIUM (test code = 2209) 9.4 MG/DL PROTEIN, TOTAL (test code = 7.2 G/DL 2228) ALBUMIN (test code = 2201) 4.5 G/DL CALC GLOBULIN (test code = 2.7 G/DL 2240) CALC A/G RATIO (test code = 1.7 RATIO 2234) BILIRUBIN, TOTAL (test code = 0.6 MG/DL 2206) ALKALINE PHOSPHATASE (test 64 U/L code = 2204) AST (test code = 2218) 16 U/L ALT (test code = 2219) 20 U/L COMPREHENSIVE METABOLIC [id number] 00:00:00 Test Item Value Reference Range Interpretation Comments GLUCOSE (test code = 2217) 98 MG/DL BUN (test code = 2208) 14 MG/DL CREATININE (test code = 2214) 0.57 MG/DL eGFR AMER. (test code 138 ML/MIN/1.73 = 59582) eGFR NON- AMER. (test 119 ML/MIN/1.73 code = 90881) CALC BUN/CREAT (test code = 25 RATIO 2235) SODIUM (test code = 2231) 139 MEQ/L POTASSIUM (test code = 2228) 4.6 MEQ/L CHLORIDE (test code = 2215) 103 MEQ/L CARBON DIOXIDE (test code = 24 MEQ/L 220) CALCIUM (test code = 2209) 9.4 MG/DL PROTEIN, TOTAL (test code = 7.2 G/DL 2228) ALBUMIN (test code = 2201) 4.5 G/DL CALC GLOBULIN (test code = 2.7 G/DL 2240) CALC A/G RATIO (test code = 1.7 RATIO 2234) BILIRUBIN, TOTAL (test code = 0.6 MG/DL 2207) ALKALINE PHOSPHATASE (test 64 U/L code = 2204) AST (test code = 2218) 16 U/L ALT (test code = 2219) 20 U/L LIPID [id number] 00:00:00 Test Item Value Reference Range Interpretation Comments CHOLESTEROL (test code = 2210) 230 MG/DL TRIGLYCERIDES (test code = 2232) 125 MG/DL HDL CHOLESTEROL (test code = 2220) 55 MG/DL CALC LDL CHOL (test code = 2237) 150 MG/DL RISK RATIO LDL/HDL (test code = 2.73 RATIO 2238) LIPID [id number] 00:00:00 Test Item Value Reference Range Interpretation Comments CHOLESTEROL (test code = 2210) 230 MG/DL TRIGLYCERIDES (test code = 2232) 125 MG/DL HDL CHOLESTEROL (test code = 2220) 55 MG/DL CALC LDL CHOL (test code = 2237) 150 MG/DL RISK RATIO LDL/HDL (test code = 2.73 RATIO 2238) [id number] 00:00:00 Test Item Value Reference Range Interpretation Comments TSH, THIRD GENERATION (test code 4.000 UIU/ML = 2821) [id number] 00:00:00 Test Item Value Reference Range Interpretation Comments TSH, THIRD GENERATION (test code 4.000 UIU/ML = 2821) [id number] 00:00:00 Test Item Value Reference Range Interpretation Comments TSH, THIRD GENERATION (test code 4.000 UIU/ML = 2821) VITAMIN D, 25 [id number] 00:00:00 Test Item Value Reference Range Interpretation Comments VITAMIN D, 25 OH (test code = 4958) 17 NG/ML VITAMIN D, 25 [id number] 00:00:00 Test Item Value Reference Range Interpretation Comments VITAMIN D, 25 OH (test code = 4958) 17 NG/ML COMPREHENSIVE METABOLIC [id number] 00:00:00 Test Item Value Reference Range Interpretation Comments GLUCOSE (test code = 2217) 98 MG/DL BUN (test code = 2208) 14 MG/DL CREATININE (test code = 2214) 0.57 MG/DL eGFR AMER. (test code 138 ML/MIN/1.73 = 10554) eGFR NON- AMER. (test 119 ML/MIN/1.73 code = 25457) CALC BUN/CREAT (test code = 25 RATIO 2235) SODIUM (test code = 2231) 139 MEQ/L POTASSIUM (test code = 2228) 4.6 MEQ/L CHLORIDE (test code = 2215) 103 MEQ/L CARBON DIOXIDE (test code = 24 MEQ/L 2206) CALCIUM (test code = 2209) 9.4 MG/DL PROTEIN, TOTAL (test code = 7.2 G/DL 2229) ALBUMIN (test code = 2201) 4.5 G/DL CALC GLOBULIN (test code = 2.7 G/DL 2240) CALC A/G RATIO (test code = 1.7 RATIO 2234) BILIRUBIN, TOTAL (test code = 0.6 MG/DL 2206) ALKALINE PHOSPHATASE (test 64 U/L code = 2204) AST (test code = 2218) 16 U/L ALT (test code = 2219) 20 U/L COMPREHENSIVE METABOLIC [id number] 00:00:00 Test Item Value Reference Range Interpretation Comments GLUCOSE (test code = 2217) 98 MG/DL BUN (test code = 2208) 14 MG/DL CREATININE (test code = 2214) 0.57 MG/DL eGFR AMER. (test code 138 ML/MIN/1.73 = 60371) eGFR NON- AMER. (test 119 ML/MIN/1.73 code = 96821) CALC BUN/CREAT (test code = 25 RATIO 2235) SODIUM (test code = 2231) 139 MEQ/L POTASSIUM (test code = 2228) 4.6 MEQ/L CHLORIDE (test code = 2215) 103 MEQ/L CARBON DIOXIDE (test code = 24 MEQ/L 2205) CALCIUM (test code = 2209) 9.4 MG/DL PROTEIN, TOTAL (test code = 7.2 G/DL 2229) ALBUMIN (test code = 2201) 4.5 G/DL CALC GLOBULIN (test code = 2.7 G/DL 2240) CALC A/G RATIO (test code = 1.7 RATIO 2234) BILIRUBIN, TOTAL (test code = 0.6 MG/DL 2207) ALKALINE PHOSPHATASE (test 64 U/L code = 2204) AST (test code = 2218) 16 U/L ALT (test code = 2219) 20 U/L LIPID [id number] 00:00:00 Test Item Value Reference Range Interpretation Comments CHOLESTEROL (test code = 2210) 230 MG/DL TRIGLYCERIDES (test code = 2232) 125 MG/DL HDL CHOLESTEROL (test code = 2220) 55 MG/DL CALC LDL CHOL (test code = 2237) 150 MG/DL RISK RATIO LDL/HDL (test code = 2.73 RATIO 2238) LIPID [id number] 00:00:00 Test Item Value Reference Range Interpretation Comments CHOLESTEROL (test code = 2210) 230 MG/DL TRIGLYCERIDES (test code = 2232) 125 MG/DL HDL CHOLESTEROL (test code = 2220) 55 MG/DL CALC LDL CHOL (test code = 2237) 150 MG/DL RISK RATIO LDL/HDL (test code = 2.73 RATIO 2238) [id number] 00:00:00 Test Item Value Reference Range Interpretation Comments TSH, THIRD GENERATION (test code 4.000 UIU/ML = 2821) [id number] 00:00:00 Test Item Value Reference Range Interpretation Comments TSH, THIRD GENERATION (test code 4.000 UIU/ML = 2821) [id number] 00:00:00 Test Item Value Reference Range Interpretation Comments TSH, THIRD GENERATION (test code 4.000 UIU/ML = 2821) VITAMIN D, 25 [id number] 00:00:00 Test Item Value Reference Range Interpretation Comments VITAMIN D, 25 OH (test code = 4958) 17 NG/ML VITAMIN D, 25 [id number] 00:00:00 Test Item Value Reference Range Interpretation Comments VITAMIN D, 25 OH (test code = 4958) 17 NG/ML COMPREHENSIVE METABOLIC [id number] 00:00:00 Test Item Value Reference Range Interpretation Comments GLUCOSE (test code = 2217) 98 MG/DL BUN (test code = 2208) 14 MG/DL CREATININE (test code = 2214) 0.57 MG/DL eGFR AMER. (test code 138 ML/MIN/1.73 = 79197) eGFR NON- AMER. (test 119 ML/MIN/1.73 code = 50511) CALC BUN/CREAT (test code = 25 RATIO 2235) SODIUM (test code = 2231) 139 MEQ/L POTASSIUM (test code = 2228) 4.6 MEQ/L CHLORIDE (test code = 2215) 103 MEQ/L CARBON DIOXIDE (test code = 24 MEQ/L 2205) CALCIUM (test code = 2209) 9.4 MG/DL PROTEIN, TOTAL (test code = 7.2 G/DL 2228) ALBUMIN (test code = 2201) 4.5 G/DL CALC GLOBULIN (test code = 2.7 G/DL 2240) CALC A/G RATIO (test code = 1.7 RATIO 2234) BILIRUBIN, TOTAL (test code = 0.6 MG/DL 2206) ALKALINE PHOSPHATASE (test 64 U/L code = 2204) AST (test code = 2218) 16 U/L ALT (test code = 2219) 20 U/L COMPREHENSIVE METABOLIC [id number] 00:00:00 Test Item Value Reference Range Interpretation Comments GLUCOSE (test code = 2217) 98 MG/DL BUN (test code = 2208) 14 MG/DL CREATININE (test code = 2214) 0.57 MG/DL eGFR AMER. (test code 138 ML/MIN/1.73 = 37511) eGFR NON- AMER. (test 119 ML/MIN/1.73 code = 80108) CALC BUN/CREAT (test code = 25 RATIO 2235) SODIUM (test code = 2231) 139 MEQ/L POTASSIUM (test code = 2228) 4.6 MEQ/L CHLORIDE (test code = 2215) 103 MEQ/L CARBON DIOXIDE (test code = 24 MEQ/L 2205) CALCIUM (test code = 2209) 9.4 MG/DL PROTEIN, TOTAL (test code = 7.2 G/DL 2228) ALBUMIN (test code = 2201) 4.5 G/DL CALC GLOBULIN (test code = 2.7 G/DL 2240) CALC A/G RATIO (test code = 1.7 RATIO 2234) BILIRUBIN, TOTAL (test code = 0.6 MG/DL 2206) ALKALINE PHOSPHATASE (test 64 U/L code = 2204) AST (test code = 2218) 16 U/L ALT (test code = 2219) 20 U/L LIPID [id number] 00:00:00 Test Item Value Reference Range Interpretation Comments CHOLESTEROL (test code = 2210) 230 MG/DL TRIGLYCERIDES (test code = 2232) 125 MG/DL HDL CHOLESTEROL (test code = 2220) 55 MG/DL CALC LDL CHOL (test code = 2237) 150 MG/DL RISK RATIO LDL/HDL (test code = 2.73 RATIO 8) TSH + FREE T4 [id number] 00:00:00 Test Item Value Reference Range Interpretation Comments TSH, THIRD GENERATION (test code 5.310 UIU/ML = 2821) FREE T4 (THYROXINE) (test code = 0.98 NG/DL 2823) THYROID I PROFILE (T3U, T4, T7)2020-08-24 00:00:00 Test Item Value Reference Range Interpretation Comments T-UPTAKE (test code = 2817) 30.2 % THYROX. BIND. CAPAC. (test code = 1.1 54074) T4 (THYROXINE) (test code = 2819) 6.1 UG/DL CORRECTED T4 (FTI) (test code = 5.5 UG/DL 2820) TSH + FREE T4 [id number] 00:00:00 Test Item Value Reference Range Interpretation Comments TSH, THIRD GENERATION (test code 5.310 UIU/ML = 2821) FREE T4 (THYROXINE) (test code = 0.98 NG/DL 2823) TSH + FREE T4 [id number] 00:00:00 Test Item Value Reference Range Interpretation Comments TSH, THIRD GENERATION (test code 5.310 UIU/ML = 2821) FREE T4 (THYROXINE) (test code = 0.98 NG/DL 2823) TSH + FREE T4 [id number] 00:00:00 Test Item Value Reference Range Interpretation Comments TSH, THIRD GENERATION (test code 5.310 UIU/ML = 2821) FREE T4 (THYROXINE) (test code = 0.98 NG/DL 2823) THYROID I PROFILE (T3U, T4, T7)2020-08-24 00:00:00 Test Item Value Reference Range Interpretation Comments T-UPTAKE (test code = 2817) 30.2 % THYROX. BIND. CAPAC. (test code = 1.1 04622) T4 (THYROXINE) (test code = 2819) 6.1 UG/DL CORRECTED T4 (FTI) (test code = 5.5 UG/DL 2820) THYROID I PROFILE (T3U, T4, T7)2020-08-24 00:00:00 Test Item Value Reference Range Interpretation Comments T-UPTAKE (test code = 2817) 30.2 % THYROX. BIND. CAPAC. (test code = 1.1 93609) T4 (THYROXINE) (test code = 2819) 6.1 UG/DL CORRECTED T4 (FTI) (test code = 5.5 UG/DL 2820) TSH + FREE T4 [id number] 00:00:00 Test Item Value Reference Range Interpretation Comments TSH, THIRD GENERATION (test code 5.310 UIU/ML = 2821) FREE T4 (THYROXINE) (test code = 0.98 NG/DL 2823) TSH + FREE T4 [id number] 00:00:00 Test Item Value Reference Range Interpretation Comments TSH, THIRD GENERATION (test code 5.310 UIU/ML = 2821) FREE T4 (THYROXINE) (test code = 0.98 NG/DL 2823) TSH + FREE T4 [id number] 00:00:00 Test Item Value Reference Range Interpretation Comments TSH, THIRD GENERATION (test code 5.310 UIU/ML = 2821) FREE T4 (THYROXINE) (test code = 0.98 NG/DL 2823) THYROID I PROFILE (T3U, T4, T7)2020-08-24 00:00:00 Test Item Value Reference Range Interpretation Comments T-UPTAKE (test code = 2817) 30.2 % THYROX. BIND. CAPAC. (test code = 1.1 48456) T4 (THYROXINE) (test code = 2819) 6.1 UG/DL CORRECTED T4 (FTI) (test code = 5.5 UG/DL 2820) THYROID I PROFILE (T3U, T4, T7)2020-08-24 00:00:00 Test Item Value Reference Range Interpretation Comments T-UPTAKE (test code = 2817) 30.2 % THYROX. BIND. CAPAC. (test code = 1.1 07209) T4 (THYROXINE) (test code = 2819) 6.1 UG/DL CORRECTED T4 (FTI) (test code = 5.5 UG/DL 2820) TSH + FREE T4 [id number] 00:00:00 Test Item Value Reference Range Interpretation Comments TSH, THIRD GENERATION (test code 5.310 UIU/ML = 2821) FREE T4 (THYROXINE) (test code = 0.98 NG/DL 2823) TSH + FREE T4 [id number] 00:00:00 Test Item Value Reference Range Interpretation Comments TSH, THIRD GENERATION (test code 5.310 UIU/ML = 2821) FREE T4 (THYROXINE) (test code = 0.98 NG/DL 2823) TSH + FREE T4 [id number] 00:00:00 Test Item Value Reference Range Interpretation Comments TSH, THIRD GENERATION (test code 5.310 UIU/ML = 2821) FREE T4 (THYROXINE) (test code = 0.98 NG/DL 2823) THYROID I PROFILE (T3U, T4, T7)2020-08-24 00:00:00 Test Item Value Reference Range Interpretation Comments T-UPTAKE (test code = 2817) 30.2 % THYROX. BIND. CAPAC. (test code = 1.1 22545) T4 (THYROXINE) (test code = 2819) 6.1 UG/DL CORRECTED T4 (FTI) (test code = 5.5 UG/DL 2820) THYROID I PROFILE (T3U, T4, T7)2020-08-24 00:00:00 Test Item Value Reference Range Interpretation Comments T-UPTAKE (test code = 2817) 30.2 % THYROX. BIND. CAPAC. (test code = 1.1 37223) T4 (THYROXINE) (test code = 2819) 6.1 UG/DL CORRECTED T4 (FTI) (test code = 5.5 UG/DL 2820) TSH + FREE T4 [id number] 00:00:00 Test Item Value Reference Range Interpretation Comments TSH, THIRD GENERATION (test code 5.310 UIU/ML = 2821) FREE T4 (THYROXINE) (test code = 0.98 NG/DL 2823) TSH + FREE T4 [id number] 00:00:00 Test Item Value Reference Range Interpretation Comments TSH, THIRD GENERATION (test code 5.310 UIU/ML = 2821) FREE T4 (THYROXINE) (test code = 0.98 NG/DL 2823) TSH + FREE T4 [id number] 00:00:00 Test Item Value Reference Range Interpretation Comments TSH, THIRD GENERATION (test code 5.310 UIU/ML = 2821) FREE T4 (THYROXINE) (test code = 0.98 NG/DL 2823) TSH + FREE T4 [id number] 00:00:00 Test Item Value Reference Range Interpretation Comments TSH, THIRD GENERATION (test code 5.310 UIU/ML = 2821) FREE T4 (THYROXINE) (test code = 0.98 NG/DL 2823) THYROID I PROFILE (T3U, T4, T7)2020-08-24 00:00:00 Test Item Value Reference Range Interpretation Comments T-UPTAKE (test code = 2817) 30.2 % THYROX. BIND. CAPAC. (test code = 1.1 73957) T4 (THYROXINE) (test code = 2819) 6.1 UG/DL CORRECTED T4 (FTI) (test code = 5.5 UG/DL 2820) THYROID I PROFILE (T3U, T4, T7)2020-08-24 00:00:00 Test Item Value Reference Range Interpretation Comments T-UPTAKE (test code = 2817) 30.2 % THYROX. BIND. CAPAC. (test code = 1.1 01231) T4 (THYROXINE) (test code = 2819) 6.1 UG/DL CORRECTED T4 (FTI) (test code = 5.5 UG/DL 2820) LIPID [id number] 00:00:00 Test Item Value Reference Range Interpretation Comments CHOLESTEROL (test code = 2210) 220 MG/DL TRIGLYCERIDES (test code = 2232) 95 MG/DL HDL CHOLESTEROL (test code = 2220) 57 MG/DL CALC LDL CHOL (test code = 2237) 143 MG/DL RISK RATIO LDL/HDL (test code = 2.51 RATIO 2238) COMPREHENSIVE METABOLIC [id number] 00:00:00 Test Item Value Reference Range Interpretation Comments GLUCOSE (test code = 2217) 88 MG/DL BUN (test code = 2208) 11 MG/DL CREATININE (test code = 2214) 0.79 MG/DL eGFR AMER. (test code 112 ML/MIN/1.73 = 04651) eGFR NON- AMER. (test 96 ML/MIN/1.73 code = 99680) CALC BUN/CREAT (test code = 14 RATIO 2235) SODIUM (test code = 2231) 141 MEQ/L POTASSIUM (test code = 2228) 4.4 MEQ/L CHLORIDE (test code = 2215) 104 MEQ/L CARBON DIOXIDE (test code = 25 MEQ/L 2205) CALCIUM (test code = 2209) 9.6 MG/DL PROTEIN, TOTAL (test code = 7.2 G/DL 2228) ALBUMIN (test code = 2201) 4.8 G/DL CALC GLOBULIN (test code = 2.4 G/DL 2240) CALC A/G RATIO (test code = 2.0 RATIO 2234) BILIRUBIN, TOTAL (test code = 0.8 MG/DL 2206) ALKALINE PHOSPHATASE (test 66 U/L code = 2204) AST (test code = 2218) 17 U/L ALT (test code = 2219) 16 U/L COMPREHENSIVE METABOLIC [id number] 00:00:00 Test Item Value Reference Range Interpretation Comments GLUCOSE (test code = 2217) 88 MG/DL BUN (test code = 2208) 11 MG/DL CREATININE (test code = 2214) 0.79 MG/DL eGFR AMER. (test code 112 ML/MIN/1.73 = 46741) eGFR NON- AMER. (test 96 ML/MIN/1.73 code = 91975) CALC BUN/CREAT (test code = 14 RATIO 2235) SODIUM (test code = 2231) 141 MEQ/L POTASSIUM (test code = 2228) 4.4 MEQ/L CHLORIDE (test code = 2215) 104 MEQ/L CARBON DIOXIDE (test code = 25 MEQ/L 2205) CALCIUM (test code = 2209) 9.6 MG/DL PROTEIN, TOTAL (test code = 7.2 G/DL 2228) ALBUMIN (test code = 2201) 4.8 G/DL CALC GLOBULIN (test code = 2.4 G/DL 2240) CALC A/G RATIO (test code = 2.0 RATIO 2234) BILIRUBIN, TOTAL (test code = 0.8 MG/DL 2206) ALKALINE PHOSPHATASE (test 66 U/L code = 2204) AST (test code = 2218) 17 U/L ALT (test code = 2219) 16 U/L [id number] 00:00:00 Test Item Value Reference Range Interpretation Comments TSH, THIRD GENERATION (test code 4.290 UIU/ML = 2821) [id number] 00:00:00 Test Item Value Reference Range Interpretation Comments TSH, THIRD GENERATION (test code 4.290 UIU/ML = 2821) [id number] 00:00:00 Test Item Value Reference Range Interpretation Comments TSH, THIRD GENERATION (test code 4.290 UIU/ML = 2821) HEMOGLOBIN [id number] 00:00:00 Test Item Value Reference Range Interpretation Comments HEMOGLOBIN A1c (test code = 49685) 5.2 % CBC W/AUTO [id number] 00:00:00 Test Item Value Reference Range Interpretation Comments WBC (test code = 1001) 5.1 K/UL RBC (test code = 1002) 4.72 M/UL HEMOGLOBIN (test code = 1003) 14.4 G/DL HEMATOCRIT (test code = 1004) 42.3 % MCV (test code = 1005) 89.6 fL MCH (test code = 1006) 30.5 PG MCHC (test code = 1007) 34.0 G/DL RDW (test code = 1038) 13.0 % NEUTROPHILS (test code = 1008) 48.7 % LYMPHOCYTES (test code = 1010) 42.1 % MONOCYTES (test code = 1011) 7.2 % EOSINOPHILS (test code = 1012) 1.6 % BASOPHILS (test code = 1013) 0.4 % PLATELET COUNT (test code = 1015) 234 K/UL CBC W/AUTO [id number] 00:00:00 Test Item Value Reference Range Interpretation Comments WBC (test code = 1001) 5.1 K/UL RBC (test code = 1002) 4.72 M/UL HEMOGLOBIN (test code = 1003) 14.4 G/DL HEMATOCRIT (test code = 1004) 42.3 % MCV (test code = 1005) 89.6 fL MCH (test code = 1006) 30.5 PG MCHC (test code = 1007) 34.0 G/DL RDW (test code = 1038) 13.0 % NEUTROPHILS (test code = 1008) 48.7 % LYMPHOCYTES (test code = 1010) 42.1 % MONOCYTES (test code = 1011) 7.2 % EOSINOPHILS (test code = 1012) 1.6 % BASOPHILS (test code = 1013) 0.4 % PLATELET COUNT (test code = 1015) 234 K/UL CBC W/AUTO [id number] 00:00:00 Test Item Value Reference Range Interpretation Comments WBC (test code = 1001) 5.1 K/UL RBC (test code = 1002) 4.72 M/UL HEMOGLOBIN (test code = 1003) 14.4 G/DL HEMATOCRIT (test code = 1004) 42.3 % MCV (test code = 1005) 89.6 fL MCH (test code = 1006) 30.5 PG MCHC (test code = 1007) 34.0 G/DL RDW (test code = 1038) 13.0 % NEUTROPHILS (test code = 1008) 48.7 % LYMPHOCYTES (test code = 1010) 42.1 % MONOCYTES (test code = 1011) 7.2 % EOSINOPHILS (test code = 1012) 1.6 % BASOPHILS (test code = 1013) 0.4 % PLATELET COUNT (test code = 1015) 234 K/UL HEMOGLOBIN [id number] 00:00:00 Test Item Value Reference Range Interpretation Comments HEMOGLOBIN A1c (test code = 73971) 5.2 % HEMOGLOBIN [id number] 00:00:00 Test Item Value Reference Range Interpretation Comments HEMOGLOBIN A1c (test code = 02319) 5.2 % HEMOGLOBIN [id number] 00:00:00 Test Item Value Reference Range Interpretation Comments HEMOGLOBIN A1c (test code = 67643) 5.2 % HEMOGLOBIN [id number] 00:00:00 Test Item Value Reference Range Interpretation Comments HEMOGLOBIN A1c (test code = 06980) 5.2 % LIPID [id number] 00:00:00 Test Item Value Reference Range Interpretation Comments CHOLESTEROL (test code = 2210) 220 MG/DL TRIGLYCERIDES (test code = 2232) 95 MG/DL HDL CHOLESTEROL (test code = 2220) 57 MG/DL CALC LDL CHOL (test code = 2237) 143 MG/DL RISK RATIO LDL/HDL (test code = 2.51 RATIO 2238) LIPID [id number] 00:00:00 Test Item Value Reference Range Interpretation Comments CHOLESTEROL (test code = 2210) 220 MG/DL TRIGLYCERIDES (test code = 2232) 95 MG/DL HDL CHOLESTEROL (test code = 2220) 57 MG/DL CALC LDL CHOL (test code = 2237) 143 MG/DL RISK RATIO LDL/HDL (test code = 2.51 RATIO 2238) COMPREHENSIVE METABOLIC [id number] 00:00:00 Test Item Value Reference Range Interpretation Comments GLUCOSE (test code = 2217) 88 MG/DL BUN (test code = 2208) 11 MG/DL CREATININE (test code = 2214) 0.79 MG/DL eGFR AMER. (test code 112 ML/MIN/1.73 = 09880) eGFR NON- AMER. (test 96 ML/MIN/1.73 code = 24068) CALC BUN/CREAT (test code = 14 RATIO 2235) SODIUM (test code = 2231) 141 MEQ/L POTASSIUM (test code = 2228) 4.4 MEQ/L CHLORIDE (test code = 2215) 104 MEQ/L CARBON DIOXIDE (test code = 25 MEQ/L 2206) CALCIUM (test code = 2209) 9.6 MG/DL PROTEIN, TOTAL (test code = 7.2 G/DL 2228) ALBUMIN (test code = 2201) 4.8 G/DL CALC GLOBULIN (test code = 2.4 G/DL 2240) CALC A/G RATIO (test code = 2.0 RATIO 2234) BILIRUBIN, TOTAL (test code = 0.8 MG/DL 2206) ALKALINE PHOSPHATASE (test 66 U/L code = 2204) AST (test code = 2218) 17 U/L ALT (test code = 2219) 16 U/L COMPREHENSIVE METABOLIC [id number] 00:00:00 Test Item Value Reference Range Interpretation Comments GLUCOSE (test code = 2217) 88 MG/DL BUN (test code = 2208) 11 MG/DL CREATININE (test code = 2214) 0.79 MG/DL eGFR AMER. (test code 112 ML/MIN/1.73 = 96688) eGFR NON- AMER. (test 96 ML/MIN/1.73 code = 35926) CALC BUN/CREAT (test code = 14 RATIO 2235) SODIUM (test code = 2231) 141 MEQ/L POTASSIUM (test code = 2228) 4.4 MEQ/L CHLORIDE (test code = 2215) 104 MEQ/L CARBON DIOXIDE (test code = 25 MEQ/L 2206) CALCIUM (test code = 2209) 9.6 MG/DL PROTEIN, TOTAL (test code = 7.2 G/DL 2228) ALBUMIN (test code = 2201) 4.8 G/DL CALC GLOBULIN (test code = 2.4 G/DL 2240) CALC A/G RATIO (test code = 2.0 RATIO 2234) BILIRUBIN, TOTAL (test code = 0.8 MG/DL 2206) ALKALINE PHOSPHATASE (test 66 U/L code = 2204) AST (test code = 2218) 17 U/L ALT (test code = 2219) 16 U/L [id number] 00:00:00 Test Item Value Reference Range Interpretation Comments TSH, THIRD GENERATION (test code 4.290 UIU/ML = 2821) [id number] 00:00:00 Test Item Value Reference Range Interpretation Comments TSH, THIRD GENERATION (test code 4.290 UIU/ML = 2821) [id number] 00:00:00 Test Item Value Reference Range Interpretation Comments TSH, THIRD GENERATION (test code 4.290 UIU/ML = 2821) LIPID [id number] 00:00:00 Test Item Value Reference Range Interpretation Comments CHOLESTEROL (test code = 2210) 220 MG/DL TRIGLYCERIDES (test code = 2232) 95 MG/DL HDL CHOLESTEROL (test code = 2220) 57 MG/DL CALC LDL CHOL (test code = 2237) 143 MG/DL RISK RATIO LDL/HDL (test code = 2.51 RATIO 2238) COMPREHENSIVE METABOLIC [id number] 00:00:00 Test Item Value Reference Range Interpretation Comments GLUCOSE (test code = 2217) 88 MG/DL BUN (test code = 2208) 11 MG/DL CREATININE (test code = 2214) 0.79 MG/DL eGFR AMER. (test code 112 ML/MIN/1.73 = 14697) eGFR NON- AMER. (test 96 ML/MIN/1.73 code = 87675) CALC BUN/CREAT (test code = 14 RATIO 2235) SODIUM (test code = 2231) 141 MEQ/L POTASSIUM (test code = 2228) 4.4 MEQ/L CHLORIDE (test code = 2215) 104 MEQ/L CARBON DIOXIDE (test code = 25 MEQ/L 2205) CALCIUM (test code = 2209) 9.6 MG/DL PROTEIN, TOTAL (test code = 7.2 G/DL 2228) ALBUMIN (test code = 2201) 4.8 G/DL CALC GLOBULIN (test code = 2.4 G/DL 2239) CALC A/G RATIO (test code = 2.0 RATIO 2234) BILIRUBIN, TOTAL (test code = 0.8 MG/DL 2206) ALKALINE PHOSPHATASE (test 66 U/L code = 2204) AST (test code = 2218) 17 U/L ALT (test code = 2219) 16 U/L [id number] 00:00:00 Test Item Value Reference Range Interpretation Comments TSH, THIRD GENERATION (test code 4.290 UIU/ML = 2821) [id number] 00:00:00 Test Item Value Reference Range Interpretation Comments TSH, THIRD GENERATION (test code 4.290 UIU/ML = 2821) CBC W/AUTO [id number] 00:00:00 Test Item Value Reference Range Interpretation Comments WBC (test code = 1001) 5.1 K/UL RBC (test code = 1002) 4.72 M/UL HEMOGLOBIN (test code = 1003) 14.4 G/DL HEMATOCRIT (test code = 1004) 42.3 % MCV (test code = 1005) 89.6 fL MCH (test code = 1006) 30.5 PG MCHC (test code = 1007) 34.0 G/DL RDW (test code = 1038) 13.0 % NEUTROPHILS (test code = 1008) 48.7 % LYMPHOCYTES (test code = 1010) 42.1 % MONOCYTES (test code = 1011) 7.2 % EOSINOPHILS (test code = 1012) 1.6 % BASOPHILS (test code = 1013) 0.4 % PLATELET COUNT (test code = 1015) 234 K/UL CBC W/AUTO [id number] 00:00:00 Test Item Value Reference Range Interpretation Comments WBC (test code = 1001) 5.1 K/UL RBC (test code = 1002) 4.72 M/UL HEMOGLOBIN (test code = 1003) 14.4 G/DL HEMATOCRIT (test code = 1004) 42.3 % MCV (test code = 1005) 89.6 fL MCH (test code = 1006) 30.5 PG MCHC (test code = 1007) 34.0 G/DL RDW (test code = 1038) 13.0 % NEUTROPHILS (test code = 1008) 48.7 % LYMPHOCYTES (test code = 1010) 42.1 % MONOCYTES (test code = 1011) 7.2 % EOSINOPHILS (test code = 1012) 1.6 % BASOPHILS (test code = 1013) 0.4 % PLATELET COUNT (test code = 1015) 234 K/UL CBC W/AUTO [id number] 00:00:00 Test Item Value Reference Range Interpretation Comments WBC (test code = 1001) 5.1 K/UL RBC (test code = 1002) 4.72 M/UL HEMOGLOBIN (test code = 1003) 14.4 G/DL HEMATOCRIT (test code = 1004) 42.3 % MCV (test code = 1005) 89.6 fL MCH (test code = 1006) 30.5 PG MCHC (test code = 1007) 34.0 G/DL RDW (test code = 1038) 13.0 % NEUTROPHILS (test code = 1008) 48.7 % LYMPHOCYTES (test code = 1010) 42.1 % MONOCYTES (test code = 1011) 7.2 % EOSINOPHILS (test code = 1012) 1.6 % BASOPHILS (test code = 1013) 0.4 % PLATELET COUNT (test code = 1015) 234 K/UL HEMOGLOBIN [id number] 00:00:00 Test Item Value Reference Range Interpretation Comments HEMOGLOBIN A1c (test code = 39554) 5.2 % HEMOGLOBIN [id number] 00:00:00 Test Item Value Reference Range Interpretation Comments HEMOGLOBIN A1c (test code = 95288) 5.2 % HEMOGLOBIN [id number] 00:00:00 Test Item Value Reference Range Interpretation Comments HEMOGLOBIN A1c (test code = 14287) 5.2 % LIPID [id number] 00:00:00 Test Item Value Reference Range Interpretation Comments CHOLESTEROL (test code = 2210) 220 MG/DL TRIGLYCERIDES (test code = 2232) 95 MG/DL HDL CHOLESTEROL (test code = 2220) 57 MG/DL CALC LDL CHOL (test code = 2237) 143 MG/DL RISK RATIO LDL/HDL (test code = 2.51 RATIO 2238) LIPID [id number] 00:00:00 Test Item Value Reference Range Interpretation Comments CHOLESTEROL (test code = 2210) 220 MG/DL TRIGLYCERIDES (test code = 2232) 95 MG/DL HDL CHOLESTEROL (test code = 2220) 57 MG/DL CALC LDL CHOL (test code = 2237) 143 MG/DL RISK RATIO LDL/HDL (test code = 2.51 RATIO 2238) COMPREHENSIVE METABOLIC [id number] 00:00:00 Test Item Value Reference Range Interpretation Comments GLUCOSE (test code = 2217) 88 MG/DL BUN (test code = 2208) 11 MG/DL CREATININE (test code = 2214) 0.79 MG/DL eGFR AMER. (test code 112 ML/MIN/1.73 = 41325) eGFR NON- AMER. (test 96 ML/MIN/1.73 code = 28496) CALC BUN/CREAT (test code = 14 RATIO 2235) SODIUM (test code = 2231) 141 MEQ/L POTASSIUM (test code = 2228) 4.4 MEQ/L CHLORIDE (test code = 2215) 104 MEQ/L CARBON DIOXIDE (test code = 25 MEQ/L 2205) CALCIUM (test code = 2209) 9.6 MG/DL PROTEIN, TOTAL (test code = 7.2 G/DL 2228) ALBUMIN (test code = 2201) 4.8 G/DL CALC GLOBULIN (test code = 2.4 G/DL 2240) CALC A/G RATIO (test code = 2.0 RATIO 2234) BILIRUBIN, TOTAL (test code = 0.8 MG/DL 2206) ALKALINE PHOSPHATASE (test 66 U/L code = 2204) AST (test code = 2218) 17 U/L ALT (test code = 2219) 16 U/L COMPREHENSIVE METABOLIC [id number] 00:00:00 Test Item Value Reference Range Interpretation Comments GLUCOSE (test code = 2217) 88 MG/DL BUN (test code = 2208) 11 MG/DL CREATININE (test code = 2214) 0.79 MG/DL eGFR AMER. (test code 112 ML/MIN/1.73 = 33592) eGFR NON- AMER. (test 96 ML/MIN/1.73 code = 26717) CALC BUN/CREAT (test code = 14 RATIO 2235) SODIUM (test code = 2231) 141 MEQ/L POTASSIUM (test code = 2228) 4.4 MEQ/L CHLORIDE (test code = 2215) 104 MEQ/L CARBON DIOXIDE (test code = 25 MEQ/L 2205) CALCIUM (test code = 2209) 9.6 MG/DL PROTEIN, TOTAL (test code = 7.2 G/DL 2228) ALBUMIN (test code = 2201) 4.8 G/DL CALC GLOBULIN (test code = 2.4 G/DL 2240) CALC A/G RATIO (test code = 2.0 RATIO 2234) BILIRUBIN, TOTAL (test code = 0.8 MG/DL 7) ALKALINE PHOSPHATASE (test 66 U/L code = 2204) AST (test code = 2218) 17 U/L ALT (test code = 2219) 16 U/L [id number] 00:00:00 Test Item Value Reference Range Interpretation Comments TSH, THIRD GENERATION (test code 4.290 UIU/ML = 2821) [id number] 00:00:00 Test Item Value Reference Range Interpretation Comments TSH, THIRD GENERATION (test code 4.290 UIU/ML = 2821) [id number] 00:00:00 Test Item Value Reference Range Interpretation Comments TSH, THIRD GENERATION (test code 4.290 UIU/ML = 2821) CBC W/AUTO [id number] 00:00:00 Test Item Value Reference Range Interpretation Comments WBC (test code = 1001) 5.1 K/UL RBC (test code = 1002) 4.72 M/UL HEMOGLOBIN (test code = 1003) 14.4 G/DL HEMATOCRIT (test code = 1004) 42.3 % MCV (test code = 1005) 89.6 fL MCH (test code = 1006) 30.5 PG MCHC (test code = 1007) 34.0 G/DL RDW (test code = 1038) 13.0 % NEUTROPHILS (test code = 1008) 48.7 % LYMPHOCYTES (test code = 1010) 42.1 % MONOCYTES (test code = 1011) 7.2 % EOSINOPHILS (test code = 1012) 1.6 % BASOPHILS (test code = 1013) 0.4 % PLATELET COUNT (test code = 1015) 234 K/UL CBC W/AUTO [id number] 00:00:00 Test Item Value Reference Range Interpretation Comments WBC (test code = 1001) 5.1 K/UL RBC (test code = 1002) 4.72 M/UL HEMOGLOBIN (test code = 1003) 14.4 G/DL HEMATOCRIT (test code = 1004) 42.3 % MCV (test code = 1005) 89.6 fL MCH (test code = 1006) 30.5 PG MCHC (test code = 1007) 34.0 G/DL RDW (test code = 1038) 13.0 % NEUTROPHILS (test code = 1008) 48.7 % LYMPHOCYTES (test code = 1010) 42.1 % MONOCYTES (test code = 1011) 7.2 % EOSINOPHILS (test code = 1012) 1.6 % BASOPHILS (test code = 1013) 0.4 % PLATELET COUNT (test code = 1015) 234 K/UL CBC W/AUTO [id number] 00:00:00 Test Item Value Reference Range Interpretation Comments WBC (test code = 1001) 5.1 K/UL RBC (test code = 1002) 4.72 M/UL HEMOGLOBIN (test code = 1003) 14.4 G/DL HEMATOCRIT (test code = 1004) 42.3 % MCV (test code = 1005) 89.6 fL MCH (test code = 1006) 30.5 PG MCHC (test code = 1007) 34.0 G/DL RDW (test code = 1038) 13.0 % NEUTROPHILS (test code = 1008) 48.7 % LYMPHOCYTES (test code = 1010) 42.1 % MONOCYTES (test code = 1011) 7.2 % EOSINOPHILS (test code = 1012) 1.6 % BASOPHILS (test code = 1013) 0.4 % PLATELET COUNT (test code = 1015) 234 K/UL HEMOGLOBIN [id number] 00:00:00 Test Item Value Reference Range Interpretation Comments HEMOGLOBIN A1c (test code = 84206) 5.2 % HEMOGLOBIN [id number] 00:00:00 Test Item Value Reference Range Interpretation Comments HEMOGLOBIN A1c (test code = 98892) 5.2 % HEMOGLOBIN [id number] 00:00:00 Test Item Value Reference Range Interpretation Comments HEMOGLOBIN A1c (test code = 35275) 5.2 % LIPID [id number] 00:00:00 Test Item Value Reference Range Interpretation Comments CHOLESTEROL (test code = 2210) 220 MG/DL TRIGLYCERIDES (test code = 2232) 95 MG/DL HDL CHOLESTEROL (test code = 2220) 57 MG/DL CALC LDL CHOL (test code = 2237) 143 MG/DL RISK RATIO LDL/HDL (test code = 2.51 RATIO 2238) LIPID [id number] 00:00:00 Test Item Value Reference Range Interpretation Comments CHOLESTEROL (test code = 2210) 220 MG/DL TRIGLYCERIDES (test code = 2232) 95 MG/DL HDL CHOLESTEROL (test code = 2220) 57 MG/DL CALC LDL CHOL (test code = 2237) 143 MG/DL RISK RATIO LDL/HDL (test code = 2.51 RATIO 2238) COMPREHENSIVE METABOLIC [id number] 00:00:00 Test Item Value Reference Range Interpretation Comments GLUCOSE (test code = 2217) 88 MG/DL BUN (test code = 2208) 11 MG/DL CREATININE (test code = 2214) 0.79 MG/DL eGFR AMER. (test code 112 ML/MIN/1.73 = 54945) eGFR NON- AMER. (test 96 ML/MIN/1.73 code = 32374) CALC BUN/CREAT (test code = 14 RATIO 2235) SODIUM (test code = 2231) 141 MEQ/L POTASSIUM (test code = 2228) 4.4 MEQ/L CHLORIDE (test code = 2215) 104 MEQ/L CARBON DIOXIDE (test code = 25 MEQ/L 2205) CALCIUM (test code = 2209) 9.6 MG/DL PROTEIN, TOTAL (test code = 7.2 G/DL 2228) ALBUMIN (test code = 2201) 4.8 G/DL CALC GLOBULIN (test code = 2.4 G/DL 2240) CALC A/G RATIO (test code = 2.0 RATIO 2234) BILIRUBIN, TOTAL (test code = 0.8 MG/DL 2206) ALKALINE PHOSPHATASE (test 66 U/L code = 2204) AST (test code = 2218) 17 U/L ALT (test code = 2219) 16 U/L COMPREHENSIVE METABOLIC [id number] 00:00:00 Test Item Value Reference Range Interpretation Comments GLUCOSE (test code = 2217) 88 MG/DL BUN (test code = 2208) 11 MG/DL CREATININE (test code = 2214) 0.79 MG/DL eGFR AMER. (test code 112 ML/MIN/1.73 = 45392) eGFR NON- AMER. (test 96 ML/MIN/1.73 code = 58156) CALC BUN/CREAT (test code = 14 RATIO 2235) SODIUM (test code = 2231) 141 MEQ/L POTASSIUM (test code = 2228) 4.4 MEQ/L CHLORIDE (test code = 2215) 104 MEQ/L CARBON DIOXIDE (test code = 25 MEQ/L 220) CALCIUM (test code = 2209) 9.6 MG/DL PROTEIN, TOTAL (test code = 7.2 G/DL 2229) ALBUMIN (test code = 2201) 4.8 G/DL CALC GLOBULIN (test code = 2.4 G/DL 2240) CALC A/G RATIO (test code = 2.0 RATIO 2234) BILIRUBIN, TOTAL (test code = 0.8 MG/DL 2207) ALKALINE PHOSPHATASE (test 66 U/L code = 2204) AST (test code = 2218) 17 U/L ALT (test code = 2219) 16 U/L [id number] 00:00:00 Test Item Value Reference Range Interpretation Comments TSH, THIRD GENERATION (test code 4.290 UIU/ML = 2821) [id number] 00:00:00 Test Item Value Reference Range Interpretation Comments TSH, THIRD GENERATION (test code 4.290 UIU/ML = 2821) [id number] 00:00:00 Test Item Value Reference Range Interpretation Comments TSH, THIRD GENERATION (test code 4.290 UIU/ML = 2821) CBC W/AUTO [id number] 00:00:00 Test Item Value Reference Range Interpretation Comments WBC (test code = 1001) 5.1 K/UL RBC (test code = 1002) 4.72 M/UL HEMOGLOBIN (test code = 1003) 14.4 G/DL HEMATOCRIT (test code = 1004) 42.3 % MCV (test code = 1005) 89.6 fL MCH (test code = 1006) 30.5 PG MCHC (test code = 1007) 34.0 G/DL RDW (test code = 1038) 13.0 % NEUTROPHILS (test code = 1008) 48.7 % LYMPHOCYTES (test code = 1010) 42.1 % MONOCYTES (test code = 1011) 7.2 % EOSINOPHILS (test code = 1012) 1.6 % BASOPHILS (test code = 1013) 0.4 % PLATELET COUNT (test code = 1015) 234 K/UL CBC W/AUTO [id number] 00:00:00 Test Item Value Reference Range Interpretation Comments WBC (test code = 1001) 5.1 K/UL RBC (test code = 1002) 4.72 M/UL HEMOGLOBIN (test code = 1003) 14.4 G/DL HEMATOCRIT (test code = 1004) 42.3 % MCV (test code = 1005) 89.6 fL MCH (test code = 1006) 30.5 PG MCHC (test code = 1007) 34.0 G/DL RDW (test code = 1038) 13.0 % NEUTROPHILS (test code = 1008) 48.7 % LYMPHOCYTES (test code = 1010) 42.1 % MONOCYTES (test code = 1011) 7.2 % EOSINOPHILS (test code = 1012) 1.6 % BASOPHILS (test code = 1013) 0.4 % PLATELET COUNT (test code = 1015) 234 K/UL CBC W/AUTO [id number] 00:00:00 Test Item Value Reference Range Interpretation Comments WBC (test code = 1001) 5.1 K/UL RBC (test code = 1002) 4.72 M/UL HEMOGLOBIN (test code = 1003) 14.4 G/DL HEMATOCRIT (test code = 1004) 42.3 % MCV (test code = 1005) 89.6 fL MCH (test code = 1006) 30.5 PG MCHC (test code = 1007) 34.0 G/DL RDW (test code = 1038) 13.0 % NEUTROPHILS (test code = 1008) 48.7 % LYMPHOCYTES (test code = 1010) 42.1 % MONOCYTES (test code = 1011) 7.2 % EOSINOPHILS (test code = 1012) 1.6 % BASOPHILS (test code = 1013) 0.4 % PLATELET COUNT (test code = 1015) 234 K/UL CBC W/AUTO [id number] 00:00:00 Test Item Value Reference Range Interpretation Comments WBC (test code = 1001) 5.1 K/UL RBC (test code = 1002) 4.72 M/UL HEMOGLOBIN (test code = 1003) 14.4 G/DL HEMATOCRIT (test code = 1004) 42.3 % MCV (test code = 1005) 89.6 fL MCH (test code = 1006) 30.5 PG MCHC (test code = 1007) 34.0 G/DL RDW (test code = 1038) 13.0 % NEUTROPHILS (test code = 1008) 48.7 % LYMPHOCYTES (test code = 1010) 42.1 % MONOCYTES (test code = 1011) 7.2 % EOSINOPHILS (test code = 1012) 1.6 % BASOPHILS (test code = 1013) 0.4 % PLATELET COUNT (test code = 1015) 234 K/UL CBC W/AUTO [id number] 00:00:00 Test Item Value Reference Range Interpretation Comments WBC (test code = 1001) 5.1 K/UL RBC (test code = 1002) 4.72 M/UL HEMOGLOBIN (test code = 1003) 14.4 G/DL HEMATOCRIT (test code = 1004) 42.3 % MCV (test code = 1005) 89.6 fL MCH (test code = 1006) 30.5 PG MCHC (test code = 1007) 34.0 G/DL RDW (test code = 1038) 13.0 % NEUTROPHILS (test code = 1008) 48.7 % LYMPHOCYTES (test code = 1010) 42.1 % MONOCYTES (test code = 1011) 7.2 % EOSINOPHILS (test code = 1012) 1.6 % BASOPHILS (test code = 1013) 0.4 % PLATELET COUNT (test code = 1015) 234 K/UL HEMOGLOBIN [id number] 00:00:00 Test Item Value Reference Range Interpretation Comments HEMOGLOBIN A1c (test code = 24634) 5.2 % HEMOGLOBIN [id number] 00:00:00 Test Item Value Reference Range Interpretation Comments HEMOGLOBIN A1c (test code = 22609) 5.2 % HEMOGLOBIN [id number] 00:00:00 Test Item Value Reference Range Interpretation Comments HEMOGLOBIN A1c (test code = 14403) 5.2 % LIPID [id number] 00:00:00 Test Item Value Reference Range Interpretation Comments CHOLESTEROL (test code = 2210) 220 MG/DL TRIGLYCERIDES (test code = 2232) 95 MG/DL HDL CHOLESTEROL (test code = 2220) 57 MG/DL CALC LDL CHOL (test code = 2237) 143 MG/DL RISK RATIO LDL/HDL (test code = 2.51 RATIO 2238) URIC [id number] 00:00:00 Test Item Value Reference Range Interpretation Comments URIC ACID (test code = 2233) 4.2 MG/DL URIC [id number] 00:00:00 Test Item Value Reference Range Interpretation Comments URIC ACID (test code = 2233) 4.2 MG/DL URIC [id number] 00:00:00 Test Item Value Reference Range Interpretation Comments URIC ACID (test code = 2233) 4.2 MG/DL URIC [id number] 00:00:00 Test Item Value Reference Range Interpretation Comments URIC ACID (test code = 2233) 4.2 MG/DL URIC [id number] 00:00:00 Test Item Value Reference Range Interpretation Comments URIC ACID (test code = 2233) 4.2 MG/DL URIC [id number] 00:00:00 Test Item Value Reference Range Interpretation Comments URIC ACID (test code = 2233) 4.2 MG/DL URIC [id number] 00:00:00 Test Item Value Reference Range Interpretation Comments URIC ACID (test code = 2233) 4.2 MG/DL URIC [id number] 00:00:00 Test Item Value Reference Range Interpretation Comments URIC ACID (test code = 2233) 4.2 MG/DL URIC [id number] 00:00:00 Test Item Value Reference Range Interpretation Comments URIC ACID (test code = 2233) 4.2 MG/DL HIV AB/AG COMBO RFLX [id number] 00:00:00 Test Item Value Reference Range Interpretation Comments HIV 1/2 4TH GEN, RFLX CONF (test NON-REACTIVE code = 3514) [id number] 00:00:00 Test Item Value Reference Range Interpretation Comments RPR RESULT (test code = NON-REACTIVE 3501) RPR TITER (test code = 3500) NOT INDIC. TITER [id number] 00:00:00 Test Item Value Reference Range Interpretation Comments RPR RESULT (test code = NON-REACTIVE 3501) RPR TITER (test code = 3500) NOT INDIC. TITER [id number] 00:00:00 Test Item Value Reference Range Interpretation Comments RPR RESULT (test code = NON-REACTIVE 3501) RPR TITER (test code = 3500) NOT INDIC. TITER HEPATITIS PROFILE (A,B,C)2020-03-23 00:00:00 Test Item Value Reference Range Interpretation Comments HEPATITIS A TOTAL AB (test code REACTIVE = 2725) HEPATITIS B SURF AG (test code = NON-REACTIVE 2739) HEP B CORE TOTAL AB (test code = NON-REACTIVE 9) HEPATITIS B SURFACE AB (test REACTIVE code = 2737) HEPATITIS C ANTIBODY (test code NON-REACTIVE = 4675) INTERPRETATION HEPATITIS A: (NOTE) (test code = 2552) INTERPRETATION HEPATITIS B: (NOTE) (test code = 55131) INTERPRETATION HEPATITIS C: (NOTE) (test code = 86503) VAGINAL PATHOGENS DNA [id number] 00:00:00 Test Item Value Reference Range Interpretation Comments VALERIE SPECIES (test code = ) POSITIVE G. VAGINALIS (test code = 89440) NEGATIVE T. VAGINALIS (test code = 99107) NEGATIVE HEPATITIS PROFILE (A,B,C)2020-03-23 00:00:00 Test Item Value Reference Range Interpretation Comments HEPATITIS A TOTAL AB (test code REACTIVE = 2725) HEPATITIS B SURF AG (test code = NON-REACTIVE 2739) HEP B CORE TOTAL AB (test code = NON-REACTIVE 2729) HEPATITIS B SURFACE AB (test REACTIVE code = 2737) HEPATITIS C ANTIBODY (test code NON-REACTIVE = 4675) INTERPRETATION HEPATITIS A: (NOTE) (test code = 2552) INTERPRETATION HEPATITIS B: (NOTE) (test code = 11579) INTERPRETATION HEPATITIS C: (NOTE) (test code = 67036) HEPATITIS A IgM [REFLEX]2020-03-23 00:00:00 Test Item Value Reference Range Interpretation Comments HEPATITIS A IgM (test code = NON-REACTIVE 2728) VAGINAL PATHOGENS DNA [id number] 00:00:00 Test Item Value Reference Range Interpretation Comments VALERIE SPECIES (test code = ) POSITIVE G. VAGINALIS (test code = 48532) NEGATIVE T. VAGINALIS (test code = 76473) NEGATIVE VAGINAL PATHOGENS DNA [id number] 00:00:00 Test Item Value Reference Range Interpretation Comments VALERIE SPECIES (test code = 44097) POSITIVE G. VAGINALIS (test code = 87677) NEGATIVE T. VAGINALIS (test code = 45093) NEGATIVE GC AND CHLAMYDIA, AMPLIFIED, [id number] 00:00:00 Test Item Value Reference Range Interpretation Comments GONORRHEA, TMA (test code = 32785) NEGATIVE CHLAMYDIA, TMA (test code = 88678) NEGATIVE GC AND CHLAMYDIA, AMPLIFIED, [id number] 00:00:00 Test Item Value Reference Range Interpretation Comments GONORRHEA, TMA (test code = 01144) NEGATIVE CHLAMYDIA, TMA (test code = 47307) NEGATIVE GC AND CHLAMYDIA, AMPLIFIED, [id number] 00:00:00 Test Item Value Reference Range Interpretation Comments GONORRHEA, TMA (test code = 65786) NEGATIVE CHLAMYDIA, TMA (test code = 72411) NEGATIVE HIV AB/AG COMBO RFLX [id number] 00:00:00 Test Item Value Reference Range Interpretation Comments HIV 1/2 4TH GEN, RFLX CONF (test NON-REACTIVE code = 3514) HIV AB/AG COMBO RFLX [id number] 00:00:00 Test Item Value Reference Range Interpretation Comments HIV 1/2 4TH GEN, RFLX CONF (test NON-REACTIVE code = 3514) [id number] 00:00:00 Test Item Value Reference Range Interpretation Comments RPR RESULT (test code = NON-REACTIVE 3501) RPR TITER (test code = 3500) NOT INDIC. TITER [id number] 00:00:00 Test Item Value Reference Range Interpretation Comments RPR RESULT (test code = NON-REACTIVE 3501) RPR TITER (test code = 3500) NOT INDIC. TITER [id number] 00:00:00 Test Item Value Reference Range Interpretation Comments RPR RESULT (test code = NON-REACTIVE 3501) RPR TITER (test code = 3500) NOT INDIC. TITER HEPATITIS PROFILE (A,B,C)2020-03-23 00:00:00 Test Item Value Reference Range Interpretation Comments HEPATITIS A TOTAL AB (test code REACTIVE = 2725) HEPATITIS B SURF AG (test code = NON-REACTIVE 273) HEP B CORE TOTAL AB (test code = NON-REACTIVE 272) HEPATITIS B SURFACE AB (test REACTIVE code = 2737) HEPATITIS C ANTIBODY (test code NON-REACTIVE = 4675) INTERPRETATION HEPATITIS A: (NOTE) (test code = 2552) INTERPRETATION HEPATITIS B: (NOTE) (test code = 70877) INTERPRETATION HEPATITIS C: (NOTE) (test code = 72187) HEPATITIS PROFILE (A,B,C)2020-03-23 00:00:00 Test Item Value Reference Range Interpretation Comments HEPATITIS A TOTAL AB (test code REACTIVE = 2725) HEPATITIS B SURF AG (test code = NON-REACTIVE 2739) HEP B CORE TOTAL AB (test code = NON-REACTIVE 2729) HEPATITIS B SURFACE AB (test REACTIVE code = 2737) HEPATITIS C ANTIBODY (test code NON-REACTIVE = 4675) INTERPRETATION HEPATITIS A: (NOTE) (test code = 2552) INTERPRETATION HEPATITIS B: (NOTE) (test code = 97819) INTERPRETATION HEPATITIS C: (NOTE) (test code = 15216) HEPATITIS A IgM [REFLEX]2020-03-23 00:00:00 Test Item Value Reference Range Interpretation Comments HEPATITIS A IgM (test code = NON-REACTIVE 2728) HIV AB/AG COMBO RFLX [id number] 00:00:00 Test Item Value Reference Range Interpretation Comments HIV 1/2 4TH GEN, RFLX CONF (test NON-REACTIVE code = 3514) [id number] 00:00:00 Test Item Value Reference Range Interpretation Comments RPR RESULT (test code = NON-REACTIVE 3501) RPR TITER (test code = 3500) NOT INDIC. TITER [id number] 00:00:00 Test Item Value Reference Range Interpretation Comments RPR RESULT (test code = NON-REACTIVE 3501) RPR TITER (test code = 3500) NOT INDIC. TITER HEPATITIS PROFILE (A,B,C)2020-03-23 00:00:00 Test Item Value Reference Range Interpretation Comments HEPATITIS A TOTAL AB (test code REACTIVE = 2725) HEPATITIS B SURF AG (test code = NON-REACTIVE 2739) HEP B CORE TOTAL AB (test code = NON-REACTIVE 2729) HEPATITIS B SURFACE AB (test REACTIVE code = 2737) HEPATITIS C ANTIBODY (test code NON-REACTIVE = 4675) INTERPRETATION HEPATITIS A: (NOTE) (test code = 2552) INTERPRETATION HEPATITIS B: (NOTE) (test code = 62595) INTERPRETATION HEPATITIS C: (NOTE) (test code = 00467) HEPATITIS A IgM [REFLEX]2020-03-23 00:00:00 Test Item Value Reference Range Interpretation Comments HEPATITIS A IgM (test code = NON-REACTIVE 2728) VAGINAL PATHOGENS DNA [id number] 00:00:00 Test Item Value Reference Range Interpretation Comments VALERIE SPECIES (test code = ) POSITIVE G. VAGINALIS (test code = ) NEGATIVE T. VAGINALIS (test code = ) NEGATIVE VAGINAL PATHOGENS DNA [id number] 00:00:00 Test Item Value Reference Range Interpretation Comments VALERIE SPECIES (test code = ) POSITIVE G. VAGINALIS (test code = 83846) NEGATIVE T. VAGINALIS (test code = ) NEGATIVE GC AND CHLAMYDIA, AMPLIFIED, [id number] 00:00:00 Test Item Value Reference Range Interpretation Comments GONORRHEA, TMA (test code = 95275) NEGATIVE CHLAMYDIA, TMA (test code = 11614) NEGATIVE GC AND CHLAMYDIA, AMPLIFIED, [id number] 00:00:00 Test Item Value Reference Range Interpretation Comments GONORRHEA, TMA (test code = 10767) NEGATIVE CHLAMYDIA, TMA (test code = 27416) NEGATIVE HIV AB/AG COMBO RFLX [id number] 00:00:00 Test Item Value Reference Range Interpretation Comments HIV 1/2 4TH GEN, RFLX CONF (test NON-REACTIVE code = 3514) HIV AB/AG COMBO RFLX [id number] 00:00:00 Test Item Value Reference Range Interpretation Comments HIV 1/2 4TH GEN, RFLX CONF (test NON-REACTIVE code = 3514) [id number] 00:00:00 Test Item Value Reference Range Interpretation Comments RPR RESULT (test code = NON-REACTIVE 3501) RPR TITER (test code = 3500) NOT INDIC. TITER [id number] 00:00:00 Test Item Value Reference Range Interpretation Comments RPR RESULT (test code = NON-REACTIVE 3501) RPR TITER (test code = 3500) NOT INDIC. TITER [id number] 00:00:00 Test Item Value Reference Range Interpretation Comments RPR RESULT (test code = NON-REACTIVE 3501) RPR TITER (test code = 3500) NOT INDIC. TITER HEPATITIS PROFILE (A,B,C)2020-03-23 00:00:00 Test Item Value Reference Range Interpretation Comments HEPATITIS A TOTAL AB (test code REACTIVE = 2725) HEPATITIS B SURF AG (test code = NON-REACTIVE 2739) HEP B CORE TOTAL AB (test code = NON-REACTIVE 2729) HEPATITIS B SURFACE AB (test REACTIVE code = 2737) HEPATITIS C ANTIBODY (test code NON-REACTIVE = 4675) INTERPRETATION HEPATITIS A: (NOTE) (test code = 2552) INTERPRETATION HEPATITIS B: (NOTE) (test code = 79926) INTERPRETATION HEPATITIS C: (NOTE) (test code = 80196) HEPATITIS PROFILE (A,B,C)2020-03-23 00:00:00 Test Item Value Reference Range Interpretation Comments HEPATITIS A TOTAL AB (test code REACTIVE = 2725) HEPATITIS B SURF AG (test code = NON-REACTIVE 2738) HEP B CORE TOTAL AB (test code = NON-REACTIVE 9) HEPATITIS B SURFACE AB (test REACTIVE code = 2737) HEPATITIS C ANTIBODY (test code NON-REACTIVE = 4675) INTERPRETATION HEPATITIS A: (NOTE) (test code = 2552) INTERPRETATION HEPATITIS B: (NOTE) (test code = 02520) INTERPRETATION HEPATITIS C: (NOTE) (test code = 53683) HEPATITIS A IgM [REFLEX]2020-03-23 00:00:00 Test Item Value Reference Range Interpretation Comments HEPATITIS A IgM (test code = NON-REACTIVE 2727) VAGINAL PATHOGENS DNA [id number] 00:00:00 Test Item Value Reference Range Interpretation Comments VALERIE SPECIES (test code = ) POSITIVE G. VAGINALIS (test code = 49882) NEGATIVE T. VAGINALIS (test code = ) NEGATIVE VAGINAL PATHOGENS DNA [id number] 00:00:00 Test Item Value Reference Range Interpretation Comments VALERIE SPECIES (test code = ) POSITIVE G. VAGINALIS (test code = ) NEGATIVE T. VAGINALIS (test code = ) NEGATIVE GC AND CHLAMYDIA, AMPLIFIED, [id number] 00:00:00 Test Item Value Reference Range Interpretation Comments GONORRHEA, TMA (test code = 08243) NEGATIVE CHLAMYDIA, TMA (test code = 40581) NEGATIVE GC AND CHLAMYDIA, AMPLIFIED, [id number] 00:00:00 Test Item Value Reference Range Interpretation Comments GONORRHEA, TMA (test code = 86312) NEGATIVE CHLAMYDIA, TMA (test code = 45729) NEGATIVE HIV AB/AG COMBO RFLX [id number] 00:00:00 Test Item Value Reference Range Interpretation Comments HIV 1/2 4TH GEN, RFLX CONF (test NON-REACTIVE code = 3514) HIV AB/AG COMBO RFLX [id number] 00:00:00 Test Item Value Reference Range Interpretation Comments HIV 1/2 4TH GEN, RFLX CONF (test NON-REACTIVE code = 3514) [id number] 00:00:00 Test Item Value Reference Range Interpretation Comments RPR RESULT (test code = NON-REACTIVE 3501) RPR TITER (test code = 3500) NOT INDIC. TITER [id number] 00:00:00 Test Item Value Reference Range Interpretation Comments RPR RESULT (test code = NON-REACTIVE 3501) RPR TITER (test code = 3500) NOT INDIC. TITER [id number] 00:00:00 Test Item Value Reference Range Interpretation Comments RPR RESULT (test code = NON-REACTIVE 3501) RPR TITER (test code = 3500) NOT INDIC. TITER HEPATITIS PROFILE (A,B,C)2020-03-23 00:00:00 Test Item Value Reference Range Interpretation Comments HEPATITIS A TOTAL AB (test code REACTIVE = 2725) HEPATITIS B SURF AG (test code = NON-REACTIVE 2739) HEP B CORE TOTAL AB (test code = NON-REACTIVE 2729) HEPATITIS B SURFACE AB (test REACTIVE code = 2737) HEPATITIS C ANTIBODY (test code NON-REACTIVE = 4675) INTERPRETATION HEPATITIS A: (NOTE) (test code = 2552) INTERPRETATION HEPATITIS B: (NOTE) (test code = 49696) INTERPRETATION HEPATITIS C: (NOTE) (test code = 18042) HEPATITIS PROFILE (A,B,C)2020-03-23 00:00:00 Test Item Value Reference Range Interpretation Comments HEPATITIS A TOTAL AB (test code REACTIVE = 2725) HEPATITIS B SURF AG (test code = NON-REACTIVE 2739) HEP B CORE TOTAL AB (test code = NON-REACTIVE 2729) HEPATITIS B SURFACE AB (test REACTIVE code = 2737) HEPATITIS C ANTIBODY (test code NON-REACTIVE = 4675) INTERPRETATION HEPATITIS A: (NOTE) (test code = 2552) INTERPRETATION HEPATITIS B: (NOTE) (test code = 61742) INTERPRETATION HEPATITIS C: (NOTE) (test code = 90481) HEPATITIS A IgM [REFLEX]2020-03-23 00:00:00 Test Item Value Reference Range Interpretation Comments HEPATITIS A IgM (test code = NON-REACTIVE 2728) VAGINAL PATHOGENS DNA [id number] 00:00:00 Test Item Value Reference Range Interpretation Comments VALERIE SPECIES (test code = ) POSITIVE G. VAGINALIS (test code = ) NEGATIVE T. VAGINALIS (test code = ) NEGATIVE VAGINAL PATHOGENS DNA [id number] 00:00:00 Test Item Value Reference Range Interpretation Comments VALERIE SPECIES (test code = ) POSITIVE G. VAGINALIS (test code = 47819) NEGATIVE T. VAGINALIS (test code = ) NEGATIVE GC AND CHLAMYDIA, AMPLIFIED, [id number] 00:00:00 Test Item Value Reference Range Interpretation Comments GONORRHEA, TMA (test code = 39599) NEGATIVE CHLAMYDIA, TMA (test code = 56226) NEGATIVE GC AND CHLAMYDIA, AMPLIFIED, [id number] 00:00:00 Test Item Value Reference Range Interpretation Comments GONORRHEA, TMA (test code = 73185) NEGATIVE CHLAMYDIA, TMA (test code = 50143) NEGATIVE HIV AB/AG COMBO RFLX [id number] 00:00:00 Test Item Value Reference Range Interpretation Comments HIV 1/2 4TH GEN, RFLX CONF (test NON-REACTIVE code = 3514) NT [id number] 00:00:00 Test Item Value Reference Range Interpretation Comments NT PROBNP (test code = 53453-7) 25 pg/mL NT [id number] 00:00:00 Test Item Value Reference Range Interpretation Comments NT PROBNP (test code = 99433-5) 25 pg/mL NT [id number] 00:00:00 Test Item Value Reference Range Interpretation Comments NT PROBNP (test code = 95866-2) 25 pg/mL NT [id number] 00:00:00 Test Item Value Reference Range Interpretation Comments NT PROBNP (test code = 22904-1) 25 pg/mL NT [id number] 00:00:00 Test Item Value Reference Range Interpretation Comments NT PROBNP (test code = 98518-0) 25 pg/mL VITAMIN B12 (REFL)2019-09-01 00:00:00 Test Item Value Reference Range Interpretation Comments VITAMIN B12 (test code = 2132-9) 1806 pg/mL REFLEX TIQ [ADDED]2019-09-01 00:00:00 Test Item Value Reference Range Interpretation Comments REFLEX TIQ (test code = ) DNR LIPID PANEL (REFL)2019-09-01 00:00:00 Test Item Value Reference Range Interpretation Comments CHOLESTEROL, TOTAL (test code 248 mg/dL = 2093-3) HDL CHOLESTEROL (test code = 49 mg/dL 5-9) TRIGLYCERIDES (test code = 305 mg/dL 2571-8) LDL-CHOLESTEROL (test code = 152 mg/dL(calc) 91450-8) CHOL/HDLC RATIO (test code = 5.1 (calc) 9830-1) NON HDL CHOLESTEROL (test 199 mg/dL(calc) code = 07829-0) VITAMIN D,25-OH,TOTAL,[id number] 00:00:00 Test Item Value Reference Range Interpretation Comments VITAMIN D,25-OH,TOTAL,IA (test code 23 ng/mL = 1988-10) LIPID PANEL (REFL)2019-09-01 00:00:00 Test Item Value Reference Range Interpretation Comments CHOLESTEROL, TOTAL (test code 248 mg/dL = 2092-3) HDL CHOLESTEROL (test code = 49 mg/dL 2084-) TRIGLYCERIDES (test code = 305 mg/dL 2571-8) LDL-CHOLESTEROL (test code = 152 mg/dL(calc) 72869-6) CHOL/HDLC RATIO (test code = 5.1 (calc) 9830-1) NON HDL CHOLESTEROL (test 199 mg/dL(calc) code = 47339-0) VITAMIN D,25-OH,TOTAL,[id number] 00:00:00 Test Item Value Reference Range Interpretation Comments VITAMIN D,25-OH,TOTAL,IA (test code 23 ng/mL = 1988-10) VITAMIN B12 (REFL)2019-09-01 00:00:00 Test Item Value Reference Range Interpretation Comments VITAMIN B12 (test code = 2132-9) 1806 pg/mL VITAMIN B12 (REFL)2019-09-01 00:00:00 Test Item Value Reference Range Interpretation Comments VITAMIN B12 (test code = 2132-9) 1806 pg/mL REFLEX TIQ [ADDED]2019-09-01 00:00:00 Test Item Value Reference Range Interpretation Comments REFLEX TIQ (test code = ) DNR REFLEX TIQ [ADDED]2019-09-01 00:00:00 Test Item Value Reference Range Interpretation Comments REFLEX TIQ (test code = ) DNR LIPID PANEL (REFL)2019-09-01 00:00:00 Test Item Value Reference Range Interpretation Comments CHOLESTEROL, TOTAL (test code 248 mg/dL = 2092-3) HDL CHOLESTEROL (test code = 49 mg/dL 2084-) TRIGLYCERIDES (test code = 305 mg/dL 1-8) LDL-CHOLESTEROL (test code = 152 mg/dL(calc) 46547-8) CHOL/HDLC RATIO (test code = 5.1 (calc) 9830-1) NON HDL CHOLESTEROL (test 199 mg/dL(calc) code = 40832-8) VITAMIN D,25-OH,TOTAL,[id number] 00:00:00 Test Item Value Reference Range Interpretation Comments VITAMIN D,25-OH,TOTAL,IA (test code 23 ng/mL = 1988-) VITAMIN B12 (REFL)2019-09-01 00:00:00 Test Item Value Reference Range Interpretation Comments VITAMIN B12 (test code = 2132-9) 1806 pg/mL REFLEX TIQ [ADDED]2019-09-01 00:00:00 Test Item Value Reference Range Interpretation Comments REFLEX TIQ (test code = ) DNR LIPID PANEL (REFL)2019-09-01 00:00:00 Test Item Value Reference Range Interpretation Comments CHOLESTEROL, TOTAL (test code 248 mg/dL = 2092-3) HDL CHOLESTEROL (test code = 49 mg/dL 2084-9) TRIGLYCERIDES (test code = 305 mg/dL 2571-8) LDL-CHOLESTEROL (test code = 152 mg/dL(calc) 75081-7) CHOL/HDLC RATIO (test code = 5.1 (calc) 9830-1) NON HDL CHOLESTEROL (test 199 mg/dL(calc) code = 36743-3) VITAMIN D,25-OH,[id number] 00:00:00 Test Item Value Reference Range Interpretation Comments VITAMIN D,25-OH,TOTAL,IA (test code 23 ng/mL = 1988-) VITAMIN B12 (REFL)2019-09-01 00:00:00 Test Item Value Reference Range Interpretation Comments VITAMIN B12 (test code = 2132-9) 1806 pg/mL REFLEX TIQ [ADDED]2019-09-01 00:00:00 Test Item Value Reference Range Interpretation Comments REFLEX TIQ (test code = ) DNR LIPID PANEL (REFL)2019-09-01 00:00:00 Test Item Value Reference Range Interpretation Comments CHOLESTEROL, TOTAL (test code 248 mg/dL = 2092-3) HDL CHOLESTEROL (test code = 49 mg/dL 2084-9) TRIGLYCERIDES (test code = 305 mg/dL 2571-8) LDL-CHOLESTEROL (test code = 152 mg/dL(calc) 79152-3) CHOL/HDLC RATIO (test code = 5.1 (calc) 9830-1) NON HDL CHOLESTEROL (test 199 mg/dL(calc) code = 74691-1) VITAMIN D,25-OH,[id number] 00:00:00 Test Item Value Reference Range Interpretation Comments VITAMIN D,25-OH,TOTAL,IA (test code 23 ng/mL = 1988-) HEPATITIS PROFILE (A,B,C)2019-06-19 00:00:00 Test Item Value Reference Range Interpretation Comments HEPATITIS A TOTAL AB (test code REACTIVE = 2725) HEPATITIS B SURF AG (test code = NON-REACTIVE 2739) HEP B CORE TOTAL AB (test code = NON-REACTIVE 2729) HEPATITIS B SURFACE AB (test REACTIVE code = 2737) HEPATITIS C ANTIBODY (test code NON-REACTIVE = 4675) HCV INDEX (test code = 99384) 0.22 INTERPRETATION HEPATITIS A: (NOTE) (test code = 2552) INTERPRETATION HEPATITIS B: (NOTE) (test code = 33093) INTERPRETATION HEPATITIS C: (NOTE) (test code = 31646) HEPATITIS A IgM [REFLEX]2019-06-19 00:00:00 Test Item Value Reference Range Interpretation Comments HEPATITIS A IgM (test code = NON-REACTIVE 8) [id number] 00:00:00 Test Item Value Reference Range Interpretation Comments RPR RESULT (test code = NON-REACTIVE 3501) RPR TITER (test code = 3500) NOT INDIC. TITER HIV AB/AG COMBO RFLX [id number] 00:00:00 Test Item Value Reference Range Interpretation Comments HIV 1/2 4TH GEN, RFLX CONF (test NON-REACTIVE code = 3514) GC AND CHLAMYDIA AMPLIFIED, [id number] 00:00:00 Test Item Value Reference Range Interpretation Comments GONORRHEA, TMA (test code = 75956) NEGATIVE CHLAMYDIA, TMA (test code = 29805) NEGATIVE GC AND CHLAMYDIA AMPLIFIED, [id number] 00:00:00 Test Item Value Reference Range Interpretation Comments GONORRHEA, TMA (test code = 03404) NEGATIVE CHLAMYDIA, TMA (test code = 80216) NEGATIVE PAP TEST, THINPREP, [id number] 00:00:00 Test Item Value Reference Range Interpretation Comments SOURCE: (test code = Cervical/Endocervical 8001) SLIDES: (test code = 1 8011) LMP: (test code = 8021) 06/04/2019 SPECIMEN ADEQUACY: (NOTE) (test code = 80809) INTERPRETATION: (test NILM/NO EPITH. code = 40262) ABNORMALITY;SEE BELOW FLEET DISPATCH MANAGER: (test Vincent code = 8101) MARY Mccurdy(ASCP) LOCATION: (test code = (NOTE) 95090) CPT: (test code = 8140) (NOTE) HIV AB/AG COMBO RFLX [id number] 00:00:00 Test Item Value Reference Range Interpretation Comments HIV 1/2 4TH GEN, RFLX CONF (test NON-REACTIVE code = 3514) PAP TEST, THINPREP, [id number] 00:00:00 Test Item Value Reference Range Interpretation Comments SOURCE: (test code = Cervical/Endocervical 8001) SLIDES: (test code = 1 8011) LMP: (test code = 8021) 06/04/2019 SPECIMEN ADEQUACY: (NOTE) (test code = 60206) INTERPRETATION: (test NILM/NO EPITH. code = 69758) ABNORMALITY;SEE BELOW FLEET DISPATCH MANAGER: (test Vincent code = 8101) MARY Mccurdy(ASCP) LOCATION: (test code = (NOTE) 61644) CPT: (test code = 8140) (NOTE) PAP TEST, THINPREP, [id number] 00:00:00 Test Item Value Reference Range Interpretation Comments SOURCE: (test code = Cervical/Endocervical 8001) SLIDES: (test code = 1 8011) LMP: (test code = 8021) 06/04/2019 SPECIMEN ADEQUACY: (NOTE) (test code = 71046) INTERPRETATION: (test NILM/NO EPITH. code = 74654) ABNORMALITY;SEE BELOW FLEET DISPATCH MANAGER: (test Vincent code = 8101) MARY Mccurdy(ASCP) LOCATION: (test code = (NOTE) 78022) CPT: (test code = 8140) (NOTE) [id number] 00:00:00 Test Item Value Reference Range Interpretation Comments RPR RESULT (test code = NON-REACTIVE 3501) RPR TITER (test code = 3500) NOT INDIC. TITER [id number] 00:00:00 Test Item Value Reference Range Interpretation Comments RPR RESULT (test code = NON-REACTIVE 3501) RPR TITER (test code = 3500) NOT INDIC. TITER [id number] 00:00:00 Test Item Value Reference Range Interpretation Comments RPR RESULT (test code = NON-REACTIVE 3501) RPR TITER (test code = 3500) NOT INDIC. TITER [id number] 00:00:00 Test Item Value Reference Range Interpretation Comments RPR RESULT (test code = NON-REACTIVE 3501) RPR TITER (test code = 3500) NOT INDIC. TITER HEPATITIS PROFILE (A,B,C)2019-06-19 00:00:00 Test Item Value Reference Range Interpretation Comments HEPATITIS A TOTAL AB (test code REACTIVE = 2725) HEPATITIS B SURF AG (test code = NON-REACTIVE 2739) HEP B CORE TOTAL AB (test code = NON-REACTIVE 2729) HEPATITIS B SURFACE AB (test REACTIVE code = 2737) HEPATITIS C ANTIBODY (test code NON-REACTIVE = 4675) HCV INDEX (test code = 12323) 0.22 INTERPRETATION HEPATITIS A: (NOTE) (test code = 2552) INTERPRETATION HEPATITIS B: (NOTE) (test code = 68311) INTERPRETATION HEPATITIS C: (NOTE) (test code = 38192) HEPATITIS PROFILE (A,B,C)2019-06-19 00:00:00 Test Item Value Reference Range Interpretation Comments HEPATITIS A TOTAL AB (test code REACTIVE = 2725) HEPATITIS B SURF AG (test code = NON-REACTIVE 2739) HEP B CORE TOTAL AB (test code = NON-REACTIVE 2729) HEPATITIS B SURFACE AB (test REACTIVE code = 2737) HEPATITIS C ANTIBODY (test code NON-REACTIVE = 4675) HCV INDEX (test code = 77002) 0.22 INTERPRETATION HEPATITIS A: (NOTE) (test code = 2552) INTERPRETATION HEPATITIS B: (NOTE) (test code = 01107) INTERPRETATION HEPATITIS C: (NOTE) (test code = 15035) HPV HIGH RISK WITH GENOTYPE, [id number] 00:00:00 Test Item Value Reference Range Interpretation Comments HPV HIGH RISK INTERP (test code = NEGATIVE 73252) HPV 16 (test code = 80822) NEGATIVE HPV 18 (test code = 33823) NEGATIVE HPV, HR, OTHER GENOTYPES (test code NEGATIVE = 50500) HPV HIGH RISK WITH GENOTYPE, [id number] 00:00:00 Test Item Value Reference Range Interpretation Comments HPV HIGH RISK INTERP (test code = NEGATIVE 38634) HPV 16 (test code = 04907) NEGATIVE HPV 18 (test code = 01773) NEGATIVE HPV, HR, OTHER GENOTYPES (test code NEGATIVE = 95818) HPV HIGH RISK WITH GENOTYPE, [id number] 00:00:00 Test Item Value Reference Range Interpretation Comments HPV HIGH RISK INTERP (test code = NEGATIVE 61876) HPV 16 (test code = 61073) NEGATIVE HPV 18 (test code = 07665) NEGATIVE HPV, HR, OTHER GENOTYPES (test code NEGATIVE = 65254) HEPATITIS A IgM [REFLEX]2019-06-19 00:00:00 Test Item Value Reference Range Interpretation Comments HEPATITIS A IgM (test code = NON-REACTIVE 2728) HEPATITIS PROFILE (A,B,C)2019-06-19 00:00:00 Test Item Value Reference Range Interpretation Comments HEPATITIS A TOTAL AB (test code REACTIVE = 2725) HEPATITIS B SURF AG (test code = NON-REACTIVE 2739) HEP B CORE TOTAL AB (test code = NON-REACTIVE 2729) HEPATITIS B SURFACE AB (test REACTIVE code = 2737) HEPATITIS C ANTIBODY (test code NON-REACTIVE = 4675) HCV INDEX (test code = 00012) 0.22 INTERPRETATION HEPATITIS A: (NOTE) (test code = 2552) INTERPRETATION HEPATITIS B: (NOTE) (test code = 87761) INTERPRETATION HEPATITIS C: (NOTE) (test code = 68419) HEPATITIS A IgM [REFLEX]2019-06-19 00:00:00 Test Item Value Reference Range Interpretation Comments HEPATITIS A IgM (test code = NON-REACTIVE 2728) HIV AB/AG COMBO RFLX [id number] 00:00:00 Test Item Value Reference Range Interpretation Comments HIV 1/2 4TH GEN, RFLX CONF (test NON-REACTIVE code = 3514) GC AND CHLAMYDIA AMPLIFIED, [id number] 00:00:00 Test Item Value Reference Range Interpretation Comments GONORRHEA, TMA (test code = 38270) NEGATIVE CHLAMYDIA, TMA (test code = 89479) NEGATIVE HIV AB/AG COMBO RFLX [id number] 00:00:00 Test Item Value Reference Range Interpretation Comments HIV 1/2 4TH GEN, RFLX CONF (test NON-REACTIVE code = 3514) GC AND CHLAMYDIA AMPLIFIED, [id number] 00:00:00 Test Item Value Reference Range Interpretation Comments GONORRHEA, TMA (test code = 25353) NEGATIVE CHLAMYDIA, TMA (test code = 34347) NEGATIVE [id number] 00:00:00 Test Item Value Reference Range Interpretation Comments RPR RESULT (test code = NON-REACTIVE 3501) RPR TITER (test code = 3500) NOT INDIC. TITER PAP TEST, THINPREP, [id number] 00:00:00 Test Item Value Reference Range Interpretation Comments SOURCE: (test code = Cervical/Endocervical 8001) SLIDES: (test code = 1 8011) LMP: (test code = 8021) 06/04/2019 SPECIMEN ADEQUACY: (NOTE) (test code = 06587) INTERPRETATION: (test NILM/NO EPITH. code = 13327) ABNORMALITY;SEE BELOW FLEET DISPATCH MANAGER: (test Vincent code = 8101) MARY Mccurdy(ASCP) LOCATION: (test code = (NOTE) 12118) CPT: (test code = 8140) (NOTE) PAP TEST, THINPREP, [id number] 00:00:00 Test Item Value Reference Range Interpretation Comments SOURCE: (test code = Cervical/Endocervical 8001) SLIDES: (test code = 1 8011) LMP: (test code = 8021) 06/04/2019 SPECIMEN ADEQUACY: (NOTE) (test code = 19313) INTERPRETATION: (test NILM/NO EPITH. code = 58011) ABNORMALITY;SEE BELOW FLEET DISPATCH MANAGER: (test Vincent code = 8101) MARY Mccurdy(ASCP) LOCATION: (test code = (NOTE) 99473) CPT: (test code = 8140) (NOTE) [id number] 00:00:00 Test Item Value Reference Range Interpretation Comments RPR RESULT (test code = NON-REACTIVE 3501) RPR TITER (test code = 3500) NOT INDIC. TITER [id number] 00:00:00 Test Item Value Reference Range Interpretation Comments RPR RESULT (test code = NON-REACTIVE 3501) RPR TITER (test code = 3500) NOT INDIC. TITER HEPATITIS PROFILE (A,B,C)2019-06-19 00:00:00 Test Item Value Reference Range Interpretation Comments HEPATITIS A TOTAL AB (test code REACTIVE = 2725) HEPATITIS B SURF AG (test code = NON-REACTIVE 2739) HEP B CORE TOTAL AB (test code = NON-REACTIVE 2729) HEPATITIS B SURFACE AB (test REACTIVE code = 2737) HEPATITIS C ANTIBODY (test code NON-REACTIVE = 4675) HCV INDEX (test code = 16595) 0.22 INTERPRETATION HEPATITIS A: (NOTE) (test code = 2552) INTERPRETATION HEPATITIS B: (NOTE) (test code = 67183) INTERPRETATION HEPATITIS C: (NOTE) (test code = 15435) HEPATITIS PROFILE (A,B,C)2019-06-19 00:00:00 Test Item Value Reference Range Interpretation Comments HEPATITIS A TOTAL AB (test code REACTIVE = 2725) HEPATITIS B SURF AG (test code = NON-REACTIVE 2739) HEP B CORE TOTAL AB (test code = NON-REACTIVE 2729) HEPATITIS B SURFACE AB (test REACTIVE code = 2737) HEPATITIS C ANTIBODY (test code NON-REACTIVE = 4675) HCV INDEX (test code = 94255) 0.22 INTERPRETATION HEPATITIS A: (NOTE) (test code = 2552) INTERPRETATION HEPATITIS B: (NOTE) (test code = 04387) INTERPRETATION HEPATITIS C: (NOTE) (test code = 65420) HPV HIGH RISK WITH GENOTYPE, [id number] 00:00:00 Test Item Value Reference Range Interpretation Comments HPV HIGH RISK INTERP (test code = NEGATIVE 97225) HPV 16 (test code = 79529) NEGATIVE HPV 18 (test code = 70142) NEGATIVE HPV, HR, OTHER GENOTYPES (test code NEGATIVE = 53827) HPV HIGH RISK WITH GENOTYPE, [id number] 00:00:00 Test Item Value Reference Range Interpretation Comments HPV HIGH RISK INTERP (test code = NEGATIVE 78413) HPV 16 (test code = 43564) NEGATIVE HPV 18 (test code = 80867) NEGATIVE HPV, HR, OTHER GENOTYPES (test code NEGATIVE = 37118) HEPATITIS A IgM [REFLEX]2019-06-19 00:00:00 Test Item Value Reference Range Interpretation Comments HEPATITIS A IgM (test code = NON-REACTIVE 2727) GC AND CHLAMYDIA AMPLIFIED, [id number] 00:00:00 Test Item Value Reference Range Interpretation Comments GONORRHEA, TMA (test code = 76121) NEGATIVE CHLAMYDIA, TMA (test code = 00777) NEGATIVE HIV AB/AG COMBO RFLX [id number] 00:00:00 Test Item Value Reference Range Interpretation Comments HIV 1/2 4TH GEN, RFLX CONF (test NON-REACTIVE code = 3514) GC AND CHLAMYDIA AMPLIFIED, [id number] 00:00:00 Test Item Value Reference Range Interpretation Comments GONORRHEA, TMA (test code = 08722) NEGATIVE CHLAMYDIA, TMA (test code = 42868) NEGATIVE HIV AB/AG COMBO RFLX [id number] 00:00:00 Test Item Value Reference Range Interpretation Comments HIV 1/2 4TH GEN, RFLX CONF (test NON-REACTIVE code = 3514) PAP TEST, THINPREP, [id number] 00:00:00 Test Item Value Reference Range Interpretation Comments SOURCE: (test code = Cervical/Endocervical 8001) SLIDES: (test code = 1 8011) LMP: (test code = 8021) 06/04/2019 SPECIMEN ADEQUACY: (NOTE) (test code = 48545) INTERPRETATION: (test NILM/NO EPITH. code = 13588) ABNORMALITY;SEE BELOW FLEET DISPATCH MANAGER: (test Vincent code = 8101) MARY Mccurdy(ASCP) LOCATION: (test code = (NOTE) 20639) CPT: (test code = 8140) (NOTE) [id number] 00:00:00 Test Item Value Reference Range Interpretation Comments RPR RESULT (test code = NON-REACTIVE 3501) RPR TITER (test code = 3500) NOT INDIC. TITER [id number] 00:00:00 Test Item Value Reference Range Interpretation Comments RPR RESULT (test code = NON-REACTIVE 3501) RPR TITER (test code = 3500) NOT INDIC. TITER PAP TEST, THINPREP, [id number] 00:00:00 Test Item Value Reference Range Interpretation Comments SOURCE: (test code = Cervical/Endocervical 8001) SLIDES: (test code = 1 8011) LMP: (test code = 8021) 06/04/2019 SPECIMEN ADEQUACY: (NOTE) (test code = 99884) INTERPRETATION: (test NILM/NO EPITH. code = 85822) ABNORMALITY;SEE BELOW FLEET DISPATCH MANAGER: (test Vincent code = 8101) MARY Mccurdy(ASCP) LOCATION: (test code = (NOTE) 77942) CPT: (test code = 8140) (NOTE) [id number] 00:00:00 Test Item Value Reference Range Interpretation Comments RPR RESULT (test code = NON-REACTIVE 3501) RPR TITER (test code = 3500) NOT INDIC. TITER HPV HIGH RISK WITH GENOTYPE, [id number] 00:00:00 Test Item Value Reference Range Interpretation Comments HPV HIGH RISK INTERP (test code = NEGATIVE 00286) HPV 16 (test code = 03989) NEGATIVE HPV 18 (test code = 74691) NEGATIVE HPV, HR, OTHER GENOTYPES (test code NEGATIVE = 79578) HEPATITIS PROFILE (A,B,C)2019-06-19 00:00:00 Test Item Value Reference Range Interpretation Comments HEPATITIS A TOTAL AB (test code REACTIVE = 2725) HEPATITIS B SURF AG (test code = NON-REACTIVE 2739) HEP B CORE TOTAL AB (test code = NON-REACTIVE 2729) HEPATITIS B SURFACE AB (test REACTIVE code = 2737) HEPATITIS C ANTIBODY (test code NON-REACTIVE = 4675) HCV INDEX (test code = 45015) 0.22 INTERPRETATION HEPATITIS A: (NOTE) (test code = 2552) INTERPRETATION HEPATITIS B: (NOTE) (test code = 47759) INTERPRETATION HEPATITIS C: (NOTE) (test code = 87080) HPV HIGH RISK WITH GENOTYPE, [id number] 00:00:00 Test Item Value Reference Range Interpretation Comments HPV HIGH RISK INTERP (test code = NEGATIVE 12531) HPV 16 (test code = 32525) NEGATIVE HPV 18 (test code = 18117) NEGATIVE HPV, HR, OTHER GENOTYPES (test code NEGATIVE = 38457) HEPATITIS PROFILE (A,B,C)2019-06-19 00:00:00 Test Item Value Reference Range Interpretation Comments HEPATITIS A TOTAL AB (test code REACTIVE = 2725) HEPATITIS B SURF AG (test code = NON-REACTIVE 2739) HEP B CORE TOTAL AB (test code = NON-REACTIVE 2729) HEPATITIS B SURFACE AB (test REACTIVE code = 2737) HEPATITIS C ANTIBODY (test code NON-REACTIVE = 4675) HCV INDEX (test code = 17661) 0.22 INTERPRETATION HEPATITIS A: (NOTE) (test code = 2552) INTERPRETATION HEPATITIS B: (NOTE) (test code = 23751) INTERPRETATION HEPATITIS C: (NOTE) (test code = 13012) HEPATITIS A IgM [REFLEX]2019-06-19 00:00:00 Test Item Value Reference Range Interpretation Comments HEPATITIS A IgM (test code = NON-REACTIVE 2728) HIV AB/AG COMBO RFLX [id number] 00:00:00 Test Item Value Reference Range Interpretation Comments HIV 1/2 4TH GEN, RFLX CONF (test NON-REACTIVE code = 3514) HIV AB/AG COMBO RFLX [id number] 00:00:00 Test Item Value Reference Range Interpretation Comments HIV 1/2 4TH GEN, RFLX CONF (test NON-REACTIVE code = 3514) HIV AB/AG COMBO RFLX [id number] 00:00:00 Test Item Value Reference Range Interpretation Comments HIV 1/2 4TH GEN, RFLX CONF (test NON-REACTIVE code = 3514) GC AND CHLAMYDIA AMPLIFIED, [id number] 00:00:00 Test Item Value Reference Range Interpretation Comments GONORRHEA, TMA (test code = 42037) NEGATIVE CHLAMYDIA, TMA (test code = 58101) NEGATIVE GC AND CHLAMYDIA AMPLIFIED, [id number] 00:00:00 Test Item Value Reference Range Interpretation Comments GONORRHEA, TMA (test code = 95556) NEGATIVE CHLAMYDIA, TMA (test code = 53393) NEGATIVE [id number] 00:00:00 Test Item Value Reference Range Interpretation Comments RPR RESULT (test code = NON-REACTIVE 3501) RPR TITER (test code = 3500) NOT INDIC. TITER [id number] 00:00:00 Test Item Value Reference Range Interpretation Comments RPR RESULT (test code = NON-REACTIVE 3501) RPR TITER (test code = 3500) NOT INDIC. TITER PAP TEST, THINPREP, [id number] 00:00:00 Test Item Value Reference Range Interpretation Comments SOURCE: (test code = Cervical/Endocervical 8001) SLIDES: (test code = 1 8011) LMP: (test code = 8021) 06/04/2019 SPECIMEN ADEQUACY: (NOTE) (test code = 24876) INTERPRETATION: (test NILM/NO EPITH. code = 41984) ABNORMALITY;SEE BELOW FLEET DISPATCH MANAGER: (test Vincent code = 8101) MARY Mccurdy(ASCP) LOCATION: (test code = (NOTE) 15375) CPT: (test code = 8140) (NOTE) PAP TEST, THINPREP, [id number] 00:00:00 Test Item Value Reference Range Interpretation Comments SOURCE: (test code = Cervical/Endocervical 8001) SLIDES: (test code = 1 8011) LMP: (test code = 8021) 06/04/2019 SPECIMEN ADEQUACY: (NOTE) (test code = 49527) INTERPRETATION: (test NILM/NO EPITH. 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 TITER HEPATITIS PROFILE (A,B,C)2019-06-19 00:00:00 Test Item Value Reference Range Interpretation Comments HEPATITIS A TOTAL AB (test code REACTIVE = 2725) HEPATITIS B SURF AG (test code = NON-REACTIVE 2739) HEP B CORE TOTAL AB (test code = NON-REACTIVE 2729) HEPATITIS B SURFACE AB (test REACTIVE code = 2737) HEPATITIS C ANTIBODY (test code NON-REACTIVE = 4675) HCV INDEX (test code = 79576) 0.22 INTERPRETATION HEPATITIS A: (NOTE) (test code = 2552) INTERPRETATION HEPATITIS B: (NOTE) (test code = 71312) INTERPRETATION HEPATITIS C: (NOTE) (test code = 61967) HPV HIGH RISK WITH GENOTYPE, [id number] 00:00:00 Test Item Value Reference Range Interpretation Comments HPV HIGH RISK INTERP (test code = NEGATIVE 32219) HPV 16 (test code = 91412) NEGATIVE HPV 18 (test code = 20757) NEGATIVE HPV, HR, OTHER GENOTYPES (test code NEGATIVE = 08726) HPV HIGH RISK WITH GENOTYPE, [id number] 00:00:00 Test Item Value Reference Range Interpretation Comments HPV HIGH RISK INTERP (test code = NEGATIVE 97117) HPV 16 (test code = 39496) NEGATIVE HPV 18 (test code = 48815) NEGATIVE HPV, HR, OTHER GENOTYPES (test code NEGATIVE = 80669) GC AND CHLAMYDIA AMPLIFIED, [id number] 00:00:00 Test Item Value Reference Range Interpretation Comments GONORRHEA, TMA (test code = 86930) NEGATIVE CHLAMYDIA, TMA (test code = 96138) NEGATIVE COMPREHENSIVE METABOLIC [id number] 00:00:00 Test Item Value Reference Range Interpretation Comments GLUCOSE (test code = 2217) 97 MG/DL BUN (test code = 2208) 10 MG/DL CREATININE (test code = 2214) 0.66 MG/DL eGFR AMER. (test code 134 ML/MIN/1.73 = 36988) eGFR NON- AMER. (test 115 ML/MIN/1.73 code = 76576) CALC BUN/CREAT (test code = 15 RATIO 2235) SODIUM (test code = 2231) 140 MEQ/L POTASSIUM (test code = 2228) 4.0 MEQ/L CHLORIDE (test code = 2215) 100 MEQ/L CARBON DIOXIDE (test code = 29 MEQ/L 220) CALCIUM (test code = 2209) 9.3 MG/DL PROTEIN, TOTAL (test code = 7.0 G/DL 2228) ALBUMIN (test code = 2201) 4.3 G/DL CALC GLOBULIN (test code = 2.7 G/DL 0) CALC A/G RATIO (test code = 1.6 RATIO 4) BILIRUBIN, TOTAL (test code = 0.4 MG/DL 2206) ALKALINE PHOSPHATASE (test 65 U/L code = 2204) AST (test code = 2218) 129 U/L ALT (test code = 2219) 50 U/L COMPREHENSIVE METABOLIC [id number] 00:00:00 Test Item Value Reference Range Interpretation Comments GLUCOSE (test code = 2217) 97 MG/DL BUN (test code = 2208) 10 MG/DL CREATININE (test code = 2214) 0.66 MG/DL eGFR AMER. (test code 134 ML/MIN/1.73 = 49357) eGFR NON- AMER. (test 115 ML/MIN/1.73 code = 17797) CALC BUN/CREAT (test code = 15 RATIO 2235) SODIUM (test code = 2231) 140 MEQ/L POTASSIUM (test code = 2228) 4.0 MEQ/L CHLORIDE (test code = 2215) 100 MEQ/L CARBON DIOXIDE (test code = 29 MEQ/L 2206) CALCIUM (test code = 2209) 9.3 MG/DL PROTEIN, TOTAL (test code = 7.0 G/DL 222) ALBUMIN (test code = 2201) 4.3 G/DL CALC GLOBULIN (test code = 2.7 G/DL 2240) CALC A/G RATIO (test code = 1.6 RATIO 2234) BILIRUBIN, TOTAL (test code = 0.4 MG/DL 220) ALKALINE PHOSPHATASE (test 65 U/L code = 2204) AST (test code = 2218) 129 U/L ALT (test code = 2219) 50 U/L COMPREHENSIVE METABOLIC [id number] 00:00:00 Test Item Value Reference Range Interpretation Comments GLUCOSE (test code = 2217) 97 MG/DL BUN (test code = 2208) 10 MG/DL CREATININE (test code = 2214) 0.66 MG/DL eGFR AMER. (test code 134 ML/MIN/1.73 = 35748) eGFR NON- AMER. (test 115 ML/MIN/1.73 code = 69721) CALC BUN/CREAT (test code = 15 RATIO 2235) SODIUM (test code = 2231) 140 MEQ/L POTASSIUM (test code = 2228) 4.0 MEQ/L CHLORIDE (test code = 2215) 100 MEQ/L CARBON DIOXIDE (test code = 29 MEQ/L 2205) CALCIUM (test code = 2209) 9.3 MG/DL PROTEIN, TOTAL (test code = 7.0 G/DL 2228) ALBUMIN (test code = 2201) 4.3 G/DL CALC GLOBULIN (test code = 2.7 G/DL 2240) CALC A/G RATIO (test code = 1.6 RATIO 2234) BILIRUBIN, TOTAL (test code = 0.4 MG/DL 7) ALKALINE PHOSPHATASE (test 65 U/L code = 2204) AST (test code = 2218) 129 U/L ALT (test code = 2219) 50 U/L COMPREHENSIVE METABOLIC [id number] 00:00:00 Test Item Value Reference Range Interpretation Comments GLUCOSE (test code = 2217) 97 MG/DL BUN (test code = 2208) 10 MG/DL CREATININE (test code = 2214) 0.66 MG/DL eGFR AMER. (test code 134 ML/MIN/1.73 = 85650) eGFR NON- AMER. (test 115 ML/MIN/1.73 code = 29992) CALC BUN/CREAT (test code = 15 RATIO 2235) SODIUM (test code = 2231) 140 MEQ/L POTASSIUM (test code = 2228) 4.0 MEQ/L CHLORIDE (test code = 2215) 100 MEQ/L CARBON DIOXIDE (test code = 29 MEQ/L 2206) CALCIUM (test code = 2209) 9.3 MG/DL PROTEIN, TOTAL (test code = 7.0 G/DL 2228) ALBUMIN (test code = 2201) 4.3 G/DL CALC GLOBULIN (test code = 2.7 G/DL 2240) CALC A/G RATIO (test code = 1.6 RATIO 2234) BILIRUBIN, TOTAL (test code = 0.4 MG/DL 2206) ALKALINE PHOSPHATASE (test 65 U/L code = 220) AST (test code = 2218) 129 U/L ALT (test code = 2219) 50 U/L COMPREHENSIVE METABOLIC [id number] 00:00:00 Test Item Value Reference Range Interpretation Comments GLUCOSE (test code = 2217) 97 MG/DL BUN (test code = 2208) 10 MG/DL CREATININE (test code = 2214) 0.66 MG/DL eGFR AMER. (test code 134 ML/MIN/1.73 = 20254) eGFR NON- AMER. (test 115 ML/MIN/1.73 code = 46445) CALC BUN/CREAT (test code = 15 RATIO 2235) SODIUM (test code = 2231) 140 MEQ/L POTASSIUM (test code = 2228) 4.0 MEQ/L CHLORIDE (test code = 2215) 100 MEQ/L CARBON DIOXIDE (test code = 29 MEQ/L 2206) CALCIUM (test code = 2209) 9.3 MG/DL PROTEIN, TOTAL (test code = 7.0 G/DL 2228) ALBUMIN (test code = 2201) 4.3 G/DL CALC GLOBULIN (test code = 2.7 G/DL 2240) CALC A/G RATIO (test code = 1.6 RATIO 2234) BILIRUBIN, TOTAL (test code = 0.4 MG/DL 2206) ALKALINE PHOSPHATASE (test 65 U/L code = 2204) AST (test code = 2218) 129 U/L ALT (test code = 2219) 50 U/L COMPREHENSIVE METABOLIC [id number] 00:00:00 Test Item Value Reference Range Interpretation Comments GLUCOSE (test code = 2217) 97 MG/DL BUN (test code = 2208) 10 MG/DL CREATININE (test code = 2214) 0.66 MG/DL eGFR AMER. (test code 134 ML/MIN/1.73 = 59653) eGFR NON- AMER. (test 115 ML/MIN/1.73 code = 29522) CALC BUN/CREAT (test code = 15 RATIO 2235) SODIUM (test code = 2231) 140 MEQ/L POTASSIUM (test code = 2228) 4.0 MEQ/L CHLORIDE (test code = 2215) 100 MEQ/L CARBON DIOXIDE (test code = 29 MEQ/L 2205) CALCIUM (test code = 2209) 9.3 MG/DL PROTEIN, TOTAL (test code = 7.0 G/DL 2228) ALBUMIN (test code = 2201) 4.3 G/DL CALC GLOBULIN (test code = 2.7 G/DL 2239) CALC A/G RATIO (test code = 1.6 RATIO 2234) BILIRUBIN, TOTAL (test code = 0.4 MG/DL 2206) ALKALINE PHOSPHATASE (test 65 U/L code = 2204) AST (test code = 2218) 129 U/L ALT (test code = 2219) 50 U/L COMPREHENSIVE METABOLIC [id number] 00:00:00 Test Item Value Reference Range Interpretation Comments GLUCOSE (test code = 2217) 97 MG/DL BUN (test code = 2208) 10 MG/DL CREATININE (test code = 2214) 0.66 MG/DL eGFR AMER. (test code 134 ML/MIN/1.73 = 56276) eGFR NON- AMER. (test 115 ML/MIN/1.73 code = 85893) CALC BUN/CREAT (test code = 15 RATIO 2235) SODIUM (test code = 2231) 140 MEQ/L POTASSIUM (test code = 2228) 4.0 MEQ/L CHLORIDE (test code = 2215) 100 MEQ/L CARBON DIOXIDE (test code = 29 MEQ/L 220) CALCIUM (test code = 2209) 9.3 MG/DL PROTEIN, TOTAL (test code = 7.0 G/DL 2228) ALBUMIN (test code = 2201) 4.3 G/DL CALC GLOBULIN (test code = 2.7 G/DL 2240) CALC A/G RATIO (test code = 1.6 RATIO 2234) BILIRUBIN, TOTAL (test code = 0.4 MG/DL 2206) ALKALINE PHOSPHATASE (test 65 U/L code = 2204) AST (test code = 2218) 129 U/L ALT (test code = 2219) 50 U/L COMPREHENSIVE METABOLIC [id number] 00:00:00 Test Item Value Reference Range Interpretation Comments GLUCOSE (test code = 2217) 97 MG/DL BUN (test code = 2208) 10 MG/DL CREATININE (test code = 2214) 0.66 MG/DL eGFR AMER. (test code 134 ML/MIN/1.73 = 70230) eGFR NON- AMER. (test 115 ML/MIN/1.73 code = 31976) CALC BUN/CREAT (test code = 15 RATIO 2235) SODIUM (test code = 2231) 140 MEQ/L POTASSIUM (test code = 2228) 4.0 MEQ/L CHLORIDE (test code = 2215) 100 MEQ/L CARBON DIOXIDE (test code = 29 MEQ/L 6) CALCIUM (test code = 2209) 9.3 MG/DL PROTEIN, TOTAL (test code = 7.0 G/DL 2228) ALBUMIN (test code = 2201) 4.3 G/DL CALC GLOBULIN (test code = 2.7 G/DL 2240) CALC A/G RATIO (test code = 1.6 RATIO 2234) BILIRUBIN, TOTAL (test code = 0.4 MG/DL 2206) ALKALINE PHOSPHATASE (test 65 U/L code = 2204) AST (test code = 2218) 129 U/L ALT (test code = 2219) 50 U/L COMPREHENSIVE METABOLIC [id number] 00:00:00 Test Item Value Reference Range Interpretation Comments GLUCOSE (test code = 2217) 97 MG/DL BUN (test code = 2208) 10 MG/DL CREATININE (test code = 2214) 0.66 MG/DL eGFR AMER. (test code 134 ML/MIN/1.73 = 38320) eGFR NON- AMER. (test 115 ML/MIN/1.73 code = 78589) CALC BUN/CREAT (test code = 15 RATIO 2235) SODIUM (test code = 2231) 140 MEQ/L POTASSIUM (test code = 2228) 4.0 MEQ/L CHLORIDE (test code = 2215) 100 MEQ/L CARBON DIOXIDE (test code = 29 MEQ/L 2205) CALCIUM (test code = 2209) 9.3 MG/DL PROTEIN, TOTAL (test code = 7.0 G/DL 2228) ALBUMIN (test code = 2201) 4.3 G/DL CALC GLOBULIN (test code = 2.7 G/DL 2240) CALC A/G RATIO (test code = 1.6 RATIO 2234) BILIRUBIN, TOTAL (test code = 0.4 MG/DL 2206) ALKALINE PHOSPHATASE (test 65 U/L code = 220) AST (test code = 2218) 129 U/L ALT (test code = 2219) 50 U/L VITAMIN D,25-OH,TOTAL,IA [ADDED]2019-03-06 00:00:00 Test Item Value Reference Range Interpretation Comments VITAMIN D,25-OH,TOTAL,IA (test code 38 ng/mL = 1988-3) LIPID PANEL WITH REFLEX TO DIRECT LDL [ADDED]2019-03-06 00:00:00 Test Item Value Reference Range Interpretation Comments CHOLESTEROL, TOTAL (test code 193 mg/dL = 3-3) HDL CHOLESTEROL (test code = 65 mg/dL 2084-9) TRIGLYCERIDES (test code = 102 mg/dL 2571-8) LDL-CHOLESTEROL (test code = 108 mg/dL(calc) 99023-9) CHOL/HDLC RATIO (test code = 3.0 (calc) 9830-1) NON HDL CHOLESTEROL (test 128 mg/dL(calc) code = 69407-1) LIPID PANEL WITH REFLEX TO DIRECT LDL [ADDED]2019-03-06 00:00:00 Test Item Value Reference Range Interpretation Comments CHOLESTEROL, TOTAL (test code 193 mg/dL = 3-3) HDL CHOLESTEROL (test code = 65 mg/dL 2084-9) TRIGLYCERIDES (test code = 102 mg/dL 2571-8) LDL-CHOLESTEROL (test code = 108 mg/dL(calc) 54234-0) CHOL/HDLC RATIO (test code = 3.0 (calc) 9830-1) NON HDL CHOLESTEROL (test 128 mg/dL(calc) code = 43511-8) NT PROBNP [ADDED]2019-03-06 00:00:00 Test Item Value Reference Range Interpretation Comments NT PROBNP (test code = 34007-0) 78 pg/mL NT PROBNP [ADDED]2019-03-06 00:00:00 Test Item Value Reference Range Interpretation Comments NT PROBNP (test code = 46229-8) 78 pg/mL VITAMIN B12 [ADDED]2019-03-06 00:00:00 Test Item Value Reference Range Interpretation Comments VITAMIN B12 (test code = 2132-9) 637 pg/mL VITAMIN D,25-OH,TOTAL,IA [ADDED]2019-03-06 00:00:00 Test Item Value Reference Range Interpretation Comments VITAMIN D,25-OH,TOTAL,IA (test code 38 ng/mL = 1988-3) VITAMIN B12 [ADDED]2019-03-06 00:00:00 Test Item Value Reference Range Interpretation Comments VITAMIN B12 (test code = 2132-9) 637 pg/mL VITAMIN D,25-OH,TOTAL,IA [ADDED]2019-03-06 00:00:00 Test Item Value Reference Range Interpretation Comments VITAMIN D,25-OH,TOTAL,IA (test code 38 ng/mL = 1988-3) LIPID PANEL WITH REFLEX TO DIRECT LDL [ADDED]2019-03-06 00:00:00 Test Item Value Reference Range Interpretation Comments CHOLESTEROL, TOTAL (test code 193 mg/dL = 3-3) HDL CHOLESTEROL (test code = 65 mg/dL 5-9) TRIGLYCERIDES (test code = 102 mg/dL 1-8) LDL-CHOLESTEROL (test code = 108 mg/dL(calc) 60660-7) CHOL/HDLC RATIO (test code = 3.0 (calc) 9830-1) NON HDL CHOLESTEROL (test 128 mg/dL(calc) code = 90889-0) NT PROBNP [ADDED]2019-03-06 00:00:00 Test Item Value Reference Range Interpretation Comments NT PROBNP (test code = 68539-2) 78 pg/mL VITAMIN B12 [ADDED]2019-03-06 00:00:00 Test Item Value Reference Range Interpretation Comments VITAMIN B12 (test code = 2132-9) 637 pg/mL VITAMIN D,25-OH,TOTAL,IA [ADDED]2019-03-06 00:00:00 Test Item Value Reference Range Interpretation Comments VITAMIN D,25-OH,TOTAL,IA (test code 38 ng/mL = 1988-3) LIPID PANEL WITH REFLEX TO DIRECT LDL [ADDED]2019-03-06 00:00:00 Test Item Value Reference Range Interpretation Comments CHOLESTEROL, TOTAL (test code 193 mg/dL = 3-3) HDL CHOLESTEROL (test code = 65 mg/dL 5-9) TRIGLYCERIDES (test code = 102 mg/dL 2571-8) LDL-CHOLESTEROL (test code = 108 mg/dL(calc) 66902-9) CHOL/HDLC RATIO (test code = 3.0 (calc) 9830-1) NON HDL CHOLESTEROL (test 128 mg/dL(calc) code = 17052-2) NT PROBNP [ADDED]2019-03-06 00:00:00 Test Item Value Reference Range Interpretation Comments NT PROBNP (test code = 91062-1) 78 pg/mL VITAMIN B12 [ADDED]2019-03-06 00:00:00 Test Item Value Reference Range Interpretation Comments VITAMIN B12 (test code = 2132-9) 637 pg/mL VITAMIN D,25-OH,TOTAL,IA [ADDED]2019-03-06 00:00:00 Test Item Value Reference Range Interpretation Comments VITAMIN D,25-OH,TOTAL,IA (test code 38 ng/mL = 1988-) LIPID PANEL WITH REFLEX TO DIRECT LDL [ADDED]2019-03-06 00:00:00 Test Item Value Reference Range Interpretation Comments CHOLESTEROL, TOTAL (test code 193 mg/dL = 3-3) HDL CHOLESTEROL (test code = 65 mg/dL 5-9) TRIGLYCERIDES (test code = 102 mg/dL 2571-8) LDL-CHOLESTEROL (test code = 108 mg/dL(calc) 29423-2) CHOL/HDLC RATIO (test code = 3.0 (calc) 9830-1) NON HDL CHOLESTEROL (test 128 mg/dL(calc) code = 26170-3) NT PROBNP [ADDED]2019-03-06 00:00:00 Test Item Value Reference Range Interpretation Comments NT PROBNP (test code = 00857-8) 78 pg/mL VITAMIN B12 [ADDED]2019-03-06 00:00:00 Test Item Value Reference Range Interpretation Comments VITAMIN B12 (test code = 2132-9) 637 pg/mL VAGINAL PATHOGENS DNA [id number] 00:00:00 Test Item Value Reference Range Interpretation Comments VALERIE SPECIES (test code = 27180) NEGATIVE G. VAGINALIS (test code = 28430) NEGATIVE T. VAGINALIS (test code = 64458) NEGATIVE VAGINAL PATHOGENS DNA [id number] 00:00:00 Test Item Value Reference Range Interpretation Comments VALERIE SPECIES (test code = 32378) NEGATIVE G. VAGINALIS (test code = 76028) NEGATIVE T. VAGINALIS (test code = 28655) NEGATIVE VAGINAL PATHOGENS DNA [id number] 00:00:00 Test Item Value Reference Range Interpretation Comments VALERIE SPECIES (test code = 92151) NEGATIVE G. VAGINALIS (test code = 76956) NEGATIVE T. VAGINALIS (test code = 30559) NEGATIVE VAGINAL PATHOGENS DNA [id number] 00:00:00 Test Item Value Reference Range Interpretation Comments VALERIE SPECIES (test code = 08934) NEGATIVE G. VAGINALIS (test code = 12116) NEGATIVE T. VAGINALIS (test code = 83575) NEGATIVE VAGINAL PATHOGENS DNA [id number] 00:00:00 Test Item Value Reference Range Interpretation Comments VALERIE SPECIES (test code = 00660) NEGATIVE G. VAGINALIS (test code = 96452) NEGATIVE T. VAGINALIS (test code = 15924) NEGATIVE VAGINAL PATHOGENS DNA [id number] 00:00:00 Test Item Value Reference Range Interpretation Comments VALERIE SPECIES (test code = 70713) NEGATIVE G. VAGINALIS (test code = 58517) NEGATIVE T. VAGINALIS (test code = 87377) NEGATIVE VAGINAL PATHOGENS DNA [id number] 00:00:00 Test Item Value Reference Range Interpretation Comments VALEIRE SPECIES (test code = 40500) NEGATIVE G. VAGINALIS (test code = 80571) NEGATIVE T. VAGINALIS (test code = 46805) NEGATIVE VAGINAL PATHOGENS DNA [id number] 00:00:00 Test Item Value Reference Range Interpretation Comments VALERIE SPECIES (test code = 97366) NEGATIVE G. VAGINALIS (test code = 79454) NEGATIVE T. VAGINALIS (test code = 34651) NEGATIVE VAGINAL PATHOGENS DNA [id number] 00:00:00 Test Item Value Reference Range Interpretation Comments VALERIE SPECIES (test code = 12162) NEGATIVE G. VAGINALIS (test code = 63816) NEGATIVE T. VAGINALIS (test code = 70167) NEGATIVE GC AND CHLAMYDIA, AMPLIFIED, [id number] 00:00:00 Test Item Value Reference Range Interpretation Comments GONORRHEA, TMA (test code = 11483) NEGATIVE CHLAMYDIA, TMA (test code = 81935) NEGATIVE GC AND CHLAMYDIA, AMPLIFIED, [id number] 00:00:00 Test Item Value Reference Range Interpretation Comments GONORRHEA, TMA (test code = 69875) NEGATIVE CHLAMYDIA, TMA (test code = 56944) NEGATIVE CULTURE, [id number] 00:00:00 Test Item Value Reference Range Interpretation Comments CULTURE, URINE (test SPECIMEN NUMBER: code = 82402) [id number] CULTURE, [id number] 00:00:00 Test Item Value Reference Range Interpretation Comments CULTURE, URINE (test SPECIMEN NUMBER: code = 28435) [id number] CULTURE, [id number] 00:00:00 Test Item Value Reference Range Interpretation Comments CULTURE, URINE (test SPECIMEN NUMBER: code = 29355) [id number] GC AND CHLAMYDIA, AMPLIFIED, [id number] 00:00:00 Test Item Value Reference Range Interpretation Comments GONORRHEA, TMA (test code = 18638) NEGATIVE CHLAMYDIA, TMA (test code = 17120) NEGATIVE GC AND CHLAMYDIA, AMPLIFIED, [id number] 00:00:00 Test Item Value Reference Range Interpretation Comments GONORRHEA, TMA (test code = 31161) NEGATIVE CHLAMYDIA, TMA (test code = 88672) NEGATIVE CULTURE, [id number] 00:00:00 Test Item Value Reference Range Interpretation Comments CULTURE, URINE (test SPECIMEN NUMBER: code = 49015) [id number] CULTURE, [id number] 00:00:00 Test Item Value Reference Range Interpretation Comments CULTURE, URINE (test SPECIMEN NUMBER: code = 51975) [id number] GC AND CHLAMYDIA, AMPLIFIED, [id number] 00:00:00 Test Item Value Reference Range Interpretation Comments GONORRHEA, TMA (test code = 43496) NEGATIVE CHLAMYDIA, TMA (test code = 08225) NEGATIVE GC AND CHLAMYDIA, AMPLIFIED, [id number] 00:00:00 Test Item Value Reference Range Interpretation Comments GONORRHEA, TMA (test code = 07436) NEGATIVE CHLAMYDIA, TMA (test code = 22203) NEGATIVE CULTURE, [id number] 00:00:00 Test Item Value Reference Range Interpretation Comments CULTURE, URINE (test SPECIMEN NUMBER: code = 67906) [id number] CULTURE, [id number] 00:00:00 Test Item Value Reference Range Interpretation Comments CULTURE, URINE (test SPECIMEN NUMBER: code = 48851) [id number] GC AND CHLAMYDIA, AMPLIFIED, [id number] 00:00:00 Test Item Value Reference Range Interpretation Comments GONORRHEA, TMA (test code = 30645) NEGATIVE CHLAMYDIA, TMA (test code = 63034) NEGATIVE GC AND CHLAMYDIA, AMPLIFIED, [id number] 00:00:00 Test Item Value Reference Range Interpretation Comments GONORRHEA, TMA (test code = 54911) NEGATIVE CHLAMYDIA, TMA (test code = 90899) NEGATIVE GC AND CHLAMYDIA, AMPLIFIED, [id number] 00:00:00 Test Item Value Reference Range Interpretation Comments GONORRHEA, TMA (test code = 89013) NEGATIVE CHLAMYDIA, TMA (test code = 07462) NEGATIVE CULTURE, [id number] 00:00:00 Test Item Value Reference Range Interpretation Comments CULTURE, URINE (test SPECIMEN NUMBER: code = 74539) [id number] CULTURE, [id number] 00:00:00 Test Item Value Reference Range Interpretation Comments CULTURE, URINE (test SPECIMEN NUMBER: code = 03121) [id number] BV/VAGINITIS PANEL DNA [id number] 00:00:00 Test Item Value Reference Range Interpretation Comments TRICHOMONAS: (test code = NOT DETECTED 6568-0) GARDNERELLA: (test code = NOT DETECTED 6410-5) VALERIE: (test code = 12694-6) DETECTED BV/VAGINITIS PANEL DNA [id number] 00:00:00 Test Item Value Reference Range Interpretation Comments TRICHOMONAS: (test code = NOT DETECTED 6568-0) GARDNERELLA: (test code = NOT DETECTED 6410-5) VALERIE: (test code = 01506-1) DETECTED BV/VAGINITIS PANEL DNA [id number] 00:00:00 Test Item Value Reference Range Interpretation Comments TRICHOMONAS: (test code = NOT DETECTED 6568-0) GARDNERELLA: (test code = NOT DETECTED 6410-5) VALERIE: (test code = 81034-2) DETECTED BV/VAGINITIS PANEL DNA [id number] 00:00:00 Test Item Value Reference Range Interpretation Comments TRICHOMONAS: (test code = NOT DETECTED 6568-0) GARDNERELLA: (test code = NOT DETECTED 6410-5) VALERIE: (test code = 52964-7) DETECTED BV/VAGINITIS PANEL DNA [id number] 00:00:00 Test Item Value Reference Range Interpretation Comments TRICHOMONAS: (test code = NOT DETECTED 6568-0) GARDNERELLA: (test code = NOT DETECTED 6410-5) VALERIE: (test code = 16251-2) DETECTED COMPREHENSIVE METABOLIC [id number] 00:00:00 Test Item Value Reference Range Interpretation Comments GLUCOSE (test code = 2217) 93 MG/DL BUN (test code = 2208) 8 MG/DL CREATININE (test code = 2214) 0.62 MG/DL eGFR AMER. (test code 136 ML/MIN/1.73 = 79827) eGFR NON- AMER. (test 118 ML/MIN/1.73 code = 47776) CALC BUN/CREAT (test code = 13 RATIO 2234) SODIUM (test code = 2231) 140 MEQ/L POTASSIUM (test code = 2228) 4.3 MEQ/L CHLORIDE (test code = 2215) 98 MEQ/L CARBON DIOXIDE (test code = 30 MEQ/L 2205) CALCIUM (test code = 2209) 10.0 MG/DL PROTEIN, TOTAL (test code = 7.6 G/DL 2228) ALBUMIN (test code = 2201) 4.9 G/DL CALC GLOBULIN (test code = 2.7 G/DL 2240) CALC A/G RATIO (test code = 1.8 RATIO 2233) BILIRUBIN, TOTAL (test code = 0.3 MG/DL 2206) ALKALINE PHOSPHATASE (test 61 U/L code = 2204) AST (test code = 2218) 25 U/L ALT (test code = 2219) 29 U/L [id number] 00:00:00 Test Item Value Reference Range Interpretation Comments TSH, THIRD GENERATION (test code 1.830 UIU/ML = 2821) [id number] 00:00:00 Test Item Value Reference Range Interpretation Comments TSH, THIRD GENERATION (test code 1.830 UIU/ML = 2821) CBC W/AUTO [id number] 00:00:00 Test Item Value Reference Range Interpretation Comments WBC (test code = 1001) 8.3 K/UL RBC (test code = 1002) 4.76 M/UL HEMOGLOBIN (test code = 1003) 14.4 G/DL HEMATOCRIT (test code = 1004) 41.5 % MCV (test code = 1005) 87.2 fL MCH (test code = 1006) 30.3 PG MCHC (test code = 1007) 34.7 G/DL RDW (test code = 1038) 12.5 % NEUTROPHILS (test code = 1008) 62.4 % LYMPHOCYTES (test code = 1010) 28.2 % MONOCYTES (test code = 1011) 7.0 % EOSINOPHILS (test code = 1012) 1.7 % BASOPHILS (test code = 1013) 0.7 % PLATELET COUNT (test code = 1015) 265 K/UL [id number] 00:00:00 Test Item Value Reference Range Interpretation Comments TSH, THIRD GENERATION (test code 1.830 UIU/ML = 2821) VITAMIN [id number] 00:00:00 Test Item Value Reference Range Interpretation Comments VITAMIN B-12 (test code = 2840) 1708 PG/ML VITAMIN [id number] 00:00:00 Test Item Value Reference Range Interpretation Comments VITAMIN B-12 (test code = 2840) 1708 PG/ML VITAMIN [id number] 00:00:00 Test Item Value Reference Range Interpretation Comments VITAMIN B-12 (test code = 2840) 1708 PG/ML VITAMIN D, 25 [id number] 00:00:00 Test Item Value Reference Range Interpretation Comments VITAMIN D, 25 OH (test code = 4958) 11 NG/ML VITAMIN D, 25 [id number] 00:00:00 Test Item Value Reference Range Interpretation Comments VITAMIN D, 25 OH (test code = 4958) 11 NG/ML CBC W/AUTO [id number] 00:00:00 Test Item Value Reference Range Interpretation Comments WBC (test code = 1001) 8.3 K/UL RBC (test code = 1002) 4.76 M/UL HEMOGLOBIN (test code = 1003) 14.4 G/DL HEMATOCRIT (test code = 1004) 41.5 % MCV (test code = 1005) 87.2 fL MCH (test code = 1006) 30.3 PG MCHC (test code = 1007) 34.7 G/DL RDW (test code = 1038) 12.5 % NEUTROPHILS (test code = 1008) 62.4 % LYMPHOCYTES (test code = 1010) 28.2 % MONOCYTES (test code = 1011) 7.0 % EOSINOPHILS (test code = 1012) 1.7 % BASOPHILS (test code = 1013) 0.7 % PLATELET COUNT (test code = 1015) 265 K/UL HEMOGLOBIN [id number] 00:00:00 Test Item Value Reference Range Interpretation Comments HEMOGLOBIN A1c (test code = 90351) 5.2 % CBC W/AUTO [id number] 00:00:00 Test Item Value Reference Range Interpretation Comments WBC (test code = 1001) 8.3 K/UL RBC (test code = 1002) 4.76 M/UL HEMOGLOBIN (test code = 1003) 14.4 G/DL HEMATOCRIT (test code = 1004) 41.5 % MCV (test code = 1005) 87.2 fL MCH (test code = 1006) 30.3 PG MCHC (test code = 1007) 34.7 G/DL RDW (test code = 1038) 12.5 % NEUTROPHILS (test code = 1008) 62.4 % LYMPHOCYTES (test code = 1010) 28.2 % MONOCYTES (test code = 1011) 7.0 % EOSINOPHILS (test code = 1012) 1.7 % BASOPHILS (test code = 1013) 0.7 % PLATELET COUNT (test code = 1015) 265 K/UL CBC W/AUTO [id number] 00:00:00 Test Item Value Reference Range Interpretation Comments WBC (test code = 1001) 8.3 K/UL RBC (test code = 1002) 4.76 M/UL HEMOGLOBIN (test code = 1003) 14.4 G/DL HEMATOCRIT (test code = 1004) 41.5 % MCV (test code = 1005) 87.2 fL MCH (test code = 1006) 30.3 PG MCHC (test code = 1007) 34.7 G/DL RDW (test code = 1038) 12.5 % NEUTROPHILS (test code = 1008) 62.4 % LYMPHOCYTES (test code = 1010) 28.2 % MONOCYTES (test code = 1011) 7.0 % EOSINOPHILS (test code = 1012) 1.7 % BASOPHILS (test code = 1013) 0.7 % PLATELET COUNT (test code = 1015) 265 K/UL CBC W/AUTO [id number] 00:00:00 Test Item Value Reference Range Interpretation Comments WBC (test code = 1001) 8.3 K/UL RBC (test code = 1002) 4.76 M/UL HEMOGLOBIN (test code = 1003) 14.4 G/DL HEMATOCRIT (test code = 1004) 41.5 % MCV (test code = 1005) 87.2 fL MCH (test code = 1006) 30.3 PG MCHC (test code = 1007) 34.7 G/DL RDW (test code = 1038) 12.5 % NEUTROPHILS (test code = 1008) 62.4 % LYMPHOCYTES (test code = 1010) 28.2 % MONOCYTES (test code = 1011) 7.0 % EOSINOPHILS (test code = 1012) 1.7 % BASOPHILS (test code = 1013) 0.7 % PLATELET COUNT (test code = 1015) 265 K/UL HEMOGLOBIN [id number] 00:00:00 Test Item Value Reference Range Interpretation Comments HEMOGLOBIN A1c (test code = 24473) 5.2 % HEMOGLOBIN [id number] 00:00:00 Test Item Value Reference Range Interpretation Comments HEMOGLOBIN A1c (test code = 68748) 5.2 % HEMOGLOBIN [id number] 00:00:00 Test Item Value Reference Range Interpretation Comments HEMOGLOBIN A1c (test code = 32956) 5.2 % HEMOGLOBIN [id number] 00:00:00 Test Item Value Reference Range Interpretation Comments HEMOGLOBIN A1c (test code = 70494) 5.2 % COMPREHENSIVE METABOLIC [id number] 00:00:00 Test Item Value Reference Range Interpretation Comments GLUCOSE (test code = 2217) 93 MG/DL BUN (test code = 2208) 8 MG/DL CREATININE (test code = 2214) 0.62 MG/DL eGFR AMER. (test code 136 ML/MIN/1.73 = 53905) eGFR NON- AMER. (test 118 ML/MIN/1.73 code = 09318) CALC BUN/CREAT (test code = 13 RATIO 2235) SODIUM (test code = 2231) 140 MEQ/L POTASSIUM (test code = 2228) 4.3 MEQ/L CHLORIDE (test code = 2215) 98 MEQ/L CARBON DIOXIDE (test code = 30 MEQ/L 2205) CALCIUM (test code = 2209) 10.0 MG/DL PROTEIN, TOTAL (test code = 7.6 G/DL 2228) ALBUMIN (test code = 2201) 4.9 G/DL CALC GLOBULIN (test code = 2.7 G/DL 2240) CALC A/G RATIO (test code = 1.8 RATIO 2234) BILIRUBIN, TOTAL (test code = 0.3 MG/DL 2206) ALKALINE PHOSPHATASE (test 61 U/L code = 2204) AST (test code = 2218) 25 U/L ALT (test code = 2219) 29 U/L COMPREHENSIVE METABOLIC [id number] 00:00:00 Test Item Value Reference Range Interpretation Comments GLUCOSE (test code = 2217) 93 MG/DL BUN (test code = 2208) 8 MG/DL CREATININE (test code = 2214) 0.62 MG/DL eGFR AMER. (test code 136 ML/MIN/1.73 = 07129) eGFR NON- AMER. (test 118 ML/MIN/1.73 code = 81165) CALC BUN/CREAT (test code = 13 RATIO 2235) SODIUM (test code = 2231) 140 MEQ/L POTASSIUM (test code = 2228) 4.3 MEQ/L CHLORIDE (test code = 2215) 98 MEQ/L CARBON DIOXIDE (test code = 30 MEQ/L 2205) CALCIUM (test code = 2209) 10.0 MG/DL PROTEIN, TOTAL (test code = 7.6 G/DL 2228) ALBUMIN (test code = 2201) 4.9 G/DL CALC GLOBULIN (test code = 2.7 G/DL 2240) CALC A/G RATIO (test code = 1.8 RATIO 2234) BILIRUBIN, TOTAL (test code = 0.3 MG/DL 2206) ALKALINE PHOSPHATASE (test 61 U/L code = 2204) AST (test code = 2218) 25 U/L ALT (test code = 2219) 29 U/L [id number] 00:00:00 Test Item Value Reference Range Interpretation Comments TSH, THIRD GENERATION (test code 1.830 UIU/ML = 2821) [id number] 00:00:00 Test Item Value Reference Range Interpretation Comments TSH, THIRD GENERATION (test code 1.830 UIU/ML = 2821) COMPREHENSIVE METABOLIC [id number] 00:00:00 Test Item Value Reference Range Interpretation Comments GLUCOSE (test code = 2217) 93 MG/DL BUN (test code = 2208) 8 MG/DL CREATININE (test code = 2214) 0.62 MG/DL eGFR AMER. (test code 136 ML/MIN/1.73 = 58763) eGFR NON- AMER. (test 118 ML/MIN/1.73 code = 19862) CALC BUN/CREAT (test code = 13 RATIO 2235) SODIUM (test code = 2231) 140 MEQ/L POTASSIUM (test code = 2228) 4.3 MEQ/L CHLORIDE (test code = 2215) 98 MEQ/L CARBON DIOXIDE (test code = 30 MEQ/L 2205) CALCIUM (test code = 2209) 10.0 MG/DL PROTEIN, TOTAL (test code = 7.6 G/DL 2228) ALBUMIN (test code = 2201) 4.9 G/DL CALC GLOBULIN (test code = 2.7 G/DL 2240) CALC A/G RATIO (test code = 1.8 RATIO 4) BILIRUBIN, TOTAL (test code = 0.3 MG/DL 2206) ALKALINE PHOSPHATASE (test 61 U/L code = 2204) AST (test code = 2218) 25 U/L ALT (test code = 2219) 29 U/L [id number] 00:00:00 Test Item Value Reference Range Interpretation Comments TSH, THIRD GENERATION (test code 1.830 UIU/ML = 2821) VITAMIN [id number] 00:00:00 Test Item Value Reference Range Interpretation Comments VITAMIN B-12 (test code = 2840) 1708 PG/ML VITAMIN [id number] 00:00:00 Test Item Value Reference Range Interpretation Comments VITAMIN B-12 (test code = 2840) 1708 PG/ML VITAMIN [id number] 00:00:00 Test Item Value Reference Range Interpretation Comments VITAMIN B-12 (test code = 2840) 1708 PG/ML VITAMIN D, 25 [id number] 00:00:00 Test Item Value Reference Range Interpretation Comments VITAMIN D, 25 OH (test code = 4958) 11 NG/ML VITAMIN D, 25 [id number] 00:00:00 Test Item Value Reference Range Interpretation Comments VITAMIN D, 25 OH (test code = 4958) 11 NG/ML [id number] 00:00:00 Test Item Value Reference Range Interpretation Comments TSH, THIRD GENERATION (test code 1.830 UIU/ML = 2821) [id number] 00:00:00 Test Item Value Reference Range Interpretation Comments TSH, THIRD GENERATION (test code 1.830 UIU/ML = 2821) VITAMIN [id number] 00:00:00 Test Item Value Reference Range Interpretation Comments VITAMIN B-12 (test code = 2840) 1708 PG/ML VITAMIN [id number] 00:00:00 Test Item Value Reference Range Interpretation Comments VITAMIN B-12 (test code = 2840) 1708 PG/ML VITAMIN D, 25 [id number] 00:00:00 Test Item Value Reference Range Interpretation Comments VITAMIN D, 25 OH (test code = 4958) 11 NG/ML CBC W/AUTO [id number] 00:00:00 Test Item Value Reference Range Interpretation Comments WBC (test code = 1001) 8.3 K/UL RBC (test code = 1002) 4.76 M/UL HEMOGLOBIN (test code = 1003) 14.4 G/DL HEMATOCRIT (test code = 1004) 41.5 % MCV (test code = 1005) 87.2 fL MCH (test code = 1006) 30.3 PG MCHC (test code = 1007) 34.7 G/DL RDW (test code = 1038) 12.5 % NEUTROPHILS (test code = 1008) 62.4 % LYMPHOCYTES (test code = 1010) 28.2 % MONOCYTES (test code = 1011) 7.0 % EOSINOPHILS (test code = 1012) 1.7 % BASOPHILS (test code = 1013) 0.7 % PLATELET COUNT (test code = 1015) 265 K/UL CBC W/AUTO [id number] 00:00:00 Test Item Value Reference Range Interpretation Comments WBC (test code = 1001) 8.3 K/UL RBC (test code = 1002) 4.76 M/UL HEMOGLOBIN (test code = 1003) 14.4 G/DL HEMATOCRIT (test code = 1004) 41.5 % MCV (test code = 1005) 87.2 fL MCH (test code = 1006) 30.3 PG MCHC (test code = 1007) 34.7 G/DL RDW (test code = 1038) 12.5 % NEUTROPHILS (test code = 1008) 62.4 % LYMPHOCYTES (test code = 1010) 28.2 % MONOCYTES (test code = 1011) 7.0 % EOSINOPHILS (test code = 1012) 1.7 % BASOPHILS (test code = 1013) 0.7 % PLATELET COUNT (test code = 1015) 265 K/UL CBC W/AUTO [id number] 00:00:00 Test Item Value Reference Range Interpretation Comments WBC (test code = 1001) 8.3 K/UL RBC (test code = 1002) 4.76 M/UL HEMOGLOBIN (test code = 1003) 14.4 G/DL HEMATOCRIT (test code = 1004) 41.5 % MCV (test code = 1005) 87.2 fL MCH (test code = 1006) 30.3 PG MCHC (test code = 1007) 34.7 G/DL RDW (test code = 1038) 12.5 % NEUTROPHILS (test code = 1008) 62.4 % LYMPHOCYTES (test code = 1010) 28.2 % MONOCYTES (test code = 1011) 7.0 % EOSINOPHILS (test code = 1012) 1.7 % BASOPHILS (test code = 1013) 0.7 % PLATELET COUNT (test code = 1015) 265 K/UL HEMOGLOBIN [id number] 00:00:00 Test Item Value Reference Range Interpretation Comments HEMOGLOBIN A1c (test code = 83239) 5.2 % HEMOGLOBIN [id number] 00:00:00 Test Item Value Reference Range Interpretation Comments HEMOGLOBIN A1c (test code = 26731) 5.2 % HEMOGLOBIN [id number] 00:00:00 Test Item Value Reference Range Interpretation Comments HEMOGLOBIN A1c (test code = 61152) 5.2 % COMPREHENSIVE METABOLIC [id number] 00:00:00 Test Item Value Reference Range Interpretation Comments GLUCOSE (test code = 2217) 93 MG/DL BUN (test code = 2208) 8 MG/DL CREATININE (test code = 2214) 0.62 MG/DL eGFR AMER. (test code 136 ML/MIN/1.73 = 23748) eGFR NON- AMER. (test 118 ML/MIN/1.73 code = 91697) CALC BUN/CREAT (test code = 13 RATIO 2235) SODIUM (test code = 2231) 140 MEQ/L POTASSIUM (test code = 2228) 4.3 MEQ/L CHLORIDE (test code = 2215) 98 MEQ/L CARBON DIOXIDE (test code = 30 MEQ/L 220) CALCIUM (test code = 2209) 10.0 MG/DL PROTEIN, TOTAL (test code = 7.6 G/DL 2228) ALBUMIN (test code = 2201) 4.9 G/DL CALC GLOBULIN (test code = 2.7 G/DL 2240) CALC A/G RATIO (test code = 1.8 RATIO 2234) BILIRUBIN, TOTAL (test code = 0.3 MG/DL 2206) ALKALINE PHOSPHATASE (test 61 U/L code = 2204) AST (test code = 2218) 25 U/L ALT (test code = 2219) 29 U/L COMPREHENSIVE METABOLIC [id number] 00:00:00 Test Item Value Reference Range Interpretation Comments GLUCOSE (test code = 2217) 93 MG/DL BUN (test code = 2208) 8 MG/DL CREATININE (test code = 2214) 0.62 MG/DL eGFR AMER. (test code 136 ML/MIN/1.73 = 45453) eGFR NON- AMER. (test 118 ML/MIN/1.73 code = 64892) CALC BUN/CREAT (test code = 13 RATIO 2234) SODIUM (test code = 2231) 140 MEQ/L POTASSIUM (test code = 2228) 4.3 MEQ/L CHLORIDE (test code = 2215) 98 MEQ/L CARBON DIOXIDE (test code = 30 MEQ/L 220) CALCIUM (test code = 2209) 10.0 MG/DL PROTEIN, TOTAL (test code = 7.6 G/DL 2228) ALBUMIN (test code = 2201) 4.9 G/DL CALC GLOBULIN (test code = 2.7 G/DL 2240) CALC A/G RATIO (test code = 1.8 RATIO 2234) BILIRUBIN, TOTAL (test code = 0.3 MG/DL 2206) ALKALINE PHOSPHATASE (test 61 U/L code = 2204) AST (test code = 2218) 25 U/L ALT (test code = 2219) 29 U/L [id number] 00:00:00 Test Item Value Reference Range Interpretation Comments TSH, THIRD GENERATION (test code 1.830 UIU/ML = 2821) [id number] 00:00:00 Test Item Value Reference Range Interpretation Comments TSH, THIRD GENERATION (test code 1.830 UIU/ML = 2821) [id number] 00:00:00 Test Item Value Reference Range Interpretation Comments TSH, THIRD GENERATION (test code 1.830 UIU/ML = 2821) VITAMIN [id number] 00:00:00 Test Item Value Reference Range Interpretation Comments VITAMIN B-12 (test code = 2840) 1708 PG/ML VITAMIN [id number] 00:00:00 Test Item Value Reference Range Interpretation Comments VITAMIN B-12 (test code = 2840) 1708 PG/ML VITAMIN [id number] 00:00:00 Test Item Value Reference Range Interpretation Comments VITAMIN B-12 (test code = 2840) 1708 PG/ML VITAMIN D, 25 [id number] 00:00:00 Test Item Value Reference Range Interpretation Comments VITAMIN D, 25 OH (test code = 4958) 11 NG/ML VITAMIN D, 25 [id number] 00:00:00 Test Item Value Reference Range Interpretation Comments VITAMIN D, 25 OH (test code = 4958) 11 NG/ML CBC W/AUTO [id number] 00:00:00 Test Item Value Reference Range Interpretation Comments WBC (test code = 1001) 8.3 K/UL RBC (test code = 1002) 4.76 M/UL HEMOGLOBIN (test code = 1003) 14.4 G/DL HEMATOCRIT (test code = 1004) 41.5 % MCV (test code = 1005) 87.2 fL MCH (test code = 1006) 30.3 PG MCHC (test code = 1007) 34.7 G/DL RDW (test code = 1038) 12.5 % NEUTROPHILS (test code = 1008) 62.4 % LYMPHOCYTES (test code = 1010) 28.2 % MONOCYTES (test code = 1011) 7.0 % EOSINOPHILS (test code = 1012) 1.7 % BASOPHILS (test code = 1013) 0.7 % PLATELET COUNT (test code = 1015) 265 K/UL CBC W/AUTO [id number] 00:00:00 Test Item Value Reference Range Interpretation Comments WBC (test code = 1001) 8.3 K/UL RBC (test code = 1002) 4.76 M/UL HEMOGLOBIN (test code = 1003) 14.4 G/DL HEMATOCRIT (test code = 1004) 41.5 % MCV (test code = 1005) 87.2 fL MCH (test code = 1006) 30.3 PG MCHC (test code = 1007) 34.7 G/DL RDW (test code = 1038) 12.5 % NEUTROPHILS (test code = 1008) 62.4 % LYMPHOCYTES (test code = 1010) 28.2 % MONOCYTES (test code = 1011) 7.0 % EOSINOPHILS (test code = 1012) 1.7 % BASOPHILS (test code = 1013) 0.7 % PLATELET COUNT (test code = 1015) 265 K/UL CBC W/AUTO [id number] 00:00:00 Test Item Value Reference Range Interpretation Comments WBC (test code = 1001) 8.3 K/UL RBC (test code = 1002) 4.76 M/UL HEMOGLOBIN (test code = 1003) 14.4 G/DL HEMATOCRIT (test code = 1004) 41.5 % MCV (test code = 1005) 87.2 fL MCH (test code = 1006) 30.3 PG MCHC (test code = 1007) 34.7 G/DL RDW (test code = 1038) 12.5 % NEUTROPHILS (test code = 1008) 62.4 % LYMPHOCYTES (test code = 1010) 28.2 % MONOCYTES (test code = 1011) 7.0 % EOSINOPHILS (test code = 1012) 1.7 % BASOPHILS (test code = 1013) 0.7 % PLATELET COUNT (test code = 1015) 265 K/UL HEMOGLOBIN [id number] 00:00:00 Test Item Value Reference Range Interpretation Comments HEMOGLOBIN A1c (test code = 66166) 5.2 % HEMOGLOBIN [id number] 00:00:00 Test Item Value Reference Range Interpretation Comments HEMOGLOBIN A1c (test code = 54892) 5.2 % HEMOGLOBIN [id number] 00:00:00 Test Item Value Reference Range Interpretation Comments HEMOGLOBIN A1c (test code = 39559) 5.2 % COMPREHENSIVE METABOLIC [id number] 00:00:00 Test Item Value Reference Range Interpretation Comments GLUCOSE (test code = 2217) 93 MG/DL BUN (test code = 2208) 8 MG/DL CREATININE (test code = 2214) 0.62 MG/DL eGFR AMER. (test code 136 ML/MIN/1.73 = 35364) eGFR NON- AMER. (test 118 ML/MIN/1.73 code = 94291) CALC BUN/CREAT (test code = 13 RATIO 2235) SODIUM (test code = 2231) 140 MEQ/L POTASSIUM (test code = 2228) 4.3 MEQ/L CHLORIDE (test code = 2215) 98 MEQ/L CARBON DIOXIDE (test code = 30 MEQ/L 220) CALCIUM (test code = 2209) 10.0 MG/DL PROTEIN, TOTAL (test code = 7.6 G/DL 2228) ALBUMIN (test code = 2201) 4.9 G/DL CALC GLOBULIN (test code = 2.7 G/DL 0) CALC A/G RATIO (test code = 1.8 RATIO 4) BILIRUBIN, TOTAL (test code = 0.3 MG/DL 2206) ALKALINE PHOSPHATASE (test 61 U/L code = 2204) AST (test code = 2218) 25 U/L ALT (test code = 2219) 29 U/L COMPREHENSIVE METABOLIC [id number] 00:00:00 Test Item Value Reference Range Interpretation Comments GLUCOSE (test code = 2217) 93 MG/DL BUN (test code = 2208) 8 MG/DL CREATININE (test code = 2214) 0.62 MG/DL eGFR AMER. (test code 136 ML/MIN/1.73 = 34544) eGFR NON- AMER. (test 118 ML/MIN/1.73 code = 92434) CALC BUN/CREAT (test code = 13 RATIO 2235) SODIUM (test code = 2231) 140 MEQ/L POTASSIUM (test code = 2228) 4.3 MEQ/L CHLORIDE (test code = 2215) 98 MEQ/L CARBON DIOXIDE (test code = 30 MEQ/L 2206) CALCIUM (test code = 2209) 10.0 MG/DL PROTEIN, TOTAL (test code = 7.6 G/DL 222) ALBUMIN (test code = 2201) 4.9 G/DL CALC GLOBULIN (test code = 2.7 G/DL 2240) CALC A/G RATIO (test code = 1.8 RATIO 2234) BILIRUBIN, TOTAL (test code = 0.3 MG/DL 2206) ALKALINE PHOSPHATASE (test 61 U/L code = 2204) AST (test code = 2218) 25 U/L ALT (test code = 2219) 29 U/L [id number] 00:00:00 Test Item Value Reference Range Interpretation Comments TSH, THIRD GENERATION (test code 1.830 UIU/ML = 2821) [id number] 00:00:00 Test Item Value Reference Range Interpretation Comments TSH, THIRD GENERATION (test code 1.830 UIU/ML = 2821) [id number] 00:00:00 Test Item Value Reference Range Interpretation Comments TSH, THIRD GENERATION (test code 1.830 UIU/ML = 2821) VITAMIN [id number] 00:00:00 Test Item Value Reference Range Interpretation Comments VITAMIN B-12 (test code = 2840) 1708 PG/ML VITAMIN [id number] 00:00:00 Test Item Value Reference Range Interpretation Comments VITAMIN B-12 (test code = 2840) 1708 PG/ML VITAMIN [id number] 00:00:00 Test Item Value Reference Range Interpretation Comments VITAMIN B-12 (test code = 2840) 1708 PG/ML VITAMIN D, 25 [id number] 00:00:00 Test Item Value Reference Range Interpretation Comments VITAMIN D, 25 OH (test code = 4958) 11 NG/ML VITAMIN D, 25 [id number] 00:00:00 Test Item Value Reference Range Interpretation Comments VITAMIN D, 25 OH (test code = 4958) 11 NG/ML CBC W/AUTO [id number] 00:00:00 Test Item Value Reference Range Interpretation Comments WBC (test code = 1001) 8.3 K/UL RBC (test code = 1002) 4.76 M/UL HEMOGLOBIN (test code = 1003) 14.4 G/DL HEMATOCRIT (test code = 1004) 41.5 % MCV (test code = 1005) 87.2 fL MCH (test code = 1006) 30.3 PG MCHC (test code = 1007) 34.7 G/DL RDW (test code = 1038) 12.5 % NEUTROPHILS (test code = 1008) 62.4 % LYMPHOCYTES (test code = 1010) 28.2 % MONOCYTES (test code = 1011) 7.0 % EOSINOPHILS (test code = 1012) 1.7 % BASOPHILS (test code = 1013) 0.7 % PLATELET COUNT (test code = 1015) 265 K/UL CBC W/AUTO [id number] 00:00:00 Test Item Value Reference Range Interpretation Comments WBC (test code = 1001) 8.3 K/UL RBC (test code = 1002) 4.76 M/UL HEMOGLOBIN (test code = 1003) 14.4 G/DL HEMATOCRIT (test code = 1004) 41.5 % MCV (test code = 1005) 87.2 fL MCH (test code = 1006) 30.3 PG MCHC (test code = 1007) 34.7 G/DL RDW (test code = 1038) 12.5 % NEUTROPHILS (test code = 1008) 62.4 % LYMPHOCYTES (test code = 1010) 28.2 % MONOCYTES (test code = 1011) 7.0 % EOSINOPHILS (test code = 1012) 1.7 % BASOPHILS (test code = 1013) 0.7 % PLATELET COUNT (test code = 1015) 265 K/UL CBC W/AUTO [id number] 00:00:00 Test Item Value Reference Range Interpretation Comments WBC (test code = 1001) 8.3 K/UL RBC (test code = 1002) 4.76 M/UL HEMOGLOBIN (test code = 1003) 14.4 G/DL HEMATOCRIT (test code = 1004) 41.5 % MCV (test code = 1005) 87.2 fL MCH (test code = 1006) 30.3 PG MCHC (test code = 1007) 34.7 G/DL RDW (test code = 1038) 12.5 % NEUTROPHILS (test code = 1008) 62.4 % LYMPHOCYTES (test code = 1010) 28.2 % MONOCYTES (test code = 1011) 7.0 % EOSINOPHILS (test code = 1012) 1.7 % BASOPHILS (test code = 1013) 0.7 % PLATELET COUNT (test code = 1015) 265 K/UL HEMOGLOBIN [id number] 00:00:00 Test Item Value Reference Range Interpretation Comments HEMOGLOBIN A1c (test code = 89599) 5.2 % HEMOGLOBIN [id number] 00:00:00 Test Item Value Reference Range Interpretation Comments HEMOGLOBIN A1c (test code = 55518) 5.2 % HEMOGLOBIN [id number] 00:00:00 Test Item Value Reference Range Interpretation Comments HEMOGLOBIN A1c (test code = 73028) 5.2 % COMPREHENSIVE METABOLIC [id number] 00:00:00 Test Item Value Reference Range Interpretation Comments GLUCOSE (test code = 2217) 93 MG/DL BUN (test code = 2208) 8 MG/DL CREATININE (test code = 2214) 0.62 MG/DL eGFR AMER. (test code 136 ML/MIN/1.73 = 30913) eGFR NON- AMER. (test 118 ML/MIN/1.73 code = 42099) CALC BUN/CREAT (test code = 13 RATIO 2234) SODIUM (test code = 2231) 140 MEQ/L POTASSIUM (test code = 2228) 4.3 MEQ/L CHLORIDE (test code = 2215) 98 MEQ/L CARBON DIOXIDE (test code = 30 MEQ/L 2205) CALCIUM (test code = 2209) 10.0 MG/DL PROTEIN, TOTAL (test code = 7.6 G/DL 2228) ALBUMIN (test code = 2201) 4.9 G/DL CALC GLOBULIN (test code = 2.7 G/DL 2239) CALC A/G RATIO (test code = 1.8 RATIO 2233) BILIRUBIN, TOTAL (test code = 0.3 MG/DL 2206) ALKALINE PHOSPHATASE (test 61 U/L code = 2204) AST (test code = 2218) 25 U/L ALT (test code = 2219) 29 U/L
[2023-01-02] MEDS ORDERED: ONDANSETRON 4 MG/2 ML VIAL ONE (15:28)
[2023-01-02] MEDS ORDERED: NA CHLORIDE 0.9% 1,000 ML ONE (15:28)
[2023-01-02 15:39] LABS: Absolute Lymphocytes (CBC) 0.5 K/uL (0.7-4.9); Hematocrit 44.3 % (36.0-45.0); MCV 87.7 fL (80-100); MPV 8.1 fL (7.6-11.3); RBC Red Blood Cell Count 5.05 M/uL (3.86-4.86)
[2023-01-02 15:42] LABS: Specific Gravity 1.022 (1.005-1.030)
[2023-01-02 15:51] LABS: Specific Gravity 1.012 (1.005-1.030); Urine Bacteria None Seen /HPF (<20); Urine Bilirubin NEGATIVE (Negative); Urine Blood 1+ (Negative); Urine Clarity Clear (Clear); Urine Color Light-Yellow (Yellow); Urine Glucose NEGATIVE (Negative); Urine Mucus 2+ /HPF (None Seen); Urine Protein NEGATIVE (Negative); Urine RBC <5 /HPF (None Seen); Urine Urobilinogen Normal (Normal); Urine pH 5.5 (5.0-7.0)
[2023-01-02 15:59] LABS: Albumin 4.1 g/dL (3.4-5.0); Bilirubin Total 0.7 mg/dL (0.2-1.0); Potassium 3.7 mEq/L (3.5-5.1)
--- NOTE | 2023-01-02 18:11 | RAD REPORT ---
EXAM DESCRIPTION: CT - Abdomen Pelvis W Contrast - 01/02/2023 5:24 pm CLINICAL HISTORY: abdominal pain COMPARISON: CT ABD PELVIS W CONTRAST dated 01/09/2013 TECHNIQUE: Thin cut axial CT imaging of the abdomen and pelvis was performed following intravenous a dministration of 100 mL Isovue 300. Multiplanar reformats were generated and reviewed. All CT scans are performed using dose optimization technique as appropriate and may include automated exposure control or mA/KV adjustment according to patient size. FINDINGS: No suspicious findings in the lung bases. The liver, spleen, adrenal glands, and pancreas show no suspicious findings. Small splenule is noted. Status post cholecystectomy. No evidence of intra or extrahepatic biliary ductal dilation. Symmetric renal function is seen with no hydronephrosis or suspicious renal mass. No dilated bowel loops or bowel wall thickening. Nonspecific fluid filling of proximal nondistended s mall bowel loops with short-segment air-fluid levels. Appendix is unremarkable in appearance. No free air, free fluid or inflammatory stranding. No hernia, mass or bulky lymphadenopathy. The urinary cesia dder is without significant finding. Fibroid uterus. No suspicious bony findings. IMPRESSION: Nonspecific fluid filling of proximal nondistended small bowel loops, could relate to in fectious or inflammatory enteritis. No other acute intra-abdominal process.
--- NOTE | 2023-01-02 18:27 | EDPHYS ---
Physician Documentation [facility] Name: Sveta Gutierrez Age: 37 yrs Sex: Female : 1985 Arrival Date: 01/02/2023 Time: 14:16 Bed 10 Private MD: ED Physician Kirk Goldman HPI: 01/02 17:54 This 37 yrs old Female presents to ER via Ambulatory with complaints of jmm Vomiting/Diarrhea, Nausea. 17:54 The patient presents to the emergency department with nausea, vomiting, diarrhea, jmm abdominal pain. Onset: The symptoms/episode began/occurred 1 day(s) ago. Possible causes: unknown. The symptoms are aggravated by nothing. The symptoms are alleviated by nothing. This is a 37 year old female with a history of hypothyroidism, htn that presents to the ED with complaints of abdominal pain. Vomiting and diarrhea. Denies fever. Denies recent travel denies infectious exposure, denies recent abx.. Historical: - Allergies: 15:09 No Known Allergies; iw - Home Meds: 15:09 [place] Thyroid 15 mg Oral tablet daily [Active]; losartan oral daily [Active]; iw - PMHx: 15:09 Hypothyroidism; Hypertensive disorder; iw - Immunization history:: Adult Immunizations. - Social history:: Smoking status: . ROS: 17:54 Constitutional: Negative for fever, chills, and weight loss, Cardiovascular: Negative jmm for chest pain, palpitations, and edema, Respiratory: Negative for shortness of breath, cough, wheezing, and pleuritic chest pain. 17:54 Abdomen/GI: Positive for abdominal pain, nausea and vomiting, diarrhea. 17:54 All other systems are negative. Exam: 17:54 Constitutional: This is a well developed, well nourished patient who is awake, alert, jmm and in no acute distress. Head/Face: atraumatic. Eyes: EOMI, no conjunctival erythema appreciated ENT: Moist Mucus Membranes Neck: Trachea midline, Supple Chest/axilla: Normal chest wall appearance and motion. Cardiovascular: Regular rate and rhythm. No edema appreciated Respiratory: Normal respirations, no respiratory distress appreciated 17:54 Back: Normal ROM Skin: General appearance color normal MS/ Extremity: Moves all extremities, no obvious deformities appreciated, no edema noted to the lower extremities Neuro: Awake and alert Psych: Behavior is normal, Mood is normal, Patient is cooperative and pleasant 17:54 Abdomen/GI: Inspection: abdomen appears normal, Bowel sounds: normal, Palpation: soft, mild abdominal tenderness, in all quadrants. Vital Signs: 15:08 BP 134 / 79; Pulse 86; Resp 16; Temp 97.9; Pulse Ox 99% on R/A; Weight 112.04 kg; iw Height 5 ft. 8 in. ; 18:04 BP 119 / 75; Pulse 85; Resp 18; Pulse Ox 99% on R/A; mb9 15:08 Body Mass Index 37.56 (112.04 kg, 172.72 cm) iw MDM: 15:08 Patient medically screened. [facility] 18:24 Differential diagnosis: Nonspecific abd pain, gastritis, cholecystitis, pancreatitis, [facility] diverticulitis, viral gastroenteritis, gastroenteritis. Data reviewed: vital signs, nurses notes. I considered the following discharge prescriptions or medication management in the emergency department Medications were administered in the Emergency Department. See MAR. Counseling: I had a detailed discussion with the patient and/or guardian regarding: the historical points, exam findings, and any diagnostic results supporting the discharge/admit diagnosis, lab results, radiology results, the need for outpatient follow up, to return to the emergency department if symptoms worsen or persist or if there are any questions or concerns that arise at home. ED course: Patient is alert and non toxic in appearance in the ED. No signs of resp distress. patient advised to follow up with pcp and otherwise given strict return precautions. Patient understood and agrees with the plan of care. . 01/02 15:13 Order name: CBC with Diff; Complete Time: 16:02 [facility] 01/02 15:13 Order name: CMP; Complete Time: 16: [facility] 01/02 15:13 Order name: Lipase; Complete Time: 16:02 [facility] 01/02 15:13 Order name: Urinalysis w/ reflexes; Complete Time: 16:02 [facility] 01/02 15:13 Order name: PREGU; Complete Time: 16: [facility] 01/02 16:03 Order name: CT Abd/Pelvis - IV Contrast Only; Complete Time: 18:13 [facility] 01/02 15:13 Order name: IV Saline Lock; Complete Time: 15:25 [facility] 01/02 15:13 Order name: Labs collected and sent; Complete Time: 15:25 [facility] Administered Medications: 15:30 Drug: NS 0.9% IV 1000 ml Route: IV; Rate: 1 bolus; Site: right antecubital; iw 15:31 Drug: Ondansetron IVP 4 mg Route: IVP; Site: right antecubital; iw Disposition: 01/03 09:53 Co-signature as Attending Physician, Kirk Goldman MD I reviewed the patient's care rt provided by the Advanced Practice Provider and agree with the diagnosis and treatment plan. Disposition Summary: 01/02/23 18:26 Discharge Ordered Location: Home [facility] Condition: Stable jm Diagnosis - Vomiting jmm - Diarrhea, unspecified jmm Followup: m - With: Private Physician - When: 2 - 3 days - Reason: Recheck today's complaints, Continuance of care, Re-evaluation by your physician Discharge Instructions: - Discharge Summary Sheet jmm - Diarrhea, Adult jmm - Vomiting, Adult jmm Forms: - Medication Reconciliation Form [facility] - Thank You Letter [facility] - Antibiotic Education [facility] - Prescription Opioid Use [facility] - Work release form mb9 Prescriptions: - ondansetron 4 mg Oral Tablet,disintegrating - take 1 tablet by ORAL route every 4 to 6 hours As needed; 20 tablet; Refills: [facility] 0, Product Selection Permitted - Flagyl 500 mg Oral Tablet - take 1 tablet by ORAL route every 6 hours for 10 days; 40 tablet; Refills: 0, [facility] Product Selection Permitted - Cipro 500 mg Oral Tablet - take 1 tablet by ORAL route every 12 hours for 10 days; 20 tablet; Refills: 0, [facility] Product Selection Permitted - dicyclomine 20 mg Oral Tablet - take 1 tablet by ORAL route 4 times per day As needed; 30 tablet; Refills: 0, [facility] Product Selection Permitted Signatures: Dispatcher [employer] EDGrant Bangura PA PA jmm Williams, Irene, RN RN iw Kirk Goldman MD MD rt
--- NOTE | 2023-01-02 18:27 | ER ---
Nurse's Notes [facility] Name: Sveta Gutierrez Age: 37 yrs Sex: Female : 1985 Arrival Date: 01/02/2023 Time: 14:16 Bed 10 Private MD: Diagnosis: Vomiting;Diarrhea, unspecified Presentation: 01/02 15:08 Chief complaint: Patient states: n/v/d , chills, body aches, everything started three iw days ago, worse today also has pressure in his stomach. Coronavirus screen: Client presents with at least one sign or symptom that may indicate coronavirus-19. Ebola Screen: Patient negative for fever greater than or equal to 101.5 degrees Fahrenheit, and additional compatible Ebola Virus Disease symptoms Patient denies exposure to infectious person. Patient denies travel to an Ebola-affected area in the 21 days before illness onset. No symptoms or risks identified at this time. Initial Sepsis Screen: Does the patient meet any 2 criteria? No. Patient's initial sepsis screen is negative. Does the patient have a suspected source of infection? No. Patient's initial sepsis screen is negative. Risk Assessment: Do you want to hurt yourself or someone else? Patient reports no desire to harm self or others. Onset of symptoms was December 30, 2022. 15:08 Method Of Arrival: Ambulatory iw 15:08 Acuity: TRISTEN 3 iw Historical: - Allergies: 15:09 No Known Allergies; iw - Home Meds: 15:09 [place] Thyroid 15 mg Oral tablet daily [Active]; losartan oral daily [Active]; iw - PMHx: 15:09 Hypothyroidism; Hypertensive disorder; iw - Immunization history:: Adult Immunizations. - Social history:: Smoking status: . Screenin:31 [facility] ED Fall Risk Assessment (Adult) History of falling in the last 3 months, iw including since admission. Abuse screen: Denies threats or abuse. Denies injuries from another. Nutritional screening: Has had N/V for 3 or more days. Tuberculosis screening: No symptoms or risk factors identified. Assessment: 15:31 General: Appears in no apparent distress. Behavior is calm, cooperative. Pain: iw Complains of pain in abdomen. GI: Abdomen is non-distended, Reports upper abdominal pain, diarrhea, nausea, vomiting. 16:18 Reassessment: pt brought back to ER room. mb9 18:43 Reassessment: Patient and/or family updated on plan of care and expected duration. Pain mb9 level reassessed. Patient is alert, oriented x 3, equal unlabored respirations, skin warm/dry/pink. Patient states feeling better. Patient states symptoms have improved. Vital Signs: 15:08 BP 134 / 79; Pulse 86; Resp 16; Temp 97.9; Pulse Ox 99% on R/A; Weight 112.04 kg; iw Height 5 ft. 8 in. ; 18:04 BP 119 / 75; Pulse 85; Resp 18; Pulse Ox 99% on R/A; mb9 15:08 Body Mass Index 37.56 (112.04 kg, 172.72 cm) iw ED Course: 14:20 Patient arrived in ED. mr 14:28 Grant Manzo PA is PHCP. jmm 14:28 Kirk Goldman MD is Attending Physician. jmm 15:02 Diamond Waldrop, RN is Primary Nurse. iw 15:09 Triage completed. iw 15:11 Arm band placed on. iw 15:20 Inserted saline lock: 22 gauge in right antecubital area, using aseptic technique. iw 15:30 Urinalysis w/ reflexes Sent. iw 15:30 PREGU Sent. iw 16:19 Placed in gown. Bed in low position. Call light in reach. Side rails up X 1. Client mb9 placed on continuous cardiac and pulse oximetry monitoring. NIBP monitoring applied. 16:19 No provider procedures requiring assistance completed. mb9 17:25 CT Abd/Pelvis - IV Contrast Only In Process Unspecified. EDMS 18:42 IV discontinued, intact, bleeding controlled, No redness/swelling at site. Pressure mb9 dressing applied. Administered Medications: 15:30 Drug: NS 0.9% IV 1000 ml Route: IV; Rate: 1 bolus; Site: right antecubital; iw 15:31 Drug: Ondansetron IVP 4 mg Route: IVP; Site: right antecubital; iw Medication: 16:19 VIS not applicable for this client. mb9 Outcome: 18:26 Discharge ordered by . jmm 18:43 Discharged to home ambulatory. mb9 18:43 Condition: stable 18:43 Discharge instructions given to patient, Instructed on discharge instructions, follow up and referral plans. Demonstrated understanding of instructions, follow-up care, medications, Prescriptions given X 4. 18:44 Patient left the ED. mb9 Signatures: Dispatcher [employer] EDMS Grant Manzo PA PA jmm Rivera, Mary mr Williams, Irene, RN RN iw Breneman, Mary Beth, RN RN mb9
[2023-01-02 19:10] VITALS: TEMP 97.9; O2SAT 99
[2023-01-02 19:12] VITALS: BP 119/75
== END 2023-01-02 18:44 | disposition home or self-care (01) ==
LOC: ER 14:16
DX: R11.2 Nausea with vomiting, unspecified (principal); R19.7 Diarrhea, unspecified; I10 Essential (primary) hypertension; E03.9 Hypothyroidism, unspecified
CPT/HCPCS: 85025; 81001; 36415; 81025; 83690; 80053; 74177; Q9967; J2405; J7030

== ENCOUNTER 2023-02-09 01:51 | Emergency (ER) | payer OTHER ==
--- OUTSIDE RECORDS SUMMARY | 2023-02-09 02:04 | XMS REPORT | Continuity of Care Document ---
:1985 Author Organization [facility] t Address [address] [facility] [address] [place] [address] Care Team Providers Name Role Phone JOELLE COLEMAN Primary Care Physician Unavailable JAMEY TRIVEDI Attending Clinician Unavailable Tere Alfaro PT Attending Clinician Unavailable Jamey Trivedi MD Attending Clinician Doctor Unassigned, [place] Attending Clinician Unavailable VLADIMIR LOPEZ Attending Clinician Unavailable Sallie Pickett PA-C Attending Clinician Lisa De Leonoj Attending Clinician Elizabeth PhD, Mireya Ospina Attending [...] Attending Clinician MCKAYLA WARE Attending Clinician Unavailable CESAR LERNER Admitting Clinician Unavailable KAYLIE CINTRON Admitting Clinician Unavailable NAVI OAKES Admitting Clinician Unavailable Payers Payer Name Policy Type Policy Number Effective Date Expiration Date Heath LEAVITT [id number] 2018 HEALTH 00:00:00 Problems Condition Condition Condition Status Onset Resolution Last Treating Co mments Source Name Details Category Date Date Treatment Clinician Date Presence Presence Disease Active Unive rs of of 52 of of 52 3-20 ity of mg mg 00:00: [place] levonorges levonorges 00 Me dical trel-relea trel-relea Br anch sing sing intrauteri intrauteri ne device ne device (IUD) (IUD) Obesity Obesity Disease Active Univers (BMI (BMI 8-24 ity of 30.0-34.9) 30.0-34.9[place] History of History of Disease Active U nivers tubal tubal 8-24 ity of ligation ligation 00:00: [place] 00 Medical Branch Elevated Elevated Disease Active Unive rs blood blood 8-24 ity of pressure pressure 00:00: [place] reading reading 00 Medical without without Branch [...] Active Univers ALLERGIE Class ity of S [facility] Social History Social Habit Start Date Stop Date Quantity Comments Source Exposure to 2022-05-13 2022-05-23 Not sure [facility] SARS-CoV-2 (event) 00:00:00 08:53:00 Medica l Branch Alcohol intake 2022-05-23 2022-05-23 0 /d [facility] 00:00:00 00:00:00 Medical Branch [facility] [birth year] [facility] [place] [facility] Medical Branch Smoking Status Start Date Stop Date Source Never smoked tobacco [facility] Medical [place] Medications Ordered Filled Start Stop Current Ordering Indication Dosage Frequency Signature Comments Components Source Medication Medication Date Date Medication? Clinician (SIG) Name Name HYDROCHLORO 2022-0 No T TAB 25MG 05-08 00:00: 00 HYDROCHLORO 2022-0 No T TAB 25MG 05-08 00:00: 00 Dose 2-0 No Unknown 05-08 00:00: 00 HYDROCHLORO 2022-0 No T TAB 25MG 05-08 00:00: 00 losartan 25 2-0 Yes 25mg Take 25 mg Univers mg tablet 8-24 by mouth ity of 00:00: in the [place] 00 morning. Medical Branch hydroCHLORO 2022-0 Yes 25mg Take 25 mg Univers thiazide 25 8-24 by mouth ity of mg tablet 00:00: in the [place] 00 morning. Medical Branch losartan 25 2-0 Yes 25mg Take 25 mg Univers mg tablet 8-24 by mouth ity of 00:00: in the [place] 00 morning. Medical Branch hydroCHLORO 2022-0 Yes 25mg Take 25 mg Univers thiazide 25 8-24 by mouth ity of mg tablet 00:00: in the [place] 00 morning. Medical Branch losartan 25 2-0 Yes 25mg Take 25 mg Univers mg tablet 8-24 by mouth ity of 00:00: in the [place] 00 morning. Medical Branch hydroCHLORO 2022-0 Yes 25mg Take 25 mg Univers thiazide 25 8-24 by mouth ity of mg tablet 00:00: in the [place] 00 morning. Medical Branch losartan 25 2-0 Yes 25mg Take 25 mg Univers mg tablet 8-24 by mouth ity of 00:00: in the [place] 00 morning. Medical Branch hydroCHLORO 2022-0 Yes 25mg Take 25 mg Univers thiazide 25 8-24 by mouth ity of mg tablet 00:00: in the [place] 00 morning. Medical Branch losartan 25 2022-0 Yes 25mg Take 25 mg Univers mg tablet 8-24 by mouth ity of 00:00: in the [place] 00 morning. Medical Branch hydroCHLORO 2022-0 Yes 25mg Take 25 mg Univers thiazide 25 8-24 by mouth ity of mg tablet 00:00: in the [place] 00 morning. Medical Branch losartan 25 2021-0 Yes 25mg Take 25 mg Univers mg tablet 8-24 by mouth ity of 00:00: in the [place] 00 morning. Medical Branch hydroCHLORO 2022-0 Yes 25mg Take 25 mg Univers thiazide 25 8-24 by mouth ity of mg tablet 00:00: in the [place] 00 morning. Medical Branch &lt 2022-0 No 10 8-16 00:00: 00 [...] 2022-0 No 7-15 00:00: 00 TAKE 1 2021-0 No TABLET BY 7-15 MOUTH EVERY 00:00: 4 (FOUR) 00 HOURS NEEDED FOR PAIN (SCALE 7-10). INDICATIONS : ACUTE PAIN &lt 2022-0 No 25 7-15 00:00: 00 &lt 2022-0 No 7-15 00:00: 00 TAKE 1 2022-0 No TABLET BY 7-15 MOUTH EVERY 00:00: 4 (FOUR) 00 HOURS NEEDED FOR PAIN (SCALE 7-10). INDICATIONS : ACUTE PAIN SWISH AND 2-0 No SPIT OUT 15 7-15 ML 2 [...] 7-08 00:00: 00 &lt 2022-0 No 25 708 00:00: 00 TAKE 1 2022-0 No TABLET BY 6-28 [...] losartan 25 2022-0 No 1mg mg tablet 12-27 00:00: 00 losartan 25 2022-0 No 1mg mg tablet 12-27 00:00: 00 losartan 25 2022-0 No 1mg mg tablet 12-27 00:00: 00 losartan 25 2022-0 No 1mg [...] 2022-0 No Unknown 3-19 00:00: 00 loratadine 2022-0 No 1mg 10 [...] 2022-0 No Unknown 3-16 00:00: 00 lisinopril 2020-1 No 1mg 20 1-03 mg-hydrochl 00:00: orothiazide 00 25 mg tablet lisinopril 2020-1 No 1mg 20 1-03 mg-hydrochl 00:00: orothiazide 00 25 mg tablet lisinopril 2020-1 No 1mg 20 1-03 mg-hydrochl 00:00: orothiazide 00 25 mg tablet lisinopril 2020-1 No 1mg 20 1-03 mg-hydrochl 00:00: orothiazide 00 25 mg tablet lisinopril 2020-1 No 1mg 20 1-03 mg-hydrochl 00:00: orothiazide 00 25 mg tablet lisinopril 1 No 1mg 10 0-26 mg-hydrochl 00:00: orothiazide [...] spray,suspe nsion fluticasone 2020-0 No 2mcg/ac propionate 9 tuation 50 00:00: mcg/actuati 00 on nasal spray,suspe nsion fluticasone 2020-0 No 2mcg/ac propionate 920 tuation 50 00:00: mcg/actuati 00 on nasal spray,suspe nsion fluticasone 2020-0 No 2mcg/ac propionate 05-08 tuation 50 00:00: mcg/actuati 00 on nasal spray,suspe nsion fluticasone 2020-0 No 2mcg/ac propionate 9 tuation 50 00:00: mcg/actuati 00 on nasal [...] 15 mL oral 00:00: solution 00 chlorhexidi 0 Yes [id number] 15mL Swish and Univers ne 0.12 % 9-08 spit out ity of mouthwash 00:00: 15 mL 2 [place] 00 (two) Medical times Branch daily. acetaminoph 2020-0 Yes [id number] 1{tbl} Take 1 Un quentin en-codeine 9-08 tablet by ity of 300-30 mg 00:00: mouth [place] tablet 00 every 4 Medical (four) Branch hours as needed for Pain (scale 7-10). Indication s: acute pain chlorhexidi 2020-0 Yes [id number] 15mL Swish and Univers ne 0.12 % [...] Indication s: acute pain chlorhexidi 2020-0 Yes [id number] 15mL Swish and Univers ne 0.12 % [...] Indication s: acute pain chlorhexidi 2020-0 Yes [id number] 15mL Swish and Univers ne 0.12 % [...] Indication s: acute pain chlorhexidi 2020-0 Yes [id number] 15mL Swish and Univers ne 0.12 % [...] Indication s: acute pain chlorhexidi 2020-0 Yes [id number] 15mL Swish and Univers ne 0.12 % [...] Indication s: acute pain chlorhexidi 2020-0 Yes [id number] 15mL Swish and Univers ne 0.12 % [...] Indication s: acute pain chlorhexidi 2020-0 Yes [id number] 15mL Swish and Univers ne 0.12 % [...] mg 7-02 tablet 00:00: 00 Generlac 10 2020-0 No 30gram/ gram/15 mL 7-02 15 mL oral 00:00: solution 00 loratadine 1-0 No 1mg 10 mg 7-02 tablet 00:00: 00 Generlac 10 2020-0 No 30gram/ gram/15 mL 7-02 15 mL [...] 15 mL oral 00:00: solution 00 lisinopril 1-0 No 1mg 10 3-12 mg-hydrochl [...] tablet 03-21 00:00: 00 NUVARING 2020-0 Yes [id number] 1{each} Insert 1 Univers 0.12-0.015 4-23 Each into ity of mg/24 hr 00:00: vagina [place] vaginal 00 once every Medica l insert month. Branch Insert vaginally and leave in place for 3 consecutiv e weeks, then remove for 1 week. NUVARING 2020-0 Yes [id number] 1{each} Insert 1 Univers 0.12-0.015 4-23 Each into ity of mg/24 hr 00:00: vagina [place] vaginal 00 once every Medica l insert month. Branch Insert vaginally and leave in place for 3 consecutiv e weeks, then remove for 1 week. NUVARING 2020-0 Yes [id number] 1{each} Insert 1 Univers 0.12-0.015 4-23 Each into ity of mg/24 hr 00:00: vagina [place] vaginal 00 once every Medica l insert month. Branch Insert vaginally and leave in place for 3 consecutiv e weeks, then remove for 1 week. NUVARING 2020-0 Yes [id number] 1{each} Insert 1 Univers 0.12-0.015 4-23 Each into ity of mg/24 hr 00:00: vagina [place] vaginal 00 once every Medica l insert month. Branch Insert vaginally and leave in place for 3 consecutiv e weeks, then remove for 1 week. NUVARING 2020-0 Yes [id number] 1{each} Insert 1 Univers 0.12-0.015 4-23 Each into ity of mg/24 hr 00:00: vagina [place] vaginal 00 once every Medica l insert month. Branch Insert vaginally and leave in place for 3 consecutiv e weeks, then remove for 1 week. NUVARING 2020-0 Yes [id number] 1{each} Insert 1 Univers 0.12-0.015 4-23 Each into ity of mg/24 hr 00:00: vagina [place] vaginal 00 once every Medica l insert month. Branch Insert vaginally and leave in place for 3 consecutiv e weeks, then remove for 1 week. NUVARING 2020-0 Yes [id number] 1{each} Insert 1 Univers 0.12-0.015 4-23 Each into ity of mg/24 hr 00:00: vagina [place] vaginal 00 once every Medica l insert month. Branch Insert vaginally and leave in place for 3 consecutiv e weeks, then remove for 1 week. NUVARING 2020-0 Yes [id number] 1{each} Insert 1 Univers 0.12-0.015 4-23 Each [...] 15:53: mouth [place] 28 every Medical morning. [place] phentermine 2020-0 Yes 37.5mg Take 37.5 Univers 37.5 mg 1-21 mg by ity of capsule 15:53: mouth [place] 28 every Medical morning. [place] phentermine 2020-0 Yes 37.5mg Take 37.5 Univers 37.5 mg 1-21 mg by ity of capsule 15:53: mouth [place] 28 every Medical morning. [place] phentermine 2020-0 Yes 37.5mg Take 37.5 Univers 37.5 mg 1-21 mg by ity of capsule 15:53: mouth [place] 28 every Medical morning. [place] lovastatin 2020-0 No 1mg 20 mg 1-15 [...] 00 unit/mL-1 % ear drops,susp Colace 100 2018-1 No 2mg mg capsule 08 00:00: 00 Colace 100 2018-1 No 2mg mg capsule 08 00:00: 00 Colace 100 2018-1 No 2mg mg capsule 08-26 00:00: 00 Colace 100 2018-1 No 2mg mg capsule 08-26 00:00: 00 Colace 100 2018-1 No 2mg mg capsule 08 00:00: 00 lisinopril 2018-1 No 1mg 10 0-31 mg-hydrochl 00:00: orothiazide 00 12.5 mg tablet lisinopril 2018-08 No 1mg 10 0-31 mg-hydrochl 00:00: orothiazide 00 12.5 mg tablet lisinopril 2018-08 No 1mg 10 0-31 mg-hydrochl 00:00: orothiazide 00 12.5 mg tablet lisinopril 2018-08 No 1mg 10 0-31 mg-hydrochl 00:00: orothiazide 00 12.5 mg tablet lisinopril 2018-08 No 1mg 10 0-31 mg-hydrochl 00:00: orothiazide 00 12.5 mg tablet lisinopril- 2018-08 Yes 1{tbl} Take 1 Un [...] 00 daily. Medical per tablet Branch lisinopril 0 No 1mg 10 7-16 mg-hydrochl 00:00: orothiazide [...] orothiazide 00 12.5 mg tablet mupirocin 2 2018-0 No 1% % topical 6-04 ointment 00:00: [...] Immunizations Ordered Filled Immunization Date Status Comments Sour e Immunization Name Name Td 2019-01-13 Completed University of 00:00:00 [place] [facility] Td 2019-01-13 Completed University of 00:00:00 [place] [facility] Td 2019-01-13 Completed University of 00:00:00 [place] [facility] Td 2019-01-13 Completed University of 00:00:00 [place] [facility] Td 2019-01-13 Completed University of 00:00:00 [facility] TD, NOS 2019-01-13 Completed University of 00:00:00 [facility] TD, NOS 2019-01-13 Completed University of 00:00:00 [facility] TD, NOS 2019-01-13 Completed University of 00:00:00 [facility] Vital Signs Vital Name Observation Time Observation Value Comments Source Body temperature 2022-05-23 14:30:00 36.56 [place]iana Univ ersity of [facility] Body height 2022-05-23 14:30:00 172.7 cm Universi ty [facility] Body weight 2022-05-23 14:30:00 111.403 [facility] BMI 2022-05-23 14:30:00 37.34 kg/m2 Universi ty [facility] Systolic blood 2022-04-17 17:54:00 117 mm[Hg] Univer sity of pressure [facility] Diastolic blood 2022-04-17 17:54:00 81 mm[Hg] Unive rsity of pressure [facility] Heart rate 2022-04-17 17:54:00 72 /min Universi ty [facility] Body height 2022-04-17 17:54:00 172.7 cm Universi ty [facility] Body weight 2022-04-17 17:54:00 111.403 kg Universi ty [facility] BMI 2022-04-17 17:54:00 37.34 kg/m2 [facility] Oxygen saturation in 2022-04-17 17:54:00 99 /min [facility] Arterial blood [facility] Pulse oximetry Branch BP Systolic 2022-07-24 16:17:00 [...] Procedure Date / Time Performed Performing Clinician [facility] patria [facility] PATIENT 2023-01-22 19:05:41 Doctor Unassigned, No [facility] sity [facility] FINANCIAL POLICY Name Medical Branch REFERRAL- 2022-12-15 05:01:00 Doctor Unassigned, No [facility]ONSE Name Medical Branch MR ANGIOGRAM HEAD WO 2022-05-01 15:49:27 [facility] [place] [facility] Branch Plan of Care Planned Activity Planned Date Details Comments Source Goal Plan of Care Note [code = 73011-9] Goal Plan of Care Note [code = 68308-8] Goal Plan of Care Note [code = 63086-8] Goal Plan of Care Note [code = 85502-9] Goal Plan of Care Note [code = 18541-1] Goal Plan of Care Note [code = 97582-7] Goal Plan of Care Note [code = 53495-3] Goal Plan of Care Note [code = 83368-8] Goal Plan of Care Note [code = 33623-7] Goal Plan of Care Note [code = 82912-3] Goal Plan of Care Note [code = 14155-2] Goal Plan of Care Note [code = 86441-5] Goal Plan of Care Note [code = 16373-8] Goal Plan of Care Note [code = 32174-5] Goal Plan of Care Note [code = 67532-9] Goal Plan of Care Note [code = 01596-2] Goal Plan of Care Note [code = 52206-7] Goal Plan of Care Note [code = 10810-3] Goal Plan of Care Note [code = 42606-1] Goal Plan of Care Note [code = 40648-8] Goal Plan of Care Note [code = 69795-1] Goal Plan of Care Note [code = 91611-0] Goal Plan of Care Note [code = 30954-4] Goal Plan of Care Note [code = 30264-0] Goal Plan of Care Note [code = 01930-7] Goal Plan of Care Note [code = 25088-7] Goal Plan of Care Note [code = 20625-6] Goal Plan of Care Note [code = 63340-0] Goal Plan of Care Note [code = 91874-0] Goal Plan of Care Note [code = 09696-6] Goal Plan of Care Note [code = 12529-7] Goal Plan of Care Note [code = 68769-4] Goal Plan of Care Note [code = 42217-6] Goal Plan of Care Note [code = 51162-5] Goal Plan of Care Note [code = 32852-1] Goal Plan of Care Note [code = 69081-8] Goal Plan of Care Note [code = 74390-0] Goal Plan of Care Note [code = 97523-8] Goal Plan of Care Note [code = 03526-1] Goal Plan of Care Note [code = 20144-9] Goal Plan of Care Note [code = 27521-9] Goal Plan of Care Note [code = 01107-8] Goal Plan of Care Note [code = 82480-6] Goal Plan of Care Note [code = 77945-8] Goal Plan of Care Note [code = 36788-4] Goal Plan of Care Note [code = 89835-1] Goal Plan of Care Note [code = 63143-9] Goal Plan of Care Note [code = 30199-0] Goal Plan of Care Note [code = 67406-2] Goal Plan of Care Note [code = 93662-0] Goal Plan of Care Note [code = 98540-6] Goal Plan of Care Note [code = 58366-0] Goal Plan of Care Note [code = 65373-8] Goal Plan of Care Note [code = 78028-6] Goal Plan of Care Note [code = 06745-8] Goal Plan of Care Note [code = 75425-2] Goal Plan of Care Note [code = 36322-1] Goal Plan of Care Note [code = 64218-2] Goal Plan of Care Note [code = 37638-8] Goal Plan of Care Note [code = 45279-1] Goal Plan of Care Note [code = 76997-1] Goal Plan of Care Note [code = 80980-1] Goal Plan of Care Note [code = 55452-3] Goal Plan of Care Note [code = 74836-5] Goal Plan of Care Note [code = 94931-4] Goal Plan of Care Note [code = 78478-5] Goal Plan of Care Note [code = 96683-4] Goal Plan of Care Note [code = 55148-9] Goal Plan of Care Note [code = 16028-3] Goal Plan of Care Note [code = 77067-2] Goal Plan of Care Note [code = 41845-3] Goal Plan of Care Note [code = 74727-2] Goal Plan of Care Note [code = 87699-1] Goal Plan of Care Note [code = 98821-4] Goal Plan of Care Note [code = 69351-4] Goal Plan of Care Note [code = 19098-8] Goal Plan of Care Note [code = 67748-5] Goal Plan of Care Note [code = 21561-4] Goal Plan of Care Note [code = 99579-0] Goal Plan of Care Note [code = 72696-9] Goal Plan of Care Note [code = 52081-5] Goal Plan of Care Note [code = 71354-5] Goal Plan of Care Note [code = 59853-7] Goal Plan of Care Note [code = 64457-3] Goal Plan of Care Note [code = 33304-1] Goal Plan of Care Note [code = 12847-8] Goal Plan of Care Note [code = 32845-7] Goal Plan of Care Note [code = 46005-2] Goal Plan of Care Note [code = 23937-6] Goal Plan of Care Note [code = 32594-7] Goal Plan of Care Note [code = 53346-0] Goal Plan of Care Note [code = 19834-7] Goal Plan of Care Note [code = 36730-5] Goal Plan of Care Note [code = 49010-1] Goal Plan of Care Note [code = 30949-6] Goal Plan of Care Note [code = 86200-6] Goal Plan of Care Note [code = 94525-9] Goal Plan of Care Note [code = 11740-3] Goal Plan of Care Note [code = 02406-0] Goal Plan of Care Note [code = 09425-9] Goal Plan of Care Note [code = 09301-0] Goal Plan of Care Note [code = 57116-5] Goal Plan of Care Note [code = 88795-9] Goal Plan of Care Note [code = 05119-9] Goal Plan of Care Note [code = 36122-9] Goal Plan of Care Note [code = 42704-3] Goal Plan of Care Note [code = 05465-3] Goal Plan of Care Note [code = 19617-6] Goal Plan of Care Note [code = 87795-7] Goal Plan of Care Note [code = 93179-1] Goal Plan of Care Note [code = 95865-0] Goal Plan of Care Note [code = 92583-2] Goal Plan of Care Note [code = 32151-8] Goal Plan of Care Note [code = 69195-0] Goal Plan of Care Note [code = 96171-9] Goal Plan of Care Note [code = 32436-5] Goal Plan of Care Note [code = 95431-4] Goal Plan of Care Note [code = 20892-7] Goal Plan of Care Note [code = 43526-1] Goal Plan of Care Note [code = 71025-6] Goal Plan of Care Note [code = 53399-3] Goal Plan of Care Note [code = 78283-4] Goal Plan of Care Note [code = 76902-5] Goal Plan of Care Note [code = 29221-0] Goal Plan of Care Note [code = 96146-2] Goal Plan of Care Note [code = 96641-4] Goal Plan of Care Note [code = 06212-2] Goal Plan of Care Note [code = 97620-5] Goal Plan of Care Note [code = 92257-8] Goal Plan of Care Note [code = 81029-0] Goal Plan of Care Note [code = 74511-4] Goal Plan of Care Note [code = 27635-2] Goal Plan of Care Note [code = 85598-0] Goal Plan of Care Note [code = 87364-8] Goal Plan of Care Note [code = 15233-8] Goal Plan of Care Note [code = 76251-6] Goal Plan of Care Note [code = 17381-2] Goal Plan of Care Note [code = 78713-0] Goal Plan of Care Note [code = 72787-7] Goal Plan of Care Note [code = 60121-5] Goal Plan of Care Note [code = 43648-8] Goal Plan of Care Note [code = 76849-9] Goal Plan of Care Note [code = 01423-5] Goal Plan of Care Note [code = 91670-2] Goal Plan of Care Note [code = 38814-5] Goal Plan of Care Note [code = 88168-8] Goal Plan of Care Note [code = 07713-6] Goal Plan of Care Note [code = 43702-6] Goal Plan of Care Note [code = 63391-3] Goal Plan of Care Note [code = 63400-9] Goal Plan of Care Note [code = 06458-2] Goal Plan of Care Note [code = 63072-9] Goal Plan of Care Note [code = 29180-4] Goal Plan of Care Note [code = 20726-4] Goal Plan of Care Note [code = 80164-4] Goal Plan of Care Note [code = 43028-0] Goal Plan of Care Note [code = 03201-2] Goal Plan of Care Note [code = 41921-1] Goal Plan of Care Note [code = 66770-0] Goal Plan of Care Note [code = 11576-3] Goal Plan of Care Note [code = 88768-1] Goal Plan of Care Note [code = 38612-8] Goal Plan of Care Note [code = 05110-3] Goal Plan of Care Note [code = 12593-9] Goal Plan of Care Note [code = 48271-5] Goal Plan of Care Note [code = 16897-3] Goal Plan of Care Note [code = 77740-0] Goal Plan of Care Note [code = 58696-2] Goal Plan of Care Note [code = 60234-2] Goal Plan of Care Note [code = 70416-2] Goal Plan of Care Note [code = 94364-9] Goal Plan of Care Note [code = 36214-7] Goal Plan of Care Note [code = 46750-4] Goal Plan of Care Note [code = 08957-4] Goal Plan of Care Note [code = 73244-2] Goal Plan of Care Note [code = 76191-1] Goal Plan of Care Note [code = 58179-2] Goal Plan of Care Note [code = 61811-8] Goal Plan of Care Note [code = 34861-4] Goal Plan of Care Note [code = 86547-6] Goal Plan of Care Note [code = 49668-2] Goal Plan of Care Note [code = 75515-4] Goal Plan of Care Note [code = 17649-9] Goal Plan of Care Note [code = 44361-9] Goal Plan of Care Note [code = 81573-9] Goal Plan of Care Note [code = 52890-9] Goal Plan of Care Note [code = 18455-8] Goal Plan of Care Note [code = 86280-1] Goal Plan of Care Note [code = 14526-3] Goal Plan of Care Note [code = 45422-8] Goal Plan of Care Note [code = 29784-2] Goal Plan of Care Note [code = 31261-5] Goal Plan of Care Note [code = 63466-9] Goal Plan of Care Note [code = 05308-8] Goal Plan of Care Note [code = 80004-1] Goal Plan of Care Note [code = 71345-3] Goal Plan of Care Note [code = 51882-9] Goal Plan of Care Note [code = 90659-7] Goal Plan of Care Note [code = 56429-1] Goal Plan of Care Note [code = 44182-6] Goal Plan of Care Note [code = 64293-0] Goal Plan of Care Note [code = 87900-5] Goal Plan of Care Note [code = 48824-8] Goal Plan of Care Note [code = 92479-8] Goal Plan of Care Note [code = 97245-0] Goal Plan of Care Note [code = 79141-0] Goal Plan of Care Note [code = 65012-9] Goal Plan of Care Note [code = 36807-2] Goal Plan of Care Note [code = 08519-3] Goal Plan of Care Note [code = 55835-2] Goal Plan of Care Note [code = 92285-5] Goal Plan of Care Note [code = 77619-1] Goal Plan of Care Note [code = 03581-4] Goal Plan of Care Note [code = 47219-6] Goal Plan of Care Note [code = 83698-0] Goal Plan of Care Note [code = 49913-0] Encounters Start End Encounter Admission Attending Care Care Encounter Source Date/Time Date/Time Type Type Clinicians Facility Department ID 2021-06-19 Emergency [facility] [id number] Univers 21:04:38 ity [facility] 2023-01-29 2023-01-29 [facility] [id number] Univers 13:00:00 13:00:00 JAMEY wills [facility] 2023-01-22 2023-01-22 Outpatient Kenney TRIVEDI [facility] [id number] Univers 14:30:00 15:49:40 JAMEY wills [facility] 2023-01-22 2023-01-22 Ancillary Tere Alfaro [facility] 1 .2.840.114 [id number] Univers 14:30:00 15:49:40 Visit Jamey Trivedi [id number] ity [facility] 4.2.7.2.[place] [id number] Ma dical [facility] 179 [facility] 2023-01-22 2023-01-22 Orders Doctor ANUPAMA 1.2.840.114 [id number] Univers 00:00:00 00:00:00 Only Unassigned, CARMEN [id number] ity of [place] [facility] 4.2.7.2.686 Paul as [id number] [address] 2023-01-04 2023-01-04 Outpatient SFA SFA [id number] 023 [place] 15:22:39 15:22:39 0519 F Gabe 2023-01-03 2023-01-03 Outpatient Kenney LOPEZ [facility] [id number] Univers 09:30:00 09:30:00 VLADIMIR wills [facility] 2022-12-15 2022-12-15 Outpatient SFA SFA [id number] 023 [place] 12:59:06 12:59:06 0429 F Gabe 2022-12-15 2022-12-15 Orders Doctor ANUPAMA 1.2.840.114 [id number] Univers 00:00:00 00:00:00 Only Unassigned, CARMEN [id number] ity of [place] [facility] 4.2.7.2.686 Paul as [id number] [place] aris 009 Branch 2022-10-18 2022-10-18 Outpatient SFA SFA [id number] 023 [place] 10:56:51 10:56:51 0302 F [place] 2022-09-27 2022-09-27 Outpatient SFA SFA [id number] 023 [place] 08:38:22 08:38:22 0209 F [place] 2022-08-07 2022-08-07 Outpatient SFA SFA [id number] 022 [place] 09:29:44 09:29:44 [address] [place] 2022-07-25 2022-07-25 Outpatient SFA SFA [id number] [place] 08:03:31 08:03:31 [address] [place] 2022-07-24 2022-07-24 Outpatient SFA SFA [id number] [place] 16:08:55 16:08:55 [address] [place] 2022-07-24 2022-07-24 Outpatient [id number]- [id number] [id number] 00:00:00 00:00:00 Visit 6717-47fc 717-47fc-8 -834d-3ca 34d-3cab16 p58f6x9i4 c9b9a5 2022-07-18 2022-07-18 Outpatient SFA SFA [id number] 022 [place] 13:41:31 13:41:31 [address] [place] 2022-07-18 2022-07-18 Outpatient [id number]- [id number] 00:00:00 00:00:00 Visit 602b-4287 02b-4287-9 -0he4-726 de2-590f56 n46084yy6 351ff5 2022-05-23 2022-05-23 Office [facility] 1.2.840.114 [id number] 09:30:00 10:00:00 Visit [facility] 350.1.13.10 it y of [place] 4.2.7.2.686 [facility] [phone] [facility] PRIMARY & [address] SPECIALTY CARE 2022-05-23 2022-05-23 Ancillary Lisa Crockettoj [facility] 1.2.840.114 [id number] Univers 09:00:00 09:45:00 Visit Mireya Johnson [facility] 350.1.13.10 [facility] 4.2.7.2.686 [facility] [phone] [facility] PRIMARY & [address] SPECIALTY CARE 2022-05-23 2022-05-23 Outpatient Kenney PICKETT [facility] [id number] Univers 09:30:00 09:30:00 SALLIE [facility] 2022-05-16 2022-05-16 Outpatient [id number]- [id number]-8 00:00:00 00:00:00 Visit 0k3x-8k5r d3g-7e2q-n -jh54-804 l97-4258aj 9qj69c013 20t050 2022-05-14 2022-05-14 Outpatient [id number] 00:00:00 00:00:00 Visit 3u5q-1440 e0b-7042-h -a790-mpf 144-abca96 m47f9l701 z4q209 2022-05-01 2022-05-01 Outpatient CESAR SANTACRUZ [facility] [id number] Univers 09:54:11 23:59:00 CESAR LERNER [facility] 2022-05-01 2022-05-01 [facility] [id number] [facility] 09:54:11 23:59:00 Encounter Cesar GUTIERREZ 350.1.13.10 ity [facility] 4.2.7.2.686 [facility] [id number] [facility] [address] 2022-04-18 2022-04-18 Outpatient Kenney MEAD [facility] [id number] Univers 12:45:00 12:45:00 EMMANUELLE [facility] 2022-04-17 2022-04-17 Outpatient R CESAR LERNER [facility] [id number] Univers 13:00:00 13:51:02 CESAR LERNER brian [facility] 2022-04-17 2022-04-17 Office Yann [facility] 1.2.840.114 [id number] Univers 13:00:00 13:51:02 Visit [facility] 350.1.13.10 ity of [place] 4.2.7.2.686 Paul as DANNY?BLEA [id number] [address] MEDICAL OFFICE BUILDING 2022-04-17 2022-04-17 Outpatient CESAR SANTACRUZ [facility] [id number] Univers 13:00:00 13:51:02 CESAR LERNER brian [facility] 2022-04-06 2022-04-06 Outpatient CESAR SANTACRUZ [facility] [id number] Univers 13:20:00 13:20:00 CESAR LERNER brian [facility] 2022-04-02 2022-04-02 Outpatient R RADIOLOGY [facility] RAD [id number] Univers 15:32:06 23:59:00 ity of [facility] 2022-04-02 2022-04-02 Hospital Radiology [facility] 1.2.840.114 [id number] Univers 15:00:00 23:59:00 Encounter MATT 350.1.13.10 ity of [place] 4.2.7.2.686 [facility] [id number] [facility] [address] 2022-03-02 2022-03-02 Orders Doctor ANUPAMA 1.2.840.114 [id number] Univers 00:00:00 00:00:00 Only Unassigned, CARMEN 350.1.13.10 ity of [place] [facility] 4.2.7.2.686 Paul as [id number] [facility] [address] 2022-03-01 2022-03-01 Outpatient [id number] 00:00:00 00:00:00 Visit 6sv0-1qd1 ce5-4fd5-9 -2g1u-q62 m5j-u74f34 g04v3272y t3847a 2021-12-05 2021-12-05 Orders Doctor ANUPAMA 1.2.840.114 [id number] Univers 00:00:00 00:00:00 Only Unassigned, CARMEN 350.1.13.10 ity of [place] [facility] 4.2.7.2.686 Paul as [id number] [address] 2021-09-15 2021-09-15 Emergency [facility] 1.2.840.114 [id number] Univers 19:14:00 21:31:00 Navi MATT 350.1.13.10 i ty of [place] 4.2.7.2.686 [facility] [id number] [address] 2021-09-15 2021-09-15 Emergency X [place], [facility] ERT [id number] Univers 19:14:00 21:31:00 NAVI [facility] 2021-09-15 2021-09-15 Orders Doctor ANUPAMA 1.2.840.114 [id number] Univers 00:00:00 00:00:00 Only Unassigned, CARMEN 350.1.13.10 ity of [place] [facility] 4.2.7.2.686 Paul as [id number] [address] 2021-04-26 2021-04-26 Emergency [facility] [id number] [id number] Univers 08:43:00 08:53:00 Paco Gutierrez 350.1.13.10 i ty of [place] 4.2.7.2.686 [facility] [id number] [address] 2020-10-26 2020-10-26 Outpatient R RADIOLOGY [facility] [id number] Univers 00:00:00 [facility]:00:[facility] 2020-03-11 2020-03-11 Outpatient R ARY [facility] [id number] Univers 11:00:00 11:00:00 LINDSAY [facility] 2020-03-10 2020-03-10 Outpatient R ARY [facility] [id number] Univers 11:00:00 11:00:00 LINDSAY [facility] 2019-12-10 2019-12-10 [facility]medici [facility] 1.2.840.114 [id number] 07:57:00 11:30:27 ne Visit Lindsay Gutierrez 350.1.13.10 [place] 4.2.7.2.686 Itzel [id number] [address] 2019-12-10 2019-12-10 Outpatient R ARY [facility] [id number] [facility] 10:45:00 10:45:00 LINDSAY wills [facility] 2019-12-03 2019-12-03 Outpatient R HUBER [facility] [id number] [facility] 09:30:00 09:30:00 [facility] 2019-11-20 2019-11-20 Office [facility] 1.2.840.114 [id number] 15:17:01 16:37:15 Visit Mckayla Gutierrez 350.1.13.10 [place] 4.2.7.2.686 It[place] [id number] [address] 2019-11-20 2019-11-20 Outpatient [facility] [id number] [facility] 15:30:00 15:30:00 MCKAYLA [facility] 2019-11-20 2019-11-20 Orders Doctor ANUPAMA 1.2.840.114 [id number] 00:00:00 00:00:00 Only Unassigned, CARMEN 350.1.13.10 [place] [facility] 4.2.7.2.686 [id number] 2019-11-06 2019-11-06 Outpatient R [facility] [id number] Univers 14:00:00 14:00:00 MCKAYLA brian [facility] 2019-11-05 2019-11-05 Outpatient R HUBER [facility] [id number] Univers 15:15:00 15:15:00 [facility] Results Test Description Test Time Test Comments Results Result Comments Source TSH + FREE T4 PROFILE 2022-10-19 05:25:24 Test Item Value Reference Range Interpretation Comme nts TSH, THIRD GENERATION (test 7.440 UIU/ML 0.400-4.100 H code = 2821) FREE T4 (THYROXINE) (test 1.26 NG/DL 0.80-1.90 * [facility] has important code = 2823) pathology staff changes effective 10/17. New pathology staff will provide uninterrupted, excellent patient care an d clinical consultation. S ee URL: [email or web address] . UNLESS OTHERW ISE INDICATED, ALL TESTING PER FORMED AT [facility], [facility]. [address] [place] [address] 1151 [employer]ERGY CROP FARMER: KARYN ARCOS M.D. JOHN CHOGN Kenney [id number] [place] [id number] HEMOGLOBIN [id number] 07:48:13 Test Item Value Reference Range Interpretation Comments HEMOGLOBIN A1c (test code = 67896) 5.6 % 4.2-5.6 VITAMIN D, 25 [id number] 06:15:08 Test Item Value Reference Range Interpretation Comments VITAMIN D, 25 27 NG/ML SEE BELOW L EFFECTIVE 08/27/2022, [place] (test code PLEASE NOTE NE W METHODOLOGY = 4958) IS ELECTROC HEMILUMINESCENCE BINDING ASSAY. NOTE: 25-HYDROXYVITAM IN D ASSAY INCLUDES 25-HYD ROXYVITAMIN D2 AND D3. I NTERPRETIVE RANGES PED IATRIC (<17 YEARS) . . [...] . NG/ML 30-100 TSH + FREE T4 [id number] 06:12:15 Test Item Value Reference Range Interpretation Comments TSH, THIRD GENERATION 6.170 UIU/ML 0.400-4.100 H (test code = 2821) FREE T4 (THYROXINE) 0.94 NG/DL 0.80-1.90 [facility] has (test code = 2823) important pathology staff changes effective 10/17/2022. New pathology staff will provide uninterrupted, excellent patie nt care and clinic al consultation. S ee URL: [email or web address]. UNL ESS OTHERWISE INDIC ATED, ALL TESTING PERFORMED AT [facility] [place]. [address] [place], [place] CLIA: [id number], CAP: [id number] LIPID [id number] 04:45:55 Test Item Value Reference Range Interpretation [...] MOREINFORMATION , SEE CLIENT ANNOUNCE MENT AT [email or web address] [email or web address] RATIO LDL/HDL 2.69 RATIO <3.22 (test code = 2238) COMPREHENSIVE METABOLIC [id number] 04:45:55 Test Item Value Reference Range Interpretation Comments GLUCOSE (test code = 90 MG/DL 70-99 2216) BUN (test code = 15 MG/DL 6-20 2207) CREATININE (test 0.64 MG/DL 0.60-1.30 code = 2214) eGFR (2020 CKD-EPI) 116 >60 (test code = 30826) ML/MIN/1.73 CALC BUN/CREAT (test 23 RATIO 6-28 code = 2235) SODIUM (test code = 140 MEQ/L 764-420 5253) POTASSIUM (test code 4.2 MEQ/L 3.5-5.4 = 2227) CHLORIDE (test code 103 MEQ/L 95-107 = 221) CARBON DIOXIDE (test 26 MEQ/L 19-31 code = 2206) CALCIUM (test code = 9.4 MG/DL 8.5-10.5 2208) PROTEIN, TOTAL (test 6.7 G/DL 6.1-8.3 code = 222) ALBUMIN (test code = 4.3 G/DL 3.5-5.2 [...] PHOSPHATASE 51 U/L 40-112 (test code = 2203) AST (test code = 42 U/L 9-40 H 2217) ALT (test code = 78 U/L 5-40 H 2218) CT/NG, NAAT, [id number] 20:41:34 Test Item Value Reference Range Interpretation Comments GONORRHEA, NAAT NEGATIVE NEGATIVE Note: Testi ng is performed (test code = with Saima EVERARDO S 6800/8800 50084) systems using r eal-time polymerase jonas n reaction (PCR) method. CHLAMYDIA, NAAT NEGATIVE NEGATIVE Note: Testi ng is performed (test code = with Saima EVERARDO S 6800/8800 52996) systems using r eal-time polymerase jonas n reaction (PCR) method. U NLESS OTHERWISE INDIC ATED, ALL TESTING PERFORM ED [facility]. [address] [place] [address] LABORATORY DIRE CTOR: Stepan FERMIN CLIA NUMBER [id number] CAP ACCREDITATION N O. [id number] VAGINAL PATHOGENS DNA [id number] 14:39:25 Test Item Value Reference Range Interpretation [...] nalis and Trichomonas vag inalis nucleic acid. [id number] 03:12:19 Test Item Value Reference Range Interpretation Comments RPR RESULT (test code = NON-REACTIVE NON-REACTIVE 1) RPR TITER (test code = 3500) NOT INDIC. TITER NOT INDIC. HEMOGLOBIN A1c [ADDED]2022-07-26 00:00:00 Test Item Value Reference Range Interpretation Comments HEMOGLOBIN A1c (test code = 73792) 5.6 % HEMOGLOBIN A1c [ADDED]2022-07-26 00:00:00 Test Item Value Reference Range Interpretation Comments HEMOGLOBIN A1c (test code = 86155) 5.6 % HEMOGLOBIN A1c [ADDED]2022-07-26 00:00:00 Test Item Value Reference Range Interpretation Comments HEMOGLOBIN A1c (test code = 84597) 5.6 % LIPID PANEL [ADDED]2022-07-26 00:00:00 Test [...] (2020 CKD-EPI) (test 101 ML/MIN/1.73 code = 55644) CALC BUN/CREAT (test code = 18 RATIO [...] CALC GLOBULIN (test code = 2.5 G/DL 2240) CALC A/G RATIO (test code [...] (2020 CKD-EPI) (test 101 ML/MIN/1.73 code = 75354) CALC BUN/CREAT (test code = 18 RATIO [...] CALC GLOBULIN (test code = 2.5 G/DL 2240) CALC A/G RATIO (test code [...] code = 1.12 NG/DL 2823) CT/NG, NAAT, [id number] 08:45:29 Test Item Value Reference Range Interpretation Comments GONORRHEA, NAAT NEGATIVE NEGATIVE IMPORTA NT NOTICE: SEE (test code = [place] [address]) [email or web address] Note: Assay methodology is nucleic acid amplification b y watch electrician m ediated amplification ( TMA) utilizing the A ptima Combo 2 Assay. CHLAMYDIA, NAAT NEGATIVE NEGATIVE IMPORTA NT NOTICE: SEE (test code = [place] [address]) [email or web address] Note: Assay methodology is nucleic acid amplification b y watch electrician m ediated amplification ( TMA) utilizing the A ptima Combo 2 Assay. CT/NG, TMA, [id number] 00:00:00 Test Item Value Reference Range Interpretation Comments GONORRHEA, NAAT (test code = 95174) NEGATIVE CHLAMYDIA, NAAT (test code = 06571) NEGATIVE CT/NG, TMA, [id number] 00:00:00 Test Item Value Reference Range Interpretation Comments GONORRHEA, NAAT (test code = 44500) NEGATIVE CHLAMYDIA, NAAT (test code = 08084) NEGATIVE CT/NG, TMA, [id number] 00:00:00 Test Item Value Reference Range Interpretation Comments GONORRHEA, NAAT (test code = 39028) NEGATIVE CHLAMYDIA, NAAT (test code = 72599) NEGATIVE CT/NG, TMA, [id number] 00:00:00 Test Item Value Reference Range Interpretation Comments GONORRHEA, NAAT (test code = 74401) NEGATIVE CHLAMYDIA, NAAT (test code = 59212) NEGATIVE HIV 1/2 4TH GEN, RFLX [id number] 04:23:49 Test Item Value Reference Range Interpretation Comments HIV 1/2 4TH GEN, RFLX CONF (test NON-REACTIVE NON-REACTIVE code = 3514) HEPATITIS PANEL, [id number] 04:23:49 Test Item Value Reference Range Interpretation Comments HEPATITIS A IgM (test NON-REACTIVE NON-REACTIVE code = 04049) HEPATITIS B CORE IgM NON-REACTIVE NON-REACTIVE (test code = 4644) HEPATITIS B SURF AG NON-REACTIVE NON-REACTIVE (test code = 2739) HEPATITIS C ANTIBODY NON-REACTIVE NON-REACTIVE (test code = 4675) INTERPRETATION (NOTE) Hepatitis A HEPATITIS A: (test serology shows no code = 2552) evidence of acu te hepatitis A. INTERPRETATION (NOTE) Hepatitis B HEPATITIS B: (test serology shows no code = 61284) evidence of ac jacky hepatitis B and no indication of exposure to hepatitis B vir us in the previous si xto eight months. INTERPRETATION (NOTE) Hepatitis C HEPATITIS C: (test serology shows no code = 06481) evidence of ex posure to hepatitisC v irus at this time. I t can take up to 12 m onths after exposure tothe hepatitis C vir us for antibodies to become detectab le in the blood in ce rtain patients. UNLES S OTHERWISE INDIC ATED, ALL TESTING PERFORMED [facility], [facility]. [address] [place] [id number] [place] [address] DIRECTOR: Kulwinder FERMIN NUMBER [id number] [place] [id number] 03:48:24 Test Item Value Reference Range Interpretation Comments RPR RESULT (test code = NON-REACTIVE NON-REACTIVE 3501) RPR TITER (test code = 3500) NOT INDIC. TITER NOT INDIC. HIV AB/AG COMBO RFLX [id number] 00:00:00 Test Item Value Reference Range Interpretation Comments HIV 1/2 4TH GEN, RFLX CONF (test NON-REACTIVE code = 3514) [id number] 00:00:00 Test Item Value Reference Range Interpretation Comments RPR RESULT (test code = NON-REACTIVE 3501) RPR TITER (test code = 3500) NOT INDIC. TITER [id number] 00:00:00 Test Item Value Reference Range Interpretation Comments RPR RESULT (test code = NON-REACTIVE 3501) RPR TITER (test code = 3500) NOT INDIC. TITER [id number] 00:00:00 Test Item Value Reference Range Interpretation Comments RPR RESULT (test code = NON-REACTIVE 3501) RPR TITER (test code = 3500) NOT INDIC. TITER ACUTE HEPATITIS [id number] 00:00:00 Test Item Value Reference Range Interpretation Comments HEPATITIS A IgM (test code = NON-REACTIVE 11520) HEPATITIS B CORE IgM (test code NON-REACTIVE = 4644) HEPATITIS B SURF AG (test code = NON-REACTIVE 2739) HEPATITIS C ANTIBODY (test code NON-REACTIVE = 4675) INTERPRETATION HEPATITIS A: (NOTE) (test code = 2552) INTERPRETATION HEPATITIS B: (NOTE) (test code = 66530) INTERPRETATION HEPATITIS C: (NOTE) (test code = 27590) ACUTE HEPATITIS [id number] 00:00:00 Test Item Value Reference Range Interpretation Comments HEPATITIS A IgM (test code = NON-REACTIVE 49407) HEPATITIS B CORE IgM (test code NON-REACTIVE = 4644) HEPATITIS B SURF AG (test code = NON-REACTIVE 2739) HEPATITIS C ANTIBODY (test code NON-REACTIVE = 4675) INTERPRETATION HEPATITIS A: (NOTE) (test code = 2552) INTERPRETATION HEPATITIS B: (NOTE) (test code = 38533) INTERPRETATION HEPATITIS C: (NOTE) (test code = 37376) HIV AB/AG COMBO RFLX [id number] 00:00:00 Test Item Value Reference Range Interpretation Comments HIV 1/2 4TH GEN, RFLX CONF (test NON-REACTIVE code = 3514) HIV AB/AG COMBO RFLX [id number] 00:00:00 Test Item Value Reference Range Interpretation Comments HIV 1/2 4TH GEN, RFLX CONF (test NON-REACTIVE code = 3514) [id number] 00:00:00 Test Item Value Reference Range Interpretation Comments RPR RESULT (test code = NON-REACTIVE 3501) RPR TITER (test code = 3500) NOT INDIC. TITER [id number] 00:00:00 Test Item Value Reference Range Interpretation Comments RPR RESULT (test code = NON-REACTIVE 3501) RPR TITER (test code = 3500) NOT INDIC. TITER [id number] 00:00:00 Test Item Value Reference Range Interpretation Comments RPR RESULT (test code = NON-REACTIVE 3501) RPR TITER (test code = 3500) NOT INDIC. TITER ACUTE HEPATITIS [id number] 00:00:00 Test Item Value Reference Range Interpretation Comments HEPATITIS A IgM (test code = NON-REACTIVE 57976) HEPATITIS B CORE IgM (test code NON-REACTIVE = 4644) HEPATITIS B SURF AG (test code = NON-REACTIVE 2739) HEPATITIS C ANTIBODY (test code NON-REACTIVE = 4675) INTERPRETATION HEPATITIS A: (NOTE) (test code = 2552) INTERPRETATION HEPATITIS B: (NOTE) (test code = 87267) INTERPRETATION HEPATITIS C: (NOTE) (test code = 53585) ACUTE HEPATITIS [id number] 00:00:00 Test Item Value Reference Range Interpretation Comments HEPATITIS A IgM (test code = NON-REACTIVE 77303) HEPATITIS B CORE IgM (test code NON-REACTIVE = 4644) HEPATITIS B SURF AG (test code = NON-REACTIVE 2739) HEPATITIS C ANTIBODY (test code NON-REACTIVE = 4675) INTERPRETATION HEPATITIS A: (NOTE) (test code = 2552) INTERPRETATION HEPATITIS B: (NOTE) (test code = 46062) INTERPRETATION HEPATITIS C: (NOTE) (test code = 74213) HIV AB/AG COMBO RFLX [id number] 00:00:00 Test Item Value Reference Range Interpretation Comments HIV 1/2 4TH GEN, RFLX CONF (test NON-REACTIVE code = 3514) [id number] 06:47:38 Test Item Value Reference Range Interpretation Comments ESTRADIOL (test 120.0 PG/ML SEE BELOW EXPE CTED VALUES FOR code = 3655) ESTRADIOL FOR F EMALES >=18 YEARS FO [...] IN POSTMENOPAUSAL FEMALES, CONSIDER ULTRAS ENSITIVE ESTRADIOL ([facility] ORDER CODE 5678). METHODOL OGY IS SAIMA YAIR ELECTROCH EMILUMINESCENT IMMUNOASSAY WIT H A LIMIT OF DETECTION OF 17 PG/ML. TSH REFLEX TO FREE [id number] 06:47:38 Test Item Value Reference Range Interpretation Comments TSH REFLEX TO FREE T4 (test code 4.500 UIU/ML 0.400-4.100 H = 2834) FREE T4 (THYROXINE)2022-05-15 06:47:38 Test Item Value Reference Range Interpretation Comments FREE T4 1.11 NG/DL 0.80-1.90 UNLESS OTHERWI SE (THYROXINE) (test INDICATED, ALL TESTING code = 2823) PERFORMED ATCLI NICAL PATHOLOGY [employer]. [address] [place] [id number] [place] [address] DIRECTOR: KARYN ARCOS M.D. [place] NUMBER [id number] CAP ACCREDITATION N O. [id number] LIPID [id number] 05:43:14 Test Item Value Reference Range Interpretation [...] , SEE CLIENT ANNOUNCE MENT AT [email or web address] RATIO LDL/HDL 2.82 RATIO <3.22 (test code = 2238) COMPREHENSIVE METABOLIC [id number] 05:43:14 Test Item Value Reference Range Interpretation Comments GLUCOSE (test code = 98 MG/DL 70-99 2216) BUN (test code = 12 MG/DL 6-20 2207) CREATININE (test 0.70 MG/DL 0.60-1.30 code = 221) eGFR (2020 CKD-EPI) 114 >60 (test code = 35291) ML/MIN/1.73 CALC BUN/CREAT (test 17 RATIO 6-28 code = 223) SODIUM (test code = 140 MEQ/L 150-355 6020) POTASSIUM (test code 4.5 MEQ/L 3.5-5.4 = 2227) CHLORIDE (test code 103 MEQ/L 95-107 = 2214) CARBON DIOXIDE (test 26 MEQ/L 19-31 code = 2205) CALCIUM (test code = 9.6 MG/DL 8.5-10.5 2208) PROTEIN, TOTAL (test 7.0 G/DL 6.1-8.3 code = 2228) ALBUMIN (test code = 4.7 G/DL 3.5-5.2 2200) CALC GLOBULIN (test 2.3 G/DL 1.9-3.7 code = 2239) CALC A/G RATIO (test 2.0 RATIO 1.0-2.6 code = 2233) BILIRUBIN, TOTAL 0.5 MG/DL See_Comment [Automated message] [...] (test code = 19 U/L 5-40 2218) [id number] 05:27:45 Test Item Value Reference Range Interpretation Comments TESTOSTERONE (test 23 NG/DL See_Comment NOTE: TO LUCIANO code = 3050) TESTOSTERONE SAY SENSITIVITY IS 12 NG/DL. TO DETER MINE NORMAL VS. SUBN ORMAL TESTOSTERONE IN CHILDREN AND WO MEN, CONSIDER TESTIN G WITH ULTRASENSITIVE TESTOSTERONE. [Automated mess age] The system which ge nerated this result tra nsmitted reference range : <=55. The reference r meghan was not used to int erpret this result as normal/abnormal . HEMOGLOBIN [id number] 03:49:10 Test Item Value Reference Range Interpretation Comments HEMOGLOBIN A1c (test code = 71363) 5.4 % 4.2-5.6 HEMOGLOBIN [id number] 00:00:00 Test Item Value Reference Range Interpretation Comments HEMOGLOBIN A1c (test code = 64993) 5.4 % HEMOGLOBIN [id number] 00:00:00 Test Item Value Reference Range Interpretation Comments HEMOGLOBIN A1c (test code = 91207) 5.4 % HEMOGLOBIN [id number] 00:00:00 Test Item Value Reference Range Interpretation Comments HEMOGLOBIN A1c (test code = 79781) 5.4 % LIPID [id number] 00:00:00 Test Item Value Reference Range Interpretation Comments CHOLESTEROL (test code = 2210) 223 MG/DL TRIGLYCERIDES (test code = 2232) 150 MG/DL HDL CHOLESTEROL (test code = 2220) 51 MG/DL CALC LDL CHOL (test code = 2237) 144 MG/DL RISK RATIO LDL/HDL (test code = 2.82 RATIO 2238) LIPID [id number] 00:00:00 Test Item Value Reference Range Interpretation Comments CHOLESTEROL (test code = 2210) 223 MG/DL TRIGLYCERIDES (test code = 2232) 150 MG/DL HDL CHOLESTEROL (test code = 2220) 51 MG/DL CALC LDL CHOL (test code = 2237) 144 MG/DL RISK RATIO LDL/HDL (test code = 2.82 RATIO 2238) COMPREHENSIVE METABOLIC [id number] 00:00:00 Test Item Value Reference Range Interpretation Comments GLUCOSE (test code = 2217) 98 MG/DL BUN (test code = 2208) 12 MG/DL CREATININE (test code = 2214) 0.70 MG/DL eGFR (2020 CKD-EPI) (test 114 ML/MIN/1.73 code = 59744) CALC BUN/CREAT (test code = 17 RATIO [...] A/G RATIO (test code = 2.0 RATIO 223) BILIRUBIN, TOTAL (test code = 0.5 MG/DL 2207) ALKALINE PHOSPHATASE (test 58 U/L code = 2204) AST (test code = 2218) 20 U/L ALT (test code = 2219) 19 U/L COMPREHENSIVE METABOLIC [id number] 00:00:00 Test Item Value Reference Range Interpretation Comments GLUCOSE (test code = 2217) 98 MG/DL BUN (test code = 2208) 12 MG/DL CREATININE (test code = 2214) 0.70 MG/DL eGFR (2020 CKD-EPI) (test 114 ML/MIN/1.73 code = 18690) CALC BUN/CREAT (test code = 17 RATIO [...] CALC GLOBULIN (test code = 2.3 G/DL 224) CALC A/G RATIO (test code = 2.0 RATIO 2234) BILIRUBIN, TOTAL (test code = 0.5 MG/DL 2206) ALKALINE PHOSPHATASE (test 58 U/L code = 2204) AST (test code = 2218) 20 U/L ALT (test code = 2219) 19 U/L [id number] 00:00:00 Test Item Value Reference Range Interpretation Comments TESTOSTERONE (test code = 2830) 23 NG/DL [id number] 00:00:00 Test Item Value Reference Range Interpretation Comments TESTOSTERONE (test code = 2830) 23 NG/DL [id number] 00:00:00 Test Item Value Reference Range Interpretation Comments ESTRADIOL (test code = 2505) 120.0 PG/ML [id number] 00:00:00 Test Item Value Reference Range Interpretation Comments ESTRADIOL (test code = 2505) 120.0 PG/ML [id number] 00:00:00 Test Item Value Reference Range Interpretation [...] (test code = 1.11 NG/DL 2823) HEMOGLOBIN [id number] 00:00:00 Test Item Value Reference Range Interpretation Comments HEMOGLOBIN A1c (test code = 36854) 5.4 % HEMOGLOBIN [id number] 00:00:00 Test Item Value Reference Range Interpretation Comments HEMOGLOBIN A1c (test code = 34719) 5.4 % HEMOGLOBIN [id number] 00:00:00 Test Item Value Reference Range Interpretation Comments HEMOGLOBIN A1c (test code = 81091) 5.4 % LIPID [id number] 00:00:00 Test Item Value Reference Range Interpretation Comments CHOLESTEROL (test code = 2210) 223 MG/DL TRIGLYCERIDES (test code = 2232) 150 MG/DL HDL CHOLESTEROL (test code = 2220) 51 MG/DL CALC LDL CHOL (test code = 2237) 144 MG/DL RISK RATIO LDL/HDL (test code = 2.82 RATIO 2238) LIPID [id number] 00:00:00 Test Item Value Reference Range Interpretation Comments CHOLESTEROL (test code = 2210) 223 MG/DL TRIGLYCERIDES (test code = 2232) 150 MG/DL HDL CHOLESTEROL (test code = 2220) 51 MG/DL CALC LDL CHOL (test code = 2237) 144 MG/DL RISK RATIO LDL/HDL (test code = 2.82 RATIO 2238) COMPREHENSIVE METABOLIC [id number] 00:00:00 Test Item Value Reference Range Interpretation Comments GLUCOSE (test code = 2217) 98 MG/DL BUN (test code = 2208) 12 MG/DL CREATININE (test code = 2214) 0.70 MG/DL eGFR (2020 CKD-EPI) (test 114 ML/MIN/1.73 code = 04870) CALC BUN/CREAT (test code = 17 RATIO [...] code = 2219) 19 U/L COMPREHENSIVE METABOLIC [id number] 00:00:00 Test Item Value Reference Range Interpretation Comments GLUCOSE (test code = 2217) 98 MG/DL BUN (test code = 2208) 12 MG/DL CREATININE (test code = 2214) 0.70 MG/DL eGFR (2020 CKD-EPI) (test 114 ML/MIN/1.73 code = 48634) CALC BUN/CREAT (test code = 17 RATIO [...] ALT (test code = 2219) 19 U/L [id number] 00:00:00 Test Item Value Reference Range Interpretation Comments TESTOSTERONE (test code = 2830) 23 NG/DL [id number] 00:00:00 Test Item Value Reference Range Interpretation Comments TESTOSTERONE (test code = 2830) 23 NG/DL [id number] 00:00:00 Test Item Value Reference Range Interpretation Comments ESTRADIOL (test code = 2505) 120.0 PG/ML [id number] 00:00:00 Test Item Value Reference Range Interpretation Comments ESTRADIOL (test code = 2505) 120.0 PG/ML [id number] 00:00:00 Test Item Value Reference Range Interpretation [...] (test code = 1.11 NG/DL 2823) HEMOGLOBIN [id number] 00:00:00 Test Item Value Reference Range Interpretation Comments HEMOGLOBIN A1c (test code = 58921) 5.4 % HEMOGLOBIN [id number] 00:00:00 Test Item Value Reference Range Interpretation Comments HEMOGLOBIN A1c (test code = 35893) 5.4 % HEMOGLOBIN [id number] 00:00:00 Test Item Value Reference Range Interpretation Comments HEMOGLOBIN A1c (test code = 86554) 5.4 % LIPID [id number] 00:00:00 Test Item Value Reference Range Interpretation Comments CHOLESTEROL (test code = 2210) 223 MG/DL TRIGLYCERIDES (test code = 2232) 150 MG/DL HDL CHOLESTEROL (test code = 2220) 51 MG/DL CALC LDL CHOL (test code = 2237) 144 MG/DL RISK RATIO LDL/HDL (test code = 2.82 RATIO 2238) LIPID [id number] 00:00:00 Test Item Value Reference Range Interpretation Comments CHOLESTEROL (test code = 2210) 223 MG/DL TRIGLYCERIDES (test code = 2232) 150 MG/DL HDL CHOLESTEROL (test code = 2220) 51 MG/DL CALC LDL CHOL (test code = 2237) 144 MG/DL RISK RATIO LDL/HDL (test code = 2.82 RATIO 2238) COMPREHENSIVE METABOLIC [id number] 00:00:00 Test Item Value Reference Range Interpretation Comments GLUCOSE (test code = 2217) 98 MG/DL BUN (test code = 2208) 12 MG/DL CREATININE (test code = 2214) 0.70 MG/DL eGFR (2020 CKD-EPI) (test 114 ML/MIN/1.73 code = 12652) CALC BUN/CREAT (test code = 17 RATIO [...] code = 2219) 19 U/L COMPREHENSIVE METABOLIC [id number] 00:00:00 Test Item Value Reference Range Interpretation Comments GLUCOSE (test code = 2217) 98 MG/DL BUN (test code = 2208) 12 MG/DL CREATININE (test code = 2214) 0.70 MG/DL eGFR (2020 CKD-EPI) (test 114 ML/MIN/1.73 code = 00930) CALC BUN/CREAT (test code = 17 RATIO 2234) SODIUM (test code = 2231) 140 MEQ/L POTASSIUM (test code = 2228) 4.5 MEQ/L CHLORIDE (test code = 2215) 103 MEQ/L CARBON DIOXIDE (test code = 26 MEQ/L 2205) CALCIUM (test code = 220) 9.6 MG/DL PROTEIN, TOTAL (test code = 7.0 G/DL 2228) ALBUMIN (test code = 220) 4.7 G/DL CALC GLOBULIN (test code = 2.3 G/DL 2239) CALC A/G RATIO (test code = 2.0 RATIO 2233) BILIRUBIN, TOTAL (test code = 0.5 MG/DL 2206) ALKALINE PHOSPHATASE (test 58 U/L code = 2204) AST (test code = 2218) 20 U/L ALT (test code = 2219) 19 U/L [id number] 00:00:00 Test Item Value Reference Range Interpretation Comments TESTOSTERONE (test code = 2830) 23 NG/DL [id number] 00:00:00 Test Item Value Reference Range Interpretation Comments TESTOSTERONE (test code = 2830) 23 NG/DL [id number] 00:00:00 Test Item Value Reference Range Interpretation Comments ESTRADIOL (test code = 2505) 120.0 PG/ML [id number] 00:00:00 Test Item Value Reference Range Interpretation Comments ESTRADIOL (test code = 2505) 120.0 PG/ML [id number] 00:00:00 Test Item Value Reference Range Interpretation [...] (test code = 1.11 NG/DL 2823) HEMOGLOBIN [id number] 02:51:25 Test Item Value Reference Range Interpretation Comments HEMOGLOBIN A1c (test code = 67668) 5.5 % 4.2-5.6 LIPID [id number] 02:43:47 Test Item Value Reference Range Interpretation [...] MOREINFORMATION , SEE CLIENT ANNOUNCE MENT AT [email or web address] RISK RATIO LDL/HDL 2.53 RATIO <3.22 (test code = 2238) COMPREHENSIVE METABOLIC [id number] 02:43:47 Test Item Value Reference Range Interpretation Comments GLUCOSE (test code = 97 MG/DL 70-99 2216) BUN (test code = 10 MG/DL 02-05) CREATININE (test 0.72 MG/DL 0.60-1.30 code = 2214) eGFR (2020 CKD-EPI) 110 >60 (test code = 80678) ML/MIN/1.73 CALC BUN/CREAT (test 14 RATIO 02-13 code = 2235) SODIUM (test code = 141 MEQ/L 164-706 2112) POTASSIUM (test code 4.1 MEQ/L 3.5-5.4 = 2227) CHLORIDE (test code 100 MEQ/L 95-107 = 2215) CARBON DIOXIDE (test 26 MEQ/L 19-31 code = 2206) CALCIUM (test code = 9.8 MG/DL 8.5-10.5 2208) PROTEIN, TOTAL (test 7.0 G/DL 6.1-8.3 code = 2229) ALBUMIN (test code = 4.6 G/DL 3.5-5.2 2200) CALC GLOBULIN (test 2.4 G/DL 1.9-3.7 code = 2240) CALC A/G RATIO (test 1.9 RATIO 1.0-2.6 code = 2234) BILIRUBIN, TOTAL 0.5 MG/DL See_Comment [Automated message] (test code = 220) The syste m which generated this result transmitted ref erence range: <=1.2. T he reference range was not used to int erpret this result as normal/abnormal . ALKALINE PHOSPHATASE 58 U/L 40-112 (test code = 220) AST (test code = 31 U/L 9-40 2217) ALT (test code = 41 U/L 5-40 H UNLESS OTH ERWISE 2218) INDICATED, ALL TESTING PERFORM [facility] [place] [address] [place], [place] [id number] [place] [address] DIRECTOR: KARYN ARCOS M.D. CLIA NUMBER [id number] CAP ACCREDITATION N O. [id number] HEMOGLOBIN A1c [ADDED]2021-12-07 00:00:00 Test Item Value Reference Range Interpretation Comments HEMOGLOBIN A1c (test code = 65303) 5.5 % LIPID PANEL [ADDED]2021-12-07 00:00:00 Test Item Value Reference Range Interpretation Comments CHOLESTEROL (test code = 2210) 228 MG/DL TRIGLYCERIDES (test code = 2232) 111 MG/DL HDL CHOLESTEROL (test code = 2220) 58 MG/DL CALC LDL CHOL (test code = 2237) 147 MG/DL RISK RATIO LDL/HDL (test code = 2.53 RATIO 8) LIPID PANEL [ADDED]2021-12-07 00:00:00 Test Item Value [...] (2020 CKD-EPI) (test 110 ML/MIN/1.73 code = 18424) CALC BUN/CREAT (test code = 14 RATIO [...] (2020 CKD-EPI) (test 110 ML/MIN/1.73 code = 01152) CALC BUN/CREAT (test code = 14 RATIO [...] Interpretation Comments HEMOGLOBIN A1c (test code = 82954) 5.5 % LIPID PANEL [ADDED]2021-12-07 00:00:00 Test Item Value Reference Range Interpretation Comments CHOLESTEROL (test code = 2210) 228 MG/DL TRIGLYCERIDES (test code = 2232) 111 MG/DL HDL CHOLESTEROL (test code = 2220) 58 MG/DL CALC LDL CHOL (test code = 2237) 147 MG/DL RISK RATIO LDL/HDL (test code = 2.53 RATIO 2238) HEMOGLOBIN A1c [ADDED]2021-12-07 00:00:00 Test Item Value Reference Range Interpretation Comments HEMOGLOBIN A1c (test code = 88592) 5.5 % HEMOGLOBIN A1c [ADDED]2021-12-07 00:00:00 Test Item Value Reference Range Interpretation Comments HEMOGLOBIN A1c (test code = 24917) 5.5 % HEMOGLOBIN A1c [ADDED]2021-12-07 00:00:00 Test Item Value Reference Range Interpretation Comments HEMOGLOBIN A1c (test code = 39895) 5.5 % LIPID PANEL [ADDED]2021-12-07 00:00:00 Test [...] (2020 CKD-EPI) (test 110 ML/MIN/1.73 code = 77832) CALC BUN/CREAT (test code = 14 RATIO [...] (2020 CKD-EPI) (test 110 ML/MIN/1.73 code = 26830) CALC BUN/CREAT (test code = 14 RATIO [...] (2020 CKD-EPI) (test 110 ML/MIN/1.73 code = 24086) CALC BUN/CREAT (test code = 14 RATIO [...] Interpretation Comments HEMOGLOBIN A1c (test code = 90424) 5.5 % HEMOGLOBIN A1c [ADDED]2021-12-07 00:00:00 Test Item Value Reference Range Interpretation Comments HEMOGLOBIN A1c (test code = 79131) 5.5 % HEMOGLOBIN A1c [ADDED]2021-12-07 00:00:00 Test Item Value Reference Range Interpretation Comments HEMOGLOBIN A1c (test code = 69105) 5.5 % LIPID PANEL [ADDED]2021-12-07 00:00:00 Test [...] (2020 CKD-EPI) (test 110 ML/MIN/1.73 code = 55440) CALC BUN/CREAT (test code = 14 RATIO [...] (2020 CKD-EPI) (test 110 ML/MIN/1.73 code = 56386) CALC BUN/CREAT (test code = 14 RATIO [...] Interpretation Comments HEMOGLOBIN A1c (test code = 16771) 5.5 % HEMOGLOBIN A1c [ADDED]2021-12-07 00:00:00 Test Item Value Reference Range Interpretation Comments HEMOGLOBIN A1c (test code = 53175) 5.5 % HEMOGLOBIN A1c [ADDED]2021-12-07 00:00:00 Test Item Value Reference Range Interpretation Comments HEMOGLOBIN A1c (test code = 96066) 5.5 % LIPID PANEL [ADDED]2021-12-07 00:00:00 Test [...] (2020 CKD-EPI) (test 110 ML/MIN/1.73 code = 37194) CALC BUN/CREAT (test code = 14 RATIO [...] (2020 CKD-EPI) (test 110 ML/MIN/1.73 code = 60923) CALC BUN/CREAT (test code = 14 RATIO [...] Interpretation Comments HEMOGLOBIN A1c (test code = 95953) 5.5 % HEMOGLOBIN A1c [ADDED]2021-12-07 00:00:00 Test Item Value Reference Range Interpretation Comments HEMOGLOBIN A1c (test code = 67280) 5.5 % HEMOGLOBIN A1c [ADDED]2021-12-07 00:00:00 Test Item Value Reference Range Interpretation Comments HEMOGLOBIN A1c (test code = 61590) 5.5 % TSH, THIRD [id number] 10:06:53 Test Item Value Reference Range Interpretation Comments TSH, THIRD GENERATION (test code 5.010 UIU/ML 0.400-4.100 H = 2821) VITAMIN D, 25 [id number] 07:26:02 Test Item Value Reference Range Interpretation [...] . . . . NG/ML 30-100 LIPID [id number] 07:19:20 Test Item Value Reference Range Interpretation [...] MOREINFORMATION , SEE CLIENT ANNOUNCE MENT AT [email or web address] RISK RATIO LDL/HDL 2.98 RATIO <3.22 (test code = 2238) COMPREHENSIVE METABOLIC [id number] 07:19:20 Test Item Value Reference Range Interpretation Comments GLUCOSE (test code = 89 MG/DL 70-99 2216) BUN (test code = 11 MG/DL 6-20 2207) CREATININE (test 0.66 MG/DL 0.60-1.30 code = 221) eGFR (2020 CKD-EPI) 116 >60 (test code = 19882) ML/MIN/1.73 CALC BUN/CREAT (test 17 RATIO 6-28 code = 2235) SODIUM (test code = 137 MEQ/L 968-495 3063) POTASSIUM (test code 4.0 MEQ/L 3.5-5.4 = 2227) CHLORIDE (test code 99 MEQ/L 95-107 = 2214) CARBON DIOXIDE (test 25 MEQ/L 19-31 code = 220) CALCIUM (test code = 9.5 MG/DL 8.5-10.5 2208) PROTEIN, TOTAL (test 6.9 G/DL 6.1-8.3 code = 222) ALBUMIN (test code = 4.5 G/DL 3.5-5.2 2200) CALC GLOBULIN (test 2.4 G/DL 1.9-3.7 code = 2240) CALC A/G RATIO (test 1.9 RATIO 1.0-2.6 code = 2234) BILIRUBIN, TOTAL 0.3 MG/DL See_Comment [Automated message] [...] code = 25 U/L 5-40 2218) HEMOGLOBIN [id number] 06:52:32 Test Item Value Reference Range Interpretation Comments HEMOGLOBIN A1c (test 5.5 % 4.2-5.6 UNLESS OTHERWISE code = 02967) INDICATED, ALL TESTING PERFORMED [facility] [address] [facility] [place] [address] [facility] DIRECTOR: KARYN ARCOS M.D. CLIA NUMBER [id number] CAP ACCREDITATION N O. [id number] CBC W/AUTO DIFF WITH [id number] 05:30:02 Test Item Value Reference Range Interpretation [...] RBCS 0.00 K/UL 0.00-0.11 (test code = 50254) LIPID [id number] 00:00:00 Test Item Value Reference Range Interpretation Comments CHOLESTEROL (test code = 2210) 224 MG/DL TRIGLYCERIDES (test code = 2232) 229 MG/DL HDL CHOLESTEROL (test code = 2220) 47 MG/DL CALC LDL CHOL (test code = 2237) 140 MG/DL RISK RATIO LDL/HDL (test code = 2.98 RATIO 2238) LIPID [id number] 00:00:00 Test Item Value Reference Range Interpretation Comments CHOLESTEROL (test code = 2210) 224 MG/DL TRIGLYCERIDES (test code = 2232) 229 MG/DL HDL CHOLESTEROL (test code = 2220) 47 MG/DL CALC LDL CHOL (test code = 2237) 140 MG/DL RISK RATIO LDL/HDL (test code = 2.98 RATIO 2238) COMPREHENSIVE METABOLIC [id number] 00:00:00 Test Item Value Reference Range Interpretation Comments GLUCOSE (test code = 2217) 89 MG/DL BUN (test code = 2208) 11 MG/DL CREATININE (test code = 2214) 0.66 MG/DL eGFR (2020 CKD-EPI) (test 116 ML/MIN/1.73 code = 98700) CALC BUN/CREAT (test code = 17 RATIO [...] code = 2219) 25 U/L COMPREHENSIVE METABOLIC [id number] 00:00:00 Test Item Value Reference Range Interpretation Comments GLUCOSE (test code = 2217) 89 MG/DL BUN (test code = 2208) 11 MG/DL CREATININE (test code = 2214) 0.66 MG/DL eGFR (2020 CKD-EPI) (test 116 ML/MIN/1.73 code = 81241) CALC BUN/CREAT (test code = 17 RATIO [...] = 2219) 25 U/L VITAMIN D, 25 [id number] 00:00:00 Test Item Value Reference Range Interpretation Comments VITAMIN D, 25 OH (test code = 4958) 21 NG/ML VITAMIN D, 25 [id number] 00:00:00 Test Item Value Reference Range Interpretation Comments VITAMIN D, 25 OH (test code = 4958) 21 NG/ML [id number] 00:00:00 Test Item Value Reference Range Interpretation Comments TSH, THIRD GENERATION (test code 5.010 UIU/ML = 2821) [id number] 00:00:00 Test Item Value Reference Range Interpretation Comments TSH, THIRD GENERATION (test code 5.010 UIU/ML = 2821) [id number] 00:00:00 Test Item Value Reference Range Interpretation Comments TSH, THIRD GENERATION (test code 5.010 UIU/ML = 2821) HEMOGLOBIN [id number] 00:00:00 Test Item Value Reference Range Interpretation Comments HEMOGLOBIN A1c (test code = 82424) 5.5 % HEMOGLOBIN [id number] 00:00:00 Test Item Value Reference Range Interpretation Comments HEMOGLOBIN A1c (test code = 67959) 5.5 % CBC W/AUTO [id number] 00:00:00 Test Item Value Reference Range Interpretation [...] NUCLEATED RBCS (test code = 0.00 K/UL 96440) HEMOGLOBIN [id number] 00:00:00 Test Item Value Reference Range Interpretation Comments HEMOGLOBIN A1c (test code = 94773) 5.5 % CBC W/AUTO [id number] 00:00:00 Test Item Value Reference Range Interpretation [...] NUCLEATED RBCS (test code = 0.00 K/UL 26068) LIPID [id number] 00:00:00 Test Item Value Reference Range Interpretation Comments CHOLESTEROL (test code = 2210) 224 MG/DL TRIGLYCERIDES (test code = 2232) 229 MG/DL HDL CHOLESTEROL (test code = 2220) 47 MG/DL CALC LDL CHOL (test code = 2237) 140 MG/DL RISK RATIO LDL/HDL (test code = 2.98 RATIO 2238) CBC W/AUTO [id number] 00:00:00 Test Item Value Reference Range Interpretation [...] NUCLEATED RBCS (test code = 0.00 K/UL 43071) CBC W/AUTO [id number] 00:00:00 Test Item Value Reference Range Interpretation [...] NUCLEATED RBCS (test code = 0.00 K/UL 82729) CBC W/AUTO [id number] 00:00:00 Test Item Value Reference Range Interpretation [...] NUCLEATED RBCS (test code = 0.00 K/UL 93027) LIPID [id number] 00:00:00 Test Item Value Reference Range Interpretation Comments CHOLESTEROL (test code = 2210) 224 MG/DL TRIGLYCERIDES (test code = 2232) 229 MG/DL HDL CHOLESTEROL (test code = 2220) 47 MG/DL CALC LDL CHOL (test code = 2237) 140 MG/DL RISK RATIO LDL/HDL (test code = 2.98 RATIO 2238) LIPID [id number] 00:00:00 Test Item Value Reference Range Interpretation Comments CHOLESTEROL (test code = 2210) 224 MG/DL TRIGLYCERIDES (test code = 2232) 229 MG/DL HDL CHOLESTEROL (test code = 2220) 47 MG/DL CALC LDL CHOL (test code = 2237) 140 MG/DL RISK RATIO LDL/HDL (test code = 2.98 RATIO 2238) COMPREHENSIVE METABOLIC [id number] 00:00:00 Test Item Value Reference Range Interpretation Comments GLUCOSE (test code = 2217) 89 MG/DL BUN (test code = 2208) 11 MG/DL CREATININE (test code = 2214) 0.66 MG/DL eGFR (2020 CKD-EPI) (test 116 ML/MIN/1.73 code = 57964) CALC BUN/CREAT (test code = 17 RATIO 2235) SODIUM (test code = 2231) 137 MEQ/L POTASSIUM (test code = 2228) 4.0 MEQ/L CHLORIDE (test code = 2215) 99 MEQ/L CARBON DIOXIDE (test code = 25 MEQ/L 2206) CALCIUM (test code = 2209) 9.5 MG/DL [...] code = 2219) 25 U/L COMPREHENSIVE METABOLIC [id number] 00:00:00 Test Item Value Reference Range Interpretation Comments GLUCOSE (test code = 2217) 89 MG/DL BUN (test code = 2208) 11 MG/DL CREATININE (test code = 2214) 0.66 MG/DL eGFR (2020 CKD-EPI) (test 116 ML/MIN/1.73 code = 08815) CALC BUN/CREAT (test code = 17 RATIO 2235) SODIUM (test code = 2231) 137 MEQ/L POTASSIUM (test code = 2228) 4.0 MEQ/L CHLORIDE (test code = 2215) 99 MEQ/L CARBON DIOXIDE (test code = 25 MEQ/L 2206) CALCIUM (test code = 2209) 9.5 MG/DL PROTEIN, TOTAL (test code = 6.9 G/DL 222) ALBUMIN (test code = 2201) 4.5 G/DL CALC GLOBULIN (test code = 2.4 G/DL 2240) CALC A/G RATIO (test code = 1.9 RATIO 2234) BILIRUBIN, TOTAL (test code = 0.3 MG/DL 2206) ALKALINE PHOSPHATASE (test 60 U/L code = 2204) AST (test code = 2218) 23 U/L ALT (test code = 2219) 25 U/L VITAMIN D, 25 [id number] 00:00:00 Test Item Value Reference Range Interpretation Comments VITAMIN D, 25 OH (test code = 4958) 21 NG/ML VITAMIN D, 25 [id number] 00:00:00 Test Item Value Reference Range Interpretation Comments VITAMIN D, 25 OH (test code = 4958) 21 NG/ML [id number] 00:00:00 Test Item Value Reference Range Interpretation Comments TSH, THIRD GENERATION (test code 5.010 UIU/ML = 2821) [id number] 00:00:00 Test Item Value Reference Range Interpretation Comments TSH, THIRD GENERATION (test code 5.010 UIU/ML = 2821) [id number] 00:00:00 Test Item Value Reference Range Interpretation Comments TSH, THIRD GENERATION (test code 5.010 UIU/ML = 2821) COMPREHENSIVE METABOLIC [id number] 00:00:00 Test Item Value Reference Range Interpretation Comments GLUCOSE (test code = 2217) 89 MG/DL BUN (test code = 2208) 11 MG/DL CREATININE (test code = 2214) 0.66 MG/DL eGFR (2020 CKD-EPI) (test 116 ML/MIN/1.73 code = 27386) CALC BUN/CREAT (test code = 17 RATIO [...] RATIO 223) BILIRUBIN, TOTAL (test code = 0.3 MG/DL 2206) ALKALINE PHOSPHATASE (test 60 U/L code = 2204) AST (test code = 2218) 23 U/L ALT (test code = 2219) 25 U/L HEMOGLOBIN [id number] 00:00:00 Test Item Value Reference Range Interpretation Comments HEMOGLOBIN A1c (test code = 79403) 5.5 % HEMOGLOBIN [id number] 00:00:00 Test Item Value Reference Range Interpretation Comments HEMOGLOBIN A1c (test code = 65745) 5.5 % HEMOGLOBIN [id number] 00:00:00 Test Item Value Reference Range Interpretation Comments HEMOGLOBIN A1c (test code = 33690) 5.5 % VITAMIN D, 25 [id number] 00:00:00 Test Item Value Reference Range Interpretation Comments VITAMIN D, 25 OH (test code = 4958) 21 NG/ML [id number] 00:00:00 Test Item Value Reference Range Interpretation Comments TSH, THIRD GENERATION (test code 5.010 UIU/ML = 2821) [id number] 00:00:00 Test Item Value Reference Range Interpretation Comments TSH, THIRD GENERATION (test code 5.010 UIU/ML = 2821) HEMOGLOBIN [id number] 00:00:00 Test Item Value Reference Range Interpretation Comments HEMOGLOBIN A1c (test code = 77916) 5.5 % HEMOGLOBIN [id number] 00:00:00 Test Item Value Reference Range Interpretation Comments HEMOGLOBIN A1c (test code = 39229) 5.5 % CBC W/AUTO [id number] 00:00:00 Test Item Value Reference Range Interpretation [...] NUCLEATED RBCS (test code = 0.00 K/UL 64160) CBC W/AUTO [id number] 00:00:00 Test Item Value Reference Range Interpretation [...] NUCLEATED RBCS (test code = 0.00 K/UL 19242) CBC W/AUTO [id number] 00:00:00 Test Item Value Reference Range Interpretation [...] NUCLEATED RBCS (test code = 0.00 K/UL 80390) LIPID [id number] 00:00:00 Test Item Value Reference Range Interpretation Comments CHOLESTEROL (test code = 2210) 224 MG/DL TRIGLYCERIDES (test code = 2232) 229 MG/DL HDL CHOLESTEROL (test code = 2220) 47 MG/DL CALC LDL CHOL (test code = 2237) 140 MG/DL RISK RATIO LDL/HDL (test code = 2.98 RATIO 2238) LIPID [id number] 00:00:00 Test Item Value Reference Range Interpretation Comments CHOLESTEROL (test code = 2210) 224 MG/DL TRIGLYCERIDES (test code = 2232) 229 MG/DL HDL CHOLESTEROL (test code = 2220) 47 MG/DL CALC LDL CHOL (test code = 2237) 140 MG/DL RISK RATIO LDL/HDL (test code = 2.98 RATIO 2238) COMPREHENSIVE METABOLIC [id number] 00:00:00 Test Item Value Reference Range Interpretation Comments GLUCOSE (test code = 2217) 89 MG/DL BUN (test code = 2208) 11 MG/DL CREATININE (test code = 2214) 0.66 MG/DL eGFR (2020 CKD-EPI) (test 116 ML/MIN/1.73 code = 87887) CALC BUN/CREAT (test code = 17 RATIO 2235) SODIUM (test code = 2231) 137 MEQ/L POTASSIUM (test code = 2228) 4.0 MEQ/L CHLORIDE (test code = 2215) 99 MEQ/L CARBON DIOXIDE (test code = 25 MEQ/L 220) CALCIUM (test code = 2209) 9.5 MG/DL [...] code = 2219) 25 U/L COMPREHENSIVE METABOLIC [id number] 00:00:00 Test Item Value Reference Range Interpretation Comments GLUCOSE (test code = 2217) 89 MG/DL BUN (test code = 2208) 11 MG/DL CREATININE (test code = 2214) 0.66 MG/DL eGFR (2020 CKD-EPI) (test 116 ML/MIN/1.73 code = 77969) CALC BUN/CREAT (test code = 17 RATIO 2235) SODIUM (test code = 2231) 137 MEQ/L POTASSIUM (test code = 2228) 4.0 MEQ/L CHLORIDE (test code = 2215) 99 MEQ/L CARBON DIOXIDE (test code = 25 MEQ/L 220) CALCIUM (test code = 2209) 9.5 MG/DL PROTEIN, TOTAL (test code = 6.9 G/DL 2228) ALBUMIN (test code = 2201) 4.5 G/DL CALC GLOBULIN (test code = 2.4 G/DL 2240) CALC A/G RATIO (test code = 1.9 RATIO 2234) BILIRUBIN, TOTAL (test code = 0.3 MG/DL 2207) ALKALINE PHOSPHATASE (test 60 U/L code = 2204) AST (test code = 2218) 23 U/L ALT (test code = 2219) 25 U/L VITAMIN D, 25 [id number] 00:00:00 Test Item Value Reference Range Interpretation Comments VITAMIN D, 25 OH (test code = 4958) 21 NG/ML VITAMIN D, 25 [id number] 00:00:00 Test Item Value Reference Range Interpretation Comments VITAMIN D, 25 OH (test code = 4958) 21 NG/ML [id number] 00:00:00 Test Item Value Reference Range Interpretation Comments TSH, THIRD GENERATION (test code 5.010 UIU/ML = 2821) [id number] 00:00:00 Test Item Value Reference Range Interpretation Comments TSH, THIRD GENERATION (test code 5.010 UIU/ML = 2821) [id number] 00:00:00 Test Item Value Reference Range Interpretation Comments TSH, THIRD GENERATION (test code 5.010 UIU/ML = 2821) HEMOGLOBIN [id number] 00:00:00 Test Item Value Reference Range Interpretation Comments HEMOGLOBIN A1c (test code = 72092) 5.5 % HEMOGLOBIN [id number] 00:00:00 Test Item Value Reference Range Interpretation Comments HEMOGLOBIN A1c (test code = 45171) 5.5 % HEMOGLOBIN [id number] 00:00:00 Test Item Value Reference Range Interpretation Comments HEMOGLOBIN A1c (test code = 28534) 5.5 % CBC W/AUTO [id number] 00:00:00 Test Item Value Reference Range Interpretation [...] NUCLEATED RBCS (test code = 0.00 K/UL 33962) CBC W/AUTO [id number] 00:00:00 Test Item Value Reference Range Interpretation [...] NUCLEATED RBCS (test code = 0.00 K/UL 03427) CBC W/AUTO [id number] 00:00:00 Test Item Value Reference Range Interpretation [...] NUCLEATED RBCS (test code = 0.00 K/UL 12311) LIPID [id number] 00:00:00 Test Item Value Reference Range Interpretation Comments CHOLESTEROL (test code = 2210) 224 MG/DL TRIGLYCERIDES (test code = 2232) 229 MG/DL HDL CHOLESTEROL (test code = 2220) 47 MG/DL CALC LDL CHOL (test code = 2237) 140 MG/DL RISK RATIO LDL/HDL (test code = 2.98 RATIO 2238) LIPID [id number] 00:00:00 Test Item Value Reference Range Interpretation Comments CHOLESTEROL (test code = 2210) 224 MG/DL TRIGLYCERIDES (test code = 2232) 229 MG/DL HDL CHOLESTEROL (test code = 2220) 47 MG/DL CALC LDL CHOL (test code = 2237) 140 MG/DL RISK RATIO LDL/HDL (test code = 2.98 RATIO 2238) COMPREHENSIVE METABOLIC [id number] 00:00:00 Test Item Value Reference Range Interpretation Comments GLUCOSE (test code = 2217) 89 MG/DL BUN (test code = 2208) 11 MG/DL CREATININE (test code = 2214) 0.66 MG/DL eGFR (2020 CKD-EPI) (test 116 ML/MIN/1.73 code = 96292) CALC BUN/CREAT (test code = 17 RATIO 2235) SODIUM (test code = 2231) 137 MEQ/L POTASSIUM (test code = 2228) 4.0 MEQ/L CHLORIDE (test code = 2215) 99 MEQ/L CARBON DIOXIDE (test code = 25 MEQ/L 2206) CALCIUM (test code = 2209) 9.5 MG/DL [...] code = 2219) 25 U/L COMPREHENSIVE METABOLIC [id number] 00:00:00 Test Item Value Reference Range Interpretation Comments GLUCOSE (test code = 2217) 89 MG/DL BUN (test code = 2208) 11 MG/DL CREATININE (test code = 2214) 0.66 MG/DL eGFR (2020 CKD-EPI) (test 116 ML/MIN/1.73 code = 78990) CALC BUN/CREAT (test code = 17 RATIO 2235) SODIUM (test code = 2231) 137 MEQ/L POTASSIUM (test code = 2228) 4.0 MEQ/L CHLORIDE (test code = 2215) 99 MEQ/L CARBON DIOXIDE (test code = 25 MEQ/L 2206) CALCIUM (test code = 2209) 9.5 MG/DL PROTEIN, TOTAL (test code = 6.9 G/DL 222) ALBUMIN (test code = 2201) 4.5 G/DL CALC GLOBULIN (test code = 2.4 G/DL 2240) CALC A/G RATIO (test code = 1.9 RATIO 2234) BILIRUBIN, TOTAL (test code = 0.3 MG/DL 2206) ALKALINE PHOSPHATASE (test 60 U/L code = 2204) AST (test code = 2218) 23 U/L ALT (test code = 2219) 25 U/L VITAMIN D, 25 [id number] 00:00:00 Test Item Value Reference Range Interpretation Comments VITAMIN D, 25 OH (test code = 4958) 21 NG/ML VITAMIN D, 25 [id number] 00:00:00 Test Item Value Reference Range Interpretation Comments VITAMIN D, 25 OH (test code = 4958) 21 NG/ML [id number] 00:00:00 Test Item Value Reference Range Interpretation Comments TSH, THIRD GENERATION (test code 5.010 UIU/ML = 2821) [id number] 00:00:00 Test Item Value Reference Range Interpretation Comments TSH, THIRD GENERATION (test code 5.010 UIU/ML = 2821) [id number] 00:00:00 Test Item Value Reference Range Interpretation Comments TSH, THIRD GENERATION (test code 5.010 UIU/ML = 2821) HEMOGLOBIN [id number] 00:00:00 Test Item Value Reference Range Interpretation Comments HEMOGLOBIN A1c (test code = 84947) 5.5 % HEMOGLOBIN [id number] 00:00:00 Test Item Value Reference Range Interpretation Comments HEMOGLOBIN A1c (test code = 73060) 5.5 % HEMOGLOBIN [id number] 00:00:00 Test Item Value Reference Range Interpretation Comments HEMOGLOBIN A1c (test code = 46823) 5.5 % CBC W/AUTO [id number] 00:00:00 Test Item Value Reference Range Interpretation [...] NUCLEATED RBCS (test code = 0.00 K/UL 37762) CBC W/AUTO [id number] 00:00:00 Test Item Value Reference Range Interpretation [...] NUCLEATED RBCS (test code = 0.00 K/UL 30744) CBC W/AUTO [id number] 00:00:00 Test Item Value Reference Range Interpretation [...] NUCLEATED RBCS (test code = 0.00 K/UL 21396) VAGINAL PATHOGENS DNA [id number] 00:00:00 Test Item Value Reference Range Interpretation Comments VALERIE SPECIES (test code = ) NEGATIVE G. VAGINALIS (test code = 99013) NEGATIVE T. VAGINALIS (test code = 91313) NEGATIVE VAGINAL PATHOGENS DNA [id number] 00:00:00 Test Item Value Reference Range Interpretation Comments VALERIE SPECIES (test code = ) NEGATIVE G. VAGINALIS (test code = 72184) NEGATIVE T. VAGINALIS (test code = 47852) NEGATIVE VAGINAL PATHOGENS DNA [id number] 00:00:00 Test Item Value Reference Range Interpretation Comments VALERIE SPECIES (test code = 11690) NEGATIVE G. VAGINALIS (test code = 21450) NEGATIVE T. VAGINALIS (test code = 40143) NEGATIVE VAGINAL PATHOGENS DNA [id number] 00:00:00 Test Item Value Reference Range Interpretation Comments VALERIE SPECIES (test code = 97811) NEGATIVE G. VAGINALIS (test code = 67220) NEGATIVE T. VAGINALIS (test code = 08233) NEGATIVE VAGINAL PATHOGENS DNA [id number] 00:00:00 Test Item Value Reference Range Interpretation Comments VALERIE SPECIES (test code = 96469) NEGATIVE G. VAGINALIS (test code = 15973) NEGATIVE T. VAGINALIS (test code = 91300) NEGATIVE VAGINAL PATHOGENS DNA [id number] 00:00:00 Test Item Value Reference Range Interpretation Comments VALERIE SPECIES (test code = 62236) NEGATIVE G. VAGINALIS (test code = 66186) NEGATIVE T. VAGINALIS (test code = 06381) NEGATIVE VAGINAL PATHOGENS DNA [id number] 00:00:00 Test Item Value Reference Range Interpretation Comments VALERIE SPECIES (test code = 47418) NEGATIVE G. VAGINALIS (test code = 30048) NEGATIVE T. VAGINALIS (test code = 74640) NEGATIVE VAGINAL PATHOGENS DNA [id number] 00:00:00 Test Item Value Reference Range Interpretation Comments VALERIE SPECIES (test code = 87446) NEGATIVE G. VAGINALIS (test code = 29794) NEGATIVE T. VAGINALIS (test code = 92222) NEGATIVE VAGINAL PATHOGENS DNA [id number] 00:00:00 Test Item Value Reference Range Interpretation Comments VALERIE SPECIES (test code = 69391) NEGATIVE G. VAGINALIS (test code = 22138) NEGATIVE T. VAGINALIS (test code = 05338) NEGATIVE RSV BY [id number] 00:00:00 Test Item Value Reference Range Interpretation Comments RSV BY DFA (test code = 16417) Positive SOURCE (test code = 40629) Not Provided RSV BY [id number] 00:00:00 Test Item Value Reference Range Interpretation Comments RSV BY DFA (test code = 86172) Positive SOURCE (test code = 52246) Not Provided RSV BY [id number] 00:00:00 Test Item Value Reference Range Interpretation Comments RSV BY DFA (test code = 91402) Positive SOURCE (test code = 57585) Not Provided RSV BY [id number] 00:00:00 Test Item Value Reference Range Interpretation Comments RSV BY DFA (test code = 67596) Positive SOURCE (test code = 58184) Not Provided RSV BY [id number] 00:00:00 Test Item Value Reference Range Interpretation Comments RSV BY DFA (test code = 30430) Positive SOURCE (test code = 46687) Not Provided RSV BY [id number] 00:00:00 Test Item Value Reference Range Interpretation Comments RSV BY DFA (test code = 40067) Positive SOURCE (test code = 73408) Not Provided RSV BY [id number] 00:00:00 Test Item Value Reference Range Interpretation Comments RSV BY DFA (test code = 35514) Positive SOURCE (test code = 87678) Not Provided RSV BY [id number] 00:00:00 Test Item Value Reference Range Interpretation Comments RSV BY DFA (test code = 07613) Positive SOURCE (test code = 29883) Not Provided RSV BY [id number] 00:00:00 Test Item Value Reference Range Interpretation Comments RSV BY DFA (test code = 33875) Positive SOURCE (test code = 05576) Not Provided SARS-CoV-2 (COVID-19) by RT-PCR (HIGH RISK)2021-04-12 00:00:00 Test Item Value Reference Range Interpretation Comments SARS-CoV-2 INTERPRETATION (test NEGATIVE code = 94607) SOURCE (test code = 44227) NOT SPECIFIED SARS-CoV-2 (COVID-19) by RT-PCR (HIGH RISK)2021-04-12 00:00:00 Test Item Value Reference Range Interpretation Comments SARS-CoV-2 INTERPRETATION (test NEGATIVE code = 38569) SOURCE (test code = 48140) NOT SPECIFIED SARS-CoV-2 (COVID-19) by RT-PCR (HIGH RISK)2021-04-12 00:00:00 Test Item Value Reference Range Interpretation Comments SARS-CoV-2 INTERPRETATION (test NEGATIVE code = 26181) SOURCE (test code = 69163) NOT SPECIFIED SARS-CoV-2 (COVID-19) by RT-PCR (HIGH RISK)2021-04-12 00:00:00 Test Item Value Reference Range Interpretation Comments SARS-CoV-2 INTERPRETATION (test NEGATIVE code = 05129) SOURCE (test code = 06911) NOT SPECIFIED SARS-CoV-2 (COVID-19) by RT-PCR (HIGH RISK)2021-04-12 00:00:00 Test Item Value Reference Range Interpretation Comments SARS-CoV-2 INTERPRETATION (test NEGATIVE code = 50038) SOURCE (test code = 22742) NOT SPECIFIED SARS-CoV-2 (COVID-19) by RT-PCR (HIGH RISK)2021-04-12 00:00:00 Test Item Value Reference Range Interpretation Comments SARS-CoV-2 INTERPRETATION (test NEGATIVE code = 53697) SOURCE (test code = 65104) NOT SPECIFIED SARS-CoV-2 (COVID-19) by RT-PCR (HIGH RISK)2021-04-12 00:00:00 Test Item Value Reference Range Interpretation Comments SARS-CoV-2 INTERPRETATION (test NEGATIVE code = 17351) SOURCE (test code = 69065) NOT SPECIFIED SARS-CoV-2 (COVID-19) by RT-PCR (HIGH RISK)2021-04-12 00:00:00 Test Item Value Reference Range Interpretation Comments SARS-CoV-2 INTERPRETATION (test NEGATIVE code = 18308) SOURCE (test code = 89419) NOT SPECIFIED SARS-CoV-2 (COVID-19) by RT-PCR (HIGH RISK)2021-04-12 00:00:00 Test Item Value Reference Range Interpretation Comments SARS-CoV-2 INTERPRETATION (test NEGATIVE code = 68635) SOURCE (test code = 26606) NOT SPECIFIED VITAMIN D, 25 [id number] 00:00:00 Test Item Value Reference Range Interpretation Comments VITAMIN D, 25 OH (test code = 4958) 17 NG/ML COMPREHENSIVE METABOLIC [id number] 00:00:00 Test Item Value Reference Range Interpretation Comments GLUCOSE (test code = 2217) 98 MG/DL BUN (test code = 2208) 14 MG/DL CREATININE (test code = 2214) 0.57 MG/DL eGFR AMER. (test code 138 ML/MIN/1.73 = 33643) eGFR NON- AMER. (test 119 ML/MIN/1.73 code = 17498) CALC BUN/CREAT (test code = 25 RATIO [...] code = 2219) 20 U/L COMPREHENSIVE METABOLIC [id number] 00:00:00 Test Item Value Reference Range Interpretation Comments GLUCOSE (test code = 2217) 98 MG/DL BUN (test code = 2208) 14 MG/DL CREATININE (test code = 2214) 0.57 MG/DL eGFR AMER. (test code 138 ML/MIN/1.73 = 51121) eGFR NON- AMER. (test 119 ML/MIN/1.73 code = 28446) CALC BUN/CREAT (test code = 25 RATIO [...] (test code = 2219) 20 U/L LIPID [id number] 00:00:00 Test Item Value Reference Range Interpretation Comments CHOLESTEROL (test code = 2210) 230 MG/DL TRIGLYCERIDES (test code = 2232) 125 MG/DL HDL CHOLESTEROL (test code = 2220) 55 MG/DL CALC LDL CHOL (test code = 2237) 150 MG/DL RISK RATIO LDL/HDL (test code = 2.73 RATIO 2238) LIPID [id number] 00:00:00 Test Item Value Reference Range Interpretation Comments CHOLESTEROL (test code = 2210) 230 MG/DL TRIGLYCERIDES (test code = 2232) 125 MG/DL HDL CHOLESTEROL (test code = 2220) 55 MG/DL CALC LDL CHOL (test code = 2237) 150 MG/DL RISK RATIO LDL/HDL (test code = 2.73 RATIO 2238) [id number] 00:00:00 Test Item Value Reference Range Interpretation Comments TSH, THIRD GENERATION (test code 4.000 UIU/ML = 2821) [id number] 00:00:00 Test Item Value Reference Range Interpretation Comments TSH, THIRD GENERATION (test code 4.000 UIU/ML = 2821) [id number] 00:00:00 Test Item Value Reference Range Interpretation Comments TSH, THIRD GENERATION (test code 4.000 UIU/ML = 2821) VITAMIN D, 25 [id number] 00:00:00 Test Item Value Reference Range Interpretation Comments VITAMIN D, 25 OH (test code = 4958) 17 NG/ML VITAMIN D, 25 [id number] 00:00:00 Test Item Value Reference Range Interpretation Comments VITAMIN D, 25 OH (test code = 4958) 17 NG/ML VITAMIN D, 25 [id number] 00:00:00 Test Item Value Reference Range Interpretation Comments VITAMIN D, 25 OH (test code = 4958) 17 NG/ML COMPREHENSIVE METABOLIC [id number] 00:00:00 Test Item Value Reference Range Interpretation Comments GLUCOSE (test code = 2217) 98 MG/DL BUN (test code = 2208) 14 MG/DL CREATININE (test code = 2214) 0.57 MG/DL eGFR AMER. (test code 138 ML/MIN/1.73 = 24454) eGFR NON- AMER. (test 119 ML/MIN/1.73 code = 80496) CALC BUN/CREAT (test code = 25 RATIO 2235) SODIUM (test code = 2231) 139 MEQ/L POTASSIUM (test code = 2228) 4.6 MEQ/L CHLORIDE (test code = 2215) 103 MEQ/L CARBON DIOXIDE (test code = 24 MEQ/L 2206) CALCIUM (test code = 2209) 9.4 MG/DL PROTEIN, TOTAL (test code = 7.2 G/DL 222) ALBUMIN (test code = 2201) 4.5 G/DL CALC GLOBULIN (test code = 2.7 G/DL 2240) CALC A/G RATIO (test code = 1.7 RATIO 2234) BILIRUBIN, TOTAL (test code = 0.6 MG/DL 220) ALKALINE PHOSPHATASE (test 64 U/L code = 2204) AST (test code = 2218) 16 U/L ALT (test code = 2219) 20 U/L COMPREHENSIVE METABOLIC [id number] 00:00:00 Test Item Value Reference Range Interpretation Comments GLUCOSE (test code = 2217) 98 MG/DL BUN (test code = 2208) 14 MG/DL CREATININE (test code = 2214) 0.57 MG/DL eGFR AMER. (test code 138 ML/MIN/1.73 = 53006) eGFR NON- AMER. (test 119 ML/MIN/1.73 code = 27959) CALC BUN/CREAT (test code = 25 RATIO [...] (test code = 2219) 20 U/L LIPID [id number] 00:00:00 Test Item Value Reference Range Interpretation Comments CHOLESTEROL (test code = 2210) 230 MG/DL TRIGLYCERIDES (test code = 2232) 125 MG/DL HDL CHOLESTEROL (test code = 2220) 55 MG/DL CALC LDL CHOL (test code = 2237) 150 MG/DL RISK RATIO LDL/HDL (test code = 2.73 RATIO 2238) COMPREHENSIVE METABOLIC [id number] 00:00:00 Test Item Value Reference Range Interpretation Comments GLUCOSE (test code = 2217) 98 MG/DL BUN (test code = 2208) 14 MG/DL CREATININE (test code = 2214) 0.57 MG/DL eGFR AMER. (test code 138 ML/MIN/1.73 = 83726) eGFR NON- AMER. (test 119 ML/MIN/1.73 code = 45297) CALC BUN/CREAT (test code = 25 RATIO [...] (test code = 2219) 20 U/L LIPID [id number] 00:00:00 Test Item Value Reference Range Interpretation Comments CHOLESTEROL (test code = 2210) 230 MG/DL TRIGLYCERIDES (test code = 2232) 125 MG/DL HDL CHOLESTEROL (test code = 2220) 55 MG/DL CALC LDL CHOL (test code = 2237) 150 MG/DL RISK RATIO LDL/HDL (test code = 2.73 RATIO 2238) [id number] 00:00:00 Test Item Value Reference Range Interpretation Comments TSH, THIRD GENERATION (test code 4.000 UIU/ML = 2821) [id number] 00:00:00 Test Item Value Reference Range Interpretation Comments TSH, THIRD GENERATION (test code 4.000 UIU/ML = 2821) [id number] 00:00:00 Test Item Value Reference Range Interpretation Comments TSH, THIRD GENERATION (test code 4.000 UIU/ML = 2821) LIPID [id number] 00:00:00 Test Item Value Reference Range Interpretation Comments CHOLESTEROL (test code = 2210) 230 MG/DL TRIGLYCERIDES (test code = 2232) 125 MG/DL HDL CHOLESTEROL (test code = 2220) 55 MG/DL CALC LDL CHOL (test code = 2237) 150 MG/DL RISK RATIO LDL/HDL (test code = 2.73 RATIO 2238) [id number] 00:00:00 Test Item Value Reference Range Interpretation Comments TSH, THIRD GENERATION (test code 4.000 UIU/ML = 2821) [id number] 00:00:00 Test Item Value Reference Range Interpretation Comments TSH, THIRD GENERATION (test code 4.000 UIU/ML = 2821) VITAMIN D, 25 [id number] 00:00:00 Test Item Value Reference Range Interpretation Comments VITAMIN D, 25 OH (test code = 4958) 17 NG/ML VITAMIN D, 25 [id number] 00:00:00 Test Item Value Reference Range Interpretation Comments VITAMIN D, 25 OH (test code = 4958) 17 NG/ML COMPREHENSIVE METABOLIC [id number] 00:00:00 Test Item Value Reference Range Interpretation Comments GLUCOSE (test code = 2217) 98 MG/DL BUN (test code = 2208) 14 MG/DL CREATININE (test code = 2214) 0.57 MG/DL eGFR AMER. (test code 138 ML/MIN/1.73 = 69370) eGFR NON- AMER. (test 119 ML/MIN/1.73 code = 98695) CALC BUN/CREAT (test code = 25 RATIO [...] A/G RATIO (test code = 1.7 RATIO 2233) BILIRUBIN, TOTAL (test code = 0.6 MG/DL 2207) ALKALINE PHOSPHATASE (test 64 U/L code = 2204) AST (test code = 2218) 16 U/L ALT (test code = 2219) 20 U/L COMPREHENSIVE METABOLIC [id number] 00:00:00 Test Item Value Reference Range Interpretation Comments GLUCOSE (test code = 2217) 98 MG/DL BUN (test code = 2208) 14 MG/DL CREATININE (test code = 2214) 0.57 MG/DL eGFR AMER. (test code 138 ML/MIN/1.73 = 22230) eGFR NON- AMER. (test 119 ML/MIN/1.73 code = 45563) CALC BUN/CREAT (test code = 25 RATIO [...] (test code = 2219) 20 U/L LIPID [id number] 00:00:00 Test Item Value Reference Range Interpretation Comments CHOLESTEROL (test code = 2210) 230 MG/DL TRIGLYCERIDES (test code = 2232) 125 MG/DL HDL CHOLESTEROL (test code = 2220) 55 MG/DL CALC LDL CHOL (test code = 2237) 150 MG/DL RISK RATIO LDL/HDL (test code = 2.73 RATIO 2238) LIPID [id number] 00:00:00 Test Item Value Reference Range Interpretation Comments CHOLESTEROL (test code = 2210) 230 MG/DL TRIGLYCERIDES (test code = 2232) 125 MG/DL HDL CHOLESTEROL (test code = 2220) 55 MG/DL CALC LDL CHOL (test code = 2237) 150 MG/DL RISK RATIO LDL/HDL (test code = 2.73 RATIO 2238) [id number] 00:00:00 Test Item Value Reference Range Interpretation Comments TSH, THIRD GENERATION (test code 4.000 UIU/ML = 2821) [id number] 00:00:00 Test Item Value Reference Range Interpretation Comments TSH, THIRD GENERATION (test code 4.000 UIU/ML = 2821) [id number] 00:00:00 Test Item Value Reference Range Interpretation Comments TSH, THIRD GENERATION (test code 4.000 UIU/ML = 2821) VITAMIN D, 25 [id number] 00:00:00 Test Item Value Reference Range Interpretation Comments VITAMIN D, 25 OH (test code = 4958) 17 NG/ML VITAMIN D, 25 [id number] 00:00:00 Test Item Value Reference Range Interpretation Comments VITAMIN D, 25 OH (test code = 4958) 17 NG/ML COMPREHENSIVE METABOLIC [id number] 00:00:00 Test Item Value Reference Range Interpretation Comments GLUCOSE (test code = 2217) 98 MG/DL BUN (test code = 2208) 14 MG/DL CREATININE (test code = 2214) 0.57 MG/DL eGFR AMER. (test code 138 ML/MIN/1.73 = 95829) eGFR NON- AMER. (test 119 ML/MIN/1.73 code = 35271) CALC BUN/CREAT (test code = 25 RATIO [...] code = 2219) 20 U/L COMPREHENSIVE METABOLIC [id number] 00:00:00 Test Item Value Reference Range Interpretation Comments GLUCOSE (test code = 2217) 98 MG/DL BUN (test code = 2208) 14 MG/DL CREATININE (test code = 2214) 0.57 MG/DL eGFR AMER. (test code 138 ML/MIN/1.73 = 92453) eGFR NON- AMER. (test 119 ML/MIN/1.73 code = 87882) CALC BUN/CREAT (test code = 25 RATIO [...] A/G RATIO (test code = 1.7 RATIO 4) BILIRUBIN, TOTAL (test code = 0.6 MG/DL 2206) ALKALINE PHOSPHATASE (test 64 U/L code = 2204) AST (test code = 2218) 16 U/L ALT (test code = 2219) 20 U/L LIPID [id number] 00:00:00 Test Item Value Reference Range Interpretation Comments CHOLESTEROL (test code = 2210) 230 MG/DL TRIGLYCERIDES (test code = 2232) 125 MG/DL HDL CHOLESTEROL (test code = 2220) 55 MG/DL CALC LDL CHOL (test code = 2237) 150 MG/DL RISK RATIO LDL/HDL (test code = 2.73 RATIO 2238) LIPID [id number] 00:00:00 Test Item Value Reference Range Interpretation Comments CHOLESTEROL (test code = 2210) 230 MG/DL TRIGLYCERIDES (test code = 2232) 125 MG/DL HDL CHOLESTEROL (test code = 2220) 55 MG/DL CALC LDL CHOL (test code = 2237) 150 MG/DL RISK RATIO LDL/HDL (test code = 2.73 RATIO 2238) [id number] 00:00:00 Test Item Value Reference Range Interpretation Comments TSH, THIRD GENERATION (test code 4.000 UIU/ML = 2821) [id number] 00:00:00 Test Item Value Reference Range Interpretation Comments TSH, THIRD GENERATION (test code 4.000 UIU/ML = 2821) [id number] 00:00:00 Test Item Value Reference Range Interpretation Comments TSH, THIRD GENERATION (test code 4.000 UIU/ML = 2821) VITAMIN D, 25 [id number] 00:00:00 Test Item Value Reference Range Interpretation Comments VITAMIN D, 25 OH (test code = 4958) 17 NG/ML TSH + FREE T4 [id number] 00:00:00 Test Item Value Reference Range Interpretation Comments TSH, THIRD GENERATION (test code 5.310 UIU/ML = 2821) FREE T4 (THYROXINE) (test code = 0.98 NG/DL 2823) THYROID I PROFILE (T3U, T4, T7)2020-08-24 00:00:00 Test Item Value Reference Range Interpretation Comments T-UPTAKE (test code = 2817) 30.2 % THYROX. BIND. CAPAC. (test code = 1.1 74309) T4 (THYROXINE) (test code = 2819) 6.1 UG/DL CORRECTED T4 (FTI) (test code = 5.5 UG/DL 2820) THYROID I PROFILE (T3U, T4, T7)2020-08-24 00:00:00 Test Item Value Reference Range Interpretation Comments T-UPTAKE (test code = 2817) 30.2 % THYROX. BIND. CAPAC. (test code = 1.1 07258) T4 (THYROXINE) (test code = 2819) 6.1 UG/DL CORRECTED T4 (FTI) (test code = 5.5 UG/DL 2820) TSH + FREE T4 [id number] 00:00:00 Test Item Value Reference Range Interpretation Comments TSH, THIRD GENERATION (test code 5.310 UIU/ML = 2821) FREE T4 (THYROXINE) (test code = 0.98 NG/DL 2823) THYROID I PROFILE (T3U, T4, T7)2020-08-24 00:00:00 Test Item Value Reference Range Interpretation Comments T-UPTAKE (test code = 2817) 30.2 % THYROX. BIND. CAPAC. (test code = 1.1 13226) T4 (THYROXINE) (test code = 2819) 6.1 UG/DL CORRECTED T4 (FTI) (test code = 5.5 UG/DL 2820) TSH + FREE T4 [id number] 00:00:00 Test Item Value Reference Range Interpretation Comments TSH, THIRD GENERATION (test code 5.310 UIU/ML = 2821) FREE T4 (THYROXINE) (test code = 0.98 NG/DL 2823) TSH + FREE T4 [id number] 00:00:00 Test Item Value Reference Range Interpretation Comments TSH, THIRD GENERATION (test code 5.310 UIU/ML = 2821) FREE T4 (THYROXINE) (test code = 0.98 NG/DL 2823) TSH + FREE T4 [id number] 00:00:00 Test Item Value Reference Range Interpretation Comments TSH, THIRD GENERATION (test code 5.310 UIU/ML = 2821) FREE T4 (THYROXINE) (test code = 0.98 NG/DL 2823) THYROID I PROFILE (T3U, T4, T7)2020-08-24 00:00:00 Test Item Value Reference Range Interpretation Comments T-UPTAKE (test code = 2817) 30.2 % THYROX. BIND. CAPAC. (test code = 1.1 71316) T4 (THYROXINE) (test code = 2819) 6.1 UG/DL CORRECTED T4 (FTI) (test code = 5.5 UG/DL 2820) THYROID I PROFILE (T3U, T4, T7)2020-08-24 00:00:00 Test Item Value Reference Range Interpretation Comments T-UPTAKE (test code = 2817) 30.2 % THYROX. BIND. CAPAC. (test code = 1.1 10874) T4 (THYROXINE) (test code = 2819) 6.1 UG/DL CORRECTED T4 (FTI) (test code = 5.5 UG/DL 2820) TSH + FREE T4 [id number] 00:00:00 Test Item Value Reference Range Interpretation Comments TSH, THIRD GENERATION (test code 5.310 UIU/ML = 2821) FREE T4 (THYROXINE) (test code = 0.98 NG/DL 2823) TSH + FREE T4 [id number] 00:00:00 Test Item Value Reference Range Interpretation Comments TSH, THIRD GENERATION (test code 5.310 UIU/ML = 2821) FREE T4 (THYROXINE) (test code = 0.98 NG/DL 2823) TSH + FREE T4 [id number] 00:00:00 Test Item Value Reference Range Interpretation Comments TSH, THIRD GENERATION (test code 5.310 UIU/ML = 2821) FREE T4 (THYROXINE) (test code = 0.98 NG/DL 2823) THYROID I PROFILE (T3U, T4, T7)2020-08-24 00:00:00 Test Item Value Reference Range Interpretation Comments T-UPTAKE (test code = 2817) 30.2 % THYROX. BIND. CAPAC. (test code = 1.1 33407) T4 (THYROXINE) (test code = 2819) 6.1 UG/DL CORRECTED T4 (FTI) (test code = 5.5 UG/DL 2820) THYROID I PROFILE (T3U, T4, T7)2020-08-24 00:00:00 Test Item Value Reference Range Interpretation Comments T-UPTAKE (test code = 2817) 30.2 % THYROX. BIND. CAPAC. (test code = 1.1 22865) T4 (THYROXINE) (test code = 2819) 6.1 UG/DL CORRECTED T4 (FTI) (test code = 5.5 UG/DL 2820) TSH + FREE T4 [id number] 00:00:00 Test Item Value Reference Range Interpretation Comments TSH, THIRD GENERATION (test code 5.310 UIU/ML = 2821) FREE T4 (THYROXINE) (test code = 0.98 NG/DL 2823) TSH + FREE T4 [id number] 00:00:00 Test Item Value Reference Range Interpretation Comments TSH, THIRD GENERATION (test code 5.310 UIU/ML = 2821) FREE T4 (THYROXINE) (test code = 0.98 NG/DL 2823) TSH + FREE T4 [id number] 00:00:00 Test Item Value Reference Range Interpretation Comments TSH, THIRD GENERATION (test code 5.310 UIU/ML = 2821) FREE T4 (THYROXINE) (test code = 0.98 NG/DL 2823) THYROID I PROFILE (T3U, T4, T7)2020-08-24 00:00:00 Test Item Value Reference Range Interpretation Comments T-UPTAKE (test code = 2817) 30.2 % THYROX. BIND. CAPAC. (test code = 1.1 29496) T4 (THYROXINE) (test code = 2819) 6.1 UG/DL CORRECTED T4 (FTI) (test code = 5.5 UG/DL 2820) THYROID I PROFILE (T3U, T4, T7)2020-08-24 00:00:00 Test Item Value Reference Range Interpretation Comments T-UPTAKE (test code = 2817) 30.2 % THYROX. BIND. CAPAC. (test code = 1.1 45299) T4 (THYROXINE) (test code = 2819) 6.1 UG/DL CORRECTED T4 (FTI) (test code = 5.5 UG/DL 2820) TSH + FREE T4 [id number] 00:00:00 Test Item Value Reference Range Interpretation Comments TSH, THIRD GENERATION (test code 5.310 UIU/ML = 2821) FREE T4 (THYROXINE) (test code = 0.98 NG/DL 2823) TSH + FREE T4 [id number] 00:00:00 Test Item Value Reference Range Interpretation Comments TSH, THIRD GENERATION (test code 5.310 UIU/ML = 2821) FREE T4 (THYROXINE) (test code = 0.98 NG/DL 2823) TSH + FREE T4 [id number] 00:00:00 Test Item Value Reference Range Interpretation Comments TSH, THIRD GENERATION (test code 5.310 UIU/ML = 2821) FREE T4 (THYROXINE) (test code = 0.98 NG/DL 2823) CBC W/AUTO [id number] 00:00:00 Test Item Value Reference Range Interpretation [...] code = 1015) 234 K/UL CBC W/AUTO [id number] 00:00:00 Test Item Value Reference Range Interpretation [...] code = 1015) 234 K/UL CBC W/AUTO [id number] 00:00:00 Test Item Value Reference Range Interpretation [...] (test code = 1015) 234 K/UL HEMOGLOBIN [id number] 00:00:00 Test Item Value Reference Range Interpretation Comments HEMOGLOBIN A1c (test code = 66171) 5.2 % HEMOGLOBIN [id number] 00:00:00 Test Item Value Reference Range Interpretation Comments HEMOGLOBIN A1c (test code = 73225) 5.2 % HEMOGLOBIN [id number] 00:00:00 Test Item Value Reference Range Interpretation Comments HEMOGLOBIN A1c (test code = 03277) 5.2 % LIPID [id number] 00:00:00 Test Item Value Reference Range Interpretation Comments CHOLESTEROL (test code = 2210) 220 MG/DL TRIGLYCERIDES (test code = 2232) 95 MG/DL HDL CHOLESTEROL (test code = 2220) 57 MG/DL CALC LDL CHOL (test code = 2237) 143 MG/DL RISK RATIO LDL/HDL (test code = 2.51 RATIO 2238) LIPID [id number] 00:00:00 Test Item Value Reference Range Interpretation Comments CHOLESTEROL (test code = 2210) 220 MG/DL TRIGLYCERIDES (test code = 2232) 95 MG/DL HDL CHOLESTEROL (test code = 2220) 57 MG/DL CALC LDL CHOL (test code = 2237) 143 MG/DL RISK RATIO LDL/HDL (test code = 2.51 RATIO 2238) COMPREHENSIVE METABOLIC [id number] 00:00:00 Test Item Value Reference Range Interpretation Comments GLUCOSE (test code = 2217) 88 MG/DL BUN (test code = 2208) 11 MG/DL CREATININE (test code = 2214) 0.79 MG/DL eGFR AMER. (test code 112 ML/MIN/1.73 = 74419) eGFR NON- AMER. (test 96 ML/MIN/1.73 code = 59873) CALC BUN/CREAT (test code = 14 RATIO [...] code = 2219) 16 U/L COMPREHENSIVE METABOLIC [id number] 00:00:00 Test Item Value Reference Range Interpretation Comments GLUCOSE (test code = 2217) 88 MG/DL BUN (test code = 2208) 11 MG/DL CREATININE (test code = 2214) 0.79 MG/DL eGFR AMER. (test code 112 ML/MIN/1.73 = 79342) eGFR NON- AMER. (test 96 ML/MIN/1.73 code = 31033) CALC BUN/CREAT (test code = 14 RATIO [...] A/G RATIO (test code = 2.0 RATIO 4) BILIRUBIN, TOTAL (test code = 0.8 MG/DL 2206) ALKALINE PHOSPHATASE (test 66 U/L code = 220) AST (test code = 2218) 17 U/L ALT (test code = 2219) 16 U/L [id number] 00:00:00 Test Item Value Reference Range Interpretation Comments TSH, THIRD GENERATION (test code 4.290 UIU/ML = 2821) [id number] 00:00:00 Test Item Value Reference Range Interpretation Comments TSH, THIRD GENERATION (test code 4.290 UIU/ML = 2821) [id number] 00:00:00 Test Item Value Reference Range Interpretation Comments TSH, THIRD GENERATION (test code 4.290 UIU/ML = 2821) HEMOGLOBIN [id number] 00:00:00 Test Item Value Reference Range Interpretation Comments HEMOGLOBIN A1c (test code = 09445) 5.2 % CBC W/AUTO [id number] 00:00:00 Test Item Value Reference Range Interpretation [...] code = 1015) 234 K/UL CBC W/AUTO [id number] 00:00:00 Test Item Value Reference Range Interpretation [...] code = 1015) 234 K/UL CBC W/AUTO [id number] 00:00:00 Test Item Value Reference Range Interpretation [...] (test code = 1015) 234 K/UL HEMOGLOBIN [id number] 00:00:00 Test Item Value Reference Range Interpretation Comments HEMOGLOBIN A1c (test code = 29552) 5.2 % HEMOGLOBIN [id number] 00:00:00 Test Item Value Reference Range Interpretation Comments HEMOGLOBIN A1c (test code = 41370) 5.2 % HEMOGLOBIN [id number] 00:00:00 Test Item Value Reference Range Interpretation Comments HEMOGLOBIN A1c (test code = 84820) 5.2 % HEMOGLOBIN [id number] 00:00:00 Test Item Value Reference Range Interpretation Comments HEMOGLOBIN A1c (test code = 45267) 5.2 % LIPID [id number] 00:00:00 Test Item Value Reference Range Interpretation Comments CHOLESTEROL (test code = 2210) 220 MG/DL TRIGLYCERIDES (test code = 2232) 95 MG/DL HDL CHOLESTEROL (test code = 2220) 57 MG/DL CALC LDL CHOL (test code = 2237) 143 MG/DL RISK RATIO LDL/HDL (test code = 2.51 RATIO 2238) LIPID [id number] 00:00:00 Test Item Value Reference Range Interpretation Comments CHOLESTEROL (test code = 2210) 220 MG/DL TRIGLYCERIDES (test code = 2232) 95 MG/DL HDL CHOLESTEROL (test code = 2220) 57 MG/DL CALC LDL CHOL (test code = 2237) 143 MG/DL RISK RATIO LDL/HDL (test code = 2.51 RATIO 2238) COMPREHENSIVE METABOLIC [id number] 00:00:00 Test Item Value Reference Range Interpretation Comments GLUCOSE (test code = 2217) 88 MG/DL BUN (test code = 2208) 11 MG/DL CREATININE (test code = 2214) 0.79 MG/DL eGFR AMER. (test code 112 ML/MIN/1.73 = 81223) eGFR NON- AMER. (test 96 ML/MIN/1.73 code = 58920) CALC BUN/CREAT (test code = 14 RATIO [...] code = 2219) 16 U/L COMPREHENSIVE METABOLIC [id number] 00:00:00 Test Item Value Reference Range Interpretation Comments GLUCOSE (test code = 2217) 88 MG/DL BUN (test code = 2208) 11 MG/DL CREATININE (test code = 2214) 0.79 MG/DL eGFR AMER. (test code 112 ML/MIN/1.73 = 38766) eGFR NON- AMER. (test 96 ML/MIN/1.73 code = 77925) CALC BUN/CREAT (test code = 14 RATIO [...] ALT (test code = 2219) 16 U/L [id number] 00:00:00 Test Item Value Reference Range Interpretation Comments TSH, THIRD GENERATION (test code 4.290 UIU/ML = 2821) [id number] 00:00:00 Test Item Value Reference Range Interpretation Comments TSH, THIRD GENERATION (test code 4.290 UIU/ML = 2821) [id number] 00:00:00 Test Item Value Reference Range Interpretation Comments TSH, THIRD GENERATION (test code 4.290 UIU/ML = 2821) LIPID [id number] 00:00:00 Test Item Value Reference Range Interpretation Comments CHOLESTEROL (test code = 2210) 220 MG/DL TRIGLYCERIDES (test code = 2232) 95 MG/DL HDL CHOLESTEROL (test code = 2220) 57 MG/DL CALC LDL CHOL (test code = 2237) 143 MG/DL RISK RATIO LDL/HDL (test code = 2.51 RATIO 2238) COMPREHENSIVE METABOLIC [id number] 00:00:00 Test Item Value Reference Range Interpretation Comments GLUCOSE (test code = 2217) 88 MG/DL BUN (test code = 2208) 11 MG/DL CREATININE (test code = 2214) 0.79 MG/DL eGFR AMER. (test code 112 ML/MIN/1.73 = 02951) eGFR NON- AMER. (test 96 ML/MIN/1.73 code = 16192) CALC BUN/CREAT (test code = 14 RATIO [...] 0) CALC A/G RATIO (test code = 2.0 RATIO 4) BILIRUBIN, TOTAL (test code = 0.8 MG/DL 2206) ALKALINE PHOSPHATASE (test 66 U/L code = 2204) AST (test code = 2218) 17 U/L ALT (test code = 2219) 16 U/L [id number] 00:00:00 Test Item Value Reference Range Interpretation Comments TSH, THIRD GENERATION (test code 4.290 UIU/ML = 2821) [id number] 00:00:00 Test Item Value Reference Range Interpretation Comments TSH, THIRD GENERATION (test code 4.290 UIU/ML = 2821) CBC W/AUTO [id number] 00:00:00 Test Item Value Reference Range Interpretation [...] code = 1015) 234 K/UL CBC W/AUTO [id number] 00:00:00 Test Item Value Reference Range Interpretation [...] code = 1015) 234 K/UL CBC W/AUTO [id number] 00:00:00 Test Item Value Reference Range Interpretation [...] (test code = 1015) 234 K/UL HEMOGLOBIN [id number] 00:00:00 Test Item Value Reference Range Interpretation Comments HEMOGLOBIN A1c (test code = 20679) 5.2 % HEMOGLOBIN [id number] 00:00:00 Test Item Value Reference Range Interpretation Comments HEMOGLOBIN A1c (test code = 00529) 5.2 % HEMOGLOBIN [id number] 00:00:00 Test Item Value Reference Range Interpretation Comments HEMOGLOBIN A1c (test code = 57613) 5.2 % LIPID [id number] 00:00:00 Test Item Value Reference Range Interpretation Comments CHOLESTEROL (test code = 2210) 220 MG/DL TRIGLYCERIDES (test code = 2232) 95 MG/DL HDL CHOLESTEROL (test code = 2220) 57 MG/DL CALC LDL CHOL (test code = 2237) 143 MG/DL RISK RATIO LDL/HDL (test code = 2.51 RATIO 2238) LIPID [id number] 00:00:00 Test Item Value Reference Range Interpretation Comments CHOLESTEROL (test code = 2210) 220 MG/DL TRIGLYCERIDES (test code = 2232) 95 MG/DL HDL CHOLESTEROL (test code = 2220) 57 MG/DL CALC LDL CHOL (test code = 2237) 143 MG/DL RISK RATIO LDL/HDL (test code = 2.51 RATIO 2238) COMPREHENSIVE METABOLIC [id number] 00:00:00 Test Item Value Reference Range Interpretation Comments GLUCOSE (test code = 2217) 88 MG/DL BUN (test code = 2208) 11 MG/DL CREATININE (test code = 2214) 0.79 MG/DL eGFR AMER. (test code 112 ML/MIN/1.73 = 35425) eGFR NON- AMER. (test 96 ML/MIN/1.73 code = 03612) CALC BUN/CREAT (test code = 14 RATIO [...] BILIRUBIN, TOTAL (test code = 0.8 MG/DL 220) ALKALINE PHOSPHATASE (test 66 U/L code = 2204) AST (test code = 2218) 17 U/L ALT (test code = 2219) 16 U/L COMPREHENSIVE METABOLIC [id number] 00:00:00 Test Item Value Reference Range Interpretation Comments GLUCOSE (test code = 2217) 88 MG/DL BUN (test code = 2208) 11 MG/DL CREATININE (test code = 2214) 0.79 MG/DL eGFR AMER. (test code 112 ML/MIN/1.73 = 36082) eGFR NON- AMER. (test 96 ML/MIN/1.73 code = 89715) CALC BUN/CREAT (test code = 14 RATIO [...] ALT (test code = 2219) 16 U/L [id number] 00:00:00 Test Item Value Reference Range Interpretation Comments TSH, THIRD GENERATION (test code 4.290 UIU/ML = 2821) [id number] 00:00:00 Test Item Value Reference Range Interpretation Comments TSH, THIRD GENERATION (test code 4.290 UIU/ML = 2821) [id number] 00:00:00 Test Item Value Reference Range Interpretation Comments TSH, THIRD GENERATION (test code 4.290 UIU/ML = 2821) CBC W/AUTO [id number] 00:00:00 Test Item Value Reference Range Interpretation [...] code = 1015) 234 K/UL CBC W/AUTO [id number] 00:00:00 Test Item Value Reference Range Interpretation [...] code = 1015) 234 K/UL CBC W/AUTO [id number] 00:00:00 Test Item Value Reference Range Interpretation [...] (test code = 1015) 234 K/UL HEMOGLOBIN [id number] 00:00:00 Test Item Value Reference Range Interpretation Comments HEMOGLOBIN A1c (test code = 77966) 5.2 % HEMOGLOBIN [id number] 00:00:00 Test Item Value Reference Range Interpretation Comments HEMOGLOBIN A1c (test code = 88292) 5.2 % HEMOGLOBIN [id number] 00:00:00 Test Item Value Reference Range Interpretation Comments HEMOGLOBIN A1c (test code = 51503) 5.2 % LIPID [id number] 00:00:00 Test Item Value Reference Range Interpretation Comments CHOLESTEROL (test code = 2210) 220 MG/DL TRIGLYCERIDES (test code = 2232) 95 MG/DL HDL CHOLESTEROL (test code = 2220) 57 MG/DL CALC LDL CHOL (test code = 2237) 143 MG/DL RISK RATIO LDL/HDL (test code = 2.51 RATIO 2238) LIPID [id number] 00:00:00 Test Item Value Reference Range Interpretation Comments CHOLESTEROL (test code = 2210) 220 MG/DL TRIGLYCERIDES (test code = 2232) 95 MG/DL HDL CHOLESTEROL (test code = 2220) 57 MG/DL CALC LDL CHOL (test code = 2237) 143 MG/DL RISK RATIO LDL/HDL (test code = 2.51 RATIO 2238) COMPREHENSIVE METABOLIC [id number] 00:00:00 Test Item Value Reference Range Interpretation Comments GLUCOSE (test code = 2217) 88 MG/DL BUN (test code = 2208) 11 MG/DL CREATININE (test code = 2214) 0.79 MG/DL eGFR AMER. (test code 112 ML/MIN/1.73 = 15051) eGFR NON- AMER. (test 96 ML/MIN/1.73 code = 31185) CALC BUN/CREAT (test code = 14 RATIO [...] code = 2219) 16 U/L COMPREHENSIVE METABOLIC [id number] 00:00:00 Test Item Value Reference Range Interpretation Comments GLUCOSE (test code = 2217) 88 MG/DL BUN (test code = 2208) 11 MG/DL CREATININE (test code = 2214) 0.79 MG/DL eGFR AMER. (test code 112 ML/MIN/1.73 = 03127) eGFR NON- AMER. (test 96 ML/MIN/1.73 code = 28924) CALC BUN/CREAT (test code = 14 RATIO [...] ALT (test code = 2219) 16 U/L [id number] 00:00:00 Test Item Value Reference Range Interpretation Comments TSH, THIRD GENERATION (test code 4.290 UIU/ML = 2821) [id number] 00:00:00 Test Item Value Reference Range Interpretation Comments TSH, THIRD GENERATION (test code 4.290 UIU/ML = 2821) [id number] 00:00:00 Test Item Value Reference Range Interpretation Comments TSH, THIRD GENERATION (test code 4.290 UIU/ML = 2821) CBC W/AUTO [id number] 00:00:00 Test Item Value Reference Range Interpretation [...] code = 1015) 234 K/UL CBC W/AUTO [id number] 00:00:00 Test Item Value Reference Range Interpretation [...] COUNT (test code = 1015) 234 K/UL URIC [id number] 00:00:00 Test Item Value Reference Range Interpretation Comments URIC ACID (test code = 2233) 4.2 MG/DL URIC [id number] 00:00:00 Test Item Value Reference Range Interpretation Comments URIC ACID (test code = 2233) 4.2 MG/DL URIC [id number] 00:00:00 Test Item Value Reference Range Interpretation Comments URIC ACID (test code = 2233) 4.2 MG/DL URIC [id number] 00:00:00 Test Item Value Reference Range Interpretation Comments URIC ACID (test code = 2233) 4.2 MG/DL URIC [id number] 00:00:00 Test Item Value Reference Range Interpretation Comments URIC ACID (test code = 2233) 4.2 MG/DL URIC [id number] 00:00:00 Test Item Value Reference Range Interpretation Comments URIC ACID (test code = 2233) 4.2 MG/DL URIC [id number] 00:00:00 Test Item Value Reference Range Interpretation Comments URIC ACID (test code = 2233) 4.2 MG/DL URIC [id number] 00:00:00 Test Item Value Reference Range Interpretation Comments URIC ACID (test code = 2233) 4.2 MG/DL URIC [id number] 00:00:00 Test Item Value Reference Range Interpretation Comments URIC ACID (test code = 2233) 4.2 MG/DL GC AND CHLAMYDIA, AMPLIFIED, [id number] 00:00:00 Test Item Value Reference Range Interpretation Comments GONORRHEA, TMA (test code = 19888) NEGATIVE CHLAMYDIA, TMA (test code = 07069) NEGATIVE GC AND CHLAMYDIA, AMPLIFIED, [id number] 00:00:00 Test Item Value Reference Range Interpretation Comments GONORRHEA, TMA (test code = 95004) NEGATIVE CHLAMYDIA, TMA (test code = 87763) NEGATIVE HIV AB/AG COMBO RFLX [id number] 00:00:00 Test Item Value Reference Range Interpretation Comments HIV 1/2 4TH GEN, RFLX CONF (test NON-REACTIVE code = 3514) HIV AB/AG COMBO RFLX [id number] 00:00:00 Test Item Value Reference Range Interpretation Comments HIV 1/2 4TH GEN, RFLX CONF (test NON-REACTIVE code = 3514) [id number] 00:00:00 Test Item Value Reference Range Interpretation Comments RPR RESULT (test code = NON-REACTIVE 3501) RPR TITER (test code = 3500) NOT INDIC. TITER [id number] 00:00:00 Test Item Value Reference Range Interpretation Comments RPR RESULT (test code = NON-REACTIVE 3501) RPR TITER (test code = 3500) NOT INDIC. TITER [id number] 00:00:00 Test Item Value Reference Range Interpretation [...] INTERPRETATION HEPATITIS B: (NOTE) (test code = 29351) INTERPRETATION HEPATITIS C: (NOTE) (test code = 80482) VAGINAL PATHOGENS DNA [id number] 00:00:00 Test Item Value Reference Range Interpretation Comments VALERIE SPECIES (test code = ) POSITIVE G. VAGINALIS (test code = ) NEGATIVE T. VAGINALIS (test code = ) NEGATIVE HEPATITIS PROFILE (A,B,C)2020-03-23 00:00:00 Test Item [...] INTERPRETATION HEPATITIS B: (NOTE) (test code = 47934) INTERPRETATION HEPATITIS C: (NOTE) (test code = 21463) HEPATITIS A IgM [REFLEX]2020-03-23 00:00:00 Test Item Value Reference Range Interpretation Comments HEPATITIS A IgM (test code = NON-REACTIVE 2728) VAGINAL PATHOGENS DNA [id number] 00:00:00 Test Item Value Reference Range Interpretation Comments VALERIE SPECIES (test code = ) POSITIVE G. VAGINALIS (test code = ) NEGATIVE T. VAGINALIS (test code = ) NEGATIVE VAGINAL PATHOGENS DNA [id number] 00:00:00 Test Item Value Reference Range Interpretation Comments VALERIE SPECIES (test code = ) POSITIVE G. VAGINALIS (test code = ) NEGATIVE T. VAGINALIS (test code = ) NEGATIVE GC AND CHLAMYDIA, AMPLIFIED, [id number] 00:00:00 Test Item Value Reference Range Interpretation Comments GONORRHEA, TMA (test code = 79815) NEGATIVE CHLAMYDIA, TMA (test code = 47863) NEGATIVE GC AND CHLAMYDIA, AMPLIFIED, [id number] 00:00:00 Test Item Value Reference Range Interpretation Comments GONORRHEA, TMA (test code = 90088) NEGATIVE CHLAMYDIA, TMA (test code = 57538) NEGATIVE GC AND CHLAMYDIA, AMPLIFIED, [id number] 00:00:00 Test Item Value Reference Range Interpretation Comments GONORRHEA, TMA (test code = 26902) NEGATIVE CHLAMYDIA, TMA (test code = 27543) NEGATIVE HIV AB/AG COMBO RFLX [id number] 00:00:00 Test Item Value Reference Range Interpretation Comments HIV 1/2 4TH GEN, RFLX CONF (test NON-REACTIVE code = 3514) HIV AB/AG COMBO RFLX [id number] 00:00:00 Test Item Value Reference Range Interpretation Comments HIV 1/2 4TH GEN, RFLX CONF (test NON-REACTIVE code = 3514) [id number] 00:00:00 Test Item Value Reference Range Interpretation Comments RPR RESULT (test code = NON-REACTIVE 3501) RPR TITER (test code = 3500) NOT INDIC. TITER [id number] 00:00:00 Test Item Value Reference Range Interpretation Comments RPR RESULT (test code = NON-REACTIVE 3501) RPR TITER (test code = 3500) NOT INDIC. TITER [id number] 00:00:00 Test Item Value Reference Range Interpretation [...] INTERPRETATION HEPATITIS B: (NOTE) (test code = 55779) INTERPRETATION HEPATITIS C: (NOTE) (test code = 83681) HEPATITIS PROFILE (A,B,C)2020-03-23 00:00:00 Test Item Value [...] INTERPRETATION HEPATITIS B: (NOTE) (test code = 29206) INTERPRETATION HEPATITIS C: (NOTE) (test code = 70219) HEPATITIS A IgM [REFLEX]2020-03-23 00:00:00 Test Item Value Reference Range Interpretation Comments HEPATITIS A IgM (test code = NON-REACTIVE 2728) HIV AB/AG COMBO RFLX [id number] 00:00:00 Test Item Value Reference Range Interpretation Comments HIV 1/2 4TH GEN, RFLX CONF (test NON-REACTIVE code = 3514) [id number] 00:00:00 Test Item Value Reference Range Interpretation Comments RPR RESULT (test code = NON-REACTIVE 3501) RPR TITER (test code = 3500) NOT INDIC. TITER [id number] 00:00:00 Test Item Value Reference Range Interpretation Comments RPR RESULT (test code = NON-REACTIVE 3501) RPR TITER (test code = 3500) NOT INDIC. TITER HEPATITIS PROFILE (A,B,C)2020-03-23 00:00:00 Test Item Value Reference Range Interpretation Comments HEPATITIS A TOTAL AB (test code REACTIVE = 2725) HEPATITIS B SURF AG (test code = NON-REACTIVE 2739) HEP B CORE TOTAL AB (test code = NON-REACTIVE 1029) HEPATITIS B SURFACE AB (test REACTIVE code = 2737) HEPATITIS C ANTIBODY (test code NON-REACTIVE = 4675) INTERPRETATION HEPATITIS A: (NOTE) (test code = 2552) INTERPRETATION HEPATITIS B: (NOTE) (test code = 10775) INTERPRETATION HEPATITIS C: (NOTE) (test code = 81395) HEPATITIS A IgM [REFLEX]2020-03-23 00:00:00 Test Item Value Reference Range Interpretation Comments HEPATITIS A IgM (test code = NON-REACTIVE 2727) VAGINAL PATHOGENS DNA [id number] 00:00:00 Test Item Value Reference Range Interpretation Comments VALERIE SPECIES (test code = ) POSITIVE G. VAGINALIS (test code = 29734) NEGATIVE T. VAGINALIS (test code = 57742) NEGATIVE VAGINAL PATHOGENS DNA [id number] 00:00:00 Test Item Value Reference Range Interpretation Comments VALERIE SPECIES (test code = ) POSITIVE G. VAGINALIS (test code = 42134) NEGATIVE T. VAGINALIS (test code = ) NEGATIVE GC AND CHLAMYDIA, AMPLIFIED, [id number] 00:00:00 Test Item Value Reference Range Interpretation Comments GONORRHEA, TMA (test code = 05373) NEGATIVE CHLAMYDIA, TMA (test code = 81267) NEGATIVE GC AND CHLAMYDIA, AMPLIFIED, [id number] 00:00:00 Test Item Value Reference Range Interpretation Comments GONORRHEA, TMA (test code = 73194) NEGATIVE CHLAMYDIA, TMA (test code = 97939) NEGATIVE HIV AB/AG COMBO RFLX [id number] 00:00:00 Test Item Value Reference Range Interpretation Comments HIV 1/2 4TH GEN, RFLX CONF (test NON-REACTIVE code = 3514) HIV AB/AG COMBO RFLX [id number] 00:00:00 Test Item Value Reference Range Interpretation Comments HIV 1/2 4TH GEN, RFLX CONF (test NON-REACTIVE code = 3514) [id number] 00:00:00 Test Item Value Reference Range Interpretation Comments RPR RESULT (test code = NON-REACTIVE 3501) RPR TITER (test code = 3500) NOT INDIC. TITER [id number] 00:00:00 Test Item Value Reference Range Interpretation Comments RPR RESULT (test code = NON-REACTIVE 3501) RPR TITER (test code = 3500) NOT INDIC. TITER [id number] 00:00:00 Test Item Value Reference Range Interpretation [...] INTERPRETATION HEPATITIS B: (NOTE) (test code = 38300) INTERPRETATION HEPATITIS C: (NOTE) (test code = 08816) HEPATITIS PROFILE (A,B,C)2020-03-23 00:00:00 Test Item Value [...] INTERPRETATION HEPATITIS B: (NOTE) (test code = 99992) INTERPRETATION HEPATITIS C: (NOTE) (test code = 69188) HEPATITIS A IgM [REFLEX]2020-03-23 00:00:00 Test Item Value Reference Range Interpretation Comments HEPATITIS A IgM (test code = NON-REACTIVE 2728) VAGINAL PATHOGENS DNA [id number] 00:00:00 Test Item Value Reference Range Interpretation Comments VALERIE SPECIES (test code = ) POSITIVE G. VAGINALIS (test code = 51687) NEGATIVE T. VAGINALIS (test code = 74715) NEGATIVE VAGINAL PATHOGENS DNA [id number] 00:00:00 Test Item Value Reference Range Interpretation Comments VALERIE SPECIES (test code = ) POSITIVE G. VAGINALIS (test code = 59947) NEGATIVE T. VAGINALIS (test code = 76297) NEGATIVE GC AND CHLAMYDIA, AMPLIFIED, [id number] 00:00:00 Test Item Value Reference Range Interpretation Comments GONORRHEA, TMA (test code = 41209) NEGATIVE CHLAMYDIA, TMA (test code = 30170) NEGATIVE GC AND CHLAMYDIA, AMPLIFIED, [id number] 00:00:00 Test Item Value Reference Range Interpretation Comments GONORRHEA, TMA (test code = 85152) NEGATIVE CHLAMYDIA, TMA (test code = 01391) NEGATIVE HIV AB/AG COMBO RFLX [id number] 00:00:00 Test Item Value Reference Range Interpretation Comments HIV 1/2 4TH GEN, RFLX CONF (test NON-REACTIVE code = 3514) HIV AB/AG COMBO RFLX [id number] 00:00:00 Test Item Value Reference Range Interpretation Comments HIV 1/2 4TH GEN, RFLX CONF (test NON-REACTIVE code = 3514) [id number] 00:00:00 Test Item Value Reference Range Interpretation Comments RPR RESULT (test code = NON-REACTIVE 3501) RPR TITER (test code = 3500) NOT INDIC. TITER [id number] 00:00:00 Test Item Value Reference Range Interpretation Comments RPR RESULT (test code = NON-REACTIVE 3501) RPR TITER (test code = 3500) NOT INDIC. TITER [id number] 00:00:00 Test Item Value Reference Range Interpretation [...] INTERPRETATION HEPATITIS B: (NOTE) (test code = 63763) INTERPRETATION HEPATITIS C: (NOTE) (test code = 14237) HEPATITIS PROFILE (A,B,C)2020-03-23 00:00:00 Test Item Value Reference Range Interpretation Comments HEPATITIS A TOTAL AB (test code REACTIVE = 2725) HEPATITIS B SURF AG (test code = NON-REACTIVE 2739) HEP B CORE TOTAL AB (test code = NON-REACTIVE 7699) HEPATITIS B SURFACE AB (test REACTIVE code = 2737) HEPATITIS C ANTIBODY (test code NON-REACTIVE = 4675) INTERPRETATION HEPATITIS A: (NOTE) (test code = 2552) INTERPRETATION HEPATITIS B: (NOTE) (test code = 74976) INTERPRETATION HEPATITIS C: (NOTE) (test code = 90951) HEPATITIS A IgM [REFLEX]2020-03-23 00:00:00 Test Item Value Reference Range Interpretation Comments HEPATITIS A IgM (test code = NON-REACTIVE 2727) VAGINAL PATHOGENS DNA [id number] 00:00:00 Test Item Value Reference Range Interpretation Comments VALERIE SPECIES (test code = ) POSITIVE G. VAGINALIS (test code = 83827) NEGATIVE T. VAGINALIS (test code = ) NEGATIVE VAGINAL PATHOGENS DNA [id number] 00:00:00 Test Item Value Reference Range Interpretation Comments VALERIE SPECIES (test code = ) POSITIVE G. VAGINALIS (test code = ) NEGATIVE T. VAGINALIS (test code = ) NEGATIVE NT [id number] 00:00:00 Test Item Value Reference Range Interpretation Comments NT PROBNP (test code = 04417-6) 25 pg/mL NT [id number] 00:00:00 Test Item Value Reference Range Interpretation Comments NT PROBNP (test code = 71296-0) 25 pg/mL NT [id number] 00:00:00 Test Item Value Reference Range Interpretation Comments NT PROBNP (test code = 47254-0) 25 pg/mL NT [id number] 00:00:00 Test Item Value Reference Range Interpretation Comments NT PROBNP (test code = 29216-0) 25 pg/mL NT [id number] 00:00:00 Test Item Value Reference Range Interpretation Comments NT PROBNP (test code = 83820-5) 25 pg/mL VITAMIN D,25-OH,[id number] 00:00:00 Test Item Value Reference Range Interpretation Comments VITAMIN D,25-OH,TOTAL,IA (test code 23 ng/mL = 1988-3) VITAMIN B12 (REFL)2019-09-01 00:00:00 Test Item Value [...] 2571-8) LDL-CHOLESTEROL (test code = 152 mg/dL(calc) 82294-6) CHOL/HDLC RATIO (test code = 5.1 (calc) 9830-1) NON HDL CHOLESTEROL (test 199 mg/dL(calc) code = 66279-1) VITAMIN D,25-OH,TOTAL,[id number] 00:00:00 Test Item Value Reference Range Interpretation Comments VITAMIN D,25-OH,TOTAL,IA (test code 23 ng/mL = 1988-) LIPID PANEL (REFL)2019-09-01 00:00:00 Test Item Value Reference Range Interpretation Comments CHOLESTEROL, TOTAL (test code 248 mg/dL = 2093-3) HDL CHOLESTEROL (test code = 49 mg/dL 5-9) TRIGLYCERIDES (test code = 305 mg/dL 2571-8) LDL-CHOLESTEROL (test code = 152 mg/dL(calc) 74674-4) CHOL/HDLC RATIO (test code = 5.1 (calc) 9830-1) NON HDL CHOLESTEROL (test 199 mg/dL(calc) code = 60519-4) VITAMIN D,25-OH,TOTAL,[id number] 00:00:00 Test Item Value Reference Range Interpretation [...] 2571-8) LDL-CHOLESTEROL (test code = 152 mg/dL(calc) 22891-7) CHOL/HDLC RATIO (test code = 5.1 (calc) 9830-1) NON HDL CHOLESTEROL (test 199 mg/dL(calc) code = 03022-8) VITAMIN D,25-OH,TOTAL,[id number] 00:00:00 Test Item Value Reference Range Interpretation Comments VITAMIN D,25-OH,TOTAL,IA (test code 23 ng/mL = 1988-) VITAMIN B12 (REFL)2019-09-01 00:00:00 Test Item Value Reference Range Interpretation Comments VITAMIN B12 (test code = 2-9) 1806 pg/mL REFLEX TIQ [ADDED]2019-09-01 00:00:00 Test Item Value Reference Range Interpretation Comments REFLEX TIQ (test code = ) DNR LIPID PANEL (REFL)2019-09-01 00:00:00 Test Item Value Reference Range Interpretation Comments CHOLESTEROL, TOTAL (test code 248 mg/dL = 2092-3) HDL CHOLESTEROL (test code = 49 mg/dL 2084-9) TRIGLYCERIDES (test code = 305 mg/dL 2571-8) LDL-CHOLESTEROL (test code = 152 mg/dL(calc) 73890-9) CHOL/HDLC RATIO (test code = 5.1 (calc) 9830-1) NON HDL CHOLESTEROL (test 199 mg/dL(calc) code = 28342-0) VITAMIN D,25-OH,TOTAL,[id number] 00:00:00 Test Item Value Reference Range Interpretation [...] HDL CHOLESTEROL (test code = 49 mg/dL 2085-9) TRIGLYCERIDES (test code = 305 mg/dL 2571-8) LDL-CHOLESTEROL (test code = 152 mg/dL(calc) 71452-6) CHOL/HDLC RATIO (test code = 5.1 (calc) 9830-1) NON HDL CHOLESTEROL (test 199 mg/dL(calc) code = 61747-9) GC AND CHLAMYDIA AMPLIFIED, [id number] 00:00:00 Test Item Value Reference Range Interpretation Comments GONORRHEA, TMA (test code = 70169) NEGATIVE CHLAMYDIA, TMA (test code = 11871) NEGATIVE [id number] 00:00:00 Test Item Value Reference Range Interpretation Comments RPR RESULT (test code = NON-REACTIVE 3501) RPR TITER (test code = 3500) NOT INDIC. TITER [id number] 00:00:00 Test Item Value Reference Range Interpretation Comments RPR RESULT (test code = NON-REACTIVE 3501) RPR TITER (test code = 3500) NOT INDIC. TITER PAP TEST, THINPREP, [id number] 00:00:00 Test Item Value Reference Range Interpretation Comments SOURCE: (test code = Cervical/Endocervical 8001) SLIDES: (test code = 1 8011) LMP: (test code = 8021) 06/04/2019 SPECIMEN ADEQUACY: (NOTE) (test code = 02893) INTERPRETATION: (test NILM/NO EPITH. code = 67245) ABNORMALITY;SEE BELOW COTTONSEED MEAT PRESSER: (test Vincent code = 8101) MARY Mccurdy(ASCP) LOCATION: (test code = (NOTE) 73165) CPT: (test code = 8140) (NOTE) PAP TEST, THINPREP, [id number] 00:00:00 Test Item Value Reference Range Interpretation Comments SOURCE: (test code = Cervical/Endocervical 8001) SLIDES: (test code = 1 8011) LMP: (test code = 8021) 06/04/2019 SPECIMEN ADEQUACY: (NOTE) (test code = 93238) INTERPRETATION: (test NILM/NO EPITH. code = 45557) ABNORMALITY;SEE BELOW C[employer]SE[employer] MEAT PRESSER: (test Vincent code = 8101) MARY Mccurdy(ASCP) LOCATION: (test code = (NOTE) 48854) CPT: (test code = 8140) (NOTE) [id number] 00:00:00 Test Item Value Reference Range Interpretation [...] = 4675) HCV INDEX (test code = 08390) 0.22 INTERPRETATION HEPATITIS A: (NOTE) (test code = 2552) INTERPRETATION HEPATITIS B: (NOTE) (test code = 98486) INTERPRETATION HEPATITIS C: (NOTE) (test code = 11834) HPV HIGH RISK WITH GENOTYPE, [id number] 00:00:00 Test Item Value Reference Range Interpretation Comments HPV HIGH RISK INTERP (test code = NEGATIVE 29744) HPV 16 (test code = 30375) NEGATIVE HPV 18 (test code = 16728) NEGATIVE HPV, HR, OTHER GENOTYPES (test code NEGATIVE = 28581) HPV HIGH RISK WITH GENOTYPE, [id number] 00:00:00 Test Item Value Reference Range Interpretation Comments HPV HIGH RISK INTERP (test code = NEGATIVE 91698) HPV 16 (test code = 94200) NEGATIVE HPV 18 (test code = 13740) NEGATIVE HPV, HR, OTHER GENOTYPES (test code NEGATIVE = 93295) GC AND CHLAMYDIA AMPLIFIED, [id number] 00:00:00 Test Item Value Reference Range Interpretation Comments GONORRHEA, TMA (test code = 66946) NEGATIVE CHLAMYDIA, TMA (test code = 71462) NEGATIVE HEPATITIS PROFILE (A,B,C)2019-06-19 00:00:00 Test Item Value Reference Range Interpretation Comments HEPATITIS A TOTAL AB (test code REACTIVE = 2725) HEPATITIS B SURF AG (test code = NON-REACTIVE 2739) HEP B CORE TOTAL AB (test code = NON-REACTIVE 9) HEPATITIS B SURFACE AB (test REACTIVE code = 2737) HEPATITIS C ANTIBODY (test code NON-REACTIVE = 4675) HCV INDEX (test code = 52546) 0.22 INTERPRETATION HEPATITIS A: (NOTE) (test code = 2552) INTERPRETATION HEPATITIS B: (NOTE) (test code = 37832) INTERPRETATION HEPATITIS C: (NOTE) (test code = 03039) HEPATITIS A IgM [REFLEX]2019-06-19 00:00:00 Test Item Value Reference Range Interpretation Comments HEPATITIS A IgM (test code = NON-REACTIVE 2727) [id number] 00:00:00 Test Item Value Reference Range Interpretation Comments RPR RESULT (test code = NON-REACTIVE 3501) RPR TITER (test code = 3500) NOT INDIC. TITER HIV AB/AG COMBO RFLX [id number] 00:00:00 Test Item Value Reference Range Interpretation Comments HIV 1/2 4TH GEN, RFLX CONF (test NON-REACTIVE code = 3514) GC AND CHLAMYDIA AMPLIFIED, [id number] 00:00:00 Test Item Value Reference Range Interpretation Comments GONORRHEA, TMA (test code = 11653) NEGATIVE CHLAMYDIA, TMA (test code = 59772) NEGATIVE GC AND CHLAMYDIA AMPLIFIED, [id number] 00:00:00 Test Item Value Reference Range Interpretation Comments GONORRHEA, TMA (test code = 01509) NEGATIVE CHLAMYDIA, TMA (test code = 21724) NEGATIVE PAP TEST, THINPREP, [id number] 00:00:00 Test Item Value Reference Range Interpretation Comments SOURCE: (test code = Cervical/Endocervical 8001) SLIDES: (test code = 1 8011) LMP: (test code = 8021) 06/04/2019 SPECIMEN ADEQUACY: (NOTE) (test code = 21562) INTERPRETATION: (test NILM/NO EPITH. code = 99597) ABNORMALITY;SEE BELOW [employer] MEAT PRESSER: (test Vincent code = 8101) MARY Mccurdy(ASCP) LOCATION: (test code = (NOTE) 53438) CPT: (test code = 8140) (NOTE) HIV AB/AG COMBO RFLX [id number] 00:00:00 Test Item Value Reference Range Interpretation Comments HIV 1/2 4TH GEN, RFLX CONF (test NON-REACTIVE code = 3514) PAP TEST, THINPREP, [id number] 00:00:00 Test Item Value Reference Range Interpretation Comments SOURCE: (test code = Cervical/Endocervical 8001) SLIDES: (test code = 1 8011) LMP: (test code = 8021) 06/04/2019 SPECIMEN ADEQUACY: (NOTE) (test code = 90804) INTERPRETATION: (test NILM/NO EPITH. code = 43368) ABNORMALITY;SEE BELOW [employer] MEAT PRESSER: (test Vincent code = 8101) MARY Mccurdy(ASCP) LOCATION: (test code = (NOTE) 54740) CPT: (test code = 8140) (NOTE) PAP TEST, THINPREP, [id number] 00:00:00 Test Item Value Reference Range Interpretation Comments SOURCE: (test code = Cervical/Endocervical 8001) SLIDES: (test code = 1 8011) LMP: (test code = 8021) 06/04/2019 SPECIMEN ADEQUACY: (NOTE) (test code = 02636) INTERPRETATION: (test NILM/NO EPITH. code = 55569) ABNORMALITY;SEE BELOW C[employer]SE[employer] MEAT PRESSER: (test Vincent code = 8101) MARY Mccurdy(ASCP) LOCATION: (test code = (NOTE) 73156) CPT: (test code = 8140) (NOTE) [id number] 00:00:00 Test Item Value Reference Range Interpretation Comments RPR RESULT (test code = NON-REACTIVE 3501) RPR TITER (test code = 3500) NOT INDIC. TITER [id number] 00:00:00 Test Item Value Reference Range Interpretation Comments RPR RESULT (test code = NON-REACTIVE 3501) RPR TITER (test code = 3500) NOT INDIC. TITER [id number] 00:00:00 Test Item Value Reference Range Interpretation Comments RPR RESULT (test code = NON-REACTIVE 3501) RPR TITER (test code = 3500) NOT INDIC. TITER [id number] 00:00:00 Test Item Value Reference Range Interpretation [...] = 4675) HCV INDEX (test code = 53250) 0.22 INTERPRETATION HEPATITIS A: (NOTE) (test code = 2552) INTERPRETATION HEPATITIS B: (NOTE) (test code = 12969) INTERPRETATION HEPATITIS C: (NOTE) (test code = 94050) HEPATITIS PROFILE (A,B,C)2019-06-19 00:00:00 Test Item Value Reference Range Interpretation Comments HEPATITIS A TOTAL AB (test code REACTIVE = 2725) HEPATITIS B SURF AG (test code = NON-REACTIVE 2739) HEP B CORE TOTAL AB (test code = NON-REACTIVE 2729) HEPATITIS B SURFACE AB (test REACTIVE code = 2737) HEPATITIS C ANTIBODY (test code NON-REACTIVE = 4675) HCV INDEX (test code = 77274) 0.22 INTERPRETATION HEPATITIS A: (NOTE) (test code = 2552) INTERPRETATION HEPATITIS B: (NOTE) (test code = 07714) INTERPRETATION HEPATITIS C: (NOTE) (test code = 43899) HPV HIGH RISK WITH GENOTYPE, [id number] 00:00:00 Test Item Value Reference Range Interpretation Comments HPV HIGH RISK INTERP (test code = NEGATIVE 81947) HPV 16 (test code = 42776) NEGATIVE HPV 18 (test code = 09408) NEGATIVE HPV, HR, OTHER GENOTYPES (test code NEGATIVE = 43345) HPV HIGH RISK WITH GENOTYPE, [id number] 00:00:00 Test Item Value Reference Range Interpretation Comments HPV HIGH RISK INTERP (test code = NEGATIVE 39882) HPV 16 (test code = 09788) NEGATIVE HPV 18 (test code = 49593) NEGATIVE HPV, HR, OTHER GENOTYPES (test code NEGATIVE = 89756) HPV HIGH RISK WITH GENOTYPE, [id number] 00:00:00 Test Item Value Reference Range Interpretation Comments HPV HIGH RISK INTERP (test code = NEGATIVE 71973) HPV 16 (test code = 00953) NEGATIVE HPV 18 (test code = 77734) NEGATIVE HPV, HR, OTHER GENOTYPES (test code NEGATIVE = 46844) HEPATITIS A IgM [REFLEX]2019-06-19 00:00:00 Test Item Value Reference Range Interpretation Comments HEPATITIS A IgM (test code = NON-REACTIVE 8) HEPATITIS PROFILE (A,B,C)2019-06-19 00:00:00 Test Item Value Reference Range Interpretation Comments HEPATITIS A TOTAL AB (test code REACTIVE = 2725) HEPATITIS B SURF AG (test code = NON-REACTIVE 2739) HEP B CORE TOTAL AB (test code = NON-REACTIVE 2729) HEPATITIS B SURFACE AB (test REACTIVE code = 2737) HEPATITIS C ANTIBODY (test code NON-REACTIVE = 4675) HCV INDEX (test code = 63452) 0.22 INTERPRETATION HEPATITIS A: (NOTE) (test code = 2552) INTERPRETATION HEPATITIS B: (NOTE) (test code = 28136) INTERPRETATION HEPATITIS C: (NOTE) (test code = 21186) HEPATITIS A IgM [REFLEX]2019-06-19 00:00:00 Test Item Value Reference Range Interpretation Comments HEPATITIS A IgM (test code = NON-REACTIVE 2727) HIV AB/AG COMBO RFLX [id number] 00:00:00 Test Item Value Reference Range Interpretation Comments HIV 1/2 4TH GEN, RFLX CONF (test NON-REACTIVE code = 3514) GC AND CHLAMYDIA AMPLIFIED, [id number] 00:00:00 Test Item Value Reference Range Interpretation Comments GONORRHEA, TMA (test code = 10572) NEGATIVE CHLAMYDIA, TMA (test code = 82112) NEGATIVE HIV AB/AG COMBO RFLX [id number] 00:00:00 Test Item Value Reference Range Interpretation Comments HIV 1/2 4TH GEN, RFLX CONF (test NON-REACTIVE code = 3514) GC AND CHLAMYDIA AMPLIFIED, [id number] 00:00:00 Test Item Value Reference Range Interpretation Comments GONORRHEA, TMA (test code = 65486) NEGATIVE CHLAMYDIA, TMA (test code = 14877) NEGATIVE [id number] 00:00:00 Test Item Value Reference Range Interpretation Comments RPR RESULT (test code = NON-REACTIVE 3501) RPR TITER (test code = 3500) NOT INDIC. TITER PAP TEST, THINPREP, [id number] 00:00:00 Test Item Value Reference Range Interpretation Comments SOURCE: (test code = Cervical/Endocervical 8001) SLIDES: (test code = 1 8011) LMP: (test code = 8021) 06/04/2019 SPECIMEN ADEQUACY: (NOTE) (test code = 86679) INTERPRETATION: (test NILM/NO EPITH. code = 47982) ABNORMALITY;SEE BELOW [employer] MEAT PRESSER: (test Vincent code = 8101) MARY Mccurdy(ASCP) LOCATION: (test code = (NOTE) 07525) CPT: (test code = 8140) (NOTE) PAP TEST, THINPREP, [id number] 00:00:00 Test Item Value Reference Range Interpretation Comments SOURCE: (test code = Cervical/Endocervical 8001) SLIDES: (test code = 1 8011) LMP: (test code = 8021) 06/04/2019 SPECIMEN ADEQUACY: (NOTE) (test code = 19465) INTERPRETATION: (test NILM/NO EPITH. code = 98426) ABNORMALITY;SEE BELOW C[employer]SE[employer] MEAT PRESSER: (test Vincent code = 8101) MARY Mccurdy(ASCP) LOCATION: (test code = (NOTE) 63880) CPT: (test code = 8140) (NOTE) [id number] 00:00:00 Test Item Value Reference Range Interpretation Comments RPR RESULT (test code = NON-REACTIVE 3501) RPR TITER (test code = 3500) NOT INDIC. TITER [id number] 00:00:00 Test Item Value Reference Range Interpretation Comments RPR RESULT (test code = NON-REACTIVE 3501) RPR TITER (test code = 3500) NOT INDIC. TITER HEPATITIS PROFILE (A,B,C)2019-06-19 00:00:00 Test Item Value Reference Range Interpretation Comments HEPATITIS A TOTAL AB (test code REACTIVE = 2725) HEPATITIS B SURF AG (test code = NON-REACTIVE 9) HEP B CORE TOTAL AB (test code = NON-REACTIVE 9) HEPATITIS B SURFACE AB (test REACTIVE code = 2737) HEPATITIS C ANTIBODY (test code NON-REACTIVE = 4675) HCV INDEX (test code = 89763) 0.22 INTERPRETATION HEPATITIS A: (NOTE) (test code = 2552) INTERPRETATION HEPATITIS B: (NOTE) (test code = 48266) INTERPRETATION HEPATITIS C: (NOTE) (test code = 62219) HEPATITIS PROFILE (A,B,C)2019-06-19 00:00:00 Test Item Value Reference Range Interpretation Comments HEPATITIS A TOTAL AB (test code REACTIVE = 2725) HEPATITIS B SURF AG (test code = NON-REACTIVE 2739) HEP B CORE TOTAL AB (test code = NON-REACTIVE 2729) HEPATITIS B SURFACE AB (test REACTIVE code = 2737) HEPATITIS C ANTIBODY (test code NON-REACTIVE = 4675) HCV INDEX (test code = 21131) 0.22 INTERPRETATION HEPATITIS A: (NOTE) (test code = 2552) INTERPRETATION HEPATITIS B: (NOTE) (test code = 87673) INTERPRETATION HEPATITIS C: (NOTE) (test code = 02493) HPV HIGH RISK WITH GENOTYPE, [id number] 00:00:00 Test Item Value Reference Range Interpretation Comments HPV HIGH RISK INTERP (test code = NEGATIVE 12573) HPV 16 (test code = 46235) NEGATIVE HPV 18 (test code = 78816) NEGATIVE HPV, HR, OTHER GENOTYPES (test code NEGATIVE = 41686) HPV HIGH RISK WITH GENOTYPE, [id number] 00:00:00 Test Item Value Reference Range Interpretation Comments HPV HIGH RISK INTERP (test code = NEGATIVE 74138) HPV 16 (test code = 26529) NEGATIVE HPV 18 (test code = 65215) NEGATIVE HPV, HR, OTHER GENOTYPES (test code NEGATIVE = 15940) HEPATITIS A IgM [REFLEX]2019-06-19 00:00:00 Test Item Value Reference Range Interpretation Comments HEPATITIS A IgM (test code = NON-REACTIVE 2728) GC AND CHLAMYDIA AMPLIFIED, [id number] 00:00:00 Test Item Value Reference Range Interpretation Comments GONORRHEA, TMA (test code = 83428) NEGATIVE CHLAMYDIA, TMA (test code = 54715) NEGATIVE HIV AB/AG COMBO RFLX [id number] 00:00:00 Test Item Value Reference Range Interpretation Comments HIV 1/2 4TH GEN, RFLX CONF (test NON-REACTIVE code = 3514) GC AND CHLAMYDIA AMPLIFIED, [id number] 00:00:00 Test Item Value Reference Range Interpretation Comments GONORRHEA, TMA (test code = 53560) NEGATIVE CHLAMYDIA, TMA (test code = 61626) NEGATIVE HIV AB/AG COMBO RFLX [id number] 00:00:00 Test Item Value Reference Range Interpretation Comments HIV 1/2 4TH GEN, RFLX CONF (test NON-REACTIVE code = 3514) PAP TEST, THINPREP, [id number] 00:00:00 Test Item Value Reference Range Interpretation Comments SOURCE: (test code = Cervical/Endocervical 8001) SLIDES: (test code = 1 8011) LMP: (test code = 8021) 06/04/2019 SPECIMEN ADEQUACY: (NOTE) (test code = 17132) INTERPRETATION: (test NILM/NO EPITH. code = 47398) ABNORMALITY;SEE BELOW [employer] MEAT PRESSER: (test Vincent code = 8101) MARY Mccurdy(ASCP) LOCATION: (test code = (NOTE) 25062) CPT: (test code = 8140) (NOTE) [id number] 00:00:00 Test Item Value Reference Range Interpretation Comments RPR RESULT (test code = NON-REACTIVE 3501) RPR TITER (test code = 3500) NOT INDIC. TITER [id number] 00:00:00 Test Item Value Reference Range Interpretation Comments RPR RESULT (test code = NON-REACTIVE 3501) RPR TITER (test code = 3500) NOT INDIC. TITER PAP TEST, THINPREP, [id number] 00:00:00 Test Item Value Reference Range Interpretation Comments SOURCE: (test code = Cervical/Endocervical 8001) SLIDES: (test code = 1 8011) LMP: (test code = 8021) 06/04/2019 SPECIMEN ADEQUACY: (NOTE) (test code = 37161) INTERPRETATION: (test NILM/NO EPITH. code = 44838) ABNORMALITY;SEE BELOW C[employer]SE[employer] MEAT PRESSER: (test Vincent code = 8101) MARY Mccurdy(ASCP) LOCATION: (test code = (NOTE) 00133) CPT: (test code = 8140) (NOTE) [id number] 00:00:00 Test Item Value Reference Range Interpretation Comments RPR RESULT (test code = NON-REACTIVE 3501) RPR TITER (test code = 3500) NOT INDIC. TITER HPV HIGH RISK WITH GENOTYPE, [id number] 00:00:00 Test Item Value Reference Range Interpretation Comments HPV HIGH RISK INTERP (test code = NEGATIVE 19781) HPV 16 (test code = 52136) NEGATIVE HPV 18 (test code = 70566) NEGATIVE HPV, HR, OTHER GENOTYPES (test code NEGATIVE = 79898) HEPATITIS PROFILE (A,B,C)2019-06-19 00:00:00 Test Item Value Reference Range Interpretation Comments HEPATITIS A TOTAL AB (test code REACTIVE = 2725) HEPATITIS B SURF AG (test code = NON-REACTIVE 2739) HEP B CORE TOTAL AB (test code = NON-REACTIVE 2729) HEPATITIS B SURFACE AB (test REACTIVE code = 2737) HEPATITIS C ANTIBODY (test code NON-REACTIVE = 4675) HCV INDEX (test code = 96990) 0.22 INTERPRETATION HEPATITIS A: (NOTE) (test code = 2552) INTERPRETATION HEPATITIS B: (NOTE) (test code = 29426) INTERPRETATION HEPATITIS C: (NOTE) (test code = 64422) HPV HIGH RISK WITH GENOTYPE, [id number] 00:00:00 Test Item Value Reference Range Interpretation Comments HPV HIGH RISK INTERP (test code = NEGATIVE 05849) HPV 16 (test code = 67499) NEGATIVE HPV 18 (test code = 76275) NEGATIVE HPV, HR, OTHER GENOTYPES (test code NEGATIVE = 35518) HEPATITIS PROFILE (A,B,C)2019-06-19 00:00:00 Test Item Value Reference Range Interpretation Comments HEPATITIS A TOTAL AB (test code REACTIVE = 2725) HEPATITIS B SURF AG (test code = NON-REACTIVE 2739) HEP B CORE TOTAL AB (test code = NON-REACTIVE 2729) HEPATITIS B SURFACE AB (test REACTIVE code = 2737) HEPATITIS C ANTIBODY (test code NON-REACTIVE = 4675) HCV INDEX (test code = 87965) 0.22 INTERPRETATION HEPATITIS A: (NOTE) (test code = 2552) INTERPRETATION HEPATITIS B: (NOTE) (test code = 78047) INTERPRETATION HEPATITIS C: (NOTE) (test code = 95969) HEPATITIS A IgM [REFLEX]2019-06-19 00:00:00 Test Item Value Reference Range Interpretation Comments HEPATITIS A IgM (test code = NON-REACTIVE 2728) HIV AB/AG COMBO RFLX [id number] 00:00:00 Test Item Value Reference Range Interpretation Comments HIV 1/2 4TH GEN, RFLX CONF (test NON-REACTIVE code = 3514) HIV AB/AG COMBO RFLX [id number] 00:00:00 Test Item Value Reference Range Interpretation Comments HIV 1/2 4TH GEN, RFLX CONF (test NON-REACTIVE code = 3514) HIV AB/AG COMBO RFLX [id number] 00:00:00 Test Item Value Reference Range Interpretation Comments HIV 1/2 4TH GEN, RFLX CONF (test NON-REACTIVE code = 3514) GC AND CHLAMYDIA AMPLIFIED, [id number] 00:00:00 Test Item Value Reference Range Interpretation Comments GONORRHEA, TMA (test code = 75783) NEGATIVE CHLAMYDIA, TMA (test code = 60901) NEGATIVE COMPREHENSIVE METABOLIC [id number] 00:00:00 Test Item Value Reference Range Interpretation Comments GLUCOSE (test code = 2217) 97 MG/DL BUN (test code = 2208) 10 MG/DL CREATININE (test code = 2214) 0.66 MG/DL eGFR AMER. (test code 134 ML/MIN/1.73 = 26846) eGFR NON- AMER. (test 115 ML/MIN/1.73 code = 31541) CALC BUN/CREAT (test code = 15 RATIO [...] code = 2219) 50 U/L COMPREHENSIVE METABOLIC [id number] 00:00:00 Test Item Value Reference Range Interpretation Comments GLUCOSE (test code = 2217) 97 MG/DL BUN (test code = 2208) 10 MG/DL CREATININE (test code = 2214) 0.66 MG/DL eGFR AMER. (test code 134 ML/MIN/1.73 = 29068) eGFR NON- AMER. (test 115 ML/MIN/1.73 code = 39355) CALC BUN/CREAT (test code = 15 RATIO [...] code = 2219) 50 U/L COMPREHENSIVE METABOLIC [id number] 00:00:00 Test Item Value Reference Range Interpretation Comments GLUCOSE (test code = 2217) 97 MG/DL BUN (test code = 2208) 10 MG/DL CREATININE (test code = 2214) 0.66 MG/DL eGFR AMER. (test code 134 ML/MIN/1.73 = 35517) eGFR NON- AMER. (test 115 ML/MIN/1.73 code = 62019) CALC BUN/CREAT (test code = 15 RATIO [...] code = 2219) 50 U/L COMPREHENSIVE METABOLIC [id number] 00:00:00 Test Item Value Reference Range Interpretation Comments GLUCOSE (test code = 2217) 97 MG/DL BUN (test code = 2208) 10 MG/DL CREATININE (test code = 2214) 0.66 MG/DL eGFR AMER. (test code 134 ML/MIN/1.73 = 73063) eGFR NON- AMER. (test 115 ML/MIN/1.73 code = 98483) CALC BUN/CREAT (test code = 15 RATIO [...] code = 2219) 50 U/L COMPREHENSIVE METABOLIC [id number] 00:00:00 Test Item Value Reference Range Interpretation Comments GLUCOSE (test code = 2217) 97 MG/DL BUN (test code = 2208) 10 MG/DL CREATININE (test code = 2214) 0.66 MG/DL eGFR AMER. (test code 134 ML/MIN/1.73 = 50316) eGFR NON- AMER. (test 115 ML/MIN/1.73 code = 61668) CALC BUN/CREAT (test code = 15 RATIO 2235) SODIUM (test code = 2231) 140 MEQ/L POTASSIUM (test code = 2228) 4.0 MEQ/L CHLORIDE (test code = 2215) 100 MEQ/L CARBON DIOXIDE (test code = 29 MEQ/L 2205) CALCIUM (test code = 2209) 9.3 MG/DL PROTEIN, TOTAL (test code = 7.0 G/DL 2229) ALBUMIN (test code = 2201) 4.3 G/DL CALC GLOBULIN (test code = 2.7 G/DL 2240) CALC A/G RATIO (test code = 1.6 RATIO 2234) BILIRUBIN, TOTAL (test code = 0.4 MG/DL 220) ALKALINE PHOSPHATASE (test 65 U/L code = 2204) AST (test code = 2218) 129 U/L ALT (test code = 2219) 50 U/L COMPREHENSIVE METABOLIC [id number] 00:00:00 Test Item Value Reference Range Interpretation Comments GLUCOSE (test code = 2217) 97 MG/DL BUN (test code = 2208) 10 MG/DL CREATININE (test code = 2214) 0.66 MG/DL eGFR AMER. (test code 134 ML/MIN/1.73 = 17223) eGFR NON- AMER. (test 115 ML/MIN/1.73 code = 52678) CALC BUN/CREAT (test code = 15 RATIO [...] code = 2219) 50 U/L COMPREHENSIVE METABOLIC [id number] 00:00:00 Test Item Value Reference Range Interpretation Comments GLUCOSE (test code = 2217) 97 MG/DL BUN (test code = 2208) 10 MG/DL CREATININE (test code = 2214) 0.66 MG/DL eGFR AMER. (test code 134 ML/MIN/1.73 = 11055) eGFR NON- AMER. (test 115 ML/MIN/1.73 code = 80948) CALC BUN/CREAT (test code = 15 RATIO [...] code = 2219) 50 U/L COMPREHENSIVE METABOLIC [id number] 00:00:00 Test Item Value Reference Range Interpretation Comments GLUCOSE (test code = 2217) 97 MG/DL BUN (test code = 2208) 10 MG/DL CREATININE (test code = 2214) 0.66 MG/DL eGFR AMER. (test code 134 ML/MIN/1.73 = 29296) eGFR NON- AMER. (test 115 ML/MIN/1.73 code = 54146) CALC BUN/CREAT (test code = 15 RATIO [...] code = 2219) 50 U/L COMPREHENSIVE METABOLIC [id number] 00:00:00 Test Item Value Reference Range Interpretation Comments GLUCOSE (test code = 2217) 97 MG/DL BUN (test code = 2208) 10 MG/DL CREATININE (test code = 2214) 0.66 MG/DL eGFR AMER. (test code 134 ML/MIN/1.73 = 13034) eGFR NON- AMER. (test 115 ML/MIN/1.73 code = 75898) CALC BUN/CREAT (test code = 15 RATIO [...] ALT (test code = 2219) 50 U/L LIPID PANEL WITH REFLEX TO DIRECT LDL [ADDED]2019-03-06 00:00:00 Test Item Value Reference Range Interpretation Comments CHOLESTEROL, TOTAL (test code 193 mg/dL = 2093-3) HDL CHOLESTEROL (test code = 65 mg/dL 5-9) TRIGLYCERIDES (test code = 102 mg/dL 2571-8) LDL-CHOLESTEROL (test code = 108 mg/dL(calc) 83750-9) CHOL/HDLC RATIO (test code = 3.0 (calc) 9830-1) NON HDL CHOLESTEROL (test 128 mg/dL(calc) code = 97072-5) NT PROBNP [ADDED]2019-03-06 00:00:00 Test Item Value Reference Range Interpretation Comments NT PROBNP (test code = 53942-9) 78 pg/mL VITAMIN B12 [ADDED]2019-03-06 00:00:00 Test Item Value Reference Range Interpretation Comments VITAMIN B12 (test code = 2132-9) 637 pg/mL VITAMIN D,25-OH,TOTAL,IA [ADDED]2019-03-06 00:00:00 Test Item Value Reference Range Interpretation Comments VITAMIN D,25-OH,TOTAL,IA (test code 38 ng/mL = 1988-) LIPID PANEL WITH REFLEX TO DIRECT LDL [ADDED]2019-03-06 00:00:00 Test Item Value Reference Range Interpretation Comments CHOLESTEROL, TOTAL (test code 193 mg/dL = 2093-3) HDL CHOLESTEROL (test code = 65 mg/dL 2085-9) TRIGLYCERIDES (test code = 102 mg/dL 2571-8) LDL-CHOLESTEROL (test code = 108 mg/dL(calc) 13506-1) CHOL/HDLC RATIO (test code = 3.0 (calc) 9830-1) NON HDL CHOLESTEROL (test 128 mg/dL(calc) code = 79688-3) LIPID PANEL WITH REFLEX TO DIRECT LDL [ADDED]2019-03-06 00:00:00 Test Item Value Reference Range Interpretation Comments CHOLESTEROL, TOTAL (test code 193 mg/dL = 2093-3) HDL CHOLESTEROL (test code = 65 mg/dL 2085-9) TRIGLYCERIDES (test code = 102 mg/dL 2571-8) LDL-CHOLESTEROL (test code = 108 mg/dL(calc) 81413-1) CHOL/HDLC RATIO (test code = 3.0 (calc) 9830-1) NON HDL CHOLESTEROL (test 128 mg/dL(calc) code = 66044-7) NT PROBNP [ADDED]2019-03-06 00:00:00 Test Item Value Reference Range Interpretation Comments NT PROBNP (test code = 43549-8) 78 pg/mL NT PROBNP [ADDED]2019-03-06 00:00:00 Test Item Value Reference Range Interpretation Comments NT PROBNP (test code = 61578-6) 78 pg/mL VITAMIN B12 [ADDED]2019-03-06 00:00:00 Test Item Value Reference Range Interpretation Comments VITAMIN B12 (test code = 2132-9) 637 pg/mL VITAMIN D,25-OH,TOTAL,IA [ADDED]2019-03-06 00:00:00 Test Item Value Reference Range Interpretation Comments VITAMIN D,25-OH,TOTAL,IA (test code 38 ng/mL = 1988-) VITAMIN B12 [ADDED]2019-03-06 00:00:00 Test Item Value Reference Range Interpretation Comments VITAMIN B12 (test code = 2132-9) 637 pg/mL VITAMIN D,25-OH,TOTAL,IA [ADDED]2019-03-06 00:00:00 Test Item Value Reference Range Interpretation Comments VITAMIN D,25-OH,TOTAL,IA (test code 38 ng/mL = 1988-3) LIPID PANEL WITH REFLEX TO DIRECT LDL [ADDED]2019-03-06 00:00:00 Test Item Value Reference Range Interpretation Comments CHOLESTEROL, TOTAL (test code 193 mg/dL = 2093-3) HDL CHOLESTEROL (test code = 65 mg/dL 5-9) TRIGLYCERIDES (test code = 102 mg/dL 2571-8) LDL-CHOLESTEROL (test code = 108 mg/dL(calc) 54753-7) CHOL/HDLC RATIO (test code = 3.0 (calc) 9830-1) NON HDL CHOLESTEROL (test 128 mg/dL(calc) code = 90864-7) NT PROBNP [ADDED]2019-03-06 00:00:00 Test Item Value Reference Range Interpretation Comments NT PROBNP (test code = 15880-2) 78 pg/mL VITAMIN B12 [ADDED]2019-03-06 00:00:00 Test Item Value Reference Range Interpretation Comments VITAMIN B12 (test code = 2132-9) 637 pg/mL VITAMIN D,25-OH,TOTAL,IA [ADDED]2019-03-06 00:00:00 Test Item Value Reference Range Interpretation Comments VITAMIN D,25-OH,TOTAL,IA (test code 38 ng/mL = 1988-3) LIPID PANEL WITH REFLEX TO DIRECT LDL [ADDED]2019-03-06 00:00:00 Test Item Value Reference Range Interpretation Comments CHOLESTEROL, TOTAL (test code 193 mg/dL = 2093-3) HDL CHOLESTEROL (test code = 65 mg/dL 5-9) TRIGLYCERIDES (test code = 102 mg/dL 2571-8) LDL-CHOLESTEROL (test code = 108 mg/dL(calc) 93552-8) CHOL/HDLC RATIO (test code = 3.0 (calc) 9830-1) NON HDL CHOLESTEROL (test 128 mg/dL(calc) code = 83305-8) NT PROBNP [ADDED]2019-03-06 00:00:00 Test Item Value Reference Range Interpretation Comments NT PROBNP (test code = 71170-2) 78 pg/mL VITAMIN B12 [ADDED]2019-03-06 00:00:00 Test Item Value Reference Range Interpretation Comments VITAMIN B12 (test code = 2132-9) 637 pg/mL VITAMIN D,25-OH,TOTAL,IA [ADDED]2019-03-06 00:00:00 Test Item Value Reference Range Interpretation Comments VITAMIN D,25-OH,TOTAL,IA (test code 38 ng/mL = 1989-3) VAGINAL PATHOGENS DNA [id number] 00:00:00 Test Item Value Reference Range Interpretation Comments VALERIE SPECIES (test code = 73568) NEGATIVE G. VAGINALIS (test code = 50680) NEGATIVE T. VAGINALIS (test code = 19706) NEGATIVE VAGINAL PATHOGENS DNA [id number] 00:00:00 Test Item Value Reference Range Interpretation Comments VALERIE SPECIES (test code = 88121) NEGATIVE G. VAGINALIS (test code = 43400) NEGATIVE T. VAGINALIS (test code = 04094) NEGATIVE VAGINAL PATHOGENS DNA [id number] 00:00:00 Test Item Value Reference Range Interpretation Comments VALERIE SPECIES (test code = 18514) NEGATIVE G. VAGINALIS (test code = 41741) NEGATIVE T. VAGINALIS (test code = 57913) NEGATIVE VAGINAL PATHOGENS DNA [id number] 00:00:00 Test Item Value Reference Range Interpretation Comments VALERIE SPECIES (test code = 02195) NEGATIVE G. VAGINALIS (test code = 37203) NEGATIVE T. VAGINALIS (test code = 01851) NEGATIVE VAGINAL PATHOGENS DNA [id number] 00:00:00 Test Item Value Reference Range Interpretation Comments VALERIE SPECIES (test code = 44869) NEGATIVE G. VAGINALIS (test code = 78233) NEGATIVE T. VAGINALIS (test code = 95552) NEGATIVE VAGINAL PATHOGENS DNA [id number] 00:00:00 Test Item Value Reference Range Interpretation Comments VALERIE SPECIES (test code = 96055) NEGATIVE G. VAGINALIS (test code = 70672) NEGATIVE T. VAGINALIS (test code = 90427) NEGATIVE VAGINAL PATHOGENS DNA [id number] 00:00:00 Test Item Value Reference Range Interpretation Comments VALERIE SPECIES (test code = 02374) NEGATIVE G. VAGINALIS (test code = 75062) NEGATIVE T. VAGINALIS (test code = 25666) NEGATIVE VAGINAL PATHOGENS DNA [id number] 00:00:00 Test Item Value Reference Range Interpretation Comments VALERIE SPECIES (test code = 22455) NEGATIVE G. VAGINALIS (test code = 66891) NEGATIVE T. VAGINALIS (test code = 79498) NEGATIVE VAGINAL PATHOGENS DNA [id number] 00:00:00 Test Item Value Reference Range Interpretation Comments VALERIE SPECIES (test code = ) NEGATIVE G. VAGINALIS (test code = ) NEGATIVE T. VAGINALIS (test code = ) NEGATIVE CULTURE, [id number] 00:00:00 Test Item Value Reference Range Interpretation Comments CULTURE, URINE (test SPECIMEN NUMBER: code = 27874) [id number] CULTURE, [id number] 00:00:00 Test Item Value Reference Range Interpretation Comments CULTURE, URINE (test SPECIMEN NUMBER: code = 27435) [id number] GC AND CHLAMYDIA, AMPLIFIED, [id number] 00:00:00 Test Item Value Reference Range Interpretation Comments GONORRHEA, TMA (test code = 08062) NEGATIVE CHLAMYDIA, TMA (test code = 89079) NEGATIVE GC AND CHLAMYDIA, AMPLIFIED, [id number] 00:00:00 Test Item Value Reference Range Interpretation Comments GONORRHEA, TMA (test code = 79536) NEGATIVE CHLAMYDIA, TMA (test code = 47839) NEGATIVE CULTURE, [id number] 00:00:00 Test Item Value Reference Range Interpretation Comments CULTURE, URINE (test SPECIMEN NUMBER: code = 16376) [id number] CULTURE, [id number] 00:00:00 Test Item Value Reference Range Interpretation Comments CULTURE, URINE (test SPECIMEN NUMBER: code = 99343) [id number] CULTURE, [id number] 00:00:00 Test Item Value Reference Range Interpretation Comments CULTURE, URINE (test SPECIMEN NUMBER: code = 57894) [id number] GC AND CHLAMYDIA, AMPLIFIED, [id number] 00:00:00 Test Item Value Reference Range Interpretation Comments GONORRHEA, TMA (test code = 19022) NEGATIVE CHLAMYDIA, TMA (test code = 34133) NEGATIVE GC AND CHLAMYDIA, AMPLIFIED, [id number] 00:00:00 Test Item Value Reference Range Interpretation Comments GONORRHEA, TMA (test code = 45684) NEGATIVE CHLAMYDIA, TMA (test code = 40218) NEGATIVE CULTURE, [id number] 00:00:00 Test Item Value Reference Range Interpretation Comments CULTURE, URINE (test SPECIMEN NUMBER: code = 95485) [id number] CULTURE, [id number] 00:00:00 Test Item Value Reference Range Interpretation Comments CULTURE, URINE (test SPECIMEN NUMBER: code = 79066) [id number] GC AND CHLAMYDIA, AMPLIFIED, [id number] 00:00:00 Test Item Value Reference Range Interpretation Comments GONORRHEA, TMA (test code = 82853) NEGATIVE CHLAMYDIA, TMA (test code = 69608) NEGATIVE GC AND CHLAMYDIA, AMPLIFIED, [id number] 00:00:00 Test Item Value Reference Range Interpretation Comments GONORRHEA, TMA (test code = 66651) NEGATIVE CHLAMYDIA, TMA (test code = 96801) NEGATIVE CULTURE, [id number] 00:00:00 Test Item Value Reference Range Interpretation Comments CULTURE, URINE (test SPECIMEN NUMBER: code = 12811) [id number] CULTURE, [id number] 00:00:00 Test Item Value Reference Range Interpretation Comments CULTURE, URINE (test SPECIMEN NUMBER: code = 41784) [id number] GC AND CHLAMYDIA, AMPLIFIED, [id number] 00:00:00 Test Item Value Reference Range Interpretation Comments GONORRHEA, TMA (test code = 64903) NEGATIVE CHLAMYDIA, TMA (test code = 72956) NEGATIVE GC AND CHLAMYDIA, AMPLIFIED, [id number] 00:00:00 Test Item Value Reference Range Interpretation Comments GONORRHEA, TMA (test code = 66102) NEGATIVE CHLAMYDIA, TMA (test code = 10092) NEGATIVE GC AND CHLAMYDIA, AMPLIFIED, [id number] 00:00:00 Test Item Value Reference Range Interpretation Comments GONORRHEA, TMA (test code = 80354) NEGATIVE CHLAMYDIA, TMA (test code = 98168) NEGATIVE BV/VAGINITIS PANEL DNA [id number] 00:00:00 Test Item Value Reference Range Interpretation Comments TRICHOMONAS: (test code = NOT DETECTED 6568-0) GARDNERELLA: (test code = NOT DETECTED 6410-5) VALERIE: (test code = 49868-0) DETECTED BV/VAGINITIS PANEL DNA [id number] 00:00:00 Test Item Value Reference Range Interpretation Comments TRICHOMONAS: (test code = NOT DETECTED 6568-0) GARDNERELLA: (test code = NOT DETECTED 6410-5) VALERIE: (test code = 21697-6) DETECTED BV/VAGINITIS PANEL DNA [id number] 00:00:00 Test Item Value Reference Range Interpretation Comments TRICHOMONAS: (test code = NOT DETECTED 6568-0) GARDNERELLA: (test code = NOT DETECTED 6410-5) VALERIE: (test code = 82543-9) DETECTED BV/VAGINITIS PANEL DNA [id number] 00:00:00 Test Item Value Reference Range Interpretation Comments TRICHOMONAS: (test code = NOT DETECTED 6568-0) GARDNERELLA: (test code = NOT DETECTED 6410-5) VALERIE: (test code = 51570-4) DETECTED BV/VAGINITIS PANEL DNA [id number] 00:00:00 Test Item Value Reference Range Interpretation Comments TRICHOMONAS: (test code = NOT DETECTED 6568-0) GARDNERELLA: (test code = NOT DETECTED 6410-5) VALERIE: (test code = 70455-6) DETECTED HEMOGLOBIN [id number] 00:00:00 Test Item Value Reference Range Interpretation Comments HEMOGLOBIN A1c (test code = 38494) 5.2 % HEMOGLOBIN [id number] 00:00:00 Test Item Value Reference Range Interpretation Comments HEMOGLOBIN A1c (test code = 15254) 5.2 % HEMOGLOBIN [id number] 00:00:00 Test Item Value Reference Range Interpretation Comments HEMOGLOBIN A1c (test code = 07025) 5.2 % COMPREHENSIVE METABOLIC [id number] 00:00:00 Test Item Value Reference Range Interpretation Comments GLUCOSE (test code = 2217) 93 MG/DL BUN (test code = 2208) 8 MG/DL CREATININE (test code = 2214) 0.62 MG/DL eGFR AMER. (test code 136 ML/MIN/1.73 = 49207) eGFR NON- AMER. (test 118 ML/MIN/1.73 code = 68061) CALC BUN/CREAT (test code = 13 RATIO [...] code = 2219) 29 U/L COMPREHENSIVE METABOLIC [id number] 00:00:00 Test Item Value Reference Range Interpretation Comments GLUCOSE (test code = 2217) 93 MG/DL BUN (test code = 2208) 8 MG/DL CREATININE (test code = 2214) 0.62 MG/DL eGFR AMER. (test code 136 ML/MIN/1.73 = 04838) eGFR NON- AMER. (test 118 ML/MIN/1.73 code = 44758) CALC BUN/CREAT (test code = 13 RATIO [...] ALT (test code = 2219) 29 U/L [id number] 00:00:00 Test Item Value Reference Range Interpretation Comments TSH, THIRD GENERATION (test code 1.830 UIU/ML = 2821) [id number] 00:00:00 Test Item Value Reference Range Interpretation Comments TSH, THIRD GENERATION (test code 1.830 UIU/ML = 2821) CBC W/AUTO [id number] 00:00:00 Test Item Value Reference Range Interpretation [...] COUNT (test code = 1015) 265 K/UL [id number] 00:00:00 Test Item Value Reference Range Interpretation Comments TSH, THIRD GENERATION (test code 1.830 UIU/ML = 2821) VITAMIN [id number] 00:00:00 Test Item Value Reference Range Interpretation Comments VITAMIN B-12 (test code = 2840) 1708 PG/ML VITAMIN [id number] 00:00:00 Test Item Value Reference Range Interpretation Comments VITAMIN B-12 (test code = 2840) 1708 PG/ML VITAMIN [id number] 00:00:00 Test Item Value Reference Range Interpretation Comments VITAMIN B-12 (test code = 2840) 1708 PG/ML VITAMIN D, 25 [id number] 00:00:00 Test Item Value Reference Range Interpretation Comments VITAMIN D, 25 OH (test code = 4958) 11 NG/ML VITAMIN D, 25 [id number] 00:00:00 Test Item Value Reference Range Interpretation Comments VITAMIN D, 25 OH (test code = 4958) 11 NG/ML CBC W/AUTO [id number] 00:00:00 Test Item Value Reference Range Interpretation [...] (test code = 1015) 265 K/UL HEMOGLOBIN [id number] 00:00:00 Test Item Value Reference Range Interpretation Comments HEMOGLOBIN A1c (test code = 66512) 5.2 % CBC W/AUTO [id number] 00:00:00 Test Item Value Reference Range Interpretation [...] code = 1015) 265 K/UL CBC W/AUTO [id number] 00:00:00 Test Item Value Reference Range Interpretation [...] code = 1015) 265 K/UL CBC W/AUTO [id number] 00:00:00 Test Item Value Reference Range Interpretation [...] (test code = 1015) 265 K/UL HEMOGLOBIN [id number] 00:00:00 Test Item Value Reference Range Interpretation Comments HEMOGLOBIN A1c (test code = 59239) 5.2 % HEMOGLOBIN [id number] 00:00:00 Test Item Value Reference Range Interpretation Comments HEMOGLOBIN A1c (test code = 47840) 5.2 % HEMOGLOBIN [id number] 00:00:00 Test Item Value Reference Range Interpretation Comments HEMOGLOBIN A1c (test code = 99866) 5.2 % HEMOGLOBIN [id number] 00:00:00 Test Item Value Reference Range Interpretation Comments HEMOGLOBIN A1c (test code = 11355) 5.2 % COMPREHENSIVE METABOLIC [id number] 00:00:00 Test Item Value Reference Range Interpretation Comments GLUCOSE (test code = 2217) 93 MG/DL BUN (test code = 2208) 8 MG/DL CREATININE (test code = 2214) 0.62 MG/DL eGFR AMER. (test code 136 ML/MIN/1.73 = 54137) eGFR NON- AMER. (test 118 ML/MIN/1.73 code = 66045) CALC BUN/CREAT (test code = 13 RATIO [...] code = 2219) 29 U/L COMPREHENSIVE METABOLIC [id number] 00:00:00 Test Item Value Reference Range Interpretation Comments GLUCOSE (test code = 2217) 93 MG/DL BUN (test code = 2208) 8 MG/DL CREATININE (test code = 2214) 0.62 MG/DL eGFR AMER. (test code 136 ML/MIN/1.73 = 49692) eGFR NON- AMER. (test 118 ML/MIN/1.73 code = 87395) CALC BUN/CREAT (test code = 13 RATIO [...] ALT (test code = 2219) 29 U/L [id number] 00:00:00 Test Item Value Reference Range Interpretation Comments TSH, THIRD GENERATION (test code 1.830 UIU/ML = 2821) [id number] 00:00:00 Test Item Value Reference Range Interpretation Comments TSH, THIRD GENERATION (test code 1.830 UIU/ML = 2821) COMPREHENSIVE METABOLIC [id number] 00:00:00 Test Item Value Reference Range Interpretation Comments GLUCOSE (test code = 2217) 93 MG/DL BUN (test code = 2208) 8 MG/DL CREATININE (test code = 2214) 0.62 MG/DL eGFR AMER. (test code 136 ML/MIN/1.73 = 27275) eGFR NON- AMER. (test 118 ML/MIN/1.73 code = 08501) CALC BUN/CREAT (test code = 13 RATIO [...] ALT (test code = 2219) 29 U/L [id number] 00:00:00 Test Item Value Reference Range Interpretation Comments TSH, THIRD GENERATION (test code 1.830 UIU/ML = 2821) VITAMIN [id number] 00:00:00 Test Item Value Reference Range Interpretation Comments VITAMIN B-12 (test code = 2840) 1708 PG/ML VITAMIN [id number] 00:00:00 Test Item Value Reference Range Interpretation Comments VITAMIN B-12 (test code = 2840) 1708 PG/ML VITAMIN [id number] 00:00:00 Test Item Value Reference Range Interpretation Comments VITAMIN B-12 (test code = 2840) 1708 PG/ML VITAMIN D, 25 [id number] 00:00:00 Test Item Value Reference Range Interpretation Comments VITAMIN D, 25 OH (test code = 4958) 11 NG/ML VITAMIN D, 25 [id number] 00:00:00 Test Item Value Reference Range Interpretation Comments VITAMIN D, 25 OH (test code = 4958) 11 NG/ML [id number] 00:00:00 Test Item Value Reference Range Interpretation Comments TSH, THIRD GENERATION (test code 1.830 UIU/ML = 2821) [id number] 00:00:00 Test Item Value Reference Range Interpretation Comments TSH, THIRD GENERATION (test code 1.830 UIU/ML = 2821) VITAMIN [id number] 00:00:00 Test Item Value Reference Range Interpretation Comments VITAMIN B-12 (test code = 2840) 1708 PG/ML VITAMIN [id number] 00:00:00 Test Item Value Reference Range Interpretation Comments VITAMIN B-12 (test code = 2840) 1708 PG/ML VITAMIN D, 25 [id number] 00:00:00 Test Item Value Reference Range Interpretation Comments VITAMIN D, 25 OH (test code = 4958) 11 NG/ML CBC W/AUTO [id number] 00:00:00 Test Item Value Reference Range Interpretation [...] code = 1015) 265 K/UL CBC W/AUTO [id number] 00:00:00 Test Item Value Reference Range Interpretation [...] code = 1015) 265 K/UL CBC W/AUTO [id number] 00:00:00 Test Item Value Reference Range Interpretation [...] (test code = 1015) 265 K/UL HEMOGLOBIN [id number] 00:00:00 Test Item Value Reference Range Interpretation Comments HEMOGLOBIN A1c (test code = 51002) 5.2 % HEMOGLOBIN [id number] 00:00:00 Test Item Value Reference Range Interpretation Comments HEMOGLOBIN A1c (test code = 77681) 5.2 % HEMOGLOBIN [id number] 00:00:00 Test Item Value Reference Range Interpretation Comments HEMOGLOBIN A1c (test code = 24098) 5.2 % COMPREHENSIVE METABOLIC [id number] 00:00:00 Test Item Value Reference Range Interpretation Comments GLUCOSE (test code = 2217) 93 MG/DL BUN (test code = 2208) 8 MG/DL CREATININE (test code = 2214) 0.62 MG/DL eGFR AMER. (test code 136 ML/MIN/1.73 = 75965) eGFR NON- AMER. (test 118 ML/MIN/1.73 code = 07454) CALC BUN/CREAT (test code = 13 RATIO [...] ALKALINE PHOSPHATASE (test 61 U/L code = 220) AST (test code = 2218) 25 U/L ALT (test code = 2219) 29 U/L COMPREHENSIVE METABOLIC [id number] 00:00:00 Test Item Value Reference Range Interpretation Comments GLUCOSE (test code = 2217) 93 MG/DL BUN (test code = 2208) 8 MG/DL CREATININE (test code = 2214) 0.62 MG/DL eGFR AMER. (test code 136 ML/MIN/1.73 = 61318) eGFR NON- AMER. (test 118 ML/MIN/1.73 code = 68450) CALC BUN/CREAT (test code = 13 RATIO [...] ALT (test code = 2219) 29 U/L [id number] 00:00:00 Test Item Value Reference Range Interpretation Comments TSH, THIRD GENERATION (test code 1.830 UIU/ML = 2821) [id number] 00:00:00 Test Item Value Reference Range Interpretation Comments TSH, THIRD GENERATION (test code 1.830 UIU/ML = 2821) [id number] 00:00:00 Test Item Value Reference Range Interpretation Comments TSH, THIRD GENERATION (test code 1.830 UIU/ML = 2821) VITAMIN [id number] 00:00:00 Test Item Value Reference Range Interpretation Comments VITAMIN B-12 (test code = 2840) 1708 PG/ML VITAMIN [id number] 00:00:00 Test Item Value Reference Range Interpretation Comments VITAMIN B-12 (test code = 2840) 1708 PG/ML VITAMIN [id number] 00:00:00 Test Item Value Reference Range Interpretation Comments VITAMIN B-12 (test code = 2840) 1708 PG/ML VITAMIN D, 25 [id number] 00:00:00 Test Item Value Reference Range Interpretation Comments VITAMIN D, 25 OH (test code = 4958) 11 NG/ML VITAMIN D, 25 [id number] 00:00:00 Test Item Value Reference Range Interpretation Comments VITAMIN D, 25 OH (test code = 4958) 11 NG/ML CBC W/AUTO [id number] 00:00:00 Test Item Value Reference Range Interpretation [...] code = 1015) 265 K/UL CBC W/AUTO [id number] 00:00:00 Test Item Value Reference Range Interpretation [...] code = 1015) 265 K/UL CBC W/AUTO [id number] 00:00:00 Test Item Value Reference Range Interpretation [...] (test code = 1015) 265 K/UL HEMOGLOBIN [id number] 00:00:00 Test Item Value Reference Range Interpretation Comments HEMOGLOBIN A1c (test code = 91502) 5.2 % HEMOGLOBIN [id number] 00:00:00 Test Item Value Reference Range Interpretation Comments HEMOGLOBIN A1c (test code = 77777) 5.2 % HEMOGLOBIN [id number] 00:00:00 Test Item Value Reference Range Interpretation Comments HEMOGLOBIN A1c (test code = 26664) 5.2 % COMPREHENSIVE METABOLIC [id number] 00:00:00 Test Item Value Reference Range Interpretation Comments GLUCOSE (test code = 2217) 93 MG/DL BUN (test code = 2208) 8 MG/DL CREATININE (test code = 2214) 0.62 MG/DL eGFR AMER. (test code 136 ML/MIN/1.73 = 69147) eGFR NON- AMER. (test 118 ML/MIN/1.73 code = 99297) CALC BUN/CREAT (test code = 13 RATIO [...] code = 2219) 29 U/L COMPREHENSIVE METABOLIC [id number] 00:00:00 Test Item Value Reference Range Interpretation Comments GLUCOSE (test code = 2217) 93 MG/DL BUN (test code = 2208) 8 MG/DL CREATININE (test code = 2214) 0.62 MG/DL eGFR AMER. (test code 136 ML/MIN/1.73 = 99868) eGFR NON- AMER. (test 118 ML/MIN/1.73 code = 97980) CALC BUN/CREAT (test code = 13 RATIO [...] ALT (test code = 2219) 29 U/L [id number] 00:00:00 Test Item Value Reference Range Interpretation Comments TSH, THIRD GENERATION (test code 1.830 UIU/ML = 2821) [id number] 00:00:00 Test Item Value Reference Range Interpretation Comments TSH, THIRD GENERATION (test code 1.830 UIU/ML = 2821) [id number] 00:00:00 Test Item Value Reference Range Interpretation Comments TSH, THIRD GENERATION (test code 1.830 UIU/ML = 2821) VITAMIN [id number] 00:00:00 Test Item Value Reference Range Interpretation Comments VITAMIN B-12 (test code = 2840) 1708 PG/ML VITAMIN [id number] 00:00:00 Test Item Value Reference Range Interpretation Comments VITAMIN B-12 (test code = 2840) 1708 PG/ML VITAMIN [id number] 00:00:00 Test Item Value Reference Range Interpretation Comments VITAMIN B-12 (test code = 2840) 1708 PG/ML VITAMIN D, 25 [id number] 00:00:00 Test Item Value Reference Range Interpretation Comments VITAMIN D, 25 OH (test code = 4958) 11 NG/ML VITAMIN D, 25 [id number] 00:00:00 Test Item Value Reference Range Interpretation Comments VITAMIN D, 25 OH (test code = 4958) 11 NG/ML CBC W/AUTO [id number] 00:00:00 Test Item Value Reference Range Interpretation [...] code = 1015) 265 K/UL CBC W/AUTO [id number] 00:00:00 Test Item Value Reference Range Interpretation [...] code = 1015) 265 K/UL CBC W/AUTO [id number] 00:00:00 Test Item Value Reference Range Interpretation [...]
[2023-02-09] MEDS ORDERED: METOCLOPRAMIDE 10 MG/2mL INJ ONE (02:29)
[2023-02-09] MEDS ORDERED: KETOROLAC 30 MG/ML INJ ONE (02:29)
[2023-02-09] MEDS ORDERED: NA CHLORIDE 0.9% 1,000 ML ONE (02:29)
[2023-02-09] MEDS ORDERED: dexAMETHasone 10 MG/ML VIAL ONE (02:29)
[2023-02-09] MEDS ORDERED: DIPHENHYDRAMINE 50 MG/ML VIAL ONE (02:29)
[2023-02-09 02:30] LABS: Absolute Lymphocytes (CBC) 3.3 K/uL (0.7-4.9); Hematocrit 40.7 % (36.0-45.0); MCV 87.2 fL (80-100); MPV 7.8 fL (7.6-11.3); RBC Red Blood Cell Count 4.67 M/uL (3.86-4.86)
[2023-02-09 02:44] LABS: Potassium 3.6 mEq/L (3.5-5.1)
[2023-02-09] MEDS ORDERED: NA CHLORIDE 0.9% 250 ML ONE (04:31)
[2023-02-09] MEDS ORDERED: VANCOMYCIN 1 GM/VIAL ONE (04:31)
--- NOTE | 2023-02-09 05:33 | ER ---
Nurse's Notes [facility] Name: Sveta Gutierrez Age: 37 yrs Sex: Female : 1985 Arrival Date: 02/09/2023 Time: 01:51 Bed 13 Private MD: Diagnosis: Migraine without aura, intractable Presentation: 02/09 02:02 Chief complaint: Patient states: C/o of Headache and dizziness x 2 days. Bp 148/109, pf1 164/76 at home. Earlier today felt left sided headache pain. Coronavirus screen: Vaccine status: Patient reports being unvaccinated. Ebola Screen: No symptoms or risks identified at this time. Initial Sepsis Screen: Does the patient meet any 2 criteria? No. Patient's initial sepsis screen is negative. Risk Assessment: Do you want to hurt yourself or someone else? Patient reports no desire to harm self or others. Onset of symptoms was February 07, 2023. 02:02 Method Of Arrival: Ambulatory pf1 02:02 Acuity: TRISTEN 3 pf1 Screenin:42 [facility] ED Fall Risk Assessment (Adult) History of falling in the last 3 months, ll3 including since admission No falls in past 3 months (0 pts) Confusion or Disorientation No (0 pts) Intoxicated or Sedated No (0 pts) Impaired Gait No (0 pts) Mobility Assist Device Used No (0 pt) Altered Elimination No (0 pt) Score/Fall Risk Level 0 - 2 = Low Risk Oriented to surroundings, Maintained a safe environment, Educated pt \T\ family on fall prevention, incl call for assistance when getting out of bed. Abuse screen: Denies threats or abuse. Denies injuries from another. Nutritional screening: No deficits noted. Tuberculosis screening: No symptoms or risk factors identified. Assessment: 02:30 General: Appears uncomfortable, Behavior is calm, cooperative. Pain: Complains of pain ll3 in H/a Pain does not radiate. Pain currently is 4 out of 10 on a pain scale. Pain began 1 day ago. Is continuous. Neuro: Level of Consciousness is awake, alert, obeys commands, Oriented to person, place, time, situation, Reports dizziness. Cardiovascular: Patient's skin is warm and dry. Derm: Skin is pink, warm \T\ dry. 04:17 Reassessment: Patient and/or family updated on plan of care and expected duration. Pain ll3 level reassessed. Patient is alert, oriented x 3, equal unlabored respirations, skin warm/dry/pink. Patient states feeling better. Patient states symptoms have improved. Vital Signs: 02:02 BP 139 / 97; Pulse 63; Resp 18; Temp 98.2; Pulse Ox 100% ; Weight 110.68 kg; Height 5 pf1 ft. 8 in. ; Pain 5/10; 03:15 BP 139 / 87; Pulse 54; Resp 18; Pulse Ox 99% on R/A; ll3 04:17 BP 125 / 78; Pulse 64; Resp 16; Pulse Ox 99% on R/A; ll3 05:21 BP 117 / 74; Pulse 51; Resp 16; Pulse Ox 99% on R/A; ll3 02:02 Body Mass Index 37.10 (110.68 kg, 172.72 cm) pf1 02:02 Pain Scale: Adult pf1 ED Course: 01:52 Patient arrived in ED. j6 01:53 Grant Manzo PA is PHCP. [facility] 01:53 Luciano Jara MD is Attending Physician. jmm 02:08 Triage completed. pf1 02:26 BMP Sent. bc6 02:26 CBC with Diff Sent. bc6 02:26 Inserted saline lock: 20 gauge in right antecubital area, using aseptic technique. bc6 03:18 CT Head Brain wo Cont In Process Unspecified. EDMS 05:42 No provider procedures requiring assistance completed. IV discontinued, intact, ll3 bleeding controlled, No redness/swelling at site. Pressure dressing applied. 05:42 Patient has correct armband on for positive identification. Bed in low position. Call ll3 light in reach. Side rails up X 1. Adult w/ patient. Administered Medications: 02:32 Drug: Ketorolac IVP 15 mg Route: IVP; Site: right antecubital; ll3 04:14 Follow up: Response: No adverse reaction; Marked relief of symptoms ll3 02:32 Drug: Decadron - Dexamethasone IVP 10 mg Route: IVP; Site: right antecubital; ll3 04:14 Follow up: Response: No adverse reaction; Marked relief of symptoms ll3 02:33 Drug: NS 0.9% IV 500 ml Route: IV; Rate: bolus; Site: right antecubital; ll3 05:42 Follow up: Response: No adverse reaction; IV Status: Completed infusion; IV Intake: ll3 500ml 02:33 Drug: metoCLOPramide IVP 20 mg Route: IVP; Site: right antecubital; ll3 05:42 Follow up: Response: No adverse reaction; Marked relief of symptoms ll3 02:33 Drug: diphenhydrAMINE IVP 12.5 mg Route: IVP; Site: right antecubital; ll3 04:14 Follow up: Response: No adverse reaction; Marked relief of symptoms ll3 Medication: 05:43 VIS not applicable for this client. ll3 Intake: 05:42 IV: 500ml; Total: 500ml. ll3 Outcome: 05:32 Discharge ordered by . sp4 05:42 Discharged to home ambulatory, with family. ll3 05:42 Condition: stable 05:42 Discharge instructions given to patient, family, Instructed on discharge instructions, follow up and referral plans. medication usage, Demonstrated understanding of instructions, follow-up care, medications, Prescriptions given X 1. 05:43 Patient left the ED. ll3 Signatures: Dispatcher [employer] EDMS Grant Manzo PA PA jmm Jeffries, Jennifer jj6 Henok Banegas RN RN ll3 Marcy Santos RN RN pf1 Lexii Contreras 6 Luciano Jara MD MD sp4
--- NOTE | 2023-02-09 05:33 | EDPHYS ---
Physician Documentation [facility] Name: Sveta Gutierrez Age: 37 yrs Sex: Female : 1985 Arrival Date: 02/09/2023 Time: 01:51 Bed 13 Private MD: ED Physician Luciano Jara HPI: 02/09 02:28 This 37 yrs old Female presents to ER via Ambulatory with complaints of High jmm Blood Pressure, Headache. 02:28 The patient has elevated blood pressure and discovered this. Onset: The jmm symptoms/episode began/occurred gradually, 1 day(s) ago. Modifying factors: The symptoms are aggravated by. This is a 37-year-old female with history of hypertension and migraine headaches that presents emerged part with complaints of a headache beginning yesterday which has been continuous mainly on the left side. Is consistent with previous migraine headaches. Patient states having difficulty sleeping last night. Noticed that her blood pressure was elevated this evening. Denies chest pain or shortness of breath. Denies unilateral weakness. Denies numbness.. ROS: 02:28 Constitutional: Negative for fever, chills, and weight loss, Cardiovascular: Negative jmm for chest pain, palpitations, and edema, Respiratory: Negative for shortness of breath, cough, wheezing, and pleuritic chest pain. 02:28 Neuro: Positive for headache. 02:28 All other systems are negative. Exam: 02:28 Constitutional: This is a well developed, well nourished patient who is awake, alert, jmm and in no acute distress. Head/Face: atraumatic. Eyes: EOMI, no conjunctival erythema appreciated ENT: Moist Mucus Membranes Neck: Trachea midline, Supple Chest/axilla: Normal chest wall appearance and motion. Cardiovascular: Regular rate and rhythm. No edema appreciated Respiratory: Normal respirations, no respiratory distress appreciated Abdomen/GI: Non distended Back: Normal ROM Skin: General appearance color normal MS/ Extremity: Moves all extremities, no obvious deformities appreciated, no edema noted to the lower extremities Neuro: Awake and alert Psych: Behavior is normal, Mood is normal, Patient is cooperative and pleasant Vital Signs: 02:02 BP 139 / 97; Pulse 63; Resp 18; Temp 98.2; Pulse Ox 100% ; Weight 110.68 kg; Height 5 pf1 ft. 8 in. ; Pain 5/10; 03:15 BP 139 / 87; Pulse 54; Resp 18; Pulse Ox 99% on R/A; ll3 04:17 BP 125 / 78; Pulse 64; Resp 16; Pulse Ox 99% on R/A; ll3 05:21 BP 117 / 74; Pulse 51; Resp 16; Pulse Ox 99% on R/A; ll3 02:02 Body Mass Index 37.10 (110.68 kg, 172.72 cm) pf1 02:02 Pain Scale: Adult pf1 MDM: 02:12 Patient medically screened. [facility] 05:28 Differential diagnosis: hypertensive crisis, Malignant HTN, intracerebral hemorrhage. sp4 Data reviewed: vital signs, nurses notes, lab test result(s), radiologic studies, CT scan. Consideration of Admission/Observation Escalation of care including admission/observation considered. ED course: IMPRESSION: No acute intracranial hemorrhage identified. Unremarkable CT scan of the head without contrast.. ED course: Patient warrants discharge home at this time that headache has resolved.. 02/09 02:12 Order name: CBC with Diff; Complete Time: 02:33 [facility] 02/09 02:12 Order name: BMP; Complete Time: 02:48 [facility] 02/09 02:12 Order name: CT Head Brain wo Cont [facility] 02/09 02:12 Order name: Saline Lock; Complete Time: 02:26 [facility] Administered Medications: 02:32 Drug: Ketorolac IVP 15 mg Route: IVP; Site: right antecubital; ll3 04:14 Follow up: Response: No adverse reaction; Marked relief of symptoms ll3 02:32 Drug: Decadron - Dexamethasone IVP 10 mg Route: IVP; Site: right antecubital; ll3 04:14 Follow up: Response: No adverse reaction; Marked relief of symptoms ll3 02:33 Drug: NS 0.9% IV 500 ml Route: IV; Rate: bolus; Site: right antecubital; ll3 05:42 Follow up: Response: No adverse reaction; IV Status: Completed infusion; IV Intake: ll3 500ml 02:33 Drug: metoCLOPramide IVP 20 mg Route: IVP; Site: right antecubital; ll3 05:42 Follow up: Response: No adverse reaction; Marked relief of symptoms ll3 02:33 Drug: diphenhydrAMINE IVP 12.5 mg Route: IVP; Site: right antecubital; ll3 04:14 Follow up: Response: No adverse reaction; Marked relief of symptoms ll3 Disposition: 05:27 Co-signature as Attending Physician, Luciano Jara MD I agree with the assessment sp4 and plan of care. I reviewed the patient's care provided by Advanced Practice Provider \T\ agree w/ the diagnosis \T\ care plan. I personally saw the pt \T\ performed a substantive portion of the visit, incldng all aspects of the (History/Exam/Medical Decision Making). Disposition Summary: 02/09/23 05:32 Discharge Ordered Location: Home sp4 Problem: new sp4 Symptoms: have improved sp4 Condition: Stable sp4 Diagnosis - Migraine without aura, intractable sp4 Followup: sp4 - With: Private Physician - When: 7 - 10 days - Reason: Recheck today's complaints Discharge Instructions: - Discharge Summary Sheet sp4 - Migraine Headache sp4 Forms: - Work release form ll3 Prescriptions: - Fioricet 50-300-40 mg Oral capsule - take 1 capsule by ORAL route every 6 hours; 30 capsule; Refills: 0, Product sp4 Selection Permitted Signatures: Dispatcher [employer] Grant Sage PA PA jmm Loubet, Lynsea, KAVEH RN 3 Luciano Jara MD MD sp4
[2023-02-09 05:50] VITALS: TEMP 98.2
[2023-02-09 05:51] VITALS: O2SAT 99
[2023-02-09 05:53] VITALS: BP 117/74
--- NOTE | 2023-02-09 21:54 | RAD REPORT ---
EXAM DESCRIPTION: CT - Head Brain Wo Cont - 02/09/2023 6:24 am CLINICAL HISTORY: 37 years, Female, HEADACHE COMPARISON: None. FINDINGS: Multiple transaxial tomograms of the brain were obtained from the base of the skull to the vertex without contrast. 2-D multiplanar reformats and the coronal and sagittal plane were performed and reviewed. This exam was performed according to our departmental dose-optimization protocol, which includes auto mated exposure control, adjustment of the mA and/or kV according to patient size and/or use of iterat ed reconstruction technique. Brain parenchyma as well as the barnes and white matter differentiation demonstrate to be unremarkable. There is no midline shift and/or mass effect. There is no evidence for acute hemorrhage. There are n o focal areas of hypodensities. Lateral ventricles and cisterns displace normal appearance. No intr a or extra axial fluid collections were seen. The calvarium is intact with no evidence for fracture. The visualized portions of the paranasal sinuses and orbits demonstrate to be clear. IMPRESSION: No acute intracranial hemorrhage identified. Unremarkable CT scan of the head without contrast. Electronically signed by: Waldo Ash MD 02/09/2023 3:38 AM CDT Due to temporary technical issues with the PACS/Fluency reporting system, reports are being signed by the in house radiologists without review as a courtesy to insure prompt reporting. The interpreting radiologist is fully responsible for the content of the report.
== END 2023-02-09 05:43 | disposition home or self-care (01) ==
LOC: ER 01:51
DX: G43.019 Migraine without aura, intractable, without status migrainosus (principal)
CPT/HCPCS: 96361; 85025; 80048; 36415; 70450; 96375; 96374; 99284; J2765; J1200; J1100; J7050; J7030

== ENCOUNTER → 2023-08-09 | Emergency (ER) | payer OTHER ==
[~2023-08-09] MED LIST: HYDROMORPHONE HCL 1 MG/ML INJ ONE; ONDANSETRON 4 MG/2 ML VIAL ONE
--- OUTSIDE RECORDS SUMMARY | 2023-08-09 02:55 | XMS REPORT | Continuity of Care Document ---
Author Name Unknown Address [address] [facility] [address] [place] [address] [facility] thconnect Address [address] [facility] [address] [place] [address] Care Team Providers Care Multigrapher Name Role Phone Lindsay Vazquez PA-C Attending Clinician Mckayla Reynolds MD Attending Clinician [phone] Doctor Unassigned, [place] Attending Clinician U navailable Encounters Start Date/Time End Date/Time Encounter Type Admission Type Attending Clinicians Care Facility Care Department Encounter ID Source 2023-06-27 10:49:55 2023-06-27 10:49:55 Outpatient [facility] 1109 Murray Bernal 2023-06-13 08:27:10 2023-06-13 08:27:10 Outpatient [facility] 1026 Murray William Gabe 2023-05-29 09:43:17 2023-05-29 09:43:17 Outpatient [facility] [id number] Murray Bernal 2023-05-28 08:06:00 2023-05-28 08:06:00 Outpatient [facility] 1010 Murray William Gabe 2023-05-15 08:05:41 2023-05-15 08:05:41 Outpatient [facility] 0927 Murray Bernal 2023-05-07 08:26:25 2023-05-07 08:26:25 Outpatient [facility] 0919 Murray William Gabe 2023-02-14 15:02:10 2023-02-14 15:02:10 Outpatient [facility]FA [facility] 0629 Murray Bernal 2023-01-04 15:22:39 2023-01-04 15:22:39 Outpatient [facility] 0519 Murray Bernal 2022-12-15 12:59:06 2022-12-15 12:59:06 Outpatient [facility] 0429 Murray Bernal 2022-10-18 10:56:51 2022-10-18 10:56:51 Outpatient [facility] [id number] Murray Bernal 2022-09-27 08:38:22 2022-09-27 08:38:22 Outpatient [facility] 020 Murray Bernal 2022-08-07 09:29:44 2022-08-07 09:29:44 Outpatient [facility] [id number] Murray Bernal 2022-07-25 08:03:31 2022-07-25 08:03:31 Outpatient [facility] [id number] Murray William Gabe 2022-07-24 16:08:55 2022-07-24 16:08:55 Outpatient [facility] [id number] Murray William Linton 2022-07-18 13:41:31 2022-07-18 13:41:31 Outpatient [facility] [id number] Murray William Gabe 2019-12-10 07:57:00 2019-12-10 11:30:27 Telemedici ne Visit EdgarLindsay magallon [facility] [id number] 2019-11-20 15:17:01 2019-11-20 16:37:15 Office Visit Gail Mckayla [facility] [id number] 2019-11-20 00:00:00 2019-11-20 00:00:00 Orders Only Doctor Unassigned, [place] [facility] [id number] Results Test Description Test Time Test Comments Results Result Co mments Source HEMOGLOBIN [id number] 07:48:13* Test Item Value Reference Range Interpretation Comme [facility] HEMOGLOBIN A1c (test code = 81608) 5.6 % 4.2-5.6 VITAMIN D, 25 [id number] 06:15:08* Test Item Value Reference Range Interpretation Comme [facility] VITAMIN D, 25 OH (test code = 4958) 27 NG/ML SEE BELOW L EFFECTIVE 04/2023, PLEASE NOTE NEW METHODOLOGY IS ELECTROCHEMILUMINESCENCE BINDING ASSAY. NOTE: 25-HYDROXYVITAMIN D ASSAY INCLUDES 25-HYDROXYVITAMIN D2 AND D3. INTERPRETIVE RANGES PEDIATRIC (<17 YEARS) . . . . . . . . . . . NG/ML 20-100ADULT: INSUFFICIENT . . . . . . . . . . . . . . NG/ML <20 SUBOPTIMAL . . . . . . . . . . . . . . . NG/ML 20-29 OPTIMAL . . . . . . . . . . . . . . . . . NG/ML 30-100 TSH + FREE T4 [id number] 06:12:15* Test Item Value Reference Range Interpretation Comme [facility] TSH, THIRD GENERATION (test code = 2821) 6.170 UIU/ML 0.400-4.100 H FREE T4 (THYROXINE) (test code = 2823) 0.94 NG/DL 0.80-1.90 [facility] has important pathology staff changes effective 10/17/2022. New pathology staff will provide uninterrupted, excellent patient care and clinical consultation. See URL: [email or web address]. UNLESS OTHERWISE INDICATED, ALL TESTING PERFORMED AT [facility] [address] [place] [address] CLIA: [id number], CAP: [id number] LIPID [id number] 04:45:55* Test Item Value Reference Range Interpretation Comme [facility] CHOLESTEROL (test code = 2210) 228 MG/DL <200 H TRIGLYCERIDES (test code = 2232) 154 MG/DL <150 H HDL CHOLESTEROL (test code = 0) 54 MG/DL >39 CALC LDL CHOL (test code = 2236) 145 MG/DL <100 H NOTE: CALCULATED LDL IS BASED ON TAMELA-MIN METHOD WHICHINCLUDES ADJUSTABLE TRIGLYCERIDE:VLDL CHOLESTEROL RATIO.THIS FACTOR VARIES BY MEASURED TRIGLYCERIDE AND NON-HDLCHOLESTEROL CONCENTRATIONS WITH INCREASED CALCULATED LDL SEENIN HIGHER TRIGLYCERIDE OR LOWER NON-HDL SPECIMENS. FOR MOREINFORMATION, SEE CLIENT ANNOUNCEMENT AT [email or web address] RISK RATIO LDL/HDL (test code = 2237) 2.69 RATIO <3.22 COMPREHENSIVE METABOLIC [id number] 04:45:55* Test Item Value Reference Range Interpretation Comme nts GLUCOSE (test code = 2216) 90 MG/DL 70-99 BUN (test code = 2207) 15 MG/DL 6-20 CREATININE (test code = 2213) 0.64 MG/DL 0.60-1.30 eGFR (2020 CKD-EPI) (test code = 69552) 116 ML/MIN/1.73 >60 CALC BUN/CREAT (test code = 2234) 23 RATIO 6-28 SODIUM (test code = 2230) 140 MEQ/L 133-146 POTASSIUM (test code = 2227) 4.2 MEQ/L 3.5-5.4 CHLORIDE (test code = 5) 103 MEQ/L 95-107 CARBON DIOXIDE (test code = 6) 26 MEQ/L 19-31 CALCIUM (test code = 2208) 9.4 MG/DL 8.5-10.5 PROTEIN, TOTAL (test code = 2228) 6.7 G/DL 6.1-8.3 ALBUMIN (test code = 2200) 4.3 G/DL 3.5-5.2 CALC GLOBULIN (test code = 2240) 2.4 G/DL 1.9-3.7 CALC A/G RATIO (test code = 223) 1.8 RATIO 1.0-2.6 BILIRUBIN, TOTAL (test code = 2206) 0.5 MG/DL See_Comment [Automated me ssage] The system which generated this result transmitted reference range: <=1.2. The reference range was not used to interpret this result as normal/abnormal. ALKALINE PHOSPHATASE (test code = 2203) 51 U/L 40-112 AST (test code = 2218) 42 U/L 9-40 H ALT (test code = 2219) 78 U/L 5-[address]/NG, NAAT, [id number] 20:41:34* Test Item Value Reference Range Interpretation Comme nts GONORRHEA, NAAT (test code = 30194) NEGATIVE NEGATIVE Note: Testing is performed with [employer] YAIR 6800/8800 systems using real-time polymerase chain reaction (PCR) method. CHLAMYDIA, NAAT (test code = 52633) NEGATIVE NEGATIVE Note: Testing is performed with [employer] YAIR 6800/8800 systems using real-time polymerase chain reaction (PCR) method. UNLESS OTHERWISE INDICATED, ALL TESTING PERFORMED [facility] [employer], [facility]. [address] [place] [address] TAX ADJUSTER: KARYN ARCOS M.D. CLIA NUMBER [id number] [facility] [place]. [id number] VAGINAL PATHOGENS DNA [id number] 14:39:25* Test Item Value Reference Range Interpretation Comme nts VALERIE SPECIES (test code = 90186) NEGATIVE NEGATIVE G. VAGINALIS (test code = 19958) NEGATIVE NEGATIVE T. VAGINALIS (test code = 37318) NEGATIVE NEGATIVE Note: The [employer] [facility] VPIII Microbial Identification Testis a DNA probe test intended for use in the detectionand identification of Valerie species, Gardnerellavaginalis and Trichomonas vaginalis nucleic acid. [id number] 03:12:19* Test Item Value Reference Range Interpretation Comme nts RPR RESULT (test code = 3501) NON-REACTIVE NON-REACTIVE RPR TITER (test code = 3500) NOT INDIC. TITER NOT INDIC. CT/NG, NAAT, [id number] 08:45:29* Test Item Value Reference Range Interpretation Comme nts GONORRHEA, NAAT (test code = 79620) NEGATIVE NEGATIVE IMPORTANT NO CRISSY: SEE ANNOUNCEMENT AT [email or web address] Note: Assay methodology is nucleic acid amplification by image scientist mediated amplification (TMA) utilizing the Aptima Combo 2 Assay. CHLAMYDIA, NAAT (test code = 11426) NEGATIVE NEGATIVE IMPORTANT NO CRISSY: SEE ANNOUNCEMENT AT [email or web address] Note: Assay methodology is nucleic acid amplification by image scientist mediated amplification (TMA) utilizing the Aptima Combo 2 Assay. HIV 1/2 4TH GEN, RFLX [id number] 04:23:49* Test Item Value Reference Range Interpretation Comme nts HIV 1/2 4TH GEN, RFLX CONF ( test code = 3514) NON-REACTIVE NON-REACTIVE HEPATITIS PANEL, [id number] 04:23:49* Test Item Value Reference Range Interpretation Comme nts HEPATITIS A IgM (test code = 15882) NON-REACTIVE NON-REACTIVE HEPATITIS B CORE IgM (test code = 4644) NON-REACTIVE NON-REACTIVE HEPATITIS B SURF AG (test code = 2739) NON-REACTIVE NON-REACTIVE HEPATITIS C ANTIBODY (test code = 4675) NON-REACTIVE NON-REACTIVE INTERPRETATION HEPATITIS A: (test code = 2552) (NOTE) Hepatitis A sero logy shows no evidence of acute hepatitis A. INTERPRETATION HEPATITIS B: (test code = 91106) (NOTE) Hepatitis B sero logy shows no evidence of acute hepatitis B andno indication of exposure to hepatitis B virus in the previous ketty eight months. INTERPRETATION HEPATITIS C: (test code = 60042) (NOTE) Hepatitis C sero logy shows no evidence of exposure to hepatitisC virus at this time. It can take up to 12 months after exposure tothe hepatitis C virus for antibodies to become detectable in the blood in certain patients. UNLESS OTHERWISE INDICATED, ALL TESTING PERFORMED [facility] [address] [place] [address] TAX ADJUSTER: KARYN ARCOS M.D. [place] NUMBER [id number] [facility] [place]. [id number] 03:48:24* Test Item Value Reference Range Interpretation Comme nts RPR RESULT (test code = 3501) NON-REACTIVE NON-REACTIVE RPR TITER (test code = 3500) NOT INDIC. TITER NOT INDIC. [id number] 06:47:38* Test Item Value Reference Range Interpretation Comme nts ESTRADIOL (test code = 2505) 120.0 PG/ML SEE BELOW EXPECTED VALUES FOR ESTRADIOL FOR FEMALES >=18 YEARS FOLLICULAR . . . . . . . . . . . . . PG/ML 12.4-233.0 OVULATION. . . . . . . . . . . . . . PG/ML 41.0-398.0 LUTEAL PHASE . . . . . . . . . . . . PG/ML 22.3-341.0 POSTMENOPAUSAL SUPPLEMENTED/NON-SUPP . PG/ML <138.0/<20.0 NOTE: TO DETERMINE NORMAL VS. SUBNORMAL ESTRADIOL IN POSTMENOPAUSAL FEMALES, CONSIDER ULTRASENSITIVE ESTRADIOL ([facility] ORDER CODE 5678). METHODOLOGY IS [employer] YAIR ELECTROCHEMILUMINESCENT IMMUNOASSAY WITH A LIMIT OF DETECTION OF 17 PG/ML. TSH REFLEX TO FREE [id number] 06:47:38* Test Item Value Reference Range Interpretation Comme nts TSH REFLEX TO FREE T4 (test code = 2834) 4.500 UIU/ML 0.400-4.100 H FREE T4 (THYROXINE)2022-05-15 06:47:38* Test Item Value Reference Range Interpretation Comme nts FREE T4 (THYROXINE) (test code = 2823) 1.11 NG/DL 0.80-1.90 UNLESS OTHERWISE INDICATED, ALL TESTING PERFORMED [facility] [employer] [address] [place] [address] TAX ADJUSTER: KARYN ARCOS M.D. CLIA NUMBER [id number] [facility] [place]. [id number] LIPID [id number] 05:43:14* Test Item Value Reference Range Interpretation Comme nts CHOLESTEROL (test code = 2210) 223 MG/DL <200 H TRIGLYCERIDES (test code = 2232) 150 MG/DL <150 H HDL CHOLESTEROL (test code = 2220) 51 MG/DL >39 CALC LDL CHOL (test code = 2237) 144 MG/DL <100 H NOTE: CALCULATED LDL IS BASED ON TAMELA-MIN METHOD WHICHINCLUDES ADJUSTABLE TRIGLYCERIDE:VLDL CHOLESTEROL RATIO.THIS FACTOR VARIES BY MEASURED TRIGLYCERIDE AND NON-HDLCHOLESTEROL CONCENTRATIONS WITH INCREASED CALCULATED LDL SEENIN HIGHER TRIGLYCERIDE OR LOWER NON-HDL SPECIMENS. FOR MOREINFORMATION, SEE CLIENT ANNOUNCEMENT AT [email or web address] RISK RATIO LDL/HDL (test code = 2238) 2.82 RATIO <3.22 COMPREHENSIVE METABOLIC [id number] 05:43:14* Test Item Value Reference Range Interpretation Comme nts GLUCOSE (test code = 2217) 98 MG/DL 70-99 BUN (test code = 2207) 12 MG/DL 6-20 CREATININE (test code = 2213) 0.70 MG/DL 0.60-1.30 eGFR (2020 CKD-EPI) (test code = ) 114 ML/MIN/1.73 >60 CALC BUN/CREAT (test code = 2234) 17 RATIO 6-28 SODIUM (test code = 2230) 140 MEQ/L 133-146 POTASSIUM (test code = 2227) 4.5 MEQ/L 3.5-5.4 CHLORIDE (test code = 2214) 103 MEQ/L 95-107 CARBON DIOXIDE (test code = 2205) 26 MEQ/L 19-31 CALCIUM (test code = 2208) 9.6 MG/DL 8.5-10.5 PROTEIN, TOTAL (test code = 2228) 7.0 G/DL 6.1-8.3 ALBUMIN (test code = 2200) 4.7 G/DL 3.5-5.2 CALC GLOBULIN (test code = 2239) 2.3 G/DL 1.9-3.7 CALC A/G RATIO (test code = 2233) 2.0 RATIO 1.0-2.6 BILIRUBIN, TOTAL (test code = 2206) 0.5 MG/DL See_Comment [Automated me ssage] The system which generated this result transmitted reference range: <=1.2. The reference range was not used to interpret this result as normal/abnormal. ALKALINE PHOSPHATASE (test code = 2203) 58 U/L 40-112 AST (test code = 2217) 20 U/L 9-40 ALT (test code = 2218) 19 U/L 5-40 [id number] 05:27:45* Test Item Value Reference Range Interpretation Comme nts TESTOSTERONE (test code = 2830) 23 NG/DL See_Comment NOTE: TOTAL TESTOSTERONE ASSAY SENSITIVITY IS 12 NG/DL. TO DETERMINE NORMAL VS. SUBNORMAL TESTOSTERONE IN CHILDREN AND WOMEN, CONSIDER TESTING WITH ULTRASENSITIVE TESTOSTERONE. [Automated message] The system which generated this result transmitted reference range: <=55. The reference range was not used to interpret this result as normal/abnormal. HEMOGLOBIN [id number] 03:49:10* Test Item Value Reference Range Interpretation Comme [facility] HEMOGLOBIN A1c (test code = 51493) 5.4 % 4.2-5.6 HEMOGLOBIN [id number] 02:51:25* Test Item Value Reference Range Interpretation Comme nts HEMOGLOBIN A1c (test code = 27419) 5.5 % 4.2-5.6 LIPID [id number] 02:43:47* Test Item Value Reference Range Interpretation Comme nts CHOLESTEROL (test code = 2210) 228 MG/DL <200 H TRIGLYCERIDES (test code = 2232) 111 MG/DL <150 HDL CHOLESTEROL (test code = 2220) 58 MG/DL >39 CALC LDL CHOL (test code = 2237) 147 MG/DL <100 H NOTE: CALCULATED LDL IS BASED ON TAMELA-MIN METHOD WHICHINCLUDES ADJUSTABLE TRIGLYCERIDE:VLDL CHOLESTEROL RATIO.THIS FACTOR VARIES BY MEASURED TRIGLYCERIDE AND NON-HDLCHOLESTEROL CONCENTRATIONS WITH INCREASED CALCULATED LDL SEENIN HIGHER TRIGLYCERIDE OR LOWER NON-HDL SPECIMENS. FOR MOREINFORMATION, SEE CLIENT ANNOUNCEMENT AT [email or web address] RISK RATIO LDL/HDL (test code = 223) 2.53 RATIO <3.22 COMPREHENSIVE METABOLIC [id number] 02:43:47* Test Item Value Reference Range Interpretation Comme nts GLUCOSE (test code = 2217) 97 MG/DL 70-99 BUN (test code = 2207) 10 MG/DL 6-20 CREATININE (test code = 2214) 0.72 MG/DL 0.60-1.30 eGFR (2020 CKD-EPI) (test code = 19186) 110 ML/MIN/1.73 >60 CALC BUN/CREAT (test code = 2235) 14 RATIO 6-28 SODIUM (test code = 223) 141 MEQ/L 133-146 POTASSIUM (test code = 2228) 4.1 MEQ/L 3.5-5.4 CHLORIDE (test code = 2215) 100 MEQ/L 95-107 CARBON DIOXIDE (test code = 220) 26 MEQ/L 19-31 CALCIUM (test code = 2209) 9.8 MG/DL 8.5-10.5 PROTEIN, TOTAL (test code = 2228) 7.0 G/DL 6.1-8.3 ALBUMIN (test code = 2200) 4.6 G/DL 3.5-5.2 CALC GLOBULIN (test code = 224) 2.4 G/DL 1.9-3.7 CALC A/G RATIO (test code = 2234) 1.9 RATIO 1.0-2.6 BILIRUBIN, TOTAL (test code = 2207) 0.5 MG/DL See_Comment [Automated me ssage] The system which generated this result transmitted reference range: <=1.2. The reference range was not used to interpret this result as normal/abnormal. ALKALINE PHOSPHATASE (test code = 2204) 58 U/L 40-112 AST (test code = 2218) 31 U/L 9-40 ALT (test code = 2219) 41 U/L 5-40 H UNLESS OTHERWISE INDICATED, ALL TESTING PERFORMED [facility] [employer] [address] [place] [address] TAX ADJUSTER: KARYN ARCOS M.D. CLIA NUMBER [id number] [facility] [place]. [id number] TSH, THIRD [id number] 10:06:53* Test Item Value Reference Range Interpretation Comme [facility] TSH, THIRD GENERATION (test code = 2821) 5.010 UIU/ML 0.400-4.100 H VITAMIN D, 25 [id number] 07:26:02* Test Item Value Reference Range Interpretation Comme [facility] VITAMIN D, 25 OH (test code = 4958) 21 NG/ML SEE BELOW L NOTE: 25-HYDR OXYVITAMIN D ASSAY INCLUDES 25-HYDROXYVITAMIN D2 AND D3. METHODOLOGY IS CHEMILUMINESCENT IMMUNOASSAY. INTERPRETIVE RANGES PEDIATRIC (<17 YEARS) . . . . . . . . . . . NG/ML 20-100ADULT: INSUFFICIENT . . . . . . . . . . . . . . NG/ML <20 SUBOPTIMAL . . . . . . . . . . . . . . . NG/ML 20-29 OPTIMAL . . . . . . . . . . . . . . . . . NG/ML 30-100 LIPID [id number] 07:19:20* Test Item Value Reference Range Interpretation Comme nts CHOLESTEROL (test code = 2210) 224 MG/DL <200 H TRIGLYCERIDES (test code = 2232) 229 MG/DL <150 H HDL CHOLESTEROL (test code = 2220) 47 MG/DL >39 CALC LDL CHOL (test code = 2237) 140 MG/DL <100 H NOTE: CALCULATED LDL IS BASED ON TAMELA-MIN METHOD WHICHINCLUDES ADJUSTABLE TRIGLYCERIDE:VLDL CHOLESTEROL RATIO.THIS FACTOR VARIES BY MEASURED TRIGLYCERIDE AND NON-HDLCHOLESTEROL CONCENTRATIONS WITH INCREASED CALCULATED LDL SEENIN HIGHER TRIGLYCERIDE OR LOWER NON-HDL SPECIMENS. FOR MOREINFORMATION, SEE CLIENT ANNOUNCEMENT AT [email or web address] RISK RATIO LDL/HDL (test code = 223) 2.98 RATIO <3.22 COMPREHENSIVE METABOLIC [id number] 07:19:20* Test Item Value Reference Range Interpretation Comme nts GLUCOSE (test code = 2216) 89 MG/DL 70-99 BUN (test code = 2207) 11 MG/DL 6-20 CREATININE (test code = 2213) 0.66 MG/DL 0.60-1.30 eGFR (2020 CKD-EPI) (test code = 02255) 116 ML/MIN/1.73 >60 CALC BUN/CREAT (test code = 5) 17 RATIO 6-28 SODIUM (test code = 2230) 137 MEQ/L 133-146 POTASSIUM (test code = 2227) 4.0 MEQ/L 3.5-5.4 CHLORIDE (test code = 5) 99 MEQ/L 95-107 CARBON DIOXIDE (test code = 6) 25 MEQ/L 19-31 CALCIUM (test code = 220) 9.5 MG/DL 8.5-10.5 PROTEIN, TOTAL (test code = 222) 6.9 G/DL 6.1-8.3 ALBUMIN (test code = 2201) 4.5 G/DL 3.5-5.2 CALC GLOBULIN (test code = 2240) 2.4 G/DL 1.9-3.7 CALC A/G RATIO (test code = 223) 1.9 RATIO 1.0-2.6 BILIRUBIN, TOTAL (test code = 220) 0.3 MG/DL See_Comment [Automated me ssage] The system which generated this result transmitted reference range: <=1.2. The reference range was not used to interpret this result as normal/abnormal. ALKALINE PHOSPHATASE (test code = 2203) 60 U/L 40-112 AST (test code = 2218) 23 U/L 9-40 ALT (test code = 2219) 25 U/L 5-40 HEMOGLOBIN [id number] 06:52:32* Test Item Value Reference Range Interpretation Comme nts HEMOGLOBIN A1c (test code = 13944) 5.5 % 4.2-5.6 UNLESS OTHERWISE INDICATED, ALL TESTING PERFORMED [facility] [employer] [employer] [address] [place] [address] TAX ADJUSTER: KARYN ARCOS M.D. CLIA NUMBER [id number] [facility] [place]. [id number] CBC W/AUTO DIFF WITH [id number] 05:30:02* Test Item Value Reference Range Interpretation Comme nts WBC (test code = 1001) 5.4 K/UL 3.5-11.0 RBC (test code = 1002) 4.52 M/UL 3.80-5.40 HEMOGLOBIN (test code = 1003) 13.5 G/DL 11.5-15.5 HEMATOCRIT (test code = 1004) 40.9 % 34.0-45.0 MCV (test code = 1005) 90.5 fL 80.0-99.0 MCH (test code = 1006) 29.9 PG 25.0-33.0 MCHC (test code = 1007) 33.0 G/DL 31.0-36.0 RDW (test code = 1038) 12.7 % 11.5-15.0 NEUTROPHILS (test code = 1008) 43.2 % LYMPHOCYTES (test code = 1010) 46.3 % MONOCYTES (test code = 1011) 7.6 % EOSINOPHILS (test code = 1012) 2.0 % BASOPHILS (test code = 1013) 0.7 % IMMATURE GRANULOCYTES (test code = 1036) 0.2 % NUCLEATED RBCS (test code = 1065) 0.0 /100 WBC'S See_Comment [Automated messa ge] The system which generated this result transmitted reference range: 0.0. The reference range was not used to interpret this result as normal/abnormal. PLATELET COUNT (test code = 1015) 262 K/UL 130-400 ABSOLUTE NEUTROPHILS (test code = 1066) 2.34 K/UL 1.50-7.50 ABSOLUTE LYMPHOCYTES (test code = 1067) 2.51 K/UL 1.00-4.00 ABSOLUTE MONOCYTES (test code = 1068) 0.41 K/UL 0.20-1.00 ABSOLUTE EOSINOPHILS (test code = 1040) 0.11 K/UL 0.00-0.50 ABSOLUTE BASOPHILS (test code = 1069) 0.04 K/UL 0.00-0.20 ABS IMMATURE GRANULOCYTES (test code = 1020) 0.01 K/UL 0.00-0.10 ABS NUCLEATED RBCS (test code = 96766) 0.00 K/UL 0.00-0.11
[2023-08-09 04:15] LABS: Absolute Lymphocytes (CBC) 0.7 K/uL (0.7-4.9); Hematocrit 39.9 % (36.0-45.0); Lymphocytes % 12.6 % (15.3-44.8); MCV 86.9 fL (80-100); Platelets 207 thou/uL (152-406); RBC Red Blood Cell Count 4.59 M/uL (3.86-4.86)
[2023-08-09 04:29] LABS: Protime INR 1.09
[2023-08-09 05:32] LABS: Albumin 3.6 g/dL (3.4-5.0); Bilirubin Direct 0.1 mg/dL (0-0.2); Bilirubin Indirect, Calculated 0.3 mg/dL (0.2-0.8); Bilirubin Total 0.4 mg/dL (0.2-1.0); Magnesium 1.7 mg/dL (1.6-2.4); Potassium 3.5 mEq/L (3.5-5.1)
[2023-08-09 05:52] LABS: Specific Gravity 1.032 (1.005-1.030)
[2023-08-09 06:04] LABS: Specific Gravity > 1.030 (1.005-1.030); Urine Bacteria <20 /HPF (<20); Urine Bilirubin NEGATIVE (Negative); Urine Blood 3+ (Negative); Urine Clarity Turbid (Clear); Urine Glucose NEGATIVE (Negative); Urine Mucus 2+ /HPF (None Seen); Urine Protein TRACE (Negative); Urine RBC 21-50 /HPF (None Seen); Urine Urobilinogen Normal (Normal); Urine pH 5.5 (5.0-7.0)
[2023-08-09 06:07] LABS: Urine Color Yellow (Yellow)
[2023-08-09 06:08] LABS: Barbiturates NEGATIVE (NEGATIVE); Benzodiazepines NEGATIVE (NEGATIVE); Cocaine NEGATIVE (NEGATIVE); METHAMPHETAM NEGATIVE (NEGATIVE); Methadone NEGATIVE (NEGATIVE); Opiates NEGATIVE (NEGATIVE); Phencyclidine NEGATIVE (NEGATIVE); THC Cannibis NEGATIVE (NEGATIVE)
--- NOTE | 2023-08-09 06:19 | EDPHYS ---
Physician Documentation [facility] Name: Sveta Gutierrez Age: 38 yrs Sex: Female : 1985 Arrival Date: 08/09/2023 Time: 02:51 Bed 7 Private MD: ED Physician Chao Lamb HPI: 08/09 03:47 This 38 yrs old Female presents to ER via Ambulatory with complaints of sp3 Headache, High Blood Pressure, Dizziness, Near Syncope, Difficulty Swallowing, Nausea/Vomiting. 03:47 38-year-old female with history of hypertension, hypothyroidism that presents to the ED sp3 with chief complaint headache, near syncope, dizziness and general malaise/fatigue this been going on "all day". She awoke from sleep with continued headache and so decided to come into the ED for evaluation. Patient reports no thunderclap headache, trauma, chest pain, shortness of breath, or any other signs or symptoms on ROS that are concerning.. 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 - Social history:: Smoking status: Patient denies any tobacco usage or history of. ROS: 03:48 Eyes: Negative for injury, pain, redness, and discharge, ENT: Negative for injury, sp3 pain, and discharge, Neck: Negative for injury, pain, and swelling, Cardiovascular: Negative for chest pain, palpitations, and edema, Respiratory: Negative for shortness of breath, cough, wheezing, and pleuritic chest pain, Abdomen/GI: Negative for abdominal pain, nausea, vomiting, diarrhea, and constipation, Back: Negative for injury and pain, MS/Extremity: Negative for injury and deformity, Skin: Negative for injury, rash, and discoloration, Psych: Negative for depression, anxiety, suicide ideation, homicidal ideation, and hallucinations, Allergy/Immunology: Negative for hives, rash, and allergies, Endocrine: Negative for neck swelling, polydipsia, polyuria, polyphagia, and marked weight changes, Hematologic/Lymphatic: Negative for swollen nodes, abnormal bleeding, and unusual bruising, 03:48 All other systems are negative, Exam: 03:49 Constitutional: This is a well developed, well nourished patient who is awake, alert, sp3 and in no acute distress. Head/Face: Normocephalic, atraumatic. Eyes: Pupils equal round and reactive to light, extra-ocular motions intact. Lids and lashes normal. Conjunctiva and sclera are non-icteric and not injected. Cornea within normal limits. Periorbital areas with no swelling, redness, or edema. ENT: Nares patent. No nasal discharge, no septal abnormalities noted. External auditory canals are clear. Oropharynx with no redness, swelling, or masses, exudates, or evidence of obstruction, uvula midline. Mucous membranes moist. Neck: Trachea midline, no thyromegaly or masses palpated, and no cervical lymphadenopathy. Supple, full range of motion without nuchal rigidity, or vertebral point tenderness. No Meningismus. Chest/axilla: Normal chest wall appearance and motion. Nontender with no deformity. No lesions are appreciated. Cardiovascular: Regular rate and rhythm with a normal S1 and S2. No gallops, murmurs, or rubs. Normal PMI, no JVD. No pulse deficits. Respiratory: Lungs have equal breath sounds bilaterally, clear to auscultation and percussion. No rales, rhonchi or wheezes noted. No increased work of breathing, no retractions or nasal flaring. Abdomen/GI: Soft, non-tender, with normal bowel sounds. No distension or tympany. No guarding or rebound. No evidence of tenderness throughout. Back: No spinal tenderness. No costovertebral tenderness. Full range of motion. Skin: Warm, dry with normal turgor. Normal color with no rashes, no lesions, and no evidence of cellulitis. MS/ Extremity: Pulses equal, no cyanosis. Neurovascular intact. Full, normal range of motion. Neuro: Awake and alert, GCS 15, oriented to person, place, time, and situation. Cranial nerves II-XII grossly intact. Motor strength 5/5 in all extremities. Sensory grossly intact. Cerebellar exam normal. Normal gait. Psych: Awake, alert, with orientation to person, place and time. Behavior, mood, and affect are within normal limits. 04:24 ECG was reviewed by the Attending Physician. EKG demonstrates normal sinus rhythm at 90 sp3 bpm with normal intervals, leftward axis nonspecific diffuse ST/T changes without evidence of acute ischemia. Vital Signs: 03:00 BP 142 / 88; Pulse 102; Resp 16 S; Temp 100(TE); Pulse Ox 98% on R/A; Weight 108.86 kg as6 (R); Height 5 ft. 8 in. (R); Pain 9/10; 04:15 BP 138 / 85; Pulse 88; Resp 23 S; Pulse Ox 98% on R/A; jw7 05:24 BP 133 / 87; Pulse 88; Resp 16 S; Pulse Ox 98% on R/A; jw7 06:00 BP 135 / 84; Pulse 94; Resp 18; Pulse Ox 95% on R/A; km8 03:00 Body Mass Index 36.49 (108.86 kg, 172.72 cm) as6 03:00 Pain Scale: Adult as6 MDM: 03:21 Patient medically screened. sp3 03:49 Data reviewed: vital signs, nurses notes, lab test result(s), radiologic studies. ED sp3 course: 38-year-old female with PMH above now with headache mild to moderate in nature. I am not highly suspicious for subarachnoid hemorrhage, intracranial hemorrhage, meningitis, encephalitis, or any other critical neurological pathology. Consider multiple types of headaches, viral syndrome among others. Will obtain CT scan of the head, laboratory values and treat with Dilaudid and Zofran for symptomatic control. If workup is negative, we will safely discharge patient home to PCP and neurology follow-up. Patient is okay with the plan and all questions have been answered.. 06:17 ED course: Full workup is negative. Temperature is at 100.0 the patient may have a sp3 viral syndrome. Follow-up with PCP recommended along with OTC meds. Blood pressure is normal.. 08/09 03:20 Order name: Basic Metabolic Panel; Complete Time: 05:46 sp3 08/09 03:20 Order name: CBC with Diff; Complete Time: 04:24 sp3 08/09 03:20 Order name: Hepatic Function; Complete Time: 05:46 sp3 08/09 03:20 Order name: Magnesium; Complete Time: 05:46 sp3 08/09 03:20 Order name: Test, Urine; Complete Time: 06:12 sp3 08/09 03:20 Order name: Protime (+inr); Complete Time: 04:54 3 08/09 03:20 Order name: UDS; Complete Time: 06:12 3 08/09 03:20 Order name: Urinalysis w/ reflexes; Complete Time: 06:12 sp3 08/09 03:20 Order name: CT Head Brain wo Cont 3 08/09 03:20 Order name: Chest Single View XRAY 3 08/09 03:20 Order name: EKG; Complete Time: 03:21 3 08/09 03:20 Order name: Cardiac monitoring; Complete Time: 04:14 3 08/09 03:20 Order name: EKG - Nurse/Tech; Complete Time: 04:14 3 08/09 03:20 Order name: IV Saline Lock; Complete Time: 03:52 3 08/09 03:20 Order name: Labs collected and sent; Complete Time: 03:52 3 08/09 03:20 Order name: NPO; Complete Time: 03:27 3 08/09 03:20 Order name: O2 Per Protocol; Complete Time: 04:14 3 08/09 03:20 Order name: O2 Sat Monitoring; Complete Time: 04:14 sp3 Administered Medications: 03:56 Drug: HYDROmorphone IVP 1 mg IVP once Route: IVP; Site: right antecubital; jw7 04:30 Follow up: Response: No adverse reaction; Pain is decreased km8 03:56 Drug: Ondansetron IVP 4 mg IVP once; over 2 minutes Route: IVP; Site: right antecubital;jw7 04:30 Follow up: Response: No adverse reaction km8 Disposition Summary: 08/09/23 06:18 Discharge Ordered Notes: Location: Home sp3 Condition: Stable sp3 Diagnosis - Headache, viral illness sp3 Followup: sp3 - With: Private Physician - When: Upon discharge from the Emergency Department - Reason: Continuance of care Discharge Instructions: - Discharge Summary Sheet sp3 - General Headache Without Cause sp3 - Viral Illness, Adult sp3 Forms: - Medication Reconciliation Form sp3 - Thank You Letter sp3 - Antibiotic Education sp3 - Prescription Opioid Use sp3 - Patient Portal Instructions sp3 - Leadership Thank You Letter sp3 - Work release form as6 Signatures: Dispatcher [employer] Chao Richardson MD MD sp3 Alessandro Calvin RN RN as6 Shayy Lebron RN RN jw7 Lynn Monterroso RN km8
--- NOTE | 2023-08-09 06:19 | ER ---
Nurse's Notes [facility] Name: Sveta Gutierrez Age: 38 yrs Sex: Female : 1985 Arrival Date: 08/09/2023 Time: 02:51 Bed 7 Private MD: Diagnosis: Headache, viral illness Presentation: 08/09 03:00 Chief complaint: Patient states: dizziness, headache, near syncopal episode, vomiting as6 that started yesterday. Coronavirus screen: At this time, the client does not indicate any symptoms associated with coronavirus-19. Ebola Screen: No symptoms or risks identified at this time. Initial Sepsis Screen: Does the patient meet any 2 criteria? No. Patient's initial sepsis screen is negative. Does the patient have a suspected source of infection? No. Patient's initial sepsis screen is negative. Risk Assessment: Do you want to hurt yourself or someone else? Patient reports no desire to harm self or others. Onset of symptoms was August 08, 2023 at 18:00. 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 - Social history:: Smoking status: Patient denies any tobacco usage or history of. Screenin:05 [facility] ED Fall Risk Assessment (Adult) History of falling in the last 3 months, jw7 including since admission No falls in past 3 months (0 pts) Score/Fall Risk Level 0 - 2 = Low Risk Oriented to surroundings, Maintained a safe environment. Abuse screen: Denies threats or abuse. Denies injuries from another. Nutritional screening: No deficits noted. Tuberculosis screening: No symptoms or risk factors identified. Assessment: 03:53 General: Appears in no apparent distress. uncomfortable, Behavior is calm, cooperative. jw7 Pain: Complains of pain in Head and epigastric pain Pain does not radiate. Pain currently is 8 out of 10 on a pain scale. Quality of pain is described as pressure, throbbing, Pain began suddenly, Is continuous. Neuro: Simons Agitation-Sedation Scale (RASS): 0 - Alert and Calm Level of Consciousness is awake, alert, obeys commands, Oriented to person, place, time, situation. Cardiovascular: Capillary refill < 3 seconds Patient's skin is warm and dry. Respiratory: Airway is patent Trachea midline Respiratory effort is even, unlabored, Respiratory pattern is regular, symmetrical. GI: Abdomen is flat, non-distended, Bowel sounds present X 4 quads. Abd is soft X 4 quads Abdomen is tender to palpation in epigastric area. : No deficits noted. EENT: No deficits noted. No signs and/or symptoms were reported regarding the EENT system. Derm: No deficits noted. No signs and/or symptoms reported regarding the dermatologic system. Musculoskeletal: No deficits noted. No signs and/or symptoms reported regarding the musculoskeletal system. 05:00 Reassessment: Patient appears in no apparent distress at this time. Patient and/or jw7 family updated on plan of care and expected duration. Pain level reassessed. Patient is alert, oriented x 3, equal unlabored respirations, skin warm/dry/pink. Patient states feeling better. Vital Signs: 03:00 BP 142 / 88; Pulse 102; Resp 16 S; Temp 100(TE); Pulse Ox 98% on R/A; Weight 108.86 kg as6 (R); Height 5 ft. 8 in. (R); Pain 9/10; 04:15 BP 138 / 85; Pulse 88; Resp 23 S; Pulse Ox 98% on R/A; jw7 05:24 BP 133 / 87; Pulse 88; Resp 16 S; Pulse Ox 98% on R/A; jw7 06:00 BP 135 / 84; Pulse 94; Resp 18; Pulse Ox 95% on R/A; km8 03:00 Body Mass Index 36.49 (108.86 kg, 172.72 cm) as6 03:00 Pain Scale: Adult as6 ED Course: 02:53 Patient arrived in ED. jj6 03:01 Triage completed. as6 03:02 Arm band placed on. as6 03:04 Chao Lamb MD is Attending Physician. sp3 03:05 Patient has correct armband on for positive identification. Bed in low position. Call jw7 light in reach. 03:36 CT Head Brain wo Cont In Process Unspecified. EDMS 03:52 Initial lab(s) drawn, by me, sent to lab. Inserted saline lock: 20 gauge in right jw7 antecubital area, using aseptic technique. Blood collected. 03:58 Chest Single View XRAY In Process Unspecified. EDMS 04:14 EKG done, by ED staff, reviewed by Chao Lamb MD. jw7 06:21 Provided Education on: d/c teaching. km8 06:21 No provider procedures requiring assistance completed. km8 06:32 IV discontinued, intact, bleeding controlled, No redness/swelling at site. Pressure km8 dressing applied. Administered Medications: 03:56 Drug: HYDROmorphone IVP 1 mg IVP once Route: IVP; Site: right antecubital; [facility] 04:30 Follow up: Response: No adverse reaction; Pain is decreased km8 03:56 Drug: Ondansetron IVP 4 mg IVP once; over 2 minutes Route: IVP; Site: right antecubital;[facility] 04:30 Follow up: Response: No adverse reaction km8 Medication: 06:21 VIS not applicable for this client. km8 Outcome: 06:18 Discharge ordered by . sp3 06:32 Discharged to home ambulatory, with family, km8 06:32 Condition: good 06:32 Discharge instructions given to patient, family, Instructed on discharge instructions, follow up and referral plans. Demonstrated understanding of instructions, follow-up care, 06:32 Patient left the ED. km8 Signatures: Dispatcher [employer] Chao Richardson MD MD sp3 Zaira [id number] Alessandro Calvin RN RN as6 Shayy Lebron RN RN jw7 Lynn Monterroso, KAVEH RN km8
[2023-08-09 08:14] VITALS: TEMP 100
[2023-08-09 08:31] VITALS: BP 135/84; O2SAT 95
--- NOTE | 2023-08-09 13:41 | RAD REPORT ---
EXAM DESCRIPTION: RAD - Chest Single View - 08/09/2023 3:56 am CLINICAL HISTORY: Syncope COMPARISON: None. TECHNIQUE: XR CHEST 1 VIEW 08/09/2023 3:20 AM FLIGHT COMMUNICATIONS OFFICER FINDINGS: Cardiac silhouette is normal in size. Lungs are clear without consolidation, atelectasis, mass or edema. There is no pleural effusion. There is no pneumothorax. There are no acute osseous fin dings. IMPRESSION: Clear lungs. Electronically signed by: Yakov Haider MD 08/09/2023 04:25 AM FLIGHT COMMUNICATIONS OFFICER Due to temporary technical issues with the PACS/Fluency reporting system, reports are being signed by the in house radiologists without review as a courtesy to insure prompt reporting. The interpreting radiologist is fully responsible for the content of the report.
--- NOTE | 2023-08-09 13:43 | RAD REPORT ---
EXAM DESCRIPTION: CT - Head Brain Wo Cont - 08/09/2023 6:39 am CLINICAL HISTORY: SYNCOPE COMPARISON: 02/09/2023. TECHNIQUE: CT HEAD WITHOUT IV CONTRAST on 08/09/2023 3:20 AM SPRING CRATER This exam was performed according to our departmental dose-optimization program, which includes autom ated exposure control, adjustment of the mA and/or kV according to patient size and/or use of iterati ve reconstruction technique. FINDINGS: There is no acute hemorrhage, mass effect or midline shift. Skinner-white differentiation is preserved. There is no hydrocephalus. There is no significant volume loss for age. The calvarium is intact. Orbits and globes are unremarkable. The paranasal sinuses are clear. Mastoid air cells are clear. IMPRESSION: No acute intracranial findings. Electronically signed by: Yakov Haider MD 08/09/2023 03:58 AM SPRING CRATER Due to temporary technical issues with the PACS/Fluency reporting system, reports are being signed by the in house radiologists without review as a courtesy to insure prompt reporting. The interpreting radiologist is fully responsible for the content of the report.
--- NOTE | 2023-08-09 15:06 | EKG ---
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
== END ==
LOC: ER 02:51
DX: B34.9 Viral infection, unspecified (principal); I10 Essential (primary) hypertension; E03.9 Hypothyroidism, unspecified
CPT/HCPCS: 93005; 85025; 81001; 80048; 36415; 83735; 81025; 85610; 80076; 80307; 70450; 71045; 96375; 96374; 99284; J1170; J2405

== ENCOUNTER 2024-08-26 20:15 | Emergency (ER) | payer SELFPAY ==
--- OUTSIDE RECORDS SUMMARY | 2024-08-26 20:18 | XMS REPORT | Continuity of Care Document ---
Author Name Unknown Address [address] [facility]. [address] [place] [address] [facility] thconnect Address [address] [facility] [address] [place] [address] Care Team Providers Care Electronics Engineering Manager Name Role Phone Kaylie Cintron Primary Care Physician RADIOLOGY Attending Clinician Unavailable ARGELIA VALDIVIA K.HAyla Attending Clinician Unavailelías ble Doctor Unassigned, [place] Attending Clinician U yuni Valdivia MD, Argelia K.H. Attending Clinician [phone] Lab, Ang - Db Attending Clinician Unavailable Unknown, Attending Attending Clinician Unavailab LINDSAY Joshi Attending Clinician Unavailable Lindsay Vazquez PA-C Attending Clinician [phone] JAMEY TRIVEDI Attending Clinician UnavailJAMEY Barraza Attending Clinician UnavailYvonne Thomas PT, Tere Attending Clinician Un available Jamey Trivedi MD Attending Clinician [phone] VLADIMIR LOPEZ Attending Clinician Unavailable Sallie Pickett PA-C Attending Clinician [phone] Terri De Leon Attending Clinician [phone] Elizabeth Lara, Mireya Ospina Attending Clinician [phone] SALLIE PICKETT Attending Clinician Unavailable CESAR LERNER Attending Clinician Unavail able CESAR LERNER Attending Clinician Unavail able Cesar Lerner MD Attending Clinician [phone] EMMANUELLE MEAD Attending Clinician Unavailable Radiology Attending Clinician Unavailable Navi White Attending Clinician [phone] NAVI OAKES Attending Clinician Unavailable Paco Nance DO Attending Clinician [phone] HUBER MERCER Attending Clinician Unavailable Mckayla Ware MD Attending Clinician [phone] MCKAYLA WARE Attending Clinician Unavailable ARGELIA VALDIVIA K.HAyla Admitting Clinician Unavaila CESAR Pierce Admitting Clinician Unavail able KAYLIE CINTRON Admitting Clinician Unavail able NAVI OAKES Admitting Clinician Unavailable Payers Payer Name Policy Type Policy Number Effective Date Expirati on Date Source [facility] [id number] 2018 00:00:00 Problems Condition Name Condition Details Condition Category Status Onset Date Resolution Date Last Treatment Date Treating Clinician Comments Source Presence of of 52 mg levonorges trel-relea sing intrauteri ne device (IUD) Presence of of 52 mg levonorges trel-relea sing intrauteri ne device (IUD) Disease Active 11-05 00:00: 00 [facility] Obesity (BMI 30.0-34.9) Obesity (BMI 30.0-34.9) Disease Active 04-11 00:00: 00 [facility] History of tubal ligation History of tubal ligation Disease Active 04-11 00:00: 00 [facility] Elevated blood pressure reading without diagnosis of hypertensi on Elevated blood pressure reading without diagnosis of hypertensi on Disease Active 04-11 00:00: 00 [facility] ASCUS of cervix with negative high risk HPV ASCUS of cervix with negative high risk HPV Disease Active 04-11 00:00: 00 Overview: Formattin g of this note might be different from the original. Routine screening in 3 yrs [facility] Allergies, Adverse Reactions, Alerts Allergy Name Allergy Type Status Severity Reaction(s) Onset Date Inactive Date Treating Clinician Comments Source NO KNOWN ALLERGIE S Drug Class Active [facility] Social History Social Habit Start Date Stop Date Quantity Comments Source [facility] Sexual orientation U niversity [facility] Exposure to SARS-CoV-2 (event) 2022-05-13 00:00:00 2022-05-23 08:53:00 Not sure [facility] Alcohol intake 2022-05-23 00:00:00 2022-05-23 00:00:00 0 /d [facility] History of Social function 2020-03-23 00:00:00 2020-03-23 00:00:00 [facility] Sex Assigned At 1985 00:00:00 1985 00:00:00 [facility] Smoking Status Start Date Stop Date Source Never smoked tobacco [facility] Medications Ordered Medication Name Filled Medication Name Start Date Stop Date Current Medication? Ordering Clinician Indication Dosage Frequency Signature (SIG) Comments Components Source phentermine 37.5 mg capsule 04-17 15:31: 49 04-17 00:00 :00 No 37.5mg Take 1 capsule by mouth every morning. [facility] levothyroxi ne 25 mcg tablet 04-17 15:10: 55 Yes 25ug Take 1 tablet by mouth every morning. [facility] losartan 25 mg tablet 04-11 00:00: 00 Yes 25mg Take 1 tablet by mouth in the morning. [facility] hydroCHLORO thiazide 25 mg tablet 04-11 00:00: 00 Yes 25mg Take 1 tablet by mouth in the morning. [facility] chlorhexidi ne 0.12 % mouthwash 04-26 00:00: 00 04-17 00:00 :00 No [id number] 15mL Swish and spit out 15 mL 2 (two) times daily. [facility] acetaminoph en-codeine 300-30 mg tablet 04-26 00:00: 00 04-17 00:00 :00 No [id number] 1{tbl} Take 1 tablet by mouth every 4 (four) hours as needed for Pain (scale 7-10). Indication s: acute pain [facility] NUVARING 0.12-0.015 mg/24 hr vaginal insert 4-23 00:00: 00 04-17 00:00 :00 No [id number] 1{each} Insert 1 Each into vagina once every month. Insert vaginally and leave in place for 3 consecutiv e weeks, then remove for 1 week. [facility] phentermine 37.5 mg capsule 1-21 15:53: 28 Yes 37.5mg Take 37.5 mg by mouth every morning. [facility] lisinopril- hydrochloro thiazide 10-12.5 mg per tablet 2018-08 0 00:00: 00 04-17 00:00 :00 No 1{tbl} Take 1 tablet by mouth in the morning. [facility] Immunizations Ordered Immunization Name Filled Immunization Name Date Status Comments Source Td 2019-01-13 00:00:00 Completed [facility] Td 2019-01-13 00:00:00 Completed [facility] Td 2019-01-13 00:00:00 Completed [facility] Td 2019-01-13 00:00:00 Completed [facility] TD, NOS 2019-01-13 00:00:00 Completed [facility] TD, NOS 2019-01-13 00:00:00 Completed [facility] TD, NOS 2019-01-13 00:00:00 Completed [facility] TD, NOS 2019-01-13 00:00:00 Completed [facility] TD, NOS 2019-01-13 00:00:00 Completed [facility] TD, NOS 2019-01-13 00:00:00 Completed [facility] TD, NOS 2019-01-13 00:00:00 Completed [facility] TD, NOS 2019-01-13 00:00:00 Completed [facility] TD, NOS 2019-01-13 00:00:00 Completed [facility] TD, NOS 2019-01-13 00:00:00 Completed [facility] TD, NOS Unknown Completed [facility] TD, NOS Unknown Completed [facility] TD, NOS Unknown Completed [facility] TD, NOS Unknown Completed [facility] TD, NOS Unknown Completed [facility] TD, NOS Unknown Completed [facility] Vital Signs Vital Name Observation Time Observation Value Comments Heath alonso Systolic blood pressure 2023-05-01 17:33:00 134 mm[Hg] [facility] Diastolic blood pressure 2023-05-01 17:33:00 87 mm[Hg] [facility] Heart rate 2023-05-01 17:32:00 73 /min [facility] Body temperature 2023-05-01 17:32:00 37 Eliana [facility] Respiratory rate 2023-05-01 17:32:00 16 /min [facility] Body height 2023-05-01 17:32:00 172.7 cm [facility] Body weight 2023-05-01 17:32:00 109.317 kg [facility] BMI 2023-05-01 17:32:00 36.64 kg/m2 [facility] Oxygen saturation in Arterial blood by Pulse oximetry 2023-05-01 17:32:00 98 /min [facility] Systolic blood pressure 2023-04-17 20:13:00 122 mm[Hg] [facility] Diastolic blood pressure 2023-04-17 20:13:00 75 mm[Hg] [facility] Heart rate 2023-04-17 20:13:00 67 /min [facility] Body temperature 2023-04-17 20:13:00 36.83 Eliana [facility] Respiratory rate 2023-04-17 20:13:00 18 /min [facility] Body height 2023-04-17 20:13:00 172.7 cm [facility] Body weight 2023-04-17 20:13:00 110.904 kg [facility] BMI 2023-04-17 20:13:00 37.18 kg/m2 [facility] Oxygen saturation in Arterial blood by Pulse oximetry 2023-04-17 20:13:00 96 /min [facility] Body temperature 2022-05-23 14:30:00 36.56 Eliana [facility] Body height 2022-05-23 14:30:00 172.7 cm [facility] Body weight 2022-05-23 14:30:00 111.403 kg [facility] BMI 2022-05-23 14:30:00 37.34 kg/m2 [facility] Systolic blood pressure 2022-04-17 17:54:00 117 mm[Hg] [facility] Diastolic blood pressure 2022-04-17 17:54:00 81 mm[Hg] [facility] Heart rate 2022-04-17 17:54:00 72 /min [facility] Body height 2022-04-17 17:54:00 172.7 cm [facility] Body weight 2022-04-17 17:54:00 111.403 kg [facility] BMI 2022-04-17 17:54:00 37.34 kg/m2 [facility] Oxygen saturation in Arterial blood by Pulse oximetry 2022-04-17 17:54:00 99 /min [facility] Procedures Procedure Date / Time Performed Performing Clinician Source TRANSTHORACIC ECHO (TTE) COMPLETE 2023-05-09 13:30:46 Argelia Valdivia [facility] HB ECG ROUTINE & RHYTHM STRIP 2023-04-17 20:17:11 Argelia Valdivia [facility] CONSENT/REFUSAL FOR DIAGNOSIS AND TREATMENT 2023-04-17 19:49:24 Doctor Unassigned, [place] [facility] REFERRAL- REQUEST/RESPONSE 2023-02-14 05:01:00 Doctor Unassigned, [place] [facility] PATIENT FINANCIAL POLICY 2023-01-22 19:05:41 Doctor Unassigned, [place] [facility] REFERRAL- REQUEST/RESPONSE 2022-12-15 05:01:00 Doctor Unassigned, [place] [facility] MR ANGIOGRAM HEAD WO CONTRAST 2022-05-01 15:49:27 Cesar Lerner [facility] Encounters Start Date/Time End Date/Time Encounter Type Admission Type Attending Clinicians Care Facility Care Department Encounter ID Source 2021-06-19 21:04:38 Emergency [facility] [id number] [facility] 2024-06-04 14:58:35 2024-06-04 14:58:35 Outpatient SFA S[facility] [id number] Murray Bernal 2024-05-28 11:35:14 2024-05-28 11:35:14 Outpatient SFA SFA [id number] Murray Bernal 2024-05-27 11:43:50 2024-05-27 11:43:50 Outpatient SFA SFA [id number] Murray Bernal 2024-05-14 13:53:44 2024-05-14 13:53:44 Outpatient SFA SFA 09 Murray Bernal 2024-04-30 14:00:11 2024-04-30 14:00:11 Outpatient SFA SFA 09 Murray Bernal 2024-04-07 14:25:43 2024-04-07 14:25:43 Outpatient SFA SFA 08 Murray Bernal 2024-03-31 11:21:52 2024-03-31 11:21:52 Outpatient SFA SFA [id number] Murray Bernal 2024-03-13 13:47:37 2024-03-13 13:47:37 Outpatient SFA SFA [id number] Murray Bernal 2024-03-05 18:42:05 2024-03-05 18:42:05 Outpatient SFA SFA 18 Murray Bernal 2024-03-02 18:00:03 2024-03-02 18:00:03 Outpatient SFA SFA 15 Murray Bernal 2024-02-28 13:08:11 2024-02-28 13:08:11 Outpatient SFA SFA 12 Murary Bernal 2024-02-11 15:59:58 2024-02-11 15:59:58 Outpatient SFA SFA [id number] Murray Bernal 2024-02-06 15:02:52 2024-02-06 15:02:52 Outpatient SFA SFA [id number] Murray Bernal 2024-02-05 19:46:57 2024-02-05 19:46:57 Outpatient SFA SFA [id number] Murray Bernal 2024-01-03 12:01:48 2024-01-03 12:01:48 Outpatient SFA SFA [id number] Murray Bernal 2023-12-23 16:56:39 2023-12-23 16:56:39 Outpatient SFA SFA [id number] Murray Bernal 2023-10-24 11:38:46 2023-10-24 11:38:46 Outpatient SFA SFA [id number] Murray Bernal 2023-08-15 08:19:12 2023-08-15 08:19:12 Outpatient SFA SFA [id number] Murray Bernal 2023-08-10 16:07:42 2023-08-10 16:07:42 Outpatient SFA SFA [id number] Murray Bernal 2023-06-27 10:49:55 2023-06-27 10:49:55 Outpatient SFA SFA [id number] Murray Brenal 2023-06-13 08:27:10 2023-06-13 08:27:10 Outpatient SFA SFA [id number] Murray Bernal 2023-05-29 09:43:17 2023-05-29 09:43:17 Outpatient SFA SFA [id number] Murray Bernal 2023-05-29 00:00:00 2023-05-29 00:00:00 Outpatient R RADIOLOGY [facility] [id number] [facility] 2023-05-28 08:06:00 2023-05-28 08:06:00 Outpatient SFA SFA [id number] Murray William Gabe 2023-05-16 00:00:00 2023-05-16 00:00:00 Patient Secure Msg Doctor Unassigned, [place] [facility] 1.2.840.114 350.1.13.10 4.2.7.2.686 [id number] [facility] 2023-05-15 08:05:41 2023-05-15 08:05:41 Outpatient SFA SFA [id number] Murray Bernal 2023-05-15 00:00:00 2023-05-15 00:00:00 Telephone Argelia Valdivia [facility] 1.2.840.114 350.1.13.10 4.2.7.2.686 [id number] [facility] 2023-05-09 07:59:16 2023-05-09 23:59:00 Outpatient R ARGELIA VALDIVIA [facility] [id number] [facility] 2023-05-09 07:59:16 2023-05-09 23:59:00 Hospital Encounter Argelia Valdivia [facility] 1.2.840.114 350.1.13.10 4.2.7.2.686 [id number] [facility] 2023-05-07 08:26:25 2023-05-07 08:26:25 Outpatient SFA SFA [id number] Murray Bernal 2023-05-01 13:15:00 2023-05-01 13:30:00 [employer] Visit Lab, Nomi Sheppard Unknown, Attending PERSON [facility] 1.2.840.114 350.1.13.10 4.2.7.2.686 [id number] [facility] 2023-05-01 12:00:00 2023-05-01 12:52:47 Outpatient LINDSAY PEÑALOZA [facility] [id number] [facility] 2023-05-01 12:00:00 2023-05-01 12:52:47 Urgent Care Lindsay Vazquez Unknown, Attending PERSON [facility] 1.2.840.114 350.1.13.10 4.2.7.2.686 [id number] [facility] 2023-05-01 00:00:00 2023-05-01 00:00:00 Letter (Out) Lindsay Vazquez PERSON [facility] 1.2.840.114 350.1.13.10 4.2.7.2.686 [id number] [facility] 2023-04-18 00:00:00 2023-04-18 00:00:00 Telephone Argelia Valdivia [facility] 1.2.840.114 350.1.13.10 4.2.7.2.686 [id number] [facility] 2023-04-17 15:00:00 2023-04-17 15:54:25 Outpatient R ARGELIA VALDIVIA [facility] [id number] [facility] 2023-04-17 15:00:00 2023-04-17 15:54:25 Office Visit Argelia Valdivia [facility] 1.2.840.114 350.1.13.10 4.2.7.2.686 [id number] [facility] 2023-04-17 00:00:00 2023-04-17 00:00:00 Orders Only Doctor Unassigned, [place] [facility] 1.2.840.114 350.1.13.10 4.2.7.2.686 [id number] [facility] 2023-02-16 00:00:00 2023-02-16 00:00:00 Patient Secure Msg Doctor Unassigned, [place] [facility] 1.2840.114 350.1.13.10 4.2.7.2.686 [id number] [facility] 2023-02-14 15:02:10 2023-02-14 15:02:10 Outpatient SFA SFA [id number] Murray Bernal 2023-02-14 00:00:00 2023-02-14 00:00:00 Orders Only Doctor Unassigned, [place] [facility] 1.840.114 350.1.13.10 4.2.7.2.686 [id number] [facility] 2023-01-29 13:00:00 2023-01-29 13:00:00 Outpatient JAMEY KANG CRAIG [facility] [id number] [facility] 2023-01-22 14:30:00 2023-01-22 15:49:40 Outpatient R JAMEY TRIVEDI [facility] [id number] [facility] 2023-01-22 14:30:00 2023-01-22 15:49:40 Ancillary Visit Tere Alfaro Craig [facility] 1.840.114 350.1.13.10 4.2.7.2.686 [id number] [facility] 2023-01-22 00:00:00 2023-01-22 00:00:00 Orders Only Doctor Unassigned, [place] [facility] 1.2840.114 350.1.13.10 4.2.7.2.686 [id number] [facility] 2023-01-04 15:22:39 2023-01-04 15:22:39 Outpatient [facility] [id number] Murray Bernal 2023-01-03 09:30:00 2023-01-03 09:30:00 Outpatient VLADIMIR PARDO [facility] [id number] [facility] 2022-12-15 12:59:06 2022-12-15 12:59:06 Outpatient [facility] [id number] Murray Bernal 2022-12-15 00:00:00 2022-12-15 00:00:00 Orders Only Doctor Unassigned, [place] [facility] 1.2840.114 350.1.13.10 4.2.7.2.686 [id number] [facility] 2022-10-18 10:56:51 2022-10-18 10:56:51 Outpatient SFA SFA [id number] Murray Bernal 2022-09-27 08:38:22 2022-09-27 08:38:22 Outpatient SFA [facility] [id number] Murray Bernal 2022-08-07 09:29:44 2022-08-07 09:29:44 Outpatient SFA [facility] [id number] Murray William Gabe 2022-07-25 08:03:31 2022-07-25 08:03:31 Outpatient SFA [facility] [id number] Murray William [place] 2022-07-24 16:08:55 2022-07-24 16:08:55 Outpatient SFA [facility] [id number] Murray William [place] 2022-07-18 13:41:31 2022-07-18 13:41:31 Outpatient [facility] [id number] Murray William [place] 2022-05-23 09:30:00 2022-05-23 10:00:00 Office Visit Sallie Pickett [facility] 1.2.840.114 350.1.13.10 4.2.7.2.686 [id number] [facility] 2022-05-23 09:00:00 2022-05-23 09:45:00 Ancillary Visit Terri Crockett Deborah L [facility] 1.2.840.114 350.1.13.10 4.2.7.2.686 [id number] [facility] 2022-05-23 09:30:00 2022-05-23 09:30:00 Outpatient SALLIE LEONARD [facility] [id number] [facility] 2022-05-01 09:54:11 2022-05-01 23:59:00 Outpatient CESAR SANTACRUZ HOWARD [facility] [id number] [facility] 2022-05-01 09:54:11 2022-05-01 23:59:00 Hospital Encounter Cesar Lerner [facility] 1..840.114 350.1.13.10 4.2.7.2.686 [id number] [facility] 2022-04-19 00:00:00 2022-04-19 00:00:00 Patient Secure Msg Doctor Unassigned, [place] [facility] 1..840.114 350.1.13.10 4.2.7.2.686 [id number] [facility] 2022-04-18 12:45:00 2022-04-18 12:45:00 Outpatient EMMANUELLE GARCÍA [facility] [id number] [facility] 2022-04-17 13:00:00 2022-04-17 13:51:02 Outpatient CESAR SANTACRUZ HOWARD [facility] [id number] [facility] 2022-04-17 13:00:00 2022-04-17 13:51:02 Office Visit Yann Cesar Grant [facility] 1..840.114 350.1.13.10 4.2.7.2.686 [id number] [facility] 2022-04-17 13:00:00 2022-04-17 13:51:02 Outpatient CESAR SANTACRUZ HOWARD [facility] [id number] [facility] 2022-04-06 13:20:00 2022-04-06 13:20:00 Outpatient CESAR SANTACRUZ HOWARD [facility] [id number] [facility] 2022-04-02 15:32:06 2022-04-02 23:59:00 Outpatient R RADIOLOGY [facility] RAD [id number] [facility] 2022-04-02 15:00:00 2022-04-02 23:59:00 Hospital Encounter Radiology [facility] 1.2.840.114 350.1.13.10 4.2.7.2.686 [id number] [facility] 2022-03-08 00:00:00 2022-03-08 00:00:00 Patient Secure Msg Doctor Unassigned, [place] [facility] 1.2.840.114 350.1.13.10 4.2.7.2.686 [id number] [facility] 2022-03-02 00:00:00 2022-03-02 00:00:00 Orders Only Doctor Unassigned, [place] [facility] 1.2.840.114 350.1.13.10 4.2.7.2.686 [id number] [facility] 2021-12-05 00:00:00 2021-12-05 00:00:00 Orders Only Doctor Unassigned, [place] [facility] 1.2.840.114 350.1.13.10 4.2.7.2.686 [id number] [facility] 2021-09-15 19:14:00 2021-09-15 21:31:00 Emergency Blair Navi [facility] 1.2.840.114 350.1.13.10 4.2.7.2.686 [id number] [facility] 2021-09-15 19:14:00 2021-09-15 21:31:00 Emergency X [facility] [id number] [facility] 2021-09-15 00:00:00 2021-09-15 00:00:00 Orders Only Doctor Unassigned, [place] [facility] 1.2.840.114 350.1.13.10 4.2.7.2.686 [id number] [facility] 2021-04-26 08:43:00 2021-04-26 08:53:00 Emergency Paco Nance [facility] 1..840.114 350.1.13.10 4.2.7.2.686 [id number] [facility] 2020-10-26 00:00:00 2020-10-26 00:00:00 Outpatient R RADIOLOGY [facility] [id number] [facility] 2020-03-11 11:00:00 2020-03-11 11:00:00 Outpatient R HILDABRINA LINDSAY [facility] [id number] [facility] 2020-03-10 11:00:00 2020-03-10 11:00:00 Outpatient R ARY [facility] [id number] [facility] 2019-12-10 07:57:00 2019-12-10 11:30:27 Telemedici ne Visit Ary [facility] 1..840.114 350.1.13.10 4.2.7.2.686 [id number] 2019-12-10 10:45:00 2019-12-10 10:45:00 Outpatient R ARY LINDSAY [facility] [id number] [facility] 2019-12-03 09:30:00 2019-12-03 09:30:00 Outpatient R HUBER MERCER [facility] [id number] [facility] 2019-11-20 15:17:01 2019-11-20 16:37:15 Office Visit Gail Mckayla [facility] 1..840.114 350.1.13.10 4.2.7.2.686 [id number] 2019-11-20 15:30:00 2019-11-20 15:30:00 Outpatient R WARE, LUCY [facility] [id number] [facility] 2019-11-20 00:00:00 2019-11-20 00:00:00 Orders Only Doctor Unassigned, [place] [facility] 1.840.114 350.1.13.10 4.2.7.2.686 [id number] 2019-11-06 14:00:00 2019-11-06 14:00:00 Outpatient MCKAYLA CUTLER [facility] [id number] [facility] 2019-11-05 15:15:00 2019-11-05 15:15:00 Outpatient HUBER CHASE [facility] [id number] [facility] Results Test Description Test Time Test Comments Results Result Co mments Source TSH, THIRD [id number] 05:44:41* Test Item Value Reference Range Interpretation Comme [facility] TSH, THIRD GENERATION (test code = 2821) 3.060 UIU/ML 0.400-4.100 UNLESS OTHERWISE INDICATED, ALL TESTING PERFORMED AT [facility] [employer] [address] [place] [address] CLINIC ASSISTANT: RENEA FUNEZ M.D. CLIA NUMBER [id number] [facility] [place]. [id number] TSH, THIRD [id number] 06:24:32* Test Item Value Reference Range Interpretation Comme [facility] TSH, THIRD GENERATION (test code = 2821) 9.510 UIU/ML 0.400-4.100 H VITAMIN D, 25 [id number] 06:08:46* Test Item Value Reference Range Interpretation Comme [facility] VITAMIN D, 25 [place] (test code = 4958) 17 NG/ML SEE BELOW L EFFECTIVE 04/2023, PLEASE [...] . . . . . NG/ML 30-100 UNLESS OTHERWISE INDICATED, ALL TESTING PERFORMED AT [facility] [employer] [employer] [address] [place] [address] CLINIC ASSISTANT: RENEA FUNEZ M.D. JOHN NUMBER [id number] [facility] [place]. [id number] Transthoracic echo (TTE)2023-05-10 03:07:47* Test Item Value Reference Range Interpretation Comme nts Height (test code = 1172404594) 68 in Weight (test code = 6313246149) 241 lbs Systolic BP (test code = 2381629366) 117 mmHg Diastolic BP (test code = 5639725026) 75 mmHg Heart Rate (test code = 7575331524) 61 bpm MR max PG (test code = 3684775234) 37.00 mm[Hg] MR max olivier (test code = 3341666905) 303.70 cm/s Ao root diam (test code = 3234456527) 2.90 cm Mr max olivier (test code = 2263257703) 303.7 m/s Aortic root (test code = 2880777998) 2.9 cm Ao root annulus (test code = 8292998955) 2.9 cm BSA (test code = 7308609293) 2.21 m2 LVOT diameter (test code = 7710155383) 2.08 cm LVOT area (test code = 0084231526) 3.40 cm2 LA size (test code = 5980285674) 3.9 cm ACS (test code = 6581155872) 2.14 cm PV PEAK VELOCITY (test code = 6853374349) 79.1 cm/s PV peak gradient (test code = 4297933016) 2.5 mmHg LVIDD (test code = 8432761967) 5.20 cm Left Ventricular End Diastolic Volume by Teichholz Method (test code = 0178689) 129.3 mL IVS (test code = 0691629217) 1.13 cm Interventricular Septum Diastolic Thickness by 2D (test code = 4402962) 1.13 cm LVPWD (test code = 4277908364) 0.99 cm PW (test code = 0840111648) 0.99 cm 0.6-1.1 EF(Teich) (test code = 3558440512) 58.60 % LVIDS (test code = 4732328358) 3.60 cm Left Ventricular End Systolic Volume by Teichholz Method (test code = 1730746) 53.5 mL FS (test code = 4992083437) 31 % EF - 2D (test code = 24106132) 58.60 % LAV(MOD-sp4) (test code = 9203874922) 19.80 mL MV E-F slope (test code = 1813638540) 37.30 cm/s MV Peak E Olivier (test code = 4920315557) 89.6 cm/s MV valve area p 1/2 method (test code = 6810864454) 4.10 cm2 MV dec slope (test code = 0591936163) 486.00 cm/s2 MV P1/2t max olivier (test code = 4402543770) 89.60 cm/s MV Peak A Olivier (test code = 1463200708) 70.2 cm/s E/A ratio (test code = 3785924252) 1.28 ratio LVOT stroke volume (test code = 2287578200) 71.40 cm3 LVOT peak olivier (test code = 3801638095) 91.2 cm/s LVOT mn grad (test code = 9987157211) 1.5 mmHg AV LVOT peak gradient (test code = 9907060900) 3.3 mmHg LVOT peak VTI (test code = 1891063281) 21.0 cm LV V1 mean (test code = 9603800121) 55.70 cm/s Aortic valve mean velocity (test code = 2407579810) 83.8 cm/s Ao peak olivier (test code = 2155832568) 131.8 cm/s Ao VTI (test code = 3028046485) 29.9 cm AV area by cont VTI (test code = 9910261775) 2.4 cm2 AV area peak olivier (test code = 0227429233) 2.4 cm2 Ao max PG (test code = 3141221551) 6.90 mm[Hg] AV peak gradient (test code = 3127780755) 6.9 mmHg AV valve area (test code = 9409279068) 2.39 cm2 AV mean gradient (test code = 7137827045) 3.2 mmHg TR Peak Olivier (test code = 4881149183) 254.4 cm/s Triscuspid Valve Regurgitation Peak Gradient (test code = 4270266491) 25.9 mmHg LA Volume Index (BP) (test code = 7015434700) 12.1 mL/m2 LA volume (BP) (test code = 4264317934) 26.7 mL LAV(MOD-sp2) (test code = 2269200287) 30.10 mL Radiology Study observation (narrative) (test code = 37277-7) CRISTI (test code = CRISTI) ?Left?Ventricle: Left ventricle size is normal. Normal wall thickness. Normal wall motion. Normal systolic function with a visually estimated EF of 55 - 60%. Diastolic dysfunction. ?Tricuspid?Valve: Trace transvalvular regurgitation. Right ventricular systolic pressure is 30-35 mmHg. ?RA pressure is 5-10 mmHg. Left VentricleLeft ventricle size is normal. Normal wall thickness. Normal wall motion. Normal systolic function with a visually estimated EF of 55 - 60%. Diastolic dysfunction.Right VentricleRight ventricle size is normal. Normal systolic function.Left AtriumLeft atrium size is normal.Right AtriumRight atrium size is normal.IVC/SVCRA pressure is 5-10 mmHg.Mitral ValveMitral valve structure is grossly normal. Trace transvalvular regurgitation.Tricusp id ValveTricuspid valve structure is grossly normal. Trace transvalvular regurgitation. Right ventricular systolic pressure is 30-35 mmHg. RA pressure is 5-10 mmHg.Aortic ValveAortic valve opens well.Pulmonic ValveNot well visualized.Ascending AortaNormal sized aortic arch and aortic root.PericardiumNo pericardial effusion.Study DetailsStudy quality experienced technical difficulty. A complete echocardiogram was performed using 2D, color flow Doppler and spectral Doppler. [facility] + FREE T4 [id number] 05:25:24* Test Item Value Reference Range Interpretation Comme nts TSH, THIRD GENERATION (test code = 2821) 7.440 UIU/ML 0.400-4.100 H FREE T4 (THYROXINE) (test code = 2823) 1.26 NG/DL 0.80-1.90 [facility] has i mportant pathology staff changes effective 10/17/2022. New pathology staff will provide uninterrupted, excellent patient care and clinical consultation. See URL: [email or web address]. UNLESS OTHERWISE INDICATED, ALL TESTING PERFORMED AT [facility] [address] [place] [address] CLINIC ASSISTANT: KARYN ARCOS M.D. CLIA NUMBER [id number] [place]. [id number] HEMOGLOBIN [id number] 07:48:13* Test Item Value Reference Range Interpretation Comme [facility] HEMOGLOBIN A1c (test code = 88740) 5.6 % 4.2-5.6 VITAMIN D, 25 [id number] 06:15:08* Test Item Value Reference Range Interpretation Comme [facility] VITAMIN D, 25 OH (test code = [...] . NG/ML 30-100 TSH + FREE T4 [id number] 06:12:15* Test Item Value Reference Range Interpretation Comme [facility] TSH, THIRD GENERATION (test code = 2821) 6.170 UIU/ML 0.400-4.100 H FREE T4 (THYROXINE) (test code = 2823) 0.94 NG/DL 0.80-1.90 [facility] has important pathology staff changes effective 10/17/2022. New pathology staff will provide uninterrupted, excellent patient care and clinical consultation. See URL: [email or web address]. UNLESS OTHERWISE INDICATED, ALL TESTING PERFORMED AT [facility] [address] [place] [address] CLIA: [id number], CAP: [id number] LIPID [id number] 04:45:55* Test Item Value Reference Range Interpretation Comme nts CHOLESTEROL (test code = 2210) 228 MG/DL <200 H TRIGLYCERIDES (test code = 2232) 154 MG/DL <150 H HDL CHOLESTEROL (test code = 2220) 54 MG/DL >39 CALC LDL CHOL (test code = 2237) 145 MG/DL <100 H NOTE: CALCULATED LDL IS BASED ON TAMELA-MIN METHOD WHICHINCLUDES ADJUSTABLE TRIGLYCERIDE:VLDL CHOLESTEROL RATIO.THIS FACTOR VARIES BY MEASURED TRIGLYCERIDE AND NON-HDLCHOLESTEROL CONCENTRATIONS WITH INCREASED CALCULATED LDL SEENIN HIGHER TRIGLYCERIDE OR LOWER NON-HDL SPECIMENS. FOR MOREINFORMATION, SEE CLIENT ANNOUNCEMENT AT [email or web address] RISK RATIO LDL/HDL (test code = 2237) 2.69 RATIO <3.22 COMPREHENSIVE METABOLIC [id number] 04:45:55* Test Item Value Reference Range Interpretation Comme nts GLUCOSE (test code = 2216) 90 MG/DL 70-99 BUN (test code = 2207) 15 MG/DL 6-20 CREATININE (test code = 2213) 0.64 MG/DL 0.60-1.30 eGFR (2020 CKD-EPI) (test code = 17275) 116 ML/MIN/1.73 >60 CALC BUN/CREAT (test code = 5) 23 RATIO 6-28 SODIUM (test code = 2230) 140 MEQ/L 133-146 POTASSIUM (test code = 2227) 4.2 MEQ/L 3.5-5.4 CHLORIDE (test code = 2214) [...] 51 U/L 40-112 AST (test code = 8) 42 U/L 9-40 H ALT (test code = 2219) 78 U/L 5-[address]/NG, NAAT, [id number] 20:41:34* Test Item Value Reference Range Interpretation Comme nts GONORRHEA, NAAT (test code = 73761) NEGATIVE NEGATIVE Note: Testing is performed with [employer] 6800/8800 systems using real-time polymerase chain reaction (PCR) method. CHLAMYDIA, NAAT (test code = 28721) NEGATIVE NEGATIVE Note: Testing is performed with [employer] 6800/8800 systems using real-time polymerase chain reaction (PCR) method. UNLESS OTHERWISE INDICATED, ALL TESTING PERFORMED [facility] [employer] [employer] [address] [place] [address] CLINIC ASSISTANT: KARYN ARCOS M.D. IA NUMBER [id number] [facility] [place]. [id number] VAGINAL PATHOGENS DNA [id number] 14:39:25* Test Item Value Reference Range Interpretation Comme nts VALERIE SPECIES (test code = 59327) NEGATIVE NEGATIVE G. VAGINALIS (test code = 84422) NEGATIVE NEGATIVE T. VAGINALIS (test code = 68096) NEGATIVE NEGATIVE Note: The [employer] [facility] VPIII Microbial Identification Testis a DNA probe test intended for use in the detectionand identification of Valerie species, Gardnerellavaginalis and Trichomonas vaginalis nucleic acid. [id number] 03:12:19* Test Item Value Reference Range Interpretation Comme nts RPR RESULT (test code = 3501) NON-REACTIVE NON-REACTIVE RPR TITER (test code = 3500) NOT INDIC. TITER NOT INDIC. CT/NG, NAAT, [id number] 08:45:29* Test Item Value Reference Range Interpretation Comme nts GONORRHEA, NAAT (test code = 79736) NEGATIVE NEGATIVE IMPORTANT NO CRISSY: SEE ANNOUNCEMENT AT [email or web address] [email or web address] Note: Assay methodology is nucleic acid amplification by park interpretive specialist mediated amplification (TMA) utilizing the Aptima Combo 2 Assay. CHLAMYDIA, NAAT (test code = 13689) NEGATIVE NEGATIVE IMPORTANT NO CRISSY: SEE ANNOUNCEMENT AT [email or web address] [email or web address] Note: Assay methodology is nucleic acid amplification by park interpretive specialist mediated amplification (TMA) utilizing the Aptima Combo 2 Assay. HIV 1/2 4TH GEN, RFLX [id number] 04:23:49* Test Item Value Reference Range Interpretation Comme nts HIV 1/2 4TH GEN, RFLX CONF ( test code = 3514) NON-REACTIVE NON-REACTIVE HEPATITIS PANEL, [id number] 04:23:49* Test Item Value Reference Range Interpretation Comme nts HEPATITIS A IgM (test code = 89076) NON-REACTIVE NON-REACTIVE HEPATITIS B CORE IgM (test code = 4644) NON-REACTIVE NON-REACTIVE HEPATITIS B SURF AG (test code = 2739) NON-REACTIVE NON-REACTIVE HEPATITIS C ANTIBODY (test code = 4675) NON-REACTIVE NON-REACTIVE INTERPRETATION HEPATITIS A: (test code = 2552) (NOTE) Hepatitis A sero logy shows no evidence of acute hepatitis A. INTERPRETATION HEPATITIS B: (test code = 02362) (NOTE) Hepatitis B sero logy shows no evidence of acute hepatitis B andno indication of exposure to hepatitis B virus in the previous ketty eight months. INTERPRETATION HEPATITIS C: (test code = 01074) (NOTE) Hepatitis C sero logy shows no evidence of exposure to hepatitisC virus at this time. It can take up to 12 months after exposure tothe hepatitis C virus for antibodies to become detectable in the blood in certain patients. UNLESS OTHERWISE INDICATED, ALL TESTING PERFORMED [facility] [address] [place] [address] CLINIC ASSISTANT: KARYN ARCOS M.D. IA NUMBER [id number] [facility] [place]. [id number] 03:48:24* Test Item Value Reference Range Interpretation Comme nts RPR RESULT (test code = 3501) NON-REACTIVE NON-REACTIVE RPR TITER (test code = 3500) NOT INDIC. TITER NOT INDIC. [id number] 06:47:38* Test Item Value Reference Range Interpretation [...] ESTRADIOL IN POSTMENOPAUSAL FEMALES, CONSIDER ULTRASENSITIVE ESTRADIOL ([facility] ORDER CODE 5678). METHODOLOGY IS [employer] ELECTROCHEMILUMINESCENT IMMUNOASSAY WITH A LIMIT OF DETECTION OF 17 PG/ML. TSH REFLEX TO FREE [id number] 06:47:38* Test Item Value Reference Range Interpretation Comme nts TSH REFLEX TO FREE T4 (test code = 2834) 4.500 UIU/ML 0.400-4.100 H FREE T4 (THYROXINE)2022-05-15 06:47:38* Test Item Value Reference Range Interpretation Comme nts FREE T4 (THYROXINE) (test code = 2823) 1.11 NG/DL 0.80-1.90 UNLESS OTHERWISE INDICATED, ALL TESTING PERFORMED [facility] [address] [place] [address] CLINIC ASSISTANT: KARYN ARCOS M.D. IA NUMBER [id number] [facility] [place]. [id number] LIPID [id number] 05:43:14* Test Item Value Reference Range Interpretation [...] SPECIMENS. FOR MOREINFORMATION, SEE CLIENT ANNOUNCEMENT AT [email or web address] RISK RATIO LDL/HDL (test code = 2238) 2.82 RATIO <3.22 COMPREHENSIVE METABOLIC [id number] 05:43:14* Test Item Value Reference Range Interpretation Comme nts GLUCOSE (test code = 2217) 98 MG/DL 70-99 BUN (test code = 2208) 12 MG/DL 6-20 CREATININE (test code = 2214) 0.70 MG/DL 0.60-1.30 eGFR (2020 CKD-EPI) (test code = 72911) 114 ML/MIN/1.73 >60 CALC BUN/CREAT (test code [...] (test code = 2218) 19 U/L 5-40 [id number] 05:27:45* Test Item Value Reference Range Interpretation Comme [facility] TESTOSTERONE (test code = 2830) 23 NG/DL See_Comment NOTE: TOTAL TESTOSTERONE ASSAY SENSITIVITY IS 12 NG/DL. TO DETERMINE NORMAL VS. SUBNORMAL TESTOSTERONE IN CHILDREN AND WOMEN, CONSIDER TESTING WITH ULTRASENSITIVE TESTOSTERONE. [Automated message] The system which generated this result transmitted reference range: <=55. The reference range was not used to interpret this result as normal/abnormal. HEMOGLOBIN [id number] 03:49:10* Test Item Value Reference Range Interpretation Comme [facility] HEMOGLOBIN A1c (test code = 45189) 5.4 % 4.2-5.6 HEMOGLOBIN [id number] 02:51:25* Test Item Value Reference Range Interpretation Comme [facility] HEMOGLOBIN A1c (test code = 06413) 5.5 % 4.2-5.6 LIPID [id number] 02:43:47* Test Item Value Reference Range Interpretation [...] SPECIMENS. FOR MOREINFORMATION, SEE CLIENT ANNOUNCEMENT AT [email or web address] RISK RATIO LDL/HDL (test code = 2238) 2.53 RATIO <3.22 COMPREHENSIVE METABOLIC [id number] 02:43:47* Test Item Value Reference Range Interpretation Comme nts GLUCOSE (test code = 2216) 97 MG/DL 70-99 BUN (test code = 2207) 10 MG/DL 6-20 CREATININE (test code = 2214) 0.72 MG/DL 0.60-1.30 eGFR (2020 CKD-EPI) (test code = 46245) 110 ML/MIN/1.73 >60 CALC BUN/CREAT (test code = 2235) 14 RATIO 6-28 SODIUM (test code = 223) 141 MEQ/L 133-146 POTASSIUM (test code = 2228) 4.1 MEQ/L 3.5-5.4 CHLORIDE (test code = 2215) 100 MEQ/L 95-107 CARBON DIOXIDE (test code = 2206) 26 MEQ/L 19-31 CALCIUM (test code = 2209) 9.8 MG/DL 8.5-10.5 PROTEIN, TOTAL (test code = 222) 7.0 G/DL 6.1-8.3 ALBUMIN (test code = [...] H UNLESS OTHERWISE INDICATED, ALL TESTING PERFORMED [facility] [employer] [employer] [address] [place] [address] CLINIC ASSISTANT: KARYN ARCOS M.D. CLIA NUMBER [id number] [facility] [place]. [id number] TSH, THIRD [id number] 10:06:53* Test Item Value Reference Range Interpretation Comme [facility] TSH, THIRD GENERATION (test code = 2821) 5.010 UIU/ML 0.400-4.100 H VITAMIN D, 25 [id number] 07:26:02* Test Item Value Reference Range Interpretation Comme [facility] VITAMIN D, 25 OH (test code = [...] . . . . NG/ML 30-100 LIPID [id number] 07:19:20* Test Item Value Reference Range Interpretation [...] SPECIMENS. FOR MOREINFORMATION, SEE CLIENT ANNOUNCEMENT AT [email or web address] RISK RATIO LDL/HDL (test code = 2237) 2.98 RATIO <3.22 COMPREHENSIVE METABOLIC [id number] 07:19:20* Test Item Value Reference Range Interpretation Comme nts GLUCOSE (test code = 2216) 89 MG/DL 70-99 BUN (test code = 2207) 11 MG/DL 6-20 CREATININE (test code = 2213) 0.66 MG/DL 0.60-1.30 eGFR (2020 CKD-EPI) (test code = 12319) 116 ML/MIN/1.73 >60 CALC BUN/CREAT (test code = 2234) 17 RATIO 6-28 SODIUM (test code = 2230) 137 MEQ/L 133-146 POTASSIUM (test code = 2227) 4.0 MEQ/L 3.5-5.4 CHLORIDE (test code = 2214) 99 MEQ/L 95-107 CARBON DIOXIDE (test code = 2205) 25 MEQ/L 19-31 CALCIUM (test code = 2208) 9.5 MG/DL 8.5-10.5 PROTEIN, TOTAL (test code = 2228) 6.9 G/DL 6.1-8.3 ALBUMIN (test code = 2200) 4.5 G/DL 3.5-5.2 CALC GLOBULIN (test code = 2240) 2.4 G/DL 1.9-3.7 CALC A/G RATIO (test code = 2233) 1.9 RATIO 1.0-2.6 BILIRUBIN, TOTAL (test code = 2206) 0.3 MG/DL See_Comment [Automated me ssage] The system which generated this result transmitted reference range: <=1.2. The reference range was not used to interpret this result as normal/abnormal. ALKALINE PHOSPHATASE (test code = 2203) 60 U/L 40-112 AST (test code = 8) 23 U/L 9-40 ALT (test code = 9) 25 U/L 5-40 HEMOGLOBIN [id number] 06:52:32* Test Item Value Reference Range Interpretation Comme nts HEMOGLOBIN A1c (test code = 25140) 5.5 % 4.2-5.6 UNLESS OTHERWISE INDICATED, ALL TESTING PERFORMED [facility] [address] [place], [place] [id number] CLINIC ASSISTANT: KARYN ARCOS M.D. CLIA NUMBER [id number] [facility] [place]. [id number] CBC W/AUTO DIFF WITH [id number] 05:30:02* Test Item Value Reference Range Interpretation [...] 0.00-0.10 ABS NUCLEATED RBCS (test code = 95031) 0.00 K/UL 0.00-0.11
--- NOTE | 2024-08-26 21:14 | RAD REPORT ---
EXAM: CT brain without contrast HISTORY: HEADACHE COMPARISON: 08/09/2023 TECHNIQUE: Multiple contiguous axial images were obtained and a CT of the brain without contrast. Sag ittal and coronal reformats were performed. One or more of the following dose reduction techniques were used: Automated exposure control, adjust ment of the mA and/or kV according to patient size, and/or iterative reconstruction. FINDINGS: No evidence of hydrocephalus, intracranial hemorrhage, or extra-axial fluid collection. The brain is normal in morphology. No evidence of midline shift or areas of brain edema. The calvarium is intact. The visualized paranasal sinuses and mastoid air cells are essentially clear . IMPRESSION: No evidence of acute intracranial abnormality.
--- NOTE | 2024-08-26 21:15 | RAD REPORT ---
EXAMINATION: ONE VIEW CHEST XR CLINICAL INDICATION: htn TECHNIQUE: Frontal chest projection is submitted. Examination is limited by patient positioning and t echnique. COMPARISON: 08/09/2023 FINDINGS: The lungs are well inflated and clear. The heart is normal in size. No displaced fractures identified . IMPRESSION: No acute intrathoracic abnormalities.
[2024-08-26 21:29] LABS: Absolute Eosinophils 0.1 K/uL (0-0.5); Absolute Lymphocytes (CBC) 2.2 K/uL (0.7-4.9); Absolute Monocytes 0.4 K/uL (0.1-1.3); Absolute Neutrophil 3.3 K/uL (1.8-8.0); Basophils % 0.7 % (0-1.3); Hematocrit 41.4 % (36.0-45.0); Lymphocytes % 36.1 % (15.3-44.8); MCH 29.7 pg (27.0-35.0); MCHC 33.9 g/dL (32.0-36.0); MCV 87.5 fL (80-100); MPV 7.6 fL (7.6-11.3); Monocytes % 6.6 % (3.3-12.3); Neutrophils % 54.6 % (41.7-73.7); Nucleated Red Blood Cells % 0.2 % (0-0); Platelets 297 thou/uL (152-406); RBC Red Blood Cell Count 4.73 M/uL (3.86-4.86); Red Cell Distribution Width 13.4 % (12.1-15.2)
[2024-08-26] MEDS ORDERED: dexAMETHasone 10 MG/ML VIAL ONE (21:32)
[2024-08-26 21:33] LABS: PTT, Activated Partial Thromb 30.2 SECONDS (24.3-36.9); Protime INR 0.98
[2024-08-26] MEDS ORDERED: METOCLOPRAMIDE 10 MG/2mL INJ ONE (21:33)
[2024-08-26] MEDS ORDERED: NA CHLORIDE 0.9% 1,000 ML ONE (21:33)
[2024-08-26] MEDS ORDERED: DIPHENHYDRAMINE 50 MG/ML VIAL ONE (21:33)
[2024-08-26] MEDS ORDERED: KETOROLAC 30 MG/ML INJ ONE (21:33)
[2024-08-26 21:51] LABS: ALT/SGPT 41 U/L (13-56); AST/SGOT 23 U/L (15-37); Albumin 3.6 g/dL (3.4-5.0); Alkaline Phosphatase 63 U/L (45-117); Anion Gap 6.9 mEq/L (5.0-15.0); BUN Blood Urea Nitrogen 15 mg/dL (7-18); Bicarbonate 30 mEq/L (21-32); Bilirubin Total 0.4 mg/dL (0.2-1.0); Globulin 3.6 g/dL (2.3-3.5); Glomerular Filtration Rate 94 ml/min (=/>90); Glucose Level 97 mg/dL (74-106); Potassium 3.9 mEq/L (3.5-5.1); Protein, Total 7.2 g/dL (6.4-8.2); Sodium Level 138 mEq/L (136-145); Troponin High Sensitivity 8.1 pg/mL (<58.9)
[2024-08-26 21:58] LABS: Bilirubin Direct < 0.2 mg/dL (0-0.2); Bilirubin Indirect, Calculated 0.2 mg/dL (0.2-0.8)
[2024-08-26 22:00] LABS: Specific Gravity 1.013 (1.005-1.030); Sqamous Epithelial <5 /HPF (None Seen); Urine Bacteria None Seen /HPF (<20); Urine Bilirubin NEGATIVE (Negative); Urine Blood Trace (Negative); Urine Clarity Clear (Clear); Urine Color Light-Yellow (Yellow); Urine Culture Reflex Order NOT NEEDED; Urine Glucose NEGATIVE (Negative); Urine Ketones NEGATIVE (Negative); Urine Microscopic Reflex YN ORDER UMIC; Urine Nitrite NEGATIVE (Negative); Urine Protein NEGATIVE (Negative); Urine RBC <5 /HPF (None Seen); Urine Urobilinogen 1+ (Normal); Urine WBC <5 /HPF (<5); Urine pH 6.5 (5.0-7.0)
--- NOTE | 2024-08-26 22:19 | EDPHYS ---
Physician Documentation [facility] Name: Sveta Gutierrez Age: 39 yrs Sex: Female : 1985 Arrival Date: 08/26/2024 Time: 20:15 Bed 6 Private MD: ED Physician Luciano Jara HPI: 08/26 22:13 This 39 yrs old Female presents to ER via Ambulatory with complaints of High kb Blood Pressure. 22:13 Patient is a 39-year-old female with a history of hypertension who presents for high kb blood pressure, dizziness, headache that started 4 days ago. States she has been doubling up on her losartan to keep the blood pressure under control. Reports headache is to left side of her head most of the time, intermittently on the right side as well. Denies nausea, vomiting, chest pain, shortness of breath. DRIVE THRU ORDER TAKER: 20:42 LMP 08/17/2024, unknown vc1 Historical: - Allergies: 20:22 No Known Allergies; tm6 - Home Meds: 20:44 Unithroid 75 mcg oral tablet [Active]; losartan 25 mg oral tablet [Active]; fluoxetine vc1 30 mg Oral [Active]; hydrochlorothiazide 25 mg Oral tablet [Active]; - PMHx: 20:22 Hypertensive disorder; Hypothyroidism; tm6 20:44 acid reflux; Edema; Anxiety; vc1 - PSHx: 20:22 Cholecystectomy; Ligation of fallopian tube; tm6 - Immunization history:: Flu vaccine is not up to date. - Infectious Disease History:: Denies. - Social history:: Smoking status: Patient denies any tobacco usage or history of. ROS: 22:14 Constitutional: As per HPI kb Exam: 22:14 Constitutional: This is a well developed, well nourished patient who is awake, alert, kb and in no acute distress. Head/Face: Normocephalic, atraumatic. ENT: Moist Mucous membranes Cardiovascular: Regular rate Respiratory: Respirations even and unlabored. No increased work of breathing. Talking in full sentences Abdomen/GI: Soft, non-tender. No distention Skin: Warm, dry with normal turgor. Normal color. MS/ Extremity: Pulses equal, no cyanosis. Neurovascular intact. Full, normal range of motion. Neuro: Awake and alert, GCS 15, oriented to person, place, time, and situation. 22:14 ECG was reviewed by the Attending Physician. Vital Signs: 20:23 BP 142 / 96; Pulse 67; Resp 17; Pulse Ox 99% on R/A; MAP 110 mmHg; tm6 20:38 BP 124 / 82; Pulse 71; Resp 17; Temp 97.6; Pulse Ox 100% ; Weight 117.48 kg; Height 5 vc1 ft. 8 in. ; 21:10 BP 149 / 96; Pulse 67; Resp 18 S; Pulse Ox 99% on R/A; ha1 21:36 BP 133 / 75; Pulse 57; Resp 16; Pulse Ox 98% on R/A; dd2 20:38 Body Mass Index 39.38 (117.48 kg, 172.72 cm) vc1 MDM: 20:25 Medical Screening Exam initiated kb 22:14 Differential diagnosis: hypertensive crisis, Malignant HTN, intracerebral hemorrhage, kb migraine, tension headache. Data reviewed: vital signs, nurses notes. Counseling: I had a detailed discussion with the patient and/or guardian regarding the historical points, exam findings, and any diagnostic results supporting the discharge/admit diagnosis, lab results, radiology results, the need for outpatient follow up, a family practitioner, to return to the emergency department if symptoms worsen or persist or if there are any questions or concerns that arise at home. ED course: Patient educated to keep blood pressure log and follow-up with PCP for possible adjustment of medications. Verbal understanding received. Patient in agreement with outpatient follow-up.. 22:18 ED course: Pt has follow up with PCP tomorrow. kb 08/26 20:40 Order name: Basic Metabolic Panel; Complete Time: 22:03 kb 08/26 20:40 Order name: CBC with Diff; Complete Time: 21:38 kb 08/26 20:40 Order name: Hepatic Function; Complete Time: 22:03 kb 08/26 20:40 Order name: Magnesium; Complete Time: 22:03 kb 08/26 20:40 Order name: Protime (+inr); Complete Time: 21:38 kb 08/26 20:40 Order name: Ptt, Activated; Complete Time: 21:38 kb 08/26 20:40 Order name: Troponin High Sensitivity; Complete Time: 22:03 kb 08/26 20:40 Order name: Urinalysis w/ reflexes; Complete Time: 22:03 kb 08/26 20:40 Order name: CT Head Brain wo Cont; Complete Time: 21:18 kb 08/26 20:40 Order name: Chest Single View XRAY; Complete Time: 21:18 kb 08/26 20:40 Order name: Cardiac monitoring; Complete Time: 21:55 kb 08/26 20:40 Order name: EKG - Nurse/Tech; Complete Time: 21:55 kb 08/26 20:40 Order name: IV Saline Lock; Complete Time: 21:33 kb 08/26 20:40 Order name: Labs collected and sent; Complete Time: 21:33 kb 08/26 20:40 Order name: NPO; Complete Time: :55 kb 08/26 20:40 Order name: O2 Per Protocol; Complete Time: :34 kb 08/26 20:40 Order name: O2 Sat Monitoring; Complete Time: 21:34 kb EC:14 Rate is 66 beats/min. Rhythm is regular. QRS [place] is Normal. NC interval is normal at kb 136 msec. QRS interval is normal at 94 msec. QT interval is normal at 436 msec. Administered Medications: 21:25 Drug: Ketorolac IVP 15 mg IVP once Route: IVP; Site: right antecubital; 1 22:00 Follow up: Response: No adverse reaction; Marked relief of symptoms ha1 21:27 Drug: diphenhydrAMINE IVP 12.5 mg IVP once Route: IVP; Site: right antecubital; 1 22:00 Follow up: Response: No adverse reaction; Marked relief of symptoms ha1 21:30 Drug: Decadron - Dexamethasone IVP 10 mg IVP once Route: IVP; Site: left forearm; ha1 22:00 Follow up: Response: No adverse reaction; Marked relief of symptoms ha1 21:33 Drug: metoCLOPramide IVP 10 mg IVP once; over 1 to 2 minutes Route: IVP; Site: right ha antecubital; 22:00 Follow up: Response: No adverse reaction; Marked relief of symptoms ha1 21:35 Drug: NS 0.9% IV 1000 ml IV at 1000 ml once; to be given as a bolus over 60 minutes ha1 Route: IV; Rate: 1000 ml; Site: right antecubital; 22:22 Follow up: Response: No adverse reaction; Marked relief of symptoms; IV Status: ha1 Completed infusion; IV Intake: 1000ml Disposition: 22:46 Co-signature as Attending Physician, Luciano Jara MD I agree with the assessment sp4 and plan of care. I reviewed the patient's care provided by the Advanced Practice Provider and agree with the diagnosis and treatment plan. Disposition Summary: 08/26/24 22:18 Discharge Ordered Notes: Location: Home kb Condition: Stable kb Diagnosis - Headache kb - Essential (primary) hypertension kb Followup: kb - With: Emergency Department - When: As needed - Reason: Worsening of condition Followup: kb - With: Private Physician - When: 2 - 3 days - Reason: Recheck today's complaints, Continuance of care, Re-evaluation by your physician Discharge Instructions: - Discharge Summary Sheet kb - Hypertension, Adult, [id number] kb - General Headache Without Cause, [id number] kb - Managing Your Hypertension kb Forms: - Medication Reconciliation Form kb - Antibiotic Education kb - Prescription Opioid Use kb - Patient Portal Instructions kb - Leadership Thank You Letter kb Signatures: Dispatcher [employer] EDMS Noemi Romo, PARTY PLAN SALESPERSON-C PARTY PLAN SALESPERSON-Zahraa Madsen, RN RN vc1 Cassie Burnette RN RN ha1 Luciano Jara MD MD sp4 Chanel Finnegan RN RN tm6 Corrections: (The following items were deleted from the chart) 20:41 20:41 BASIC METABOLIC PANEL+C.LAB.BRZ ordered. EDMS EDMS 20:41 20:41 CBC+H.LAB.BRZ ordered. EDMS EDMS 20:41 20:41 HEPATIC FUNCTION+C.LAB.BRZ ordered. EDMS EDMS 20:41 20:41 MAGNESIUM+C.LAB.BRZ ordered. EDMS EDMS 20:41 20:41 PROTIME (+INR)+COAG.LAB.BRZ ordered. EDMS EDMS 20:41 20:41 PTT, ACTIVATED+COAG.LAB.BRZ ordered. EDMS EDMS 20:41 20:41 Troponin High Sensitivity+C.LAB.BRZ ordered. EDMS EDMS 20:41 20:41 Urinalysis+U.LAB.BRZ ordered. EDMS EDMS 20:41 20:41 Head Brain Wo Cont+CT.RAD.BRZ ordered. EDMS EDMS 20:41 20:41 Chest Single View+RAD.RAD.BRZ ordered. EDMS EDMS
--- NOTE | 2024-08-26 22:19 | ER ---
Nurse's Notes [facility] Name: Sveta Gutierrez Age: 39 yrs Sex: Female : 1985 Arrival Date: 08/26/2024 Time: 20:15 Bed 6 Private MD: Diagnosis: Headache;Essential (primary) hypertension Presentation: 08/26 20:38 Chief complaint: Patient states: high blood pressure with dizziness, headache, and vc1 nausea times 4 days. Coronavirus screen: Client denies travel out of the [place] in the last 14 days. At this time, the client does not indicate any symptoms associated with coronavirus-19. Ebola Screen: Patient negative for fever greater than or equal to 101.5 degrees Fahrenheit, and additional compatible Ebola Virus Disease symptoms Patient denies exposure to infectious person. Patient denies travel to an Ebola-affected area in the 21 days before illness onset. No symptoms or risks identified at this time. Initial Sepsis Screen: Does the patient meet any 2 criteria? No. Patient's initial sepsis screen is negative. Does the patient have a suspected source of infection? No. Patient's initial sepsis screen is negative. Risk Assessment: Do you want to hurt yourself or someone else? Patient reports no desire to harm self or others. Onset of symptoms was August 22, 2024. Care prior to arrival: None. Activity prior to arrival: None. Mechanism of Injury: No Mechanism of Injury. Transition of care: patient was not received from another setting of care. 20:38 Method Of Arrival: Ambulatory vc1 20:38 Acuity: TRISTEN 3 vc1 Triage Assessment: 20:42 General: Appears in no apparent distress. comfortable, Behavior is cooperative, vc1 anxious. Pain: Complains of pain in left restoration and left side of forehead Pain radiates to occipital area Quality of pain is described as pressure, sharp, Also complains of nausea, dizziness. EENT: No deficits noted. No signs and/or symptoms were reported regarding the EENT system. Neuro: Level of Consciousness is awake, alert, obeys commands, Oriented to person, place, time, situation, Appropriate for age Reports dizziness, headache in left frontal area. Cardiovascular: Capillary refill < 3 seconds Patient's skin is warm and dry. Respiratory: Airway is patent Respiratory effort is even, unlabored, Respiratory pattern is regular, symmetrical. GI: No deficits noted. Reports nausea, Patient currently denies vomiting. : No deficits noted. No signs and/or symptoms were reported regarding the genitourinary system. Derm: Skin is intact, is healthy with good turgor, Skin is dry, Skin is normal, Skin temperature is warm. Musculoskeletal: Circulation, motion, and sensation intact. Range of motion: intact in all extremities. UX CONSULTANT: 20:42 LMP 08/17/2024, unknown vc1 Historical: - Allergies: 20:22 No Known Allergies; tm6 - Home Meds: 20:44 Unithroid 75 mcg oral tablet [Active]; losartan 25 mg oral tablet [Active]; fluoxetine vc1 30 mg Oral [Active]; hydrochlorothiazide 25 mg Oral tablet [Active]; - PMHx: 20:22 Hypertensive disorder; Hypothyroidism; tm6 20:44 acid reflux; Edema; Anxiety; vc1 - PSHx: 20:22 Cholecystectomy; Ligation of fallopian tube; tm6 - Immunization history:: Flu vaccine is not up to date. - Infectious Disease History:: Denies. - Social history:: Smoking status: Patient denies any tobacco usage or history of. Screenin:41 [facility] ED Fall Risk Assessment (Adult) History of falling in the last 3 months, vc1 including since admission No falls in past 3 months (0 pts) Confusion or Disorientation No (0 pts) Intoxicated or Sedated No (0 pts) Impaired Gait No (0 pts) Mobility Assist Device Used No (0 pt) Altered Elimination No (0 pt) Score/Fall Risk Level 0 - 2 = Low Risk Oriented to surroundings, Maintained a safe environment, Educated pt \T\ family on fall prevention, incl call for assistance when getting out of bed. Abuse screen: Denies threats or abuse. Nutritional screening: No deficits noted. Tuberculosis screening: No symptoms or risk factors identified. Assessment: 20:28 General: Appears uncomfortable, Behavior is cooperative. Pain: Complains of pain in ha1 head Pain does not radiate. Pain currently is 7 out of 10 on a pain scale. Quality of pain is described as pressure. Neuro: Level of Consciousness is awake, alert, obeys commands, Oriented to person, place, time, situation. Neuro: Reports dizziness, headache in entire. Cardiovascular: Capillary refill < 3 seconds Patient's skin is warm and dry. Respiratory: Airway is patent Respiratory effort is even, unlabored, Respiratory pattern is regular, symmetrical. GI: Abdomen is round non-distended, obese. : No signs and/or symptoms were reported regarding the genitourinary system. Derm: Skin is pink, warm \T\ dry. Musculoskeletal: Circulation, motion, and sensation intact. Range of motion: intact in all extremities. 21:30 Reassessment: Patient and/or family updated on plan of care and expected duration. Pain ha1 level reassessed. Patient is alert, oriented x 3, equal unlabored respirations, skin warm/dry/pink. 22:00 Reassessment: Patient and/or family updated on plan of care and expected duration. Pain ha1 level reassessed. Patient is alert, oriented x 3, equal unlabored respirations, skin warm/dry/pink. Patient denies pain at this time. Patient states feeling better. Patient states symptoms have improved. Vital Signs: 20:23 BP 142 / 96; Pulse 67; Resp 17; Pulse Ox 99% on R/A; MAP 110 mmHg; tm6 20:38 BP 124 / 82; Pulse 71; Resp 17; Temp 97.6; Pulse Ox 100% ; Weight 117.48 kg; Height 5 vc1 ft. 8 in. ; 21:10 BP 149 / 96; Pulse 67; Resp 18 S; Pulse Ox 99% on R/A; ha1 21:36 BP 133 / 75; Pulse 57; Resp 16; Pulse Ox 98% on R/A; dd2 20:38 Body Mass Index 39.38 (117.48 kg, 172.72 cm) vc1 ED Course: 20:17 Patient arrived in ED. mr 20:25 Noemi Romo FNP-C is [facility]. kb 20:25 Luciano Jara MD is Attending Physician. kb 20:41 Triage completed. vc1 20:41 Arm band placed on right wrist. vc1 20:41 Patient has correct armband on for positive identification. Bed in low position. Call vc1 light in reach. Provided Education on: call light. Pulse ox on. NIBP on. 20:43 BRIAN FRAZIER, RN is Primary Nurse. dd2 20:57 CT Head Brain wo Cont In Process Unspecified. EDMS 20:59 Chest Single View XRAY In Process Unspecified. EDMS 21:34 Basic Metabolic Panel Sent. vk 21:34 CBC with Diff Sent. vk 21:34 Hepatic Function Sent. vk 21:34 Magnesium Sent. vk 21:34 Troponin High Sensitivity Sent. vk 22:44 No provider procedures requiring assistance completed. IV discontinued, intact, dd2 bleeding controlled, No redness/swelling at site. Pressure dressing applied. Administered Medications: 21:25 Drug: Ketorolac IVP 15 mg IVP once Route: IVP; Site: right antecubital; ha1 22:00 Follow up: Response: No adverse reaction; Marked relief of symptoms ha1 21:27 Drug: diphenhydrAMINE IVP 12.5 mg IVP once Route: IVP; Site: right antecubital; ha1 22:00 Follow up: Response: No adverse reaction; Marked relief of symptoms ha1 21:30 Drug: Decadron - Dexamethasone IVP 10 mg IVP once Route: IVP; Site: left forearm; ha1 22:00 Follow up: Response: No adverse reaction; Marked relief of symptoms ha1 21:33 Drug: metoCLOPramide IVP 10 mg IVP once; over 1 to 2 minutes Route: IVP; Site: right ha1 antecubital; 22:00 Follow up: Response: No adverse reaction; Marked relief of symptoms ha1 21:35 Drug: NS 0.9% IV 1000 ml IV at 1000 ml once; to be given as a bolus over 60 minutes ha1 Route: IV; Rate: 1000 ml; Site: right antecubital; 22:22 Follow up: Response: No adverse reaction; Marked relief of symptoms; IV Status: ha1 Completed infusion; IV Intake: 1000ml Medication: 20:41 VIS not applicable for this client. vc1 Intake: 22:22 IV: 1000ml; Total: 1000ml. ha1 Outcome: 22:18 Discharge ordered by . kb 22:44 Discharged to home ambulatory, dd2 22:44 Condition: stable 22:44 Discharge instructions given to patient, family, Instructed on discharge instructions, follow up and referral plans. Demonstrated understanding of instructions, follow-up care, 22:45 Patient left the ED. dd2 Signatures: Dispatcher [employer] EDMS Noemi Romo, TRAINING INSTRUCTOR-C TRAINING INSTRUCTOR-Ckb Gina Hayes, Reg Reg mr Zahraa English RN RN vc1 Cassie Burnette RN RN ha1 Chanel Finnegan, RN RN tm6 Coral Reynoso DIANA, RN RN dd2
[2024-08-26 23:19] VITALS: TEMP 97.6
[2024-08-26 23:24] VITALS: BP 133/75; O2SAT 98
--- NOTE | 2024-08-31 10:58 | EKG ---
Test Date: 2024-08-26 Test Time: 21:52:49 Lean Coach: ZAHEER MEASUREMENT RESULTS: Intervals: Rate: 66 GA: 136 QRSD: 94 QT: 416 QTc: 436 Kenna: P: -20 GA: 136 QRS: -5 T: -9 INTERPRETIVE STATEMENTS: Normal sinus rhythm Possible Anterior infarct, age undetermined Abnormal ECG Compared to ECG 08/09/2023 04:09:23 Left ventricular hypertrophy no longer present Myocardial infarct finding still present Electronically Signed On 08-31-24 10:52:40 MAGNETIC RESONANCE IMAGING DIRECTOR by Skip Workman
== END 2024-08-26 22:45 | disposition home or self-care (01) ==
LOC: ER 20:15
DX: R51.9 Headache, unspecified (principal); I10 Essential (primary) hypertension
CPT/HCPCS: 36415; 70450; 71045; 80048; 80076; 81001; 83735; 84484; 85025; 85610; 85730; 93005; 99284; J1100; J1200; J2765; J7030